=== PATIENT | female | born 1945 | race Caucasian/White ===

== ENCOUNTER 2016-10-16 08:28 | Inpatient (IN) | payer OTHER, MEDICARE ==
[2016-10-04 10:43] VITALS: BMI 39.0
--- NOTE | 2016-10-04 11:38 | PAT Medication Instructions ---
Service Date Oct 04, 2016. Current Home Medication List Acyclovir (Zovirax), 800 MG PO QAM Albuterol (Proair Hfa), 1-2 PUFFS INH Q4-6H PRN for Wheezing Albuterol Soln (Proventil 0.083% 2.5MG/3ML), 2.5 MG INH QID PRN for Wheezing Ascorbic Acid (Vitamin C), 1 TAB PO QPM Carboxymethylcellulose-Glyceri (Optive), 1 DROPS OP QID PRN for DRY EYES Cetirizine (Zyrtec), 10 MG PO QAM Cholecalciferol (Vitamin D), 2,000 INTER.UNIT PO QAM Cyanocobalamin (Vitamin B12), 5,000 MCG PO QAM Furosemide (Lasix), 20 MG PO QPM Insulin Isophane (Human) (Novolin N Relion), UNITS SC UD Insulin Regular (Human) (Novolin R Relion), UNITS SC UD Levothyroxine Sodium (Synthroid), 50 MCG PO QAM Lisinopril (Prinivil), 30 MG PO HS Meclizine (Antivert *), 25 MG PO BID Moxifloxacin Hcl 0.5% Oph (Vigamox 0.5% Oph), 1 DROPS OPR QID Multivitamin (Multivitamin), 1 TAB PO QAM Omeprazole (Prilosec), 40 MG PO QAM Prednisolone Acetate 1% Oph (Pred Forte 1% Oph), 1 DROP OPR BID Prednisone (Prednisone), 3 TAB PO QDAY Triamterene/Hctz (Dyazide 37.5MG/25MG *), 1 CAP PO QPM Medication Instructions For Your Scheduled Surgery Prednisone (Prednisone), 3 TAB PO QDAY (completed prior to surgery) - Hold the following medications the morning of surgery: Multivitamin (Multivitamin), 1 TAB PO QAM Cyanocobalamin (Vitamin B12), 5,000 MCG PO QAM Cholecalciferol (Vitamin D), 2,000 INTER.UNIT PO QAM Cetirizine (Zyrtec), 10 MG PO QAM Insulin Regular (Human) (Novolin R Relion), QAM 10 UNITS Sliding scale UD Insulin Regular (Human) (Novolin R Relion), QLUNCH 15 UNITS Sliding scale UD - Take the following medications the morning of surgery with a sip of water: Prednisolone Acetate 1% Oph (Pred Forte 1% Oph), 1 DROP OPR BID Omeprazole (Prilosec), 40 MG PO QAM Moxifloxacin Hcl 0.5% Oph (Vigamox 0.5% Oph), 1 DROPS OPR QID Meclizine (Antivert *), 25 MG PO BID Levothyroxine Sodium (Synthroid), 50 MCG PO QAM Carboxymethylcellulose-Glyceri (Optive), 1 DROPS OP QID PRN for DRY EYES Albuterol (Proair Hfa), 1-2 PUFFS INH Q4-6H PRN for Wheezing (bring with you to hospital morning of surgery) Albuterol Soln (Proventil 0.083% 2.5MG/3ML), 2.5 MG INH QID PRN for Wheezing Acyclovir (Zovirax), 800 MG PO QAM - Hold the following medications as scheduled the night before surgery: Triamterene/Hctz (Dyazide 37.5MG/25MG *), 1 CAP PO QPM Lisinopril (Prinivil), 30 MG PO HS - Take the following medications as scheduled the night before surgery: Prednisolone Acetate 1% Oph (Pred Forte 1% Oph), 1 DROP OPR BID Moxifloxacin Hcl 0.5% Oph (Vigamox 0.5% Oph), 1 DROPS OPR QID Meclizine (Antivert *), 25 MG PO BID Furosemide (Lasix), 20 MG PO QPM Carboxymethylcellulose-Glyceri (Optive), 1 DROPS OP QID PRN for DRY EYES Ascorbic Acid (Vitamin C), 1 TAB PO QPM Albuterol (Proair Hfa), 1-2 PUFFS INH Q4-6H PRN for Wheezing Albuterol Soln (Proventil 0.083% 2.5MG/3ML), 2.5 MG INH QID PRN for Wheezing Insulin Regular (Human) (Novolin R Relion), QPM 20 UNITS Sliding scale UD Insulin Isophane (Human) (Novolin N Relion), 30-45 UNITS QPM - For Insulin Dependent Diabetic patients: Test blood sugar A.M. of surgery. - If blood sugar greater than 150, take half of your regular dose of: Insulin Isophane (Human) (Novolin N Relion), TAKE 6 UNITS - If blood sugar less than 150, do not take any: Insulin Isophane (Human) (Novolin N Relion) If you have any questions please call us at [phone] (Krystal Manning PA-C) or [phone] or [phone]
[2016-10-04 12:03] LABS: BASO % 0.1 %; BASO ABS # 0.01 K/uL (0-0.2); COMPLETE YES; HEMATOCRIT 35.2 % (37-47); IG% 0.7 %; LYMPH % 8.1 %; LYMPH ABS # 1.19 K/uL (1.2-3.4); MEAN CELL VOLUME 90.7 fL (80-100); MEAN CORPUSCULAR HEMOGLOBIN 31.2 pg (25-34); MEAN CORPUSCULAR HGB CONC 34.4 g/dl (32-36); MEAN PLATELET VOLUME 9.4 fL (7.4-10.4); MONO % 1.2 %; NEUT % 89.9 %; PLATELET COUNT 334 K/uL (130-400); RED BLOOD COUNT 3.88 M/uL (4.2-5.4); WHITE BLOOD COUNT 14.74 K/uL (4.8-10.8)
[2016-10-04 12:24] LABS: URINE APPEARANCE CLEAR (CLEAR); URINE BILIRUBIN NEG (NEG); URINE COLOR YELLOW; URINE NITRITE NEG (NEG); URINE SPECIFIC GRAVITY 1.017 (1.000-1.030); UROBILINOGEN NEG (NEG)
[2016-10-04 12:33] LABS: MANUAL MICROSCOPIC REQUIRED? NO; REVIEW REQ? NO
[2016-10-04 12:45] LABS: BUN/CREATININE RATIO 36.7 (10-20); CALCIUM 9.4 mg/dl (8.5-10.1); CREATININE 1.5 mg/dl (0.60-1.20); POTASSIUM 4.7 mmol/L (3.5-5.1)
[2016-10-16] VITALS (9 sets, daily range): BP systolic 108–183; BP diastolic 63–91; PULSE 59–99; TEMP 35.7–36.8; O2SAT 93–99; Ht 147.3 cm; Wt 85.0 kg
[~2016-10-16] VITALS: Ht 147.3 cm; Wt 85.0 kg
[~2016-10-16 08:28] MED LIST: ACYC800T PO; ALBU0.08 INH; ALBU1AER9 INH; ANT25 PO; ASCA500 PO; CARB0.01 OP; CEFAZOLIN 2000 MG/60 ML D5W IV SCH; CETI10TA84 PO; CHOL100010 PO; CYAN100020 PO; CeleBREX 200 MG CAP PO SCH; DYZ PO; FURO-85 PO; INSU0.01 SC; INSU1INJ16 SC; LACTATED RINGER'S 1000ML 1,000 ML IV SCH; LEVO50TA PO; LISI-526 PO; MULT-506 PO; OMEP40CA PO; PRED10TA PO; PRED1SUS3 OPR; PREGABALIN 75 MG CAP PO SCH; VGMOPS OPR
[2016-10-16] MEDS ORDERED: FENTANYL CITRATE INJ 50 MCG/1 ML 2 ML VIAL ONE ×2 (09:27→11:30)
[2016-10-16] MEDS ORDERED: MIDAZOLAM HCL 1 MG/ML 2ML VIAL ONE (09:27)
[2016-10-16] MEDS ORDERED: SCOPOLAMINE 1.5 MG TDSY TD ONE ×2 (09:39→09:45)
--- NOTE | 2016-10-16 09:40 | Discharge Instructions ---
Discharge Instructions Admission Reason for Admission: Lumbar Spinal Stenosis Discharge Discharge Diagnosis / Problem: Lumbar Stenosis Discharge Goals Goal(s): Decrease discomfort, Improve function, Increase independence Activity Recommendations Activity Limitations: as noted below Lifting Limitations: no more than 5 pounds Exercise/Sports Limitations: none May Resume Sexual Activity: after follow-up appointment Shower/Bathe: may shower/bathe in 3 days . Instructions / Follow-Up Instructions / Follow-Up ACTIVITY RECOMMENDATIONS: SELF CARE INSTRUCTIONS AFTER THORACIC/LUMBAR FUSIONS 1. You may walk to your tolerance. It is good exercise for your legs and back. Expect some back and intermittent leg aches and pains. 2. You may perform "counter-top" level activities (make a sandwich, jennifer with a project, etc.). 3. No bending or lifting of more than 10 pounds or back twisting of any nature (roll like a log when turning in bed). 4. You may ride in a car for 20-30 minutes at a time. No driving until after your first visit with your doctor. 5. Frequent changes of position and restricting sitting to 30 minutes at a time will help limit the amount of back spasms and stiffness you may experience. 6. You may discontinue the use of ambulatory aids (cane, crutches, etc.) once your strength and confidence allow. 7. You may motion picture equipment machinist the shower and let water strike your incision when you arrive home at least once daily. Do not take a tub bath, sit in a hot tub or go into a swimming pool until after your first recheck in the office. SPECIAL CARE INSTRUCTIONS: VERY IMPORTANT TO READ AND REVIEW A. Your surgical incision has been closed with a cosmetic suture under the skin that will dissolve in about 6 weeks. In 14 days, you can use a pair of clean scissors and cut the suture that is left outside of the skin at the ends of your incision. 1. The small skin tapes can be removed 7 days after surgery if they have not fallen off by that point. 2. You may keep the wound open to air as much as possible to promote healing after post-op day number 5 unless told otherwise by your doctor. 3. If you think the wound looks like it is becoming infected (redness or worsening drainage) and/or you are experiencing fever, chill or worsening back pain and muscle spasms, contact the office so that we may evaluate you as soon as possible. B. Complications are uncommon, but please contact us if you have any signs or symptoms of: 1. wound infection (fever higher than 102.5 degrees F, redness, separation of wound, drainage, or increasing pain from the incision) 2. blood clots in legs (pain, swelling, redness and warmth in legs) 3. urinary tract infection (fever higher than 102.5 degrees F, burning upon urination or increased frequency of urination) 4. nerve problems (inability to walk on your toes or heels, numbness, loss of bowel or bladder control) 5. any other symptoms that concern you C. Please call the office at if you have any concerns or questions about your operation or recovery. D. No smoking! Smoking drastically decreases the chance of a solid fusion. E. Do not take any anti-inflammatory medications (Indocin, Advil, Motrin, Aspirin, Naprosyn, etc.) as these may inhibit the chance of a solid fusion. Tylenol is okay to take for pain. MANAGING PAIN AFTER SPINAL SURGERY 1. Narcotic medication is intended for short-term use and will be provided for surgical pain. Surgical pain usually lasts for a period of 4-6 weeks. Narcotic medication includes Percocet, Vicodin, Darvocet, Tylenol #3 or Lortab. 2. Longer-term pain is more appropriately treated with non-narcotic medication such as Tylenol ES. 3. Muscle spasm is not appropriately treated with narcotics. Muscle relaxers such as Soma, Flexeril or Skelaxin can be used along with Tylenol ES. 4. Remember that we all live with some "aches and pains". This is not unusual or uncommon after an injury or as we get older. a. Back pain is expected and may include muscle spasms for 4 to 6 weeks after surgery. The pain should gradually improve. If the pain worsens for no apparent reason, please contact the office. b. Intermittent leg pain may also be experienced and should not be concerned about unless it worsens for no apparent reason. If so, please contact the office. 5. We will provide appropriate medication within the normal guidelines of their prescribed use. We will also be very cautious and aware of potential abuse and extended duration of patients' medication needs. a. Pain medications are for your comfort and to assist with sleep and rest so that the tissue can heal. They are not provided in order to return to normal activity and should not be used through the day. To do so or worsening pain at night can result from ongoing tissue damage and development of tolerance to the prescribed medicine. 6. Please allow 2-3 days to process refills. Prescriptions will not be mailed but must be picked up at the office. FOLLOW UP VISIT: Keep your scheduled follow-up appointment. Any questions, please call the office at . Current Hospital Diet Patient's current hospital diet: Discharge Diet Recommended Diet: Diabetes Type 2 Diet Pending Studies Studies pending at discharge: no Laboratory Results Hemoglobin A1c Test 08/14/16 07:05 Range/Units Estimated Average Glucose 146 mg/dl Hemoglobin A1c 6.7 H 4.5-5.6 % Lipid Panel Test 08/14/16 07:05 Range/Units Triglycerides Level 141 0-150 mg/dl Cholesterol Level 234 H 0-200 mg/dl HDL Cholesterol 64 mg/dl Cholesterol/HDL Ratio 3.7 LDL Cholesterol, Calculated 142 mg/dl Medical Emergencies . Who to Call and When: Medical Emergencies: If at any time you feel your situation is an emergency, please call 911 immediately. . Non-Emergent Contact Non-Emergency issues call your: Surgeon Call Non-Emergent contact if: temperature is above 101, your pain is not controlled, your pain is worsening, your pain is unusual for you, your pain is concerning you, wound has increased drainage, wound has increased redness, wound has increased pain, you have any medication questions . "Provider Documentation" section prepared by Norman Campos. VTE Core Measure Inpt VTE Proph given/why not?: Robert Gatica
[2016-10-16] MEDS ORDERED: FENTANYL CITRATE INJ 50 MCG/1 ML 2 ML VIAL IV PRN (09:45)
[2016-10-16] MEDS ORDERED: ONDANSETRON INJ 2 MG/ML 2 ML VIAL IV PRN (09:45)
[2016-10-16] MEDS ORDERED: ATROPINE SULFATE 0.1 MG/ML 5ML SYR IV PRN (09:45)
[2016-10-16] MEDS ORDERED: EpHEDrine SULFATE INJ 50 MG/ML AMP IV PRN (09:45)
[2016-10-16] MEDS ORDERED: MoRPHine SULFATE 10 MG/ML CARP/VIAL IV PRN (09:45)
--- NOTE | 2016-10-16 09:57 | History and Physical ---
History & Physical Date Oct 16, 2016. Chief Complaint LBP and bilateral leg pain History of Present Illness The patient is a 71 year old female with complaints of above who had a prior L4- S1 PSF and did well for a number of years until she developed L3-4 adjacent level degen/stenosis/scoliosis. Her leg pain is greater on left. no weakness or incontinence. she failed outpatient management and desired surgery. Cleared by stress test-negative for surgery. Past Medical/Surgical History Medical Problems: (1) ASTHMA W/ACUTE EXACERBATION NOS (2) ASTHMA, UNSPECIFIED, W (ACUTE) EXACERBATION (3) CERVICAL ROOT LESION NEC (4) DIAB W PERIPH CIRC DIS, TYPE II OR UNSPEC TYPE, UNCONTROLLED (5) DUODENAL ULCER NOS (6) Heart disease (7) HYPOTHYROIDISM NOS (8) MENIERE'S DISEASE, UNSPECIFIED (9) TOBACCO USE DISORDER barretts fatty liver peripheral neuropathy cervical fusion lumbar fusion bladder surgery ear surgery Additional History Hepatic Disease: Yes Endocrine Disorder: Yes Kidney Disease: No Hypertension: Yes Heart Disease: No Bleeding Tendencies: No Infectious Diseases: No Allergies Coded Allergies: Latex1 -Allergic Contact Dermititis (Verified Allergy, Unknown, RASH, ) Acetaminophen (Verified Adverse Reaction, Unknown, have an enlarged liver , 10/16/16) Ibuprofen (Verified Adverse Reaction, Unknown, gave me a duodenal ulcer, ) Tramadol (Verified Adverse Reaction, Unknown, vomit, 10/16/16) Uncoded Allergies: NARCOTICS (Adverse Reaction, Intermediate, GI UPSET AND HALLUCINATIONS, 06/14) Home Medications Scheduled Acyclovir (Zovirax), 800 MG PO QAM Ascorbic Acid (Vitamin C), 1 TAB PO QPM Cetirizine (Zyrtec), 10 MG PO QAM Cholecalciferol (Vitamin D), 2,000 INTER.UNIT PO QAM Cyanocobalamin (Vitamin B12), 5,000 MCG PO QAM Furosemide (Lasix), 20 MG PO QPM Insulin Isophane (Human) (Novolin N Relion), UNITS SC UD Insulin Regular (Human) (Novolin R Relion), UNITS SC UD Levothyroxine Sodium (Synthroid), 50 MCG PO QAM Lisinopril (Prinivil), 30 MG PO HS Meclizine (Antivert *), 25 MG PO BID Moxifloxacin Hcl 0.5% Oph (Vigamox 0.5% Oph), 1 DROPS OPR QID Multivitamin (Multivitamin), 1 TAB PO QAM Omeprazole (Prilosec), 40 MG PO QAM Prednisolone Acetate 1% Oph (Pred Forte 1% Oph), 1 DROP OPR BID Triamterene/Hctz (Dyazide 37.5MG/25MG *), 1 CAP PO QPM Scheduled PRN Albuterol (Proair Hfa), 1-2 PUFFS INH Q4-6H PRN for Wheezing Albuterol Soln (Proventil 0.083% 2.5MG/3ML), 2.5 MG INH QID PRN for Wheezing Carboxymethylcellulose-Glyceri (Optive), 1 DROPS OP QID PRN for DRY EYES Physical Examination Skin: warm/dry Eyes: normal inspection ENT: normal ENT inspection Head: normocephalic, atraumatic Neck: supple Respiratory/Chest: lungs clear, no respiratory distress Cardiovascular: regular rate, rhythm Back: normal inspection (midline scar) Extremities: normal inspection Neurologic/Psych: no motor/sensory deficits, normal reflexes, oriented x 3 Diagnosis L3-4 stenosis above prior fusion Plan of Treatment L3-4 decompression/PSF and HWR L4-S1
[2016-10-16] MEDS ORDERED: BACITRACIN 50000 UNIT VIAL IR ONE ×2 (10:50→11:22)
[2016-10-16] MEDS ORDERED: THROMBIN FOR SOLN 20000 UNIT KIT TOP ONE (10:50)
[2016-10-16] MEDS ORDERED: THROMBIN 5000 UNITS KIT TOP ONE (10:50)
[2016-10-16] MEDS ORDERED: BUPIVACAINE/EPINEPHRINE 0.5% MPF 1:200,000 30 ML VIAL INJ ONE (10:50)
[2016-10-16] MEDS ORDERED: LIDOCAINE HCL 2% 2 ML VIAL (20MG/ML) ONE (11:19)
[2016-10-16] MEDS ORDERED: HYDROmorphone INJ 2 MG/ML SYR/VIAL ONE (11:19)
[2016-10-16] MEDS ORDERED: EpHEDrine SULFATE 50MG/5ML SYR ONE (11:19)
[2016-10-16] MEDS ORDERED: DEXAMETHASONE SOD INJ 4 MG/ML VIAL ONE (11:19)
[2016-10-16] MEDS ORDERED: NEOSTIGMINE METHYLSULFATE 1 MG/ML 10ML VIAL ONE (11:20)
[2016-10-16] MEDS ORDERED: GLYCOPYRROLATE INJ 0.2 MG/ML VIAL ONE (11:20)
[2016-10-16] MEDS ORDERED: ONDANSETRON INJ 2 MG/ML 2 ML VIAL ONE (11:20)
[2016-10-16] MEDS ORDERED: ROCURONIUM BROMIDE 10 MG/ML 5 ML VIAL ONE (11:20)
[2016-10-16] MEDS ORDERED: PROPOFOL IV EMULSION 10 MG/ML 20 ML VIAL IV ONE (11:20)
[2016-10-16] MEDS ORDERED: RANITIDINE HCL 25 MG/ML INJ ONE (11:20)
--- NOTE | 2016-10-16 11:25 | [facility] Post Operative Brief Note ---
Immediate Operative Summary Operative Date Oct 16, 2016. Pre-Operative Diagnosis L3-4 stenosis above prior fusion Post-Operative Diagnosis Same as pre-operative diagnosis Procedure(s) Performed L4-S1 Hardware Removal, L3-L4 Decompression, Posterior Spinal Fusion, Instrumentation, Interbody Fusion With Application of Interbody Cage at L3-L4; Infuse; Arteriocyte Surgeon Dr. Costa Gamez Housekeeping Laundry Worker Surgeon(s) Norman Campos PA-C Estimated Blood Loss 200 Findings dict Specimens A: Explanted hardware spine L4-S1
[2016-10-16] MEDS ORDERED: SODIUM CHLORIDE 0.9% 1000ML 1,000 ML IV SCH (11:26)
[2016-10-16] MEDS ORDERED: ALBUTEROL HFA 8 GM INHALER INH PRN (11:30)
[2016-10-16] MEDS ORDERED: BISACODYL 10 MG SUPP PR PRN (11:30)
[2016-10-16] MEDS ORDERED: ALBUTEROL 0.083% NEBU SOLN 3 ML VIAL INH PRN (11:30)
[2016-10-16] MEDS ORDERED: ALUMINUM/MAGNESIUM SUSP 30 ML UDC PO PRN (11:30)
[2016-10-16] MEDS ORDERED: NALOXONE HCL 0.4 MG/1 ML VIAL/CARP IV PRN ×2 (11:30)
[2016-10-16] MEDS ORDERED: MAGNESIUM HYDROXIDE SUSP 30 ML UDC PO PRN (11:30)
[2016-10-16] MEDS ORDERED: PROMETHAZINE HCL INJ 12.5 MG in SODIUM CHLORIDE 0.9% 50ML 50 ML IV PRN (11:30)
[2016-10-16] MEDS ORDERED: LORAZEPAM INJ 0.5 MG in SYRINGE 0 ML IV PRN (11:30)
[2016-10-16] MEDS ORDERED: FAMOTIDINE 20 MG TAB PO PRN (11:30)
[2016-10-16] MEDS ORDERED: SOD PHOSPHATE/SOD BIPHOSPHATE ENEMA 132 ML BTL PR PRN (11:30)
[2016-10-16] MEDS ORDERED: LORAZEPAM 0.5 MG TAB PO PRN (11:30)
[2016-10-16] MEDS ORDERED: hydrOXYzine HCL 25 MG TAB PO PRN (11:30)
[2016-10-16] MEDS ORDERED: LABETALOL HCL IV 5 MG/ML 20ML ONE (11:50)
[2016-10-16] MEDS ORDERED: HYDROmorphone HCL 0.5MG/ML 50 ML CASSETTE ONE (11:53)
[2016-10-16] MEDS ORDERED: ESMOLOL HCL 10 MG/ML 10 ML VIAL ONE (11:55)
--- NOTE | 2016-10-16 12:21 | OPERATIVE REPORT ---
DATE OF OPERATION: 10/16/2016 PREOPERATIVE DIAGNOSES: 1. Previous L4-S1 instrumented fusion. 2. L3-L4 spinal stenosis and disc degeneration. POSTOPERATIVE DIAGNOSIS: Same. PROCEDURES: 1. L3 laminectomy with bilateral L3-L4 medial facetectomies. 2. Nonsegmental pedicle screw instrumentation -- bilateral L3 with Globus Nixa pedicle screws. 3. Posterolateral fusion L3-L4 -- bilateral with Infuse BMP on a collagen sponge, tricalcium phosphate, local bone and bone marrow aspirate and bone graft pressure controller. 4. Right iliac crest bone marrow aspiration and stem cell concentration with Arteriocyte system. SURGEON: Dr. Gamez. ACCOUNTS RECEIVABLE CLERK: Norman Campos PA-C. Please note he participated in all portions of the procedure and was critical for performance of the procedure, participated in positioning, prepping, draping, retraction and wound closure. ANESTHESIA: General endotracheal anesthesia. COMPLICATIONS: None. ESTIMATED BLOOD LOSS: Per anesthesia record. OPERATION AND FINDINGS: PROCEDURE: After identification of patient and operative level, she was brought to the OR where she underwent induction of general anesthesia. She was then positioned prone on Mark OR table with all bony prominences well padded. Care was taken to avoid pressure on the periorbital area. Lumbosacral area was sterilely prepped and draped in usual fashion. Antibiotics were administered. Time-out was performed. Level was confirmed and skin incision was infiltrated with 0.5% Marcaine with epinephrine. I made skin incision from spinous process of L2 to the sacrum and exposed the previous hardware and identified the fusion mass was solid, removed the rods and endcaps from L4-S1 bilaterally. There was no motion through these segments. I then did an L3 laminectomy in the midline, took down ligament flavum and removed the medial facets with an osteotome and completed decompression with Kerrisons. I palpated the nerve roots were decompressed bilaterally at L3 and L4, and then applied FloSeal for hemostasis. I then placed pedicle screws bilaterally into L3 with Globus Nixa pedicle screws. I checked position with fluoroscopy. I then lowered the Av frame to restore lordosis, applied rods and end caps, final tightening from L3 to the sacrum. I irrigated with bacitracin solution and then aspirated bone marrow from the right iliac crest with a Jamshidi needle via a separate stab incision. This was concentrated with Arteriocyte and added to the bone graft pressure controller. I then packed the lateral gutters over the decorticated transverse process and fusion mass L3 and L4. I then prepared with a high speed zeus. I also decorticated the facets that were remaining. I packed the lateral gutters with bone graft mixture and then confirmed hemostasis and closed in layered fashion over KRYSTA drain. All sponge and needle counts were correct at the end of the case. I attest to the content of the Intraoperative Record and any orders documented therein. Any exceptio ns are noted below.
--- NOTE | 2016-10-16 12:35 | Anesthesiology Progress Note ---
Anesthesia Post Op Note Date & Time Oct 16, 2016 at 12:34 Vital Signs Pain Intensity: 3 Vital Signs Past 12 Hours Date Time Temp Pulse Resp B/P Pulse Ox O2 Delivery O2 Flow Rate FiO2 10/16/16 12:30 36.4 70 16 132/61 98 Nasal Cannula 4 10/16/16 12:20 72 16 128/58 97 Nasal Cannula 4 10/16/16 12:10 75 16 130/63 96 Mask 10 10/16/16 12:00 73 16 142/64 97 Mask 10 10/16/16 11:50 37.6 99 14 204/94 93 Mask 10 10/16/16 08:48 36.8 99 20 183/91 95 Room Air Notes Mental Status: alert / awake / arousable, participated in evaluation Pt Amnestic to Procedure: Yes Nausea / Vomiting: adequately controlled Pain: adequately controlled Airway Patency, RR, SpO2: stable & adequate BP & HR: stable & adequate Hydration State: stable & adequate Anesthetic Complications: no major complications apparent
[2016-10-16] MEDS: HYDROmorphone HCL 0.5MG/ML 50 ML CASSETTE IV PRN ×2 (12:57→19:07)
--- NOTE | 2016-10-16 13:08 | DIAGNOSTIC IMAGING REPORT ---
INTRAOPERATIVE LUMBAR SPINE 2 VIEWS CLINICAL HISTORY: L4-S1 HARDWARE REMOVAL/L3-L4 DECOMPRESSION/L3-S1 FUSION COMPARISON STUDY: No previous studies for comparison. FINDINGS: 4 seconds of fluoroscopic time was utilized. 2 intraoperative fluoroscopic spot images were obtained. There are postsurgical changes of an L5-S1 discectomy and interbody fusion. There are pedicle screws present at the L3-S1 levels with adjoining spinal rods. IMPRESSION: Intraoperative radiographs as described above. Electronically signed by: Sohan Carroll M.D. 10/16/2016 1:06 PM
[2016-10-16] MEDS: LACTATED RINGER'S 1000ML 1,000 ML IV SCH (15:20)
[2016-10-16] MEDS: METOCLOPRAMIDE HCL INJ 5 MG/ML 2 ML VIAL IV PRN (15:34)
[2016-10-16] MEDS ORDERED: PHARMACY GLYCEMIC MGMT CONSULT PRN (15:45)
--- NOTE | 2016-10-16 16:01 | Medical Student: [facility] ---
Consultation Date of Consultation: Oct 16, 2016. Requesting Physician: Dr. eHrron Attending Physician: Dr. Valles Reason for Consultation: Med Management History of Present Illness Pt is day 0 s/p L3-L4 Lumbar hardware removal and decompression surgery for spinal stenosis. Pt has not complaints at this time, noting no other pain or discomfort other than the surgical site. Past Medical/Surgical History Medical History: Asthma T2DM HTN Hypothyroidism Menieres Disease Bojorquez's Esophagus/GERD Neuropathy Fatty Liver disease Shingles of the Cornea Surgical History: Cervical and Lumbar Fusions Bladder Surgery Ear Surgery Social History Smoking Status: Former Smoker History of Alcohol Use: No Drug Use: none Marital Status: Housing Status: lives with family Occupation Status: retired Review of Systems Constitutional: No chills, No fever, No sweats Respiratory: No cough, No shortness of breath, No wheezing Cardiac: No chest pain, No orthopnea, No palpitations Abdomen: No constipation, No diarrhea, No nausea, No pain, No vomiting Musculoskeletal: + problem reported (Back pain s/p back surgery) Allergies Coded Allergies: Latex1 -Allergic Contact Dermititis (Verified Allergy, Unknown, RASH, ) Acetaminophen (Verified Adverse Reaction, Unknown, have an enlarged liver , 10/16/16) Ibuprofen (Verified Adverse Reaction, Unknown, gave me a duodenal ulcer, ) Morphine and Related (Verified Adverse Reaction, Unknown, NARCOTICS-GI UPSET AND HALLUCINATIONS, 10/16/16) Tramadol (Verified Adverse Reaction, Unknown, vomit, 10/16/16) Medications Current Inpatient Medications Medications (Trade) Dose Ordered Sig/Harsh Route Start Time Stop Time Status Last Admin Dose Admin Cefazolin Sodium (Ancef 2000mg/60 ml D5W) 60 ml @ 100 mls/hr PREOP IV 10/16/16 06:00 10/16/16 18:00 10/16/16 10:06 100 MLS/HR Celecoxib (CeleBREX CAP) 200 mg PREOP PO 10/16/16 06:00 10/16/16 18:00 Pregabalin 75 mg 75 mg PREOP PO 10/16/16 06:00 10/16/16 15:59 Lactated Ringer's (Lr 1000ml) 1,000 ml @ 15 mls/hr Q24H IV 10/16/16 06:00 10/17/16 05:59 10/16/16 09:20 15 MLS/HR Acyclovir (Zovirax Tab) 800 mg QAM PO 10/17/16 09:00 10/27/16 08:59 Albuterol (Ventolin Hfa Inhaler) 1 Q2H PRN INH 10/16/16 11:30 11/15/16 11:29 Albuterol Sulfate (Ventolin 0.083% 2.5MG/3ML Neb) 2.5 mg QID PRN INH 10/16/16 11:30 11/15/16 11:29 Ascorbic Acid (Vitamin C Tab) 500 mg QPM PO 10/16/16 21:00 11/15/16 20:59 Cetirizine HCl (zyrTEC TAB) 10 mg QAM PO 10/17/16 09:00 11/16/16 08:59 Cholecalciferol (Vitamin D Tab) 2,000 inter.unit QAM PO 10/17/16 09:00 11/16/16 08:59 Furosemide (Lasix tab) 20 mg QPM PO 10/16/16 21:00 11/15/16 20:59 Levothyroxine Sodium (Synthroid Tab) 50 mcg DAILYBB PO 10/17/16 06:00 11/16/16 05:59 Meclizine HCl (Antivert Tab) 25 mg BID PO 10/16/16 21:00 11/15/16 20:59 Moxifloxacin HCl (Vigamox Oph Soln) 1 drops QID OPR 10/16/16 17:00 11/15/16 16:59 Prednisolone Acetate (Pred Forte 1% Oph Susp) 2 drops BID OPR 10/16/16 21:00 11/15/16 20:59 Triamterene/HCTZ (Dyazide 37.5/25 Mg Cap) 1 cap QPM PO 10/16/16 21:00 11/15/16 20:59 Lisinopril (Zestril Tab) 30 mg HS PO 10/16/16 21:00 11/15/16 20:59 Pantoprazole Sodium 40 mg 40 mg QAM PO 10/17/16 09:00 11/16/16 08:59 Promethazine HCl/ Sodium Chloride (Phenergan Inj/ Nss 50ml) 50.5 ml @ 202 mls/hr Q6H PRN IV 10/16/16 11:30 11/15/16 11:29 Ondansetron HCl (Zofran Inj) 4 mg Q6H PRN IV 10/16/16 11:30 11/15/16 11:29 Metoclopramide HCl (Reglan Inj) 10 mg Q6H PRN IV 10/16/16 11:30 11/15/16 11:29 10/16/16 15:34 10 MG Lorazepam 0.5 mg 0.5 mg Q8H PRN PO 10/16/16 11:30 11/15/16 11:29 Lorazepam 0.5 mg/ Syringe 0.25 ml @ 1 mls/min Q8H PRN IV 10/16/16 11:30 11/15/16 11:29 Lactated Ringer's (Lr 1000ml) 1,000 ml @ 75 mls/hr [id number] IV 10/16/16 13:30 11/15/16 13:29 10/16/16 15:20 75 MLS/HR Polyethylene (Miralax Powder Packet) 17 gm Q6 PO 10/18/16 06:00 11/17/16 05:59 Bisacodyl (Dulcolax Supp) 10 mg DAILY PRN [place] 10/16/16 11:30 11/15/16 11:29 Magnesium Hydroxide (Milk Of Magnesia Susp) 30 ml DAILY PRN PO 10/16/16 11:30 11/15/16 11:29 Hydromorphone HCl 0.5-1mg prn moder... Q3H PRN IV 10/17/16 06:00 10/31/16 05:59 Cefazolin Sodium/ Dextrose (Ancef Iv/D5 50ml) 60 ml @ 100 mls/hr Q8H IV 10/16/16 18:00 10/17/16 02:35 Naloxone HCl (Narcan Inj) 0.1 mg Q5M PRN IV 10/16/16 11:30 11/15/16 11:29 Senna/Docusate Sodium (Senokot S Tab) 2 tab HS PO 10/16/16 21:00 11/15/16 20:59 Sodium Biphosphate/ Sodium Phosphate (Fleet Enema) 132 ml ONE PRN [place] 10/16/16 11:30 11/15/16 11:29 Hydroxyzine HCl (Vistaril Tab) 25 mg Q8H PRN PO 10/16/16 11:30 11/15/16 11:29 Al Hydroxide/Mg Hydroxide (Maalox Susp) 30 ml Q6H PRN PO 10/16/16 11:30 11/15/16 11:29 Famotidine (Pepcid Tab) 20 mg Q12 PRN PO 10/16/16 11:30 11/15/16 11:29 Diphenhydramine HCl (Benadryl Cap) 25 mg Q6H PRN PO 10/16/16 11:30 11/15/16 11:29 Miscellaneous Information (Discontinue MANAGER ASSET MANAGEMENT) 1 ea TODAY@0600 N/A 10/17/16 06:00 10/17/16 06:01 Naloxone HCl (Narcan Inj) 0.1 mg Q5M PRN IV 10/16/16 11:30 10/17/16 06:00 Hydromorphone HCl 25 mg 25 mg PRN PRN IV 10/16/16 11:30 10/17/16 06:00 10/16/16 12:57 25 MG Sodium Chloride (Nss 1000ml) 1,000 ml @ 15 mls/hr Q24H IV 10/16/16 11:26 10/17/16 06:00 Miscellaneous Information (Consult Glycemic Management Pharmacy) 1 ea UD PRN N/A 10/16/16 15:45 11/15/16 15:44 Physical Exam Date Time Temp Pulse Resp B/P Pulse Ox O2 Delivery O2 Flow Rate FiO2 10/16/16 15:10 35.7 71 16 124/70 98 Nasal Cannula 4.0 10/16/16 13:46 59 16 112/63 97 4.0 10/16/16 13:12 68 16 112/67 93 4.0 10/16/16 12:45 36.4 70 18 113/65 97 Nasal Cannula 4.0 10/16/16 12:45 Nasal Cannula 4.0 10/16/16 12:45 Nasal Cannula 10/16/16 12:30 36.4 70 16 132/61 98 Nasal Cannula 4 10/16/16 12:20 72 16 128/58 97 Nasal Cannula 4 10/16/16 12:10 75 16 130/63 96 Mask 10 10/16/16 12:00 73 16 142/64 97 Mask 10 10/16/16 11:50 37.6 99 14 204/94 93 Mask 10 10/16/16 08:48 36.8 99 20 183/91 95 Room Air General Appearance: WD/WN, no apparent distress Neck: supple, no JVD Respiratory: lungs clear, normal breath sounds, no respiratory distress Cardiovascular: regular rate, rhythm, no edema, no murmur Neurologic/Psychiatric: normal mood/affect, oriented x 3 Laboratory Results Last 24 Hours Test 10/16/16 08:54 10/16/16 12:03 Bedside Glucose 200 mg/dl 197 mg/dl Assessment & Plan Pt is 71 yo female sp lumbar hardware removal and decompression. Consult requested for chronic medication management. Currently vitals are stable T 36.4, HR 70, RR 16, BP 132/61 SpO2 98 on 4L NC. - - will continue to monitor. Blood sugars today ~ 200. Last A1c per pt report ~6 on Novolin insulin. IM service to manage medications for chronic conditions. Consult Pharmacy for T2DM management. Continue to monitor Vitals. Consider DVT prophylaxis 1 day post op. MEDICAL STUDENT SUPERVISION I saw and examined the patient alongside the medical student. Please see the separate and complete resident documentation along with my attestation of the same date.
--- NOTE | 2016-10-16 16:10 | Pharmacy Progress Note ---
Glycemic Control Intl Consult Date of Service Oct 16, 2016. Scope Glycemic Pharmacist consulted by Dr Gamez on 10/16/16 for glycemic control and to write orders per [facility] inpatient glycemic control protocol Objective Weight (Kilograms): 85.000 Accuchecks BSG (last 24hrs): Test 10/16/16 08:54 10/16/16 12:03 Bedside Glucose 200 mg/dl (70-90) 197 mg/dl (70-90) Recent Pertinent Medications Outpatient Anti-diabetic Regimen: * Novolin N 12 u QAM + 30 u HS * Regular 10 u w/ B + 15 u w/ L + 20 u w/ D * A1c 6.7% 08/14/16 Risk Factors for Insulin Resistance: * Steroids: Dexamethasone 12 mg IV X 1 (intraop) * Infection: Pre/Post-op Ancef IV * Recent Surgery: POD #0 * Diet: T2DM Assessment & Plan ASSESSMENT: * 71 yo F admitted for lumbar stenosis surgery, POD #0 * Most recent A1c 6.7% from August 2016 indicative of well-controlled outpatient glycemic control * Patient received 12 mg IV Dexamethasone in OR ~1200 * BSG 275 mg/dL this AM prior to surgery and further point of cares reveal sustained hyperglycemia through the morning * Most crucial period for glycemic control is immediately pre and post-op * Plan to initiate aggressive basal/bolus regimen due to steroids (Lantus/ Novolog to be based on outpatient dose and weight-based stress of 3) * Add additional checks overnight due to steroid-induced hyperglycemia * ADA & AACE recommend a goal blood sugar range 140-180 mg/dl for the majority of critically ill & non-critically ill patients. However, more stringent targets may be selected in individual cases. To facilitate better wound healing , decrease goal range to 120-160 mg/dL. PLAN FOR INPATIENT GLYCEMIC CONTROL: * Basal insulin with LANTUS 25 units SQ X 1 at dinner this evening * Further dosing per pharmacist in the AM * Correctional Insulin with NOVOLOG per scale ACHS + 00,04 checks * Goal Range: Low 120 mg/dL - High 160 mg/dL * Correction Factor: 20 mg/dL/unit * Nutritional / Prandial insulin per carb ratio of 1 unit per 5 grams CHO consumed * Please note that the plan above was derived based on current level of insulin resistance and hospital stress. These recommendations are appropriate for inpatient admission only. Plan of care upon discharge will need to be reassessed to avoid potential outpatient hypo/hyperglycemia. Thank you.
--- NOTE | 2016-10-16 17:10 | Medical Consult ---
Consultation Date of Consultation: Oct 16, 2016. Attending Physician: Costa Gamez M.D. Reason for Consultation: Medical Management History of Present Illness Whit Louie is a 71 yo F day 0 s/p lumbar hardware removal and decompression for L3-4 lumbar stenosis above prior fusion. On review of operative notes, there were no medical complications intra-operatively and minimal blood loss. Her other medical problems include asthma (with recent bronchitis in the last month), type 2 DM (A1c around 6%), hypertension, hypothyroidism, Meneiere's disease, Bojorquez's esophagus, GERD, fatty liver, neuropathy, and ocular shingles. Currently, she feels nauseated, and when she attempted to eat her dinner she threw up. She denies any shortness of breath or chest pain. She denies any choking sensation or previous aspiration. She reports she always feels unwell when is on narcotic medications. Past Medical/Surgical History PMHx: Asthma T2DM Hypertension Shingles of the cornea Meniere's disease Bojorquez's Esophagus Fatty liver Neuropathy PSHx: Previous cervical and lumbar fusion Bladder surgery Ear surgery Family History Cancer Heart disease Hypertension Kidney disease Kidney stones Lung disease Social History Smoking Status: Former Smoker Drug Use: none Marital Status: Housing Status: lives with significant other Occupation Status: retired Allergies Coded Allergies: Latex1 -Allergic Contact Dermititis (Verified Allergy, Unknown, RASH, ) Acetaminophen (Verified Adverse Reaction, Unknown, have an enlarged liver , 10/16/16) Ibuprofen (Verified Adverse Reaction, Unknown, gave me a duodenal ulcer, ) Morphine and Related (Verified Adverse Reaction, Unknown, NARCOTICS-GI UPSET AND HALLUCINATIONS, 10/16/16) Tramadol (Verified Adverse Reaction, Unknown, vomit, 10/16/16) Home Medications Reported Home Medications Medications Dose Route/Sig Max Daily Dose Days Date Category Dose Instructions Vitamin B12 (Cyanocobalamin) 1,000 Mcg Tab 5,000 Mcg PO QAM 10/04/16 Reported Vitamin C (Ascorbic Acid) 500 Mg Tab 1 Tab PO QPM 10/04/16 Reported Novolin N Relion (Insulin Isophane (Human)) 100 Unit/Ml Inj Units SC UD 07/31/16 Reported 12 UNITS AM 30 UNITS HS CURRENTLY PATIENT HAS INCREASED DUE TO BEING ON STEROID Novolin R Relion (Insulin Regular (Human)) 100 Unit/Ml Inj Units SC UD 07/31/16 Reported 10 UNITS +SS QAM 15 UNITS +SS LUNCH 20 UNITS +SS DINNER Multivitamin (Multivitamins) Tab 1 Tab PO QAM 07/31/16 Reported Zovirax (Acyclovir) 800 Mg Tab 800 Mg PO QAM 05/29/16 Reported Lasix (Furosemide) 20 Mg Tab 20 Mg PO QPM 05/29/16 Reported Vitamin D (Cholecalciferol) 1,000 Inter.unit Tab 2,000 Inter.unit PO QAM 12/29/15 Reported Proair Hfa (Albuterol) Aers 1-2 Puffs INH Q4-6H PRN 12/29/15 Reported Vigamox 0.5% Oph (Moxifloxacin HCl) Soln 1 Drops OPR QID 12/29/15 Reported Pred Forte 1% Oph (Prednisolone Acetate) Susp 1 Drop OPR BID 12/29/15 Reported Optive (Carboxymethylcellulose-Glyceri) 1 David David 1 Drops OP QID PRN 12/29/15 Reported PRESERVATIVE FREE Proventil 0.083% 2.5MG/3ML (Albuterol Sulfate) Nebu 2.5 Mg INH QID PRN 12/29/15 Reported Synthroid (Levothyroxine Sodium) 50 Mcg Tab 50 Mcg PO QAM 12/22/14 Reported Prilosec (Omeprazole) 40 Mg Capcr 40 Mg PO QAM 02/13/13 Reported Prinivil (Lisinopril) 30 Mg Tab 30 Mg PO HS 02/13/13 Reported Antivert * (Meclizine HCl) 25 Mg Tab 25 Mg PO BID 03/06/09 Reported Dyazide 37.5MG/25MG * (Triamterene/HCTZ) Cap 1 Cap PO QPM 03/06/09 Reported Zyrtec (Cetirizine HCl) 10 Mg Tab 10 Mg PO QAM 03/06/09 Reported Current Inpatient Medications Current Inpatient Medications Medications (Trade) Dose Ordered Sig/Harsh Route Start Time Stop Time Status Last Admin Dose Admin Cefazolin Sodium (Ancef 2000mg/60 ml D5W) 60 ml @ 100 mls/hr PREOP IV 10/16/16 06:00 10/16/16 18:00 10/16/16 10:06 100 MLS/HR Celecoxib 200 mg 200 mg PREOP PO 1/3/17 06:00 10/16/16 18:00 Lactated Ringer's (Lr 1000ml) 1,000 ml @ 15 mls/hr Q24H IV 10/16/16 06:00 10/17/16 05:59 10/16/16 09:20 15 MLS/HR Acyclovir (Zovirax Tab) 800 mg QAM PO 10/17/16 09:00 10/27/16 08:59 Albuterol (Ventolin Hfa Inhaler) 1 Q2H PRN INH 10/16/16 11:30 11/15/16 11:29 Albuterol Sulfate (Ventolin 0.083% 2.5MG/3ML Neb) 2.5 mg QID PRN INH 10/16/16 11:30 11/15/16 11:29 Ascorbic Acid (Vitamin C Tab) 500 mg QPM PO 10/16/16 21:00 11/15/16 20:59 Cetirizine HCl (zyrTEC TAB) 10 mg QAM PO 10/17/16 09:00 11/16/16 08:59 Cholecalciferol (Vitamin D Tab) 2,000 inter.unit QAM PO 10/17/16 09:00 11/16/16 08:59 Furosemide (Lasix tab) 20 mg QPM PO 10/16/16 21:00 11/15/16 20:59 Levothyroxine Sodium (Synthroid Tab) 50 mcg DAILYBB PO 10/17/16 06:00 11/16/16 05:59 Meclizine HCl (Antivert Tab) 25 mg BID PO 10/16/16 21:00 11/15/16 20:59 Moxifloxacin HCl (Vigamox Oph Soln) 1 drops QID OPR 10/16/16 17:00 11/15/16 16:59 Prednisolone Acetate (Pred Forte 1% Oph Susp) 2 drops BID OPR 10/16/16 21:00 11/15/16 20:59 Triamterene/HCTZ (Dyazide 37.5/25 Mg Cap) 1 cap QPM PO 10/16/16 21:00 11/15/16 20:59 Lisinopril (Zestril Tab) 30 mg HS PO 10/16/16 21:00 11/15/16 20:59 Pantoprazole Sodium 40 mg 40 mg QAM PO 10/17/16 09:00 11/16/16 08:59 Promethazine HCl/ Sodium Chloride (Phenergan Inj/ Nss 50ml) 50.5 ml @ 202 mls/hr Q6H PRN IV 10/16/16 11:30 11/15/16 11:29 Ondansetron HCl (Zofran Inj) 4 mg Q6H PRN IV 10/16/16 11:30 11/15/16 11:29 Metoclopramide HCl (Reglan Inj) 10 mg Q6H PRN IV 10/16/16 11:30 11/15/16 11:29 10/16/16 15:34 10 MG Lorazepam 0.5 mg 0.5 mg Q8H PRN PO 10/16/16 11:30 11/15/16 11:29 Lorazepam 0.5 mg/ Syringe 0.25 ml @ 1 mls/min Q8H PRN IV 10/16/16 11:30 11/15/16 11:29 Lactated Ringer's (Lr 1000ml) 1,000 ml @ 75 mls/hr [id number] IV 10/16/16 13:30 11/15/16 13:29 10/16/16 15:20 75 MLS/HR Polyethylene (Miralax Powder Packet) 17 gm Q6 PO 10/18/16 06:00 11/17/16 05:59 Bisacodyl (Dulcolax Supp) 10 mg DAILY PRN [place] 10/16/16 11:30 11/15/16 11:29 Magnesium Hydroxide (Milk Of Magnesia Susp) 30 ml DAILY PRN PO 10/16/16 11:30 11/15/16 11:29 Hydromorphone HCl 0.5-1mg prn moder... Q3H PRN IV 10/17/16 06:00 10/31/16 05:59 Cefazolin Sodium/ Dextrose (Ancef Iv/D5 50ml) 60 ml @ 100 mls/hr Q8H IV 10/16/16 18:00 10/17/16 02:35 Naloxone HCl (Narcan Inj) 0.1 mg Q5M PRN IV 10/16/16 11:30 11/15/16 11:29 Senna/Docusate Sodium (Senokot S Tab) 2 tab HS PO 10/16/16 21:00 11/15/16 20:59 Sodium Biphosphate/ Sodium Phosphate (Fleet Enema) 132 ml ONE PRN [place] 10/16/16 11:30 11/15/16 11:29 Hydroxyzine HCl (Vistaril Tab) 25 mg Q8H PRN PO 10/16/16 11:30 11/15/16 11:29 Al Hydroxide/Mg Hydroxide (Maalox Susp) 30 ml Q6H PRN PO 10/16/16 11:30 11/15/16 11:29 Famotidine (Pepcid Tab) 20 mg Q12 PRN PO 10/16/16 11:30 11/15/16 11:29 Diphenhydramine HCl (Benadryl Cap) 25 mg Q6H PRN PO 10/16/16 11:30 11/15/16 11:29 Miscellaneous Information (Discontinue 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) 1 ea TODAY@0600 N/A 10/17/16 06:00 10/17/16 06:01 Naloxone HCl (Narcan Inj) 0.1 mg Q5M PRN IV 10/16/16 11:30 10/17/16 06:00 Hydromorphone HCl 25 mg 25 mg PRN PRN IV 10/16/16 11:30 10/17/16 06:00 10/16/16 12:57 25 MG Sodium Chloride (Nss 1000ml) 1,000 ml @ 15 mls/hr Q24H IV 10/16/16 11:26 10/17/16 06:00 Miscellaneous Information (Consult Glycemic Management Pharmacy) 1 ea UD PRN N/A 10/16/16 15:45 11/15/16 15:44 Insulin Glargine (Lantus Solostar Pen) 25 unit QDD ONCE SC 10/16/16 17:45 10/16/16 17:46 Insulin Aspart (novoLOG ASPART) SLIDING SCALE ACHS SC 10/16/16 17:15 11/15/16 17:14 Insulin Aspart (novoLOG ASPART) SLIDING SCALE 0000,0400 SC 10/17/16 00:00 11/16/16 00:00 Review of Systems See HPI for pertinent positives & negatives. A total of 10 systems reviewed and were otherwise negative. Physical Exam Date Time Temp Pulse Resp B/P Pulse Ox O2 Delivery O2 Flow Rate FiO2 10/16/16 16:44 35.7 82 18 128/70 98 Nasal Cannula 4.0 10/16/16 16:00 35.9 75 18 119/69 97 Nasal Cannula 4.0 10/16/16 15:10 35.7 71 16 124/70 98 Nasal Cannula 4.0 10/16/16 13:46 59 16 112/63 97 4.0 10/16/16 13:12 68 16 112/67 93 4.0 10/16/16 12:45 36.4 70 18 113/65 97 Nasal Cannula 4.0 10/16/16 12:45 Nasal Cannula 4.0 10/16/16 12:45 Nasal Cannula 10/16/16 12:30 36.4 70 16 132/61 98 Nasal Cannula 4 10/16/16 12:20 72 16 128/58 97 Nasal Cannula 4 10/16/16 12:10 75 16 130/63 96 Mask 10 10/16/16 12:00 73 16 142/64 97 Mask 10 10/16/16 11:50 37.6 99 14 204/94 93 Mask 10 10/16/16 08:48 36.8 99 20 183/91 95 Room Air General Appearance: WD/WN, + mild distress (nauseated) Head: normocephalic, atraumatic Eyes: normal inspection ENT: hearing grossly normal Neck: supple, no JVD Respiratory/Chest: lungs clear, normal breath sounds, no respiratory distress Cardiovascular: no murmur, normal peripheral pulses Abdomen/GI: non tender, soft Back: no CVA tenderness, no muscle spasm, normal range of motion Extremities/Musculoskelatal: no calf tenderness, no pedal edema Neurologic/Psych: alert, normal mood/affect, normal reflexes Skin: no rash Lymphatic: no adenopathy Laboratory Results Last 24 Hours Test 10/16/16 08:54 10/16/16 12:03 10/16/16 16:48 Bedside Glucose 200 mg/dl 197 mg/dl 260 mg/dl Assessment & Plan 71 yo F with asthma, hypertension, T2DM who is day 0 s/p lumbar decompression and hardware removal, with post-op nausea and vomiting. Recommendations: Nausea: Ordered a further 4mg of Zofran IV while pt in room. Continue 4-8mg q6h PRN Nausea. Agree with scopolamine patch. If becomes dehydrated from vomiting, would bolus her fluids, but does not seem indicated at this time. Has PRN Phenergan and Reglan as well. Type 2 DM: Will order glycemic consult, aiming for sugars between 140-180. Asthma: Albuterol inhaler PRN, monitor for wheeze. Continue incentive spirometry. Ocular shingles: Continue acyclovir 800mg daily and relevant eyedrops as pt is on lifelong therapy Hypertension: Continue home medications of 20mg Lasix, 30mg Lisinopril, and 37.5 / 25 Diazide. GERD: Continue PPI Menieres Disease: Continue antivert Hypothyroidism: Would recommend restarting levothyroxine CODE STATUS: FULL CODE VTE: Would recommend starting agent for prophylaxis Resident Physician Supervision Note: I interviewed and examined the patient. Discussed with Dr. Fernandes and agree with findings and plan as documented in the note. Any exceptions or clarifications are listed here: Documented By: Curt Valles Resident Tracking Resident Involvement: Resident Care Provided Care Provided: Adult Hospital Medicine
[2016-10-16] MEDS: MOXIFLOXACIN HCL 0.5% OP SOLN 3 ML BTL OPR SCH ×2 (17:30→21:09)
[2016-10-16] MEDS: CEFAZOLIN IV 2,000 MG in DEXTROSE 5% 50ML 50 ML IV SCH (17:43)
[2016-10-16] MEDS ORDERED: INSULIN GLARGINE SOLOSTAR 100 UNITS/ML 3 ML PEN SC ONE (17:45)
[2016-10-16] MEDS ORDERED: ONDANSETRON INJ 2 MG/ML 2 ML VIAL IV STA (17:52)
[2016-10-16] MEDS: ONDANSETRON INJ 2 MG/ML 2 ML VIAL IV PRN (17:58)
[2016-10-16] MEDS: INSULIN ASPART 100 UNITS/ML 3 ML PEN SC SCH ×2 (18:02→21:01)
[2016-10-16] MEDS: PrednisoLONE ACET 1% OP SUSP 5 ML BTL OPR SCH (21:05)
[2016-10-16] MEDS: MECLIZINE HCL 25 MG TAB PO SCH (21:07)
[2016-10-16] MEDS: FUROSEMIDE 20 MG TAB PO SCH (21:07)
[2016-10-16] MEDS: LISINOPRIL 10 MG TAB PO SCH (21:07)
[2016-10-16] MEDS: DOCUSATE SODIUM/SENNA 50/8.6MG TAB PO SCH (21:08)
[2016-10-16] MEDS: TRIAMTERENE/HCTZ 37.5/25MG CAP PO SCH (21:08)
[2016-10-16] MEDS: ASCORBIC ACID 500 MG TAB PO SCH (22:31)
[2016-10-17] MEDS: INSULIN ASPART 100 UNITS/ML 3 ML PEN SC SCH ×6 (00:03→22:17)
[2016-10-17] MEDS: CEFAZOLIN IV 2,000 MG in DEXTROSE 5% 50ML 50 ML IV SCH (02:18)
[2016-10-17] MEDS: LACTATED RINGER'S 1000ML 1,000 ML IV SCH (02:20)
[2016-10-17 03:50] VITALS: BP 128/76; PULSE 85; TEMP 36.8; O2SAT 99
[2016-10-17 06:00] VITALS: O2SAT 93
[2016-10-17] MEDS ORDERED: DC PCA SCH (06:00)
[2016-10-17] MEDS: LEVOTHYROXINE 50 MCG TAB PO SCH (06:02)
[2016-10-17 06:29] LABS: BASO % 0.1 %; BASO ABS # 0.01 K/uL (0-0.2); COMPLETE YES; HEMATOCRIT 29.8 % (37-47); IG% 0.4 %; LYMPH ABS # 0.79 K/uL (1.2-3.4); MEAN CELL VOLUME 91.1 fL (80-100); MEAN CORPUSCULAR HEMOGLOBIN 30.9 pg (25-34); MEAN CORPUSCULAR HGB CONC 33.9 g/dl (32-36); MEAN PLATELET VOLUME 9.2 fL (7.4-10.4); MONO % 3.8 %; NEUT % 90.7 %; PLATELET COUNT 254 K/uL (130-400); RED BLOOD COUNT 3.27 M/uL (4.2-5.4); WHITE BLOOD COUNT 15.83 K/uL (4.8-10.8)
--- NOTE | 2016-10-17 06:42 | Orthopedic Progress Note ---
Orthopedic Progress Note Date of Service Oct 17, 2016. Subjective Post OP Day: 1 Reports: feeling well, pain controlled w PO medications, Denies: SOB, calf pain , chest pain, complaints, light headedness, nausea / vomiting Additional Notes: Doing well, sitting in chair, no complaints, pain is minimal and well controlled. Objective calves soft nontender, N/V intact, capillary refill less than 2 sec., dressing C /D/I, A&O x3, toes mobile, hemovac drainage Date Time Temp Pulse Resp B/P Pulse Ox O2 Delivery O2 Flow Rate FiO2 10/17/16 03:50 36.8 85 16 128/76 99 Nasal Cannula 4.0 Humidified Oxygen 10/16/16 23:43 36.7 88 16 108/67 97 Nasal Cannula 4.0 Humidified Oxygen 10/16/16 19:44 36.4 94 18 141/69 99 Nasal Cannula 4.0 Humidified Oxygen 10/16/16 19:20 Nasal Cannula 4.0 Humidified Oxygen 10/16/16 16:44 35.7 82 18 128/70 98 Nasal Cannula 4.0 10/16/16 16:00 35.9 75 18 119/69 97 Nasal Cannula 4.0 10/16/16 15:10 35.7 71 16 124/70 98 Nasal Cannula 4.0 10/16/16 13:46 59 16 112/63 97 4.0 10/16/16 13:12 68 16 112/67 93 4.0 10/16/16 12:45 36.4 70 18 113/65 97 Nasal Cannula 4.0 10/16/16 12:45 Nasal Cannula 4.0 10/16/16 12:45 Nasal Cannula 10/16/16 12:30 36.4 70 16 132/61 98 Nasal Cannula 4 10/16/16 12:20 72 16 128/58 97 Nasal Cannula 4 10/16/16 12:10 75 16 130/63 96 Mask 10 10/16/16 12:00 73 16 142/64 97 Mask 10 10/16/16 11:50 37.6 99 14 204/94 93 Mask 10 10/16/16 08:48 36.8 99 20 183/91 95 Room Air Laboratory Results 24 Hours: Test 10/17/16 05:37 White Blood Count 15.83 K/uL Red Blood Count 3.27 M/uL Hemoglobin 10.1 g/dL Hematocrit 29.8 % Mean Corpuscular Volume 91.1 fL Mean Corpuscular Hemoglobin 30.9 pg Mean Corpuscular Hemoglobin Concent 33.9 g/dl Platelet Count 254 K/uL Mean Platelet Volume 9.2 fL Neutrophils (%) (Auto) 90.7 % Lymphocytes (%) (Auto) 5.0 % Monocytes (%) (Auto) 3.8 % Eosinophils (%) (Auto) 0.0 % Basophils (%) (Auto) 0.1 % Neutrophils # (Auto) 14.37 K/uL Lymphocytes # (Auto) 0.79 K/uL Monocytes # (Auto) 0.60 K/uL Eosinophils # (Auto) 0.00 K/uL Basophils # (Auto) 0.01 K/uL Assessment & Plan Assessment: s/p decompression l34/ w/ fusion Plan: PT today, continue drain, if patient continues to do well, we will expect discharge home tomorrow
[2016-10-17] MEDS ORDERED: NURSING VERBAL MED ORDER ONE (06:45)
[2016-10-17 06:59] LABS: BUN/CREATININE RATIO 21.1 (10-20); CALCIUM 8.9 mg/dl (8.5-10.1); CREATININE 1.6 mg/dl (0.60-1.20); POTASSIUM 4.6 mmol/L (3.5-5.1)
--- NOTE | 2016-10-17 07:25 | Clinical Documentation Query ---
CLINICAL DOCUMENTATION QUERY Dr. CURTIS, In your clinical opinion does this patient have: ( x ) Chronic kidney disease, stage 3 ( ) Other explanation of clinical findings (Please Explain) ( ) Unable to determine (Please Define) ( ) Need to Discuss ( ) Not Agree The medical record reflects the following clinical findings, treatment, and risk factors. Clinical Indicators: Review of EMR showed GFR range of 31.9-41 over the past year. Treatment: monitor PRP Risk Factors: DM, HTN, age Chronic Kidney Disease (CKD), stages 1-5. Documenting the stage of CKD will improve data integrity and will help clarify vague terms such as "renal insufficiency" or "chronic renal failure." The stages of CKD according to the [employer] are as follows: Stage I: GFR >90 Stage II: GFR 60-89 Stage III: GFR 30-59 Stage IV: GFR 15-29 Stage V: GFR <15 Please clarify and document your clinical opinion in the progress notes and discharge summary. Terms such as "probable", "suspected", "likely", "questionable", "possible", or "still to be ruled out" are acceptable. IF IN AGREEMENT, YOU MUST DOCUMENT ABOVE DIAGNOSTIC STATEMENT IN DAILY PROGRESS NOTES AND DISCHARGE SUMMARY. This document is not part of the patient's record. Thank You, Preeti Casas, VAIBHAV [phone]
[2016-10-17 07:58] VITALS: BP 159/59; PULSE 92; TEMP 36.8; O2SAT 95
--- NOTE | 2016-10-17 08:39 | Anesthesiology Progress Note ---
Anesthesia Post Op Note Date & Time Oct 17, 2016 at 08:38 Vital Signs Vital Signs Past 12 Hours Date Time Temp Pulse Resp B/P Pulse Ox O2 Delivery O2 Flow Rate FiO2 10/17/16 07:58 36.8 92 17 159/59 95 Room Air 10/17/16 06:00 93 Room Air 10/17/16 03:50 36.8 85 16 128/76 99 Nasal Cannula 4.0 Humidified Oxygen 10/16/16 23:43 36.7 88 16 108/67 97 Nasal Cannula 4.0 Humidified Oxygen Notes Mental Status: alert / awake / arousable, participated in evaluation Pt Amnestic to Procedure: Yes Nausea / Vomiting: adequately controlled Pain: adequately controlled Airway Patency, RR, SpO2: stable & adequate BP & HR: stable & adequate Hydration State: stable & adequate Anesthetic Complications: no major complications apparent
[2016-10-17 08:41] VITALS: O2SAT 95; O2SAT 97
[2016-10-17] MEDS: PrednisoLONE ACET 1% OP SUSP 5 ML BTL OPR SCH ×2 (08:59→22:04)
[2016-10-17] MEDS: MOXIFLOXACIN HCL 0.5% OP SOLN 3 ML BTL OPR SCH ×4 (08:59→22:04)
[2016-10-17] MEDS: CHOLECALCIFEROL 1000 INTER.UNIT TAB PO SCH (09:00)
[2016-10-17] MEDS ORDERED: INSULIN GLARGINE SOLOSTAR 100 UNITS/ML 3 ML PEN SC SCH ×2 (09:00→21:00)
[2016-10-17] MEDS: MECLIZINE HCL 25 MG TAB PO SCH ×2 (09:00→22:05)
[2016-10-17] MEDS: PANTOprazole SOD 40 MG TAB PO SCH (09:00)
--- NOTE | 2016-10-17 09:18 | Pharmacy Progress Note ---
Glycemic Control: Progress Nt Date of Service Oct 17, 2016. Scope Glycemic Pharmacist consulted by Dr Valles on 10/16/16 for glycemic control and to write orders per [facility] inpatient glycemic control protocol. Objective Accuchecks BSG (last 24hrs): Test 10/16/16 12:03 10/16/16 16:48 10/16/16 20:46 10/16/16 23:47 Bedside Glucose 197 mg/dl (70-90) 260 mg/dl (70-90) 337 mg/dl (70-90) 329 mg/dl (70-90) Test 10/17/16 04:00 10/17/16 05:37 10/17/16 0700 Bedside Glucose 279 mg/dl (70-90) 343mg/dl Random Glucose 268 mg/dl Laboratory Data (last 24hrs) Test 10/17/16 05:37 Anion Gap 13.0 mmol/L BUN/Creatinine Ratio 21.1 Blood Urea Nitrogen 34 mg/dl Creatinine 1.60 mg/dl Potassium Level 4.6 mmol/L Sodium Level 134 mmol/L White Blood Count 15.83 K/uL Red Blood Count 3.27 M/uL Hemoglobin 10.1 g/dL Hematocrit 29.8 % Mean Corpuscular Volume 91.1 fL Mean Corpuscular Hemoglobin 30.9 pg Mean Corpuscular Hemoglobin Concent 33.9 g/dl Platelet Count 254 K/uL Mean Platelet Volume 9.2 fL Neutrophils (%) (Auto) 90.7 % Lymphocytes (%) (Auto) 5.0 % Monocytes (%) (Auto) 3.8 % Eosinophils (%) (Auto) 0.0 % Basophils (%) (Auto) 0.1 % Neutrophils # (Auto) 14.37 K/uL Lymphocytes # (Auto) 0.79 K/uL Monocytes # (Auto) 0.60 K/uL Eosinophils # (Auto) 0.00 K/uL Basophils # (Auto) 0.01 K/uL HbA1c: 6.7% on 08/14/16 Recent Pertinent Medications Outpatient Anti-diabetic Regimen: * Novolin N 12 u QAM + 30 u HS * Regular 10 u w/ B + 15 u w/ L + 20 u w/ D The patient is currently receiving: * Basal insulin: Lantus 25 units SQ x 1 dose yesterday with dinner * Correctional Insulin: Novolog Correction per scale ACHS Goal Range: Low 120 mg/dL - High 160 mg/dL Correction Factor: 20 mg/dL/unit * Prandial insulin: Per carb ratio of 1 unit per 5 grams CHO consumed Risk Factors for Insulin Resistance: * Steroids intraoperatively * Recent Surgery * Diet Assessment & Plan ASSESSMENT: * 71yo T2DM female with adequate outpatient control per recent A1c. Pt is maintained on SQ basal bolus insulin regimen as an outpatient with a total daily dose of ~ 87 units/day. * Pt received dxm intraoperatively which is compounding hyperglycemia d/t stress /surgery. * Patient received ~60 units of insulin over the past 24hrs, this is slightly lower than outpatient dosing d/t missed prandial doses while in OR * AM fasting BSG is above goal range; basal insulin needs increased * Post-prandial BSGs are elevated; CF/CR parameters need tightened. * ADA & AACE recommend a goal blood sugar range 140-180 mg/dl for the majority of critically ill & non-critically ill patients. However, more stringent targets may be selected in individual cases. Will utilize more stringent target of 120-140mg/dl in a well controlled diabetic and to facilitate wound healing post-operatively. PLAN FOR INPATIENT GLYCEMIC CONTROL: Adjust regimen based on estimated total daily dose of ~ 87 units/day with additional stress. * INCREASE Basal insulin with LANTUS 28 units SQ BID * TIGHTEN Correctional Insulin with NOVOLOG / REGULAR per scale ACHS or Q6hrs while NPO * Goal Range: Low 120 mg/dL - High 140 mg/dL * Correction Factor: 15 mg/dL/unit * Nutritional / Prandial insulin per carb ratio of 1 unit per 4 grams CHO consumed * Please note that the plan above was derived based on current level of insulin resistance and hospital stress. These recommendations are appropriate for inpatient admission only. Plan of care upon discharge will need to be reassessed to avoid potential outpatient hypo/hyperglycemia. Thank you.
[2016-10-17] MEDS: ACYCLOVIR 400 MG TAB PO SCH (10:00)
[2016-10-17] MEDS: CETIRIZINE HCL 10 MG TAB PO SCH (10:00)
--- NOTE | 2016-10-17 10:10 | Family Medicine Progress Note ---
Progress Note Date of Service Oct 17, 2016. Subjective Pt evaluation today including: conversation w/ patient, conversation w/ family [place] well this morning, reports her nausea went away yesterday evening and she slept well. Will be working with PT today and hopefully DC home tomorrow. Denied any new concerns. Constitutional: No chills, No fever, No sweats, No weight loss ENT: No hearing loss Respiratory: No cough, No sputum Abdomen: No constipation, No diarrhea, No nausea, No pain, No vomiting Female : No dysuria Neurologic: No memory loss Endo: No fatigue All Other Systems: Reviewed and Negative Medications Current Inpatient Medications Medications (Trade) Dose Ordered Sig/Harsh Route Start Time Stop Time Status Last Admin Dose Admin Acyclovir (Zovirax Tab) 800 mg QAM PO 10/17/16 09:00 10/27/16 08:59 10/17/16 10:00 800 MG Albuterol (Ventolin Hfa Inhaler) 1 Q2H PRN INH 10/16/16 11:30 11/15/16 11:29 Albuterol Sulfate (Ventolin 0.083% 2.5MG/3ML Neb) 2.5 mg QID PRN INH 10/16/16 11:30 11/15/16 11:29 Ascorbic Acid (Vitamin C Tab) 500 mg QPM PO 10/16/16 21:00 11/15/16 20:59 10/16/16 22:31 500 MG Cetirizine HCl (zyrTEC TAB) 10 mg QAM PO 10/17/16 09:00 11/16/16 08:59 10/17/16 10:00 10 MG Cholecalciferol (Vitamin D Tab) 2,000 inter.unit QAM PO 10/17/16 09:00 11/16/16 08:59 10/17/16 09:00 2,000 INTER.UNIT Furosemide (Lasix tab) 20 mg QPM PO 10/16/16 21:00 11/15/16 20:59 10/16/16 21:07 20 MG Levothyroxine Sodium (Synthroid Tab) 50 mcg DAILYBB PO 10/17/16 06:00 11/16/16 05:59 10/17/16 06:02 50 MCG Meclizine HCl (Antivert Tab) 25 mg BID PO 10/16/16 21:00 11/15/16 20:59 10/17/16 09:00 25 MG Moxifloxacin HCl (Vigamox Oph Soln) 1 drops QID OPR 10/16/16 17:00 11/15/16 16:59 10/17/16 08:59 1 DROPS Prednisolone Acetate (Pred Forte 1% Oph Susp) 2 drops BID OPR 10/16/16 21:00 11/15/16 20:59 10/17/16 08:59 2 DROPS Triamterene/HCTZ (Dyazide 37.5/25 Mg Cap) 1 cap QPM PO 10/16/16 21:00 11/15/16 20:59 10/16/16 21:08 1 CAP Lisinopril (Zestril Tab) 30 mg HS PO 10/16/16 21:00 11/15/16 20:59 10/16/16 21:07 30 MG Pantoprazole Sodium 40 mg 40 mg QAM PO 10/17/16 09:00 11/16/16 08:59 10/17/16 09:00 40 MG Promethazine HCl/ Sodium Chloride (Phenergan Inj/ Nss 50ml) 50.5 ml @ 202 mls/hr Q6H PRN IV 10/16/16 11:30 11/15/16 11:29 Ondansetron HCl (Zofran Inj) 4 mg Q6H PRN IV 10/16/16 11:30 11/15/16 11:29 10/16/16 17:58 4 MG Metoclopramide HCl (Reglan Inj) 10 mg Q6H PRN IV 10/16/16 11:30 11/15/16 11:29 10/16/16 15:34 10 MG Lorazepam 0.5 mg 0.5 mg Q8H PRN PO 10/16/16 11:30 11/15/16 11:29 Lorazepam/Syringe (Ativan Inj/ Syringe) 0.25 ml @ 1 mls/min Q8H PRN IV 10/16/16 11:30 11/15/16 11:29 Polyethylene (Miralax Powder Packet) 17 gm Q6 PO 10/18/16 06:00 11/17/16 05:59 Bisacodyl (Dulcolax Supp) 10 mg DAILY PRN [place] 10/16/16 11:30 11/15/16 11:29 Magnesium Hydroxide (Milk Of Magnesia Susp) 30 ml DAILY PRN PO 10/16/16 11:30 11/15/16 11:29 Hydromorphone HCl (Dilaudid Inj) 0.5-1mg prn moder... Q3H PRN IV 10/17/16 06:00 10/31/16 05:59 Naloxone HCl (Narcan Inj) 0.1 mg Q5M PRN IV 10/16/16 11:30 11/15/16 11:29 Senna/Docusate Sodium (Senokot S Tab) 2 tab HS PO 10/16/16 21:00 11/15/16 20:59 10/16/16 21:08 2 TAB Sodium Biphosphate/ Sodium Phosphate (Fleet Enema) 132 ml ONE PRN [place] 10/16/16 11:30 11/15/16 11:29 Hydroxyzine HCl (Vistaril Tab) 25 mg Q8H PRN PO 10/16/16 11:30 11/15/16 11:29 Al Hydroxide/Mg Hydroxide (Maalox Susp) 30 ml Q6H PRN PO 10/16/16 11:30 11/15/16 11:29 Famotidine (Pepcid Tab) 20 mg Q12 PRN PO 10/16/16 11:30 11/15/16 11:29 Diphenhydramine HCl (Benadryl Cap) 25 mg Q6H PRN PO 10/16/16 11:30 11/15/16 11:29 Miscellaneous Information (Consult Glycemic Management Pharmacy) 1 ea UD PRN N/A 10/16/16 15:45 11/15/16 15:44 Insulin Aspart (novoLOG ASPART) SLIDING SCALE ACHS SC 10/16/16 17:15 11/15/16 17:14 10/17/16 08:58 20 UNITS Insulin Aspart (novoLOG ASPART) SLIDING SCALE 0000,0400 SC 10/17/16 00:00 11/16/16 00:00 10/17/16 04:11 6 UNITS Insulin Glargine (Lantus Solostar Pen) 28 unit BID SC 10/17/16 09:00 11/16/16 08:59 10/17/16 08:59 28 UNIT Objective Vital Signs Date Time Temp Pulse Resp B/P Pulse Ox O2 Delivery O2 Flow Rate FiO2 10/17/16 08:41 95 Room Air 10/17/16 07:58 36.8 92 17 159/59 95 Room Air 10/17/16 06:00 93 Room Air 10/17/16 03:50 36.8 85 16 128/76 99 Nasal Cannula 4.0 Humidified Oxygen 10/16/16 23:43 36.7 88 16 108/67 97 Nasal Cannula 4.0 Humidified Oxygen 10/16/16 19:44 36.4 94 18 141/69 99 Nasal Cannula 4.0 Humidified Oxygen 10/16/16 19:20 Nasal Cannula 4.0 Humidified Oxygen 10/16/16 16:44 35.7 82 18 128/70 98 Nasal Cannula 4.0 10/16/16 16:00 35.9 75 18 119/69 97 Nasal Cannula 4.0 10/16/16 15:10 35.7 71 16 124/70 98 Nasal Cannula 4.0 10/16/16 13:46 59 16 112/63 97 4.0 10/16/16 13:12 68 16 112/67 93 4.0 10/16/16 12:45 36.4 70 18 113/65 97 Nasal Cannula 4.0 10/16/16 12:45 Nasal Cannula 4.0 10/16/16 12:45 Nasal Cannula 10/16/16 12:30 36.4 70 16 132/61 98 Nasal Cannula 4 10/16/16 12:20 72 16 128/58 97 Nasal Cannula 4 10/16/16 12:10 75 16 130/63 96 Mask 10 10/16/16 12:00 73 16 142/64 97 Mask 10 10/16/16 11:50 37.6 99 14 204/94 93 Mask 10 Physical Exam General Appearance: WD/WN, no apparent distress Eyes: normal inspection, PERRL ENT: hearing grossly normal Neck: supple, no JVD Respiratory/Chest: lungs clear, normal breath sounds, no respiratory distress, no accessory muscle use Cardiovascular: regular rate, rhythm, + JVD Abdomen: normal bowel sounds, non tender, soft Extremities: non-tender, normal inspection, no pedal edema Neurologic/Psychiatric: alert, normal mood/affect, oriented x 3 Laboratory Results Last 24 Hours Test 10/16/16 12:03 10/16/16 16:48 10/16/16 20:46 10/16/16 23:47 Bedside Glucose 197 mg/dl 260 mg/dl 337 mg/dl 329 mg/dl Test 10/17/16 04:00 10/17/16 05:37 Bedside Glucose 279 mg/dl White Blood Count 15.83 K/uL Red Blood Count 3.27 M/uL Hemoglobin 10.1 g/dL Hematocrit 29.8 % Mean Corpuscular Volume 91.1 fL Mean Corpuscular Hemoglobin 30.9 pg Mean Corpuscular Hemoglobin Concent 33.9 g/dl Platelet Count 254 K/uL Mean Platelet Volume 9.2 fL Neutrophils (%) (Auto) 90.7 % Lymphocytes (%) (Auto) 5.0 % Monocytes (%) (Auto) 3.8 % Eosinophils (%) (Auto) 0.0 % Basophils (%) (Auto) 0.1 % Neutrophils # (Auto) 14.37 K/uL Lymphocytes # (Auto) 0.79 K/uL Monocytes # (Auto) 0.60 K/uL Eosinophils # (Auto) 0.00 K/uL Basophils # (Auto) 0.01 K/uL RDW Standard Deviation 44.0 fL RDW Coefficient of Variation 13.2 % Immature Granulocyte % (Auto) 0.4 % Immature Granulocyte # (Auto) 0.06 K/uL Sodium Level 134 mmol/L Potassium Level 4.6 mmol/L Chloride Level 97 mmol/L Carbon Dioxide Level 24 mmol/L Anion Gap 13.0 mmol/L Blood Urea Nitrogen 34 mg/dl Creatinine 1.60 mg/dl Est Creatinine Clear Calc Drug Dose 29.4 ml/min Estimated GFR () 36.9 Estimated GFR (Non- 31.9 BUN/Creatinine Ratio 21.1 Random Glucose 268 mg/dl Calcium Level 8.9 mg/dl Assessment and Plan 71 yo F with asthma, hypertension, T2DM who is day 0 s/p lumbar decompression and hardware removal, with post-op nausea and vomiting. Recommendations: Nausea: Resolved CKD, Stage III: Medications renally dosed, no changed necessary. Type 2 DM: Agree with more stringent diabetic control. Agree with plan from glycemic pharmacist Asthma: Albuterol inhaler PRN, monitor for wheeze. Continue incentive spirometry. Ocular shingles: Continue acyclovir 800mg daily and relevant eyedrops as pt is on lifelong therapy Hypertension: Continue home medications of 20mg Lasix, 30mg Lisinopril, and 37.5 / 25 Diazide. GERD: Continue PPI Menieres Disease: Continue antivert Hypothyroidism: Would recommend restarting levothyroxine CODE STATUS: FULL CODE VTE: Would recommend starting agent for prophylaxis Resident Physician Supervision Note: I was present with Dr. Fernandes during the history and exam. I discussed the case with the resident and agree with the findings and plan as documented in the note. Any exceptions or clarifications are listed here: Upon my exam, the patient was seated in the chair, conversing with her , without complaints. Her pain is well controlled at present. She had one episode of vomiting yesterday, but none since. She is anticipating discharge tomorrow. Documented By: Curt Valles Resident Tracking Resident Involvement: Resident Care Provided Care Provided: Adult Hospital Medicine
[2016-10-17 11:47] VITALS: BP 139/50; PULSE 90; TEMP 36.6; O2SAT 93
[2016-10-17 16:00] VITALS: BP 139/78; PULSE 89; TEMP 36.8; O2SAT 91
[2016-10-17] MEDS: LISINOPRIL 10 MG TAB PO SCH (22:04)
[2016-10-17] MEDS: DOCUSATE SODIUM/SENNA 50/8.6MG TAB PO SCH (22:05)
[2016-10-17] MEDS: ASCORBIC ACID 500 MG TAB PO SCH (22:05)
[2016-10-17] MEDS: TRIAMTERENE/HCTZ 37.5/25MG CAP PO SCH (22:06)
[2016-10-17] MEDS: INSULIN GLARGINE SOLOSTAR 100 UNITS/ML 3 ML PEN SC SCH (22:18)
[2016-10-17] MEDS: FUROSEMIDE 20 MG TAB PO SCH (23:01)
[2016-10-18 00:10] VITALS: BP 124/73; PULSE 89; TEMP 36.5; O2SAT 97
[2016-10-18] MEDS: INSULIN ASPART 100 UNITS/ML 3 ML PEN SC SCH ×6 (00:18→21:22)
[2016-10-18] MEDS: ONDANSETRON INJ 2 MG/ML 2 ML VIAL IV PRN ×3 (02:08→18:06)
[2016-10-18] MEDS: HYDROmorphone INJ 1 MG/ML SYR IV PRN ×2 (02:09→07:29)
[2016-10-18] MEDS: POLYETHYLENE (MIRALAX) 17 GM PACK PO SCH ×4 (05:03→23:39)
[2016-10-18] MEDS: LEVOTHYROXINE 50 MCG TAB PO SCH (05:06)
[2016-10-18 06:47] VITALS: BP 113/69; PULSE 96; TEMP 36.5; O2SAT 90
[2016-10-18] MEDS: INSULIN GLARGINE SOLOSTAR 100 UNITS/ML 3 ML PEN SC SCH ×2 (08:10→21:23)
[2016-10-18] MEDS: PrednisoLONE ACET 1% OP SUSP 5 ML BTL OPR SCH ×2 (08:14→21:14)
[2016-10-18] MEDS: MOXIFLOXACIN HCL 0.5% OP SOLN 3 ML BTL OPR SCH ×4 (08:14→21:15)
[2016-10-18] MEDS: MECLIZINE HCL 25 MG TAB PO SCH ×2 (08:44→21:17)
[2016-10-18] MEDS: ACYCLOVIR 400 MG TAB PO SCH (08:44)
[2016-10-18] MEDS: CETIRIZINE HCL 10 MG TAB PO SCH (08:44)
[2016-10-18] MEDS: PANTOprazole SOD 40 MG TAB PO SCH (08:45)
[2016-10-18] MEDS: CHOLECALCIFEROL 1000 INTER.UNIT TAB PO SCH (08:45)
[2016-10-18] MEDS ORDERED: BISACODYL 10 MG SUPP PR STA (10:21)
[2016-10-18] MEDS ORDERED: PROMETHAZINE HCL INJ 12.5 MG in SODIUM CHLORIDE 0.9% 50ML 50 ML IV PRN (10:30)
--- NOTE | 2016-10-18 10:36 | Orthopedic Progress Note ---
Orthopedic Progress Note Date of Service Oct 18, 2016. Subjective Additional Notes: Patient has done well w/ PT. She has nausea now from pain meds. Otherwise stable. Objective calves soft nontender, N/V intact, capillary refill less than 2 sec., dressing C /D/I, A&O x3, toes mobile, hemovac drainage Date Time Temp Pulse Resp B/P Pulse Ox O2 Delivery O2 Flow Rate FiO2 10/18/16 07:15 Room Air 10/18/16 06:47 36.5 96 14 113/69 90 Room Air 10/18/16 00:10 Room Air 10/18/16 00:10 36.5 89 18 124/73 97 Room Air 10/17/16 16:00 36.8 89 18 139/78 91 Room Air 10/17/16 15:50 Room Air 10/17/16 11:47 36.6 90 17 139/50 93 Room Air Assessment & Plan Assessment: s/p decompression l34/ w/ fusion Plan: PT today, d/c drain, will monitor nausea, disposition pending
[2016-10-18] MEDS: METOCLOPRAMIDE HCL INJ 5 MG/ML 2 ML VIAL IV PRN ×2 (10:50→21:14)
[2016-10-18 15:03] VITALS: BP 127/70; PULSE 102; TEMP 36.4; O2SAT 94
[2016-10-18] MEDS: SODIUM CHLOR 0.45% + 20MEQ KCL 1,000 ML IV SCH ×2 (15:48→23:38)
--- NOTE | 2016-10-18 16:20 | Pharmacy Progress Note ---
Glycemic: Assessment & Plan Date of Service Oct 18, 2016. Assessment & Plan * Insulin needs yesterday likely in response to intraop decadron administration on 10/16/16. The steroid effects on inulin resistance have now worn off. * Will preemptively loosen insulin therapy d/t lessened steroid effect. * Will loosen Novolog CF/CR starting at bedtime tonight. Also, reduce Lantus by ~15% starting tonight at bedtime. PLAN FOR INPATIENT GLYCEMIC CONTROL: * Basal insulin: Decrease - Lantus 17 units every 12 hours; give 1/2 dose for BSG below 110 mg/dl * Correctional Insulin: Novolog Correction per scale ACHS Goal Range: Low 120 mg/dL - High 140 mg/dL Loosen - Correction Factor: 20 mg/dL/unit * Prandial insulin: Loosen -Per carb ratio of 1 unit per 7 grams CHO consumed Pharmacy will continue to monitor patient daily and write orders per [facility] inpatient glycemic control protocol. Thanks. * Please note that the plan above was derived based on current level of insulin resistance and hospital stress. These recommendations are appropriate for inpatient admission only. Plan of care upon discharge will need to be reassessed to avoid potential outpatient hypo/hyperglycemia.
[2016-10-18 20:21] VITALS: BP 138/65; PULSE 99; TEMP 36.7; O2SAT 93
[2016-10-18] MEDS: ASCORBIC ACID 500 MG TAB PO SCH (21:00)
[2016-10-18] MEDS: DOCUSATE SODIUM/SENNA 50/8.6MG TAB PO SCH (21:00)
[2016-10-18] MEDS: FUROSEMIDE 20 MG TAB PO SCH (21:00)
[2016-10-18] MEDS: TRIAMTERENE/HCTZ 37.5/25MG CAP PO SCH (21:17)
[2016-10-18] MEDS: LISINOPRIL 10 MG TAB PO SCH (21:17)
[2016-10-19 00:03] VITALS: BP 156/75; PULSE 103; TEMP 36.8; O2SAT 91
[2016-10-19] MEDS ORDERED: INSULIN ASPART 100 UNITS/ML 3 ML PEN SC SCH (02:00)
[2016-10-19] MEDS: LEVOTHYROXINE 50 MCG TAB PO SCH (06:09)
[2016-10-19] MEDS: POLYETHYLENE (MIRALAX) 17 GM PACK PO SCH (06:09)
[2016-10-19] MEDS: SODIUM CHLOR 0.45% + 20MEQ KCL 1,000 ML IV SCH (07:22)
[2016-10-19 07:58] VITALS: BP 150/72; PULSE 88; TEMP 36.7; O2SAT 95
[2016-10-19 08:23] VITALS: O2SAT 95
[2016-10-19] MEDS: PrednisoLONE ACET 1% OP SUSP 5 ML BTL OPR SCH (09:12)
[2016-10-19] MEDS: MOXIFLOXACIN HCL 0.5% OP SOLN 3 ML BTL OPR SCH (09:13)
[2016-10-19] MEDS: MECLIZINE HCL 25 MG TAB PO SCH (09:14)
[2016-10-19] MEDS: ACYCLOVIR 400 MG TAB PO SCH (09:14)
[2016-10-19] MEDS: CETIRIZINE HCL 10 MG TAB PO SCH (09:14)
[2016-10-19] MEDS: CHOLECALCIFEROL 1000 INTER.UNIT TAB PO SCH (09:15)
[2016-10-19] MEDS: PANTOprazole SOD 40 MG TAB PO SCH (09:15)
[2016-10-19] MEDS: INSULIN GLARGINE SOLOSTAR 100 UNITS/ML 3 ML PEN SC SCH (09:17)
[2016-10-19] MEDS: INSULIN ASPART 100 UNITS/ML 3 ML PEN SC SCH (10:13)
[2016-10-19 11:03] VITALS: BP 150/72; PULSE 88; TEMP 36.7; O2SAT 95
--- NOTE | 2016-10-19 11:07 | Orthopedic Progress Note ---
Orthopedic Progress Note Date of Service Oct 19, 2016. 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
[2016-10-19] MEDS ORDERED: INSULIN GLARGINE SOLOSTAR 100 UNITS/ML 3 ML PEN SC SCH (21:00)
--- NOTE | 2016-10-24 11:00 | DISCHARGE SUMMARY ---
PRINCIPAL DIAGNOSIS: Included previous L4-S1 instrumented fusion, L3-L4 spinal stenosis and disc degeneration. POSTOPERATIVE DIAGNOSIS: Same. PROCEDURE: L3 laminectomy with a L3-L4 fusion. SURGEON: Dr. Costa Gamez. PALM GATHERER: Norman Campos PA-C. HISTORY OF PRESENT ILLNESS: Please refer to EMR. HOSPITAL COURSE: On the above date Ms. Corona was admitted to [facility] with the principal diagnosis as stated. She was taken to preoperative holding where she was identified, evaluated and cleared for surgical procedure. She was transported to the operating room, introduced with general endotracheal anesthesia, sterile conditions were set and she successfully underwent the above procedure without complication or issue. She was awakened in stable and satisfactory condition and taken to postoperative recovery. Here vital signs and pain were monitored and managed. The patient remained medically stable and was taken to the orthopedic floor for continued postoperative care. Throughout her stay, her vital signs, pain and labs were routinely monitored and managed through physician direction. She participated in physical therapy with noted progress. KRYSTA output significantly diminished. She did very well with no iatrogenic or postoperative complications. DVT and GI prophylactic measures were taken throughout her stay. On 10/19/2016 after provider evaluation she was indicated for return home. On this date, she was discharged from [facility]. DISPOSITION: Home. DISPOSITION CONDITION: Stable. NOTED COMPLICATIONS OR ISSUES: Zero. DISCHARGE INSTRUCTIONS: Please refer to EMR.
== END 2016-10-19 11:41 | disposition home or self-care (01) | DRG 460 ==
LOC: ENRESERVDT → ENRESERVTM → C.ACU 08:28 → C.3E 09:00
PROVIDERS: ADMIT Orthopaedic Surgery Orthopaedic Surgery of the Spine; ATTEND Orthopaedic Surgery Orthopaedic Surgery of the Spine
PROC: 0SP304Z Removal of Internal Fixation Device from Lumbosacral Joint, Open Approach (ICD-10-PCS; 2016-10-16)
PROC: 0SG00Z1 (ICD-10-PCS; principal; 2016-10-16 10:30)
PROC: 07DR3ZZ Extraction of Iliac Bone Marrow, Percutaneous Approach (ICD-10-PCS; 2016-10-16 10:30)
DX: M48.06 Spinal stenosis, lumbar region (principal); B02.30 Zoster ocular disease, unspecified; J45.909 Unspecified asthma, uncomplicated; E11.51 Type 2 diabetes mellitus with diabetic peripheral angiopathy without gangrene; Z87.11 Personal history of peptic ulcer disease; E03.9 Hypothyroidism, unspecified; H81.09 Meniere's disease, unspecified ear; K22.70 Barrett's esophagus without dysplasia; K76.0 Fatty (change of) liver, not elsewhere classified; Z98.1 Arthrodesis status; Z91.040 Latex allergy status; Z88.6 Allergy status to analgesic agent; Z88.5 Allergy status to narcotic agent; Z79.4 Long term (current) use of insulin; Z79.899 Other long term (current) drug therapy; E11.40 Type 2 diabetes mellitus with diabetic neuropathy, unspecified; K21.9 Gastro-esophageal reflux disease without esophagitis; E11.22 Type 2 diabetes mellitus with diabetic chronic kidney disease; Z80.9 Family history of malignant neoplasm, unspecified; Z82.49 Family history of ischemic heart disease and other diseases of the circulatory system; Z83.6 Family history of other diseases of the respiratory system; Z84.1 Family history of disorders of kidney and ureter; Z87.891 Personal history of nicotine dependence; I12.9 Hypertensive chronic kidney disease with stage 1 through stage 4 chronic kidney disease, or unspecified chronic kidney disease; N18.3 Chronic kidney disease, stage 3 (moderate)

== ENCOUNTER 2017-01-22 11:28 | Emergency (ER) | payer OTHER, MEDICARE ==
[~2017-01-22] VITALS: Ht 144.8 cm; Wt 86.8 kg
[~2017-01-22 11:28] MED LIST changes: -CEFAZOLIN 2000 MG/60 ML D5W IV SCH; -CeleBREX 200 MG CAP PO SCH; -LACTATED RINGER'S 1000ML 1,000 ML IV SCH; -PRED10TA PO; -PREGABALIN 75 MG CAP PO SCH
[2017-01-22 11:31] VITALS: TEMP 36.7; Ht 144.8 cm; Wt 86.8 kg
--- NOTE | 2017-01-22 11:44 | EMERGENCY ROOM VISIT NOTE ---
History Report prepared by Dirk: Onel Noel Under the Supervision of: Dr. Nestor Calderon D.O. First contact with patient: 11:32 Chief Complaint: ABDOMINAL PAIN Stated Complaint: ABD. PAIN Nursing Triage Summary: Triage note: pt reports right lower abd pain x 2 days. History of Present Illness The patient is a 71 year old female who presents to the Emergency Room with complaints of persistent right lower quadrant abdominal pain that started 2 days ago. She says that she went to her [employer] class today, and there were 4 nurses in the class, and the nurses thought that the patient may have appendicitis. The patient notes that she has had a hard time having bowel movements recently, and she has had to grunt to move her bowels. Her bowels have been normal. She denies any fevers, chills, nausea, vomiting, shortness of breath, chest pain, back pain, or diarrhea. The patient has a history of asthma and irregular heartbeat. She has had a hysterectomy and multiple back surgeries. She is diabetic and has Bojorquez's esophagus. The patient still has her appendix and gallbladder. She notes that she is allergic to pain medications. The patient does not take any blood thinners. She does not use tobacco products or drink alcohol. The patient is scheduled to go to Dr. Guzmán's office tomorrow for the pain. Source of History: patient Onset: 2 days ago Position: abdomen (RLQ) Timing: other (persistent) Associated Symptoms: No SOB, No back pain, No chest pain, No chills, No diarrhea, No fevers, No nausea, No vomiting Note: Associated symptoms: Hard to have bowel movements, has to grunt to move bowels. Review of Systems See HPI for pertinent positives & negatives. A total of 10 systems reviewed and were otherwise negative. Past Medical & Surgical Medical Problems: (1) ASTHMA W/ACUTE EXACERBATION NOS (2) ASTHMA, UNSPECIFIED, W (ACUTE) EXACERBATION (3) CERVICAL ROOT LESION NEC (4) DDD (degenerative disc disease) (5) DIAB W PERIPH CIRC DIS, TYPE II OR UNSPEC TYPE, UNCONTROLLED (6) DUODENAL ULCER NOS (7) Heart disease (8) HYPOTHYROIDISM NOS (9) MENIERE'S DISEASE, UNSPECIFIED (10) TOBACCO USE DISORDER Family History Cancer Heart disease Hypertension Kidney disease Kidney stones Lung disease Social History Smoking Status: Never Smoker Alcohol Use: none Drug Use: none Marital Status: Housing Status: lives with significant other Occupation Status: retired Current/Historical Medications Scheduled Acyclovir (Zovirax), 800 MG PO QAM Albuterol Sulf (Proventil 0.083% 2.5MG/3ML), 2.5 MG INH QID Albuterol Sulfate (Proair Respiclick), 2 PUFFS INH Q6H Ascorbic Acid (Vitamin C), 1 TAB PO QPM Cetirizine (Zyrtec), 10 MG PO QAM Cholecalciferol (Vitamin D3), 1 CAP PO QAM Cyanocobalamin (Vitamin B12), 5,000 MCG PO QAM Furosemide (Lasix), 20 MG PO Q2D Insulin Isophane (Human) (Novolin N Relion), UNITS SC UD Insulin Regular (Human) (Novolin R Relion), UNITS SC UD Levothyroxine Sodium (Synthroid), 50 MCG PO QAM Lisinopril (Prinivil), 30 MG PO HS Meclizine HCl (Meclizine HCl), 1 TAB PO BID Moxifloxacin Hcl (Ophth) (Vigamox 0.5% Oph), 1 DROP OPR QID Multivitamin (Multivitamin), 1 TAB PO QAM Omeprazole (Prilosec), 1 CAP PO QAM Prednisolone Acetate (Ophth) (Pred Forte 1% Oph), 1 DROPS OPR BID Triamterene/Hctz (Triamterene/Hctz 37.5-25MG), 1 CAP PO HS Scheduled PRN Carboxymethylcellulose-Glyceri (Optive), 1 DROPS OP QID PRN for DRY EYES Allergies Coded Allergies: Latex1 -Allergic Contact Dermititis (Verified Allergy, Unknown, RASH, 01/22) Acetaminophen (Verified Adverse Reaction, Unknown, have an enlarged liver , 01/22/17) Ibuprofen (Verified Adverse Reaction, Unknown, gave me a duodenal ulcer, ) Morphine and Related (Verified Adverse Reaction, Unknown, NARCOTICS-GI UPSET AND HALLUCINATIONS, 01/22/17) Tramadol (Verified Adverse Reaction, Unknown, vomit, 01/22/17) Physical Exam Vital Signs Date Time Temp Pulse Resp B/P Pulse Ox O2 Delivery O2 Flow Rate FiO2 01/22/17 14:56 78 18 144/78 98 01/22/17 13:00 87 01/22/17 12:59 87 20 150/81 97 Room Air 01/22/17 11:31 36.7 104 18 95 Room Air Physical Exam GENERAL: Patient is awake, alert, very anxious and uncomfortable appearing. EYES: The conjunctivae are clear. The pupils are round and reactive. EARS, NOSE, MOUTH AND THROAT: The nose is without any evidence of any deformity. Mucous membranes are moist tongue is midline NECK: The neck is nontender and supple. RESPIRATORY: Normal respiratory effort is noted there is no evidence of wheezing rhonchi or rales CARDIOVASCULAR: Regular rate and rhythm noted there no murmurs rubs or gallops normal S1 normal S2 GASTROINTESTINAL: The abdomen is moderately distended but soft. Significant tenderness in right lower quadrant and right inguinal region. No masses in right inguinal region. BACK: No midline tenderness or or step-off noted range of motion in flexion extension as well as rotation no signs of muscle spasm noted MUSCULOSKELETAL/EXTREMITIES: There is no evidence of gross deformity full range of motion is noted in the hips and shoulders SKIN: There is no obvious evidence of any rash. There are no petechiae, pallor or cyanosis noted. NEUROLOGIC: Patient is awake alert and oriented x3. Medical Decision & Procedures ER Provider Diagnostic Interpretation: CT results as stated below per my review and radiologist interpretation. ABDOMEN AND PELVIS CT WITHOUT CONTRAST CT DOSE: 1111.03 mGy.cm HISTORY: Flank pain right groin and side pain TECHNIQUE: Multiaxial CT images of the abdomen and pelvis were performed without contrast. COMPARISON STUDY: 11/09/2014 FINDINGS: Lung bases are clear. Configuration of liver spleen and pancreas are unremarkable. Moderate cortical scarring of the kidneys. No evidence for renal hydronephrosis. There is no evidence for an ureter. The appendix is normal. Bowel pattern overall is considered nonobstructive. Bladder is midline. There is no free fluid within the pelvic cul-de-sac. There are several scattered sigmoid diverticuli. There is no evidence for diverticulitis. Stable postoperative changes to the left mid to lower lumbar spine. IMPRESSION: No acute process of the abdomen or pelvis. Mild scattered colonic diverticuli. Normal appendix. Electronically signed by: Zeeshan Marinelli M.D. 01/22/2017 12:45 PM Dictated Date/Time: 01/22/2017 12:40 PM Laboratory Results 01/22/17 11:35 Red Blood Count 4.17, Mean Corpuscular Volume 86.6, Mean Corpuscular Hemoglobin 30.5, Mean Corpuscular Hemoglobin Concent 35.2, Mean Platelet Volume 8.9, Neutrophils (%) (Auto) 59.8, Lymphocytes (%) (Auto) 30.8, Monocytes (%) (Auto) 7.3, Eosinophils (%) (Auto) 1.0, Basophils (%) (Auto) 0.4, Neutrophils # (Auto) 5.42, Lymphocytes # (Auto) 2.79, Monocytes # (Auto) 0.66, Eosinophils # (Auto) 0.09, Basophils # (Auto) 0.04 01/22/17 11:35 Test 01/22/17 11:15 01/22/17 11:35 Urine Color YELLOW Urine Appearance CLEAR (CLEAR) Urine pH 5.0 (4.5-7.5) Urine Specific [place] 1.019 (1.000-1.030) Urine Protein NEG (NEG) Urine Glucose (UA) NEG (NEG) Urine Ketones NEG (NEG) Urine Occult Blood NEG (NEG) Urine Nitrite NEG (NEG) Urine Bilirubin NEG (NEG) Urine Urobilinogen NEG (NEG) Urine Leukocyte Esterase NEG (NEG) White Blood Count 9.06 K/uL (4.8-10.8) Red Blood Count 4.17 M/uL (4.2-5.4) Hemoglobin 12.7 g/dL (12.0-16.0) Hematocrit 36.1 % (37-47) Mean Corpuscular Volume 86.6 fL (80-100) Mean Corpuscular Hemoglobin 30.5 pg (25-34) Mean Corpuscular Hemoglobin Concent 35.2 g/dl (32-36) Platelet Count 339 K/uL (130-400) Mean Platelet Volume 8.9 fL (7.4-10.4) Neutrophils (%) (Auto) 59.8 % Lymphocytes (%) (Auto) 30.8 % Monocytes (%) (Auto) 7.3 % Eosinophils (%) (Auto) 1.0 % Basophils (%) (Auto) 0.4 % Neutrophils # (Auto) 5.42 K/uL (1.4-6.5) Lymphocytes # (Auto) 2.79 K/uL (1.2-3.4) Monocytes # (Auto) 0.66 K/uL (0.11-0.59) Eosinophils # (Auto) 0.09 K/uL (0-0.5) Basophils # (Auto) 0.04 K/uL (0-0.2) RDW Standard Deviation 43.9 fL (36.4-46.3) RDW Coefficient of Variation 14.0 % (11.5-14.5) Immature Granulocyte % (Auto) 0.7 % Immature Granulocyte # (Auto) 0.06 K/uL (0.00-0.02) Large Platelets 1+ Prothrombin Time 10.4 SECONDS (9.0-12.0) Prothromb Time International Ratio 1.0 (0.9-1.1) Activated Partial Thromboplast Time 26.4 SECONDS (21.0-31.0) Partial Thromboplastin Ratio 1.0 Anion Gap 9.0 mmol/L (3-11) Est Creatinine Clear Calc Drug Dose 33.2 ml/min Estimated GFR () 43.4 Estimated GFR (Non- 37.4 BUN/Creatinine Ratio 24.6 (10-20) Calcium Level 9.4 mg/dl (8.5-10.1) Total Bilirubin 0.3 mg/dl (0.2-1) Direct Bilirubin mg/dl (0-0.2) Aspartate Amino Transf (AST/SGOT) 24 U/L (15-37) Alanine Aminotransferase (ALT/SGPT) 28 U/L (12-78) Alkaline Phosphatase 89 U/L (45-117) Total Creatine Kinase 90 U/L (26-192) Creatine Kinase MB 1.5 ng/ml (0.5-3.6) Creatine Kinase MB Ratio 1.7 (0-3.0) Troponin I < 0.015 ng/ml (0-0.045) Total Protein 7.9 gm/dl (6.4-8.2) Albumin 3.8 gm/dl (3.4-5.0) Lipase 195 U/L (73-393) Chemistry Specimen Hemolysis Laboratory results per my review. Medications Administered Medications (Trade) Dose Ordered Sig/Harsh Route Start Time Stop Time Status Last Admin Dose Admin Sodium Chloride (Nss 1000ml) 1,000 ml @ 999 mls/hr Q1H1M STAT IV 01/22/17 11:49 01/22/17 12:49 DC 01/22/17 12:13 999 MLS/HR Ondansetron HCl (Zofran Inj) 4 mg NOW STAT IV 01/22/17 11:49 01/22/17 11:50 DC 01/22/17 12:13 4 MG ECG Indication: abdominal pain Rate (beats per minute): 83 Rhythm: normal sinus Findings: no ectopy, other (no acute ST segment abnormalities) Change: no significant change (from May 29 2016) ED Course 1145: The patient was evaluated in room B5. A complete history and physical examination were performed. 1149: Ordered Zofran Inj 4 mg IV, NSS 1000 ml @ 999 mls/hr IV. 1400: Upon reevaluation, the patient is resting comfortably. I discussed the results and treatment plan with her. She verbalized agreement of the treatment plan. She was discharged home. Medical Decision Prior records/ancillary studies reviewed. Triage Nursing notes reviewed. Differential diagnosis: Etiologies such as appendicitis, diverticulitis, PUD, biliary pathology, UTI, pancreatitis, obstruction, mesenteric ischemia, aortic pathology, infections, inflammatory bowel disease, renal colic, as well as others were entertained. The patient is a 71-year-old female who presented to the emergency department for an evaluation of right lower quadrant abdominal pain. The patient states that she had pain which was worsening over the last few days. She complained of nausea but no vomiting. She had no fever or diarrhea. She had some friends who are nurses who told her to come to the emergency department for possible appendicitis. She did have very significant right lower quadrant tenderness on palpation but her white blood cell count was normal. She did not have signs of hernia on physical exam. I discussed the patient's laboratory radiographic studies with her. She didn't wish to have any pain medication while she was in the emergency department. She was treated with IV fluids. She was encouraged to rest and avoid any strenuous activity. She was also encouraged to continue all medications as prescribed and follow-up with her family doctor as soon as possible for further evaluation. I also encouraged her to return to the emergency department immediately if symptoms change worsen or the need arises. I discussed other possibilities with the patient such as muscle strain or muscle tear as well as the possibility of early shingles. Impression Primary Impression: Right lower quadrant abdominal pain Scribe Attestation The scribe's documentation has been prepared under my direction and personally reviewed by me in its entirety. I confirm that the note above accurately reflects all work, treatment, procedures, and medical decision making performed by me. Departure Information Dispostion Home / Self-Care Referrals Earnest Deutsch M.D. 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 Rest and avoid any strenuous activity. Follow-up with your family doctor soon as possible. Return to the emergency department immediately symptoms change worsen or the need arises.
[2017-01-22] MEDS ORDERED: SODIUM CHLORIDE 0.9% 1000ML 1,000 ML IV STA (11:49)
[2017-01-22] MEDS ORDERED: ONDANSETRON INJ 2 MG/ML 2 ML VIAL IV STA (11:49)
[2017-01-22 12:06] LABS: HEMATOCRIT 36.1 % (37-47); MEAN CELL VOLUME 86.6 fL (80-100); MEAN CORPUSCULAR HEMOGLOBIN 30.5 pg (25-34); MEAN CORPUSCULAR HGB CONC 35.2 g/dl (32-36); MEAN PLATELET VOLUME 8.9 fL (7.4-10.4); PLATELET COUNT 339 K/uL (130-400); RED BLOOD COUNT 4.17 M/uL (4.2-5.4); WHITE BLOOD COUNT 9.06 K/uL (4.8-10.8)
[2017-01-22] MEDS ORDERED: OMEP40CA41 PO (12:08)
[2017-01-22] MEDS ORDERED: ALBINS/ INH (12:08)
[2017-01-22] MEDS ORDERED: TRIATAB3 PO (12:08)
[2017-01-22] MEDS ORDERED: VGMOPS OPR (12:08)
[2017-01-22] MEDS ORDERED: ALBU18002 INH (12:08)
[2017-01-22] MEDS ORDERED: ANT25 PO (12:08)
[2017-01-22] MEDS ORDERED: PRED1SUS3 OPR (12:08)
[2017-01-22] MEDS ORDERED: CHOL2000 PO (12:08)
[2017-01-22 12:12] LABS: URINE APPEARANCE CLEAR (CLEAR); URINE BILIRUBIN NEG (NEG); URINE COLOR YELLOW; URINE NITRITE NEG (NEG); URINE SPECIFIC GRAVITY 1.019 (1.000-1.030); UROBILINOGEN NEG (NEG)
[2017-01-22 12:14] LABS: MANUAL MICROSCOPIC REQUIRED? NO; REVIEW REQ? NO
[2017-01-22 12:25] LABS: PROTHROMBIN TIME (PATIENT) 10.4 SECONDS (9.0-12.0)
[2017-01-22 12:28] LABS: BASO % 0.4 %; BASO ABS # 0.04 K/uL (0-0.2); COMPLETE YES; IG% 0.7 %; LARGE PLATELETS 1+; LYMPH % 30.8 %; LYMPH ABS # 2.79 K/uL (1.2-3.4); MONO % 7.3 %; NEUT % 59.8 %
--- NOTE | 2017-01-22 12:47 | DIAGNOSTIC IMAGING REPORT ---
ABDOMEN AND PELVIS CT WITHOUT CONTRAST CT DOSE: 1111.03 mGy.cm HISTORY: Flank pain right groin and side pain TECHNIQUE: Multiaxial CT images of the abdomen and pelvis were performed without contrast. COMPARISON STUDY: 11/09/2014 FINDINGS: Lung bases are clear. Configuration of liver spleen and pancreas are unremarkable. Moderate cortical scarring of the kidneys. No evidence for renal hydronephrosis. There is no evidence for an ureter. The appendix is normal. Bowel pattern overall is considered nonobstructive. Bladder is midline. There is no free fluid within the pelvic cul-de-sac. There are several scattered sigmoid diverticuli. There is no evidence for diverticulitis. Stable postoperative changes to the left mid to lower lumbar spine. IMPRESSION: No acute process of the abdomen or pelvis. Mild scattered colonic diverticuli. Normal appendix. Electronically signed by: Zeeshan Marinelli M.D. 01/22/2017 12:45 PM Dictated Date/Time: 01/22/2017 12:40 PM
[2017-01-22 12:58] LABS: ALKALINE PHOSPHATASE 89 U/L (45-117); ALT/SGPT 28 U/L (12-78); AST/SGOT 24 U/L (15-37); BLOOD UREA NITROGEN 34 mg/dl (7-18); BUN/CREATININE RATIO 24.6 (10-20); CALCIUM 9.4 mg/dl (8.5-10.1); CARBON DIOXIDE 24 mmol/L (21-32); CHLORIDE 106 mmol/L (98-107); CKMB/CK RATIO 1.7 (0-3.0); GLUCOSE 148 mg/dl (70-99); POTASSIUM 4.3 mmol/L (3.5-5.1); SODIUM 139 mmol/L (136-145)
[2017-01-22 14:56] VITALS: BP 144/78; PULSE 78; O2SAT 98
== END 2017-01-22 14:57 | disposition home or self-care (01) ==
LOC: C.EDB 11:29
DX: R10.31 Right lower quadrant pain (principal); J45.909 Unspecified asthma, uncomplicated; E11.9 Type 2 diabetes mellitus without complications; K22.70 Barrett's esophagus without dysplasia; E03.9 Hypothyroidism, unspecified; Z79.4 Long term (current) use of insulin; Z79.899 Other long term (current) drug therapy

== ENCOUNTER → 2017-01-24 | Outpatient (CLI) | payer OTHER, MEDICARE ==
[~2017-01-24] MED LIST changes: +ALBINS/ INH; -ALBU0.08 INH; +ALBU18002 INH; -ALBU1AER9 INH; -CHOL100010 PO; +CHOL2000 PO; -DYZ PO; +EZET10TA63 PO; +MGNO400 PO; -OMEP40CA PO; +OMEP40CA41 PO; +OPTIRAY 320 IV PRN; +TRIATAB3 PO
--- NOTE | 2017-01-24 09:31 | DIAGNOSTIC IMAGING REPORT ---
ABDOMEN AND PELVIS CT WITH IV AND ORAL CONTRAST CT DOSE: 819.52 mGy.cm HISTORY: Right lower quadrant abdominal pain. TECHNIQUE: Multiaxial CT images of the abdomen and pelvis were performed following the use of intravenous and oral contrast. COMPARISON STUDY: Abdomen and pelvis CT 01/22/2017. FINDINGS: The lung bases are clear. The liver, spleen, gallbladder, pancreas, kidneys, and adrenal glands are within normal limits. No bowel wall thickening or obstruction. No suspicious lytic or blastic osseous lesions. Posterior fusion within the lumbar spine. The bladder is unremarkable. The uterus is surgically absent. Colonic diverticulosis. Normal appendix. IMPRESSION: 1. No bowel wall thickening or obstruction. 2. Colonic diverticulosis. 3. No bowel wall thickening or obstruction. Electronically signed by: Bart Viera M.D. 01/24/2017 9:29 AM Dictated Date/Time: 01/24/2017 9:24 AM
== END | disposition home or self-care (01) ==
LOC: C.CTS 07:07
PROVIDERS: ATTEND Physician Assistant
DX: R10.31 Right lower quadrant pain (principal)

== ENCOUNTER → 2017-01-25 | Outpatient (CLI) | payer OTHER, MEDICARE ==
[~2017-01-25] MED LIST changes: -OPTIRAY 320 IV PRN
--- NOTE | 2017-01-25 16:21 | MAMMOGRAPHY REPORT ---
BILATERAL DIGITAL SCREENING MAMMOGRAM WITH CAD: 01/25/2017 CLINICAL HISTORY: Routine screening. Patient has no complaints. TECHNIQUE: Current study was also evaluated with a Computer Aided Detection (CAD) system. Bilatera l CC and MLO views were obtained. COMPARISON: Comparison is made to exams dated: 11/25/2015 mammogram, 11/24/2014 mammogram, 11/23/2013 mammogram, 11/20/2012 mammogram - [facility], 02/28/2009, and 07/07/2007. BREAST COMPOSITION: The tissue of both breasts is almost entirely fatty. FINDINGS: No suspicious masses, calcifications, or areas of architectural distortion are noted in e ither breast. There has been no significant interval change compared to prior exams. Scattered bilat eral benign-appearing calcifications are not significantly changed. IMPRESSION: ACR BI-RADS CATEGORY 2: BENIGN There is no mammographic evidence of malignancy. A 1 year screening mammogram is recommended. The p atient will receive written notification of the results. Approximately 10% of breast cancers are not detected with mammography. A negative mammographic repor t should not delay biopsy if a clinically suggestive mass is present. Venus Ashton M.D. ah/:01/25/2017 15:46:36 Escrow Processor: Karla HANSON(Merari)(Tran), [facility] letter sent: Normal 1/2 BI-RADS Code: ACR BI-RADS Category 2: Benign
== END | disposition home or self-care (01) ==
LOC: C.MAMM 15:13
PROVIDERS: ATTEND Obstetrics & Gynecology
DX: Z12.31 Encounter for screening mammogram for malignant neoplasm of breast (principal)

== ENCOUNTER → 2017-02-12 | Outpatient (CLI) | payer OTHER, MEDICARE ==
[2017-02-12 09:50] LABS: ALT/SGPT 24 U/L (12-78); AST/SGOT 14 U/L (15-37); BLOOD UREA NITROGEN 49 mg/dl (7-18); BUN/CREATININE RATIO 37.3 (10-20); CARBON DIOXIDE 25 mmol/L (21-32); CHLORIDE 99 mmol/L (98-107); CHOLESTEROL 279 mg/dl (0-200); GLUCOSE 166 mg/dl (70-99); POTASSIUM 4.2 mmol/L (3.5-5.1); SODIUM 136 mmol/L (136-145); TRIGLYCERIDES 124 mg/dl (0-150); VERY LOW DENSITY LIPOPROT CALC 25 mg/dl
[2017-02-12 09:54] LABS: ALKALINE PHOSPHATASE 72 U/L (45-117); HDL CHOLESTEROL 93 mg/dl; LDL CHOLESTEROL CALCULATED 161 mg/dl
[2017-02-12 10:00] LABS: ESTIMATED AVERAGE GLUCOSE 203 mg/dl; HA1C FLAG Normal (Normal)
== END | disposition home or self-care (01) ==
LOC: C.LAB 06:49
PROVIDERS: ATTEND Nurse Practitioner Family
DX: J45.909 Unspecified asthma, uncomplicated (principal); E78.5 Hyperlipidemia, unspecified; E03.9 Hypothyroidism, unspecified; I10 Essential (primary) hypertension; E11.65 Type 2 diabetes mellitus with hyperglycemia

== ENCOUNTER 2017-02-17 02:43 | Observation (INO) | payer OTHER, MEDICARE ==
[~2017-02-17] VITALS: Ht 144.8 cm; Wt 88.0 kg
[~2017-02-17 02:43] MED LIST changes: -EZET10TA63 PO; -MGNO400 PO
[2017-02-17] MEDS ORDERED: NITROGLYCERIN 0.4 MG SL PER TAB CHARGE ONE (03:15)
[2017-02-17] MEDS ORDERED: NITROGLYCERIN 0.4 MG SL PER TAB CHARGE SL PRN ×2 (03:15→06:45)
[2017-02-17 03:29] LABS: BASO % 0.2 %; BASO ABS # 0.02 K/uL (0-0.2); COMPLETE YES; EOS % 1.8 %; HEMATOCRIT 39.6 % (37-47); IG% 0.3 %; LYMPH % 33.6 %; LYMPH ABS # 2.91 K/uL (1.2-3.4); MEAN CORPUSCULAR HEMOGLOBIN 30.6 pg (25-34); MEAN CORPUSCULAR HGB CONC 33.6 g/dl (32-36); MONO % 7.7 %; NEUT % 56.4 %; PLATELET COUNT 272 K/uL (130-400); RED BLOOD COUNT 4.35 M/uL (4.2-5.4); WHITE BLOOD COUNT 8.65 K/uL (4.8-10.8)
[2017-02-17] MEDS ORDERED: EZET10TA63 PO (03:29)
--- NOTE | 2017-02-17 03:29 | EMERGENCY ROOM VISIT NOTE ---
History Report prepared by Dirk: Justine Judge Under the Supervision of: Dr. Clarice Bailey D.O. First contact with patient: 03:05 Chief Complaint: CHEST PAIN Stated Complaint: CHEST PAIN History of Present Illness The patient is a 71 year old female who presents to the Emergency Room with complaints of persistent left sided chest pain that began one hour prior to arrival. She currently rates her discomfort as a 10/10 in severity and describes her discomfort as a sharp pain. The patient states that around 0200 this morning she was suddenly awoken from sleep with sharp left sided chest pain that radiates into her left jaw, left arm, and back. She additionally associates shortness of breath with her symptoms today. The patient denies any diaphoresis, nausea, or vomiting. She states that she went to bed last evening feeling normal. The patient notes that she had a recent fall two weeks ago, causing an injury to her leg. She reports normal bowel movements. The patient denies any cardiac history. She denies any history of a DVT or PE. The patient denies any decrease in mobility. She notes a history of hypertension and reports medication compliance. The patient reports a strong family history of heart disease. Source of History: patient Onset: one hour prior to arrival Position: chest (left) Symptom Intensity: 10/10 Quality: sharp Timing: other (persistent) Associated Symptoms: + SOB, No diaphoresis, No nausea, No vomiting Review of Systems See HPI for pertinent positives & negatives. A total of 10 systems reviewed and were otherwise negative. Past Medical & Surgical Medical Problems: (1) ASTHMA W/ACUTE EXACERBATION NOS (2) ASTHMA, UNSPECIFIED, W (ACUTE) EXACERBATION (3) CERVICAL ROOT LESION NEC (4) DDD (degenerative disc disease) (5) DIAB W PERIPH CIRC DIS, TYPE II OR UNSPEC TYPE, UNCONTROLLED (6) DUODENAL ULCER NOS (7) Heart disease (8) HYPOTHYROIDISM NOS (9) MENIERE'S DISEASE, UNSPECIFIED (10) TOBACCO USE DISORDER Family History Cancer Diabetes mellitus Heart disease Hypertension Kidney disease Kidney stones Lung disease Social History Smoking Status: Former Smoker Alcohol Use: none Drug Use: none Marital Status: Housing Status: lives with significant other Occupation Status: retired Current/Historical Medications Scheduled Acyclovir (Zovirax), 800 MG PO QAM Albuterol Sulf (Proventil 0.083% 2.5MG/3ML), 2.5 MG INH QID Albuterol Sulfate (Proair Respiclick), 2 PUFFS INH Q6H Ascorbic Acid (Vitamin C), 1 TAB PO QPM Cetirizine (Zyrtec), 10 MG PO QAM Cholecalciferol (Vitamin D3), 1 CAP PO QAM Cyanocobalamin (Vitamin B12), 5,000 MCG PO QAM Ezetimibe (Zetia), 10 MG PO DAILY Furosemide (Lasix), 20 MG PO Q2D Insulin Isophane (Human) (Novolin N Relion), UNITS SC UD Insulin Regular (Human) (Novolin R Relion), UNITS SC TIDM Levothyroxine Sodium (Synthroid), 50 MCG PO QAM Lisinopril (Prinivil), 30 MG PO HS Meclizine HCl (Meclizine HCl), 1 TAB PO BID Moxifloxacin Hcl (Ophth) (Vigamox 0.5% Oph), 1 DROP OPR QID Multivitamin (Multivitamin), 1 TAB PO QAM Omeprazole (Prilosec), 1 CAP PO QAM Prednisolone Acetate (Ophth) (Pred Forte 1% Oph), 1 DROPS OPR BID Triamterene/Hctz (Triamterene/Hctz 37.5-25MG), 1 CAP PO HS Scheduled PRN Carboxymethylcellulose-Glyceri (Optive), 1 DROPS OP QID PRN for DRY EYES Allergies Coded Allergies: Latex1 -Allergic Contact Dermititis (Verified Allergy, Unknown, RASH, ) Acetaminophen (Verified Adverse Reaction, Unknown, have an enlarged liver , 02/17/17) Ibuprofen (Verified Adverse Reaction, Unknown, gave me a duodenal ulcer, ) Morphine and Related (Verified Adverse Reaction, Unknown, NARCOTICS-GI UPSET AND HALLUCINATIONS, 02/17/17) Tramadol (Verified Adverse Reaction, Unknown, vomit, 02/17/17) Physical Exam Vital Signs Date Time Temp Pulse Resp B/P Pulse Ox O2 Delivery O2 Flow Rate FiO2 02/17/17 06:30 86 22 148/81 96 02/17/17 06:11 90 20 132/74 97 02/17/17 04:43 92 24 97 02/17/17 04:30 135/64 02/17/17 04:13 86 20 93 02/17/17 04:00 129/64 02/17/17 03:45 127/70 02/17/17 03:43 95 21 96 02/17/17 03:30 126/70 02/17/17 03:28 166/51 02/17/17 03:16 160/66 02/17/17 03:13 87 20 92 02/17/17 03:00 142/69 02/17/17 02:57 97 Room Air 02/17/17 02:54 87 02/17/17 02:54 162/75 02/17/17 02:52 178/77 02/17/17 02:45 36.6 92 24 187/80 98 Room Air Physical Exam General: Obese woman who appears uncomfortable on exam. HEENT: Head - normocephalic and atraumatic Pupils are equal, round, and reactive to light. Extraocular eye muscles are intact, and sclera are anicteric. Nose - moist nasal mucosa without discharge. Mouth - moist buccal mucosa. Oropharynx is nonerythematous and there is no tonsillar exudate or edema noted. Neck: Supple; no JVD, nuchal rigidity, cervical lymphadenopathy, or auscultated bruits. Heart: Regular rate and rhythm. There is a normal S1 and S2 with no murmurs, clicks, or gallops appreciated. Lungs: Clear to auscultation bilaterally with no wheezes, rales, or rhonchi. Abdomen: Soft, completely nontender, nondistended, with good bowel sounds. There are no palpable pulsatile masses or hepatosplenomegaly. There is no guarding, rigidity, or rebound noted. Extremities: No evidence of cyanosis, clubbing, or edema. There are easily palpable peripheral pulses. Skin: warm and dry with good turgor and no rashes. Medical Decision & Procedures ER Provider Diagnostic Interpretation: 1 view chest x-ray: No pneumothorax, no pulmonary infiltrates or pleural effusions. CT results as stated below per my review and radiologist interpretation: CTA Chest: Compared to 12/09/2010 No evidence of pulmonary embolism or aortic dissection. No focal consolidation, pneumothorax, or pleural effusion. Left thyroid nodule. Nodular thickening of the adrenal glands. Radiologist: Adele Henry MD Study ready at 0509 and initial results transmitted at 0601. Laboratory Results Test 02/17/17 02:52 D-Dimer 680 ug/L FEU (0-500) Total Bilirubin 0.5 mg/dl (0.2-1) Aspartate Amino Transf (AST/SGOT) 17 U/L (15-37) Alanine Aminotransferase (ALT/SGPT) 30 U/L (12-78) Alkaline Phosphatase 86 U/L (45-117) Total Creatine Kinase 67 U/L (26-192) Creatine Kinase MB 1.5 ng/ml (0.5-3.6) Creatine Kinase MB Ratio 2.2 (0-3.0) Total Protein 8.0 gm/dl (6.4-8.2) Albumin 3.9 gm/dl (3.4-5.0) Globulin 4.1 gm/dl (2.5-4.0) Albumin/Globulin Ratio 1.0 (0.9-2) Laboratory results per my review. Medications Administered Medications (Trade) Dose Ordered Sig/Harsh Route Start Time Stop Time Status Last Admin Dose Admin Nitroglycerin 0.4 mg 0.4 mg PRN PRN SL 02/17/17 03:15 02/17/17 08:39 DC 02/17/17 03:29 0.4 MG Sodium Chloride (Nss 500ml) 500 ml @ 999 mls/hr Q31M STAT IV 02/17/17 04:01 02/17/17 04:31 DC 02/17/17 04:01 999 MLS/HR Procedure The patient was treated with Nitroglycerin 0.4 mg SL, Sodium Chloride 500 ml @ 999 mls/hr IV. ECG Indication: chest pain Rate (beats per minute): 91 Rhythm: normal sinus Findings: no acute ischemic change, no ectopy Comparison ECG Date: 01/22/17 ED Course 0308: Past medical records reviewed. The patient was evaluated in room A10. A complete history and physical exam was performed. A twelve-lead EKG was obtained as described above. An IV lock was initiated and labs are drones above. 0315: Ordered Nitroglycerin 0.4 mg SL. 0401: Per nursing staff the nitroglycerin did not help the patient. Her d- dimer is elevated. She will go for a CT scan. Sodium Chloride 500 ml @ 999 mls /hr IV. 0407: I reevaluated the patient and she is experiencing pain. She is going to have a CT scan and she is in agreement. 0530: I reevaluated the patient and she stated that her chest pain has completely subsided. 0613: I reevaluated the patient and she is resting comfortably. I discussed all the exam findings with her and I discussed the treatment plan. She verbalized complete understanding and agreement. She will be evaluated for further treatment. 0637: The patient's case with discussed with SHAYLA Ospina. He is going to evaluate the patient for further treatment. Medical Decision The patient is a 71 year old female who presents to the ED with left sided chest pain. Differential diagnosis includes PE, aortic dissection, cardiac ischemia, acute coronary syndrome, pleurisy, GERD. Lab interpretation: no leukocytosis, stable H&H, BUN 40, creatinine 1.4, glucose 119, negative cardiac enzymes, normal LFTs, d-dimer 680. This is a 71-year-old female patient who presents with a sudden onset of chest pain. CT scan for dissection and PE were negative. Cardiac enzymes and twelve- lead EKG were unremarkable. However, the patient had severe discomfort in the left side of her chest that seemed to radiate up and her neck and left arm. I believe the patient will require further inpatient care and rule out. Consults Time Called: 06 Consulting Physician: SHAYLA Ospina Returned Call: [phone] The patient's case with discussed with SHAYLA Ospina. He is going to evaluate the patient for further treatment. Impression Primary Impression: Left sided chest pain Scribe Attestation The scribe's documentation has been prepared under my direction and personally reviewed by me in its entirety. I confirm that the note above accurately reflects all work, treatment, procedures, and medical decision making performed by me. Departure Information Dispostion Being Evaluated By Hospitalist Earnest Ivan M.D. (PCP)
[2017-02-17 03:37] LABS: ALT/SGPT 30 U/L (12-78); AST/SGOT 17 U/L (15-37); BLOOD UREA NITROGEN 40 mg/dl (7-18); BUN/CREATININE RATIO 28.6 (10-20); CALCIUM 9.8 mg/dl (8.5-10.1); CARBON DIOXIDE 30 mmol/L (21-32); CHLORIDE 104 mmol/L (98-107); GLUCOSE 119 mg/dl (70-99); POTASSIUM 4.3 mmol/L (3.5-5.1); SODIUM 142 mmol/L (136-145)
[2017-02-17 03:42] LABS: ALKALINE PHOSPHATASE 86 U/L (45-117); CKMB/CK RATIO 2.2 (0-3.0)
[2017-02-17] MEDS ORDERED: SODIUM CHLORIDE 0.9% 500ML 500 ML IV STA (04:01)
[2017-02-17] MEDS ORDERED: OPTIRAY 320 IV PRN (04:15)
[2017-02-17] MEDS ORDERED: ALBUTEROL 0.083% NEBU SOLN 3 ML VIAL INH PRN (06:45)
[2017-02-17] MEDS ORDERED: ZOLPIDEM TARTRATE 5 MG TAB PO PRN (06:45)
[2017-02-17] MEDS ORDERED: GLUCOSE 10 TABS/TUBE PO PRN (07:00)
[2017-02-17] MEDS ORDERED: GLUCOSE 40% GEL 15 GM TUBE PO PRN (07:00)
[2017-02-17] MEDS ORDERED: DEXTROSE 50% 50 ML SYR IV PRN (07:00)
[2017-02-17] MEDS ORDERED: GLUCAGON FOR INJ 1 MG VIAL SQ PRN (07:00)
[2017-02-17] MEDS ORDERED: IV FLUIDS COMPLETED PRN (07:00)
[2017-02-17] MEDS ORDERED: ONDANSETRON INJ 2 MG/ML 2 ML VIAL IV PRN ×2 (07:00)
--- NOTE | 2017-02-17 07:01 | History and Physical ---
History & Physical Date & Time of Service: February 17, 2017 at 06:51 Chief Complaint: Chest Pain Primary Care Physician: Earnest Deutsch M.D. History of Present Illness Source: patient The patient is a 71-year-old female who was awoken from sleep by sharp left- sided chest pain that radiated to her jaw, left arm and back. She's never had this type of pain in the past. She did have a negative stress test on 2016 as part of a preoperative assessment for surgery she had on October 16. She did recently fallen into her left leg about 2 weeks ago, has no history of DVT or PE. She reports a strong family History heart disease. Past Medical/Surgical History Medical Problems: (1) ASTHMA W/ACUTE EXACERBATION NOS Status: Chronic (2) ASTHMA, UNSPECIFIED, W (ACUTE) EXACERBATION Status: Chronic (3) CERVICAL ROOT LESION NEC Status: Chronic (4) DIAB W PERIPH CIRC DIS, TYPE II OR UNSPEC TYPE, UNCONTROLLED Status: Chronic (5) DUODENAL ULCER NOS Status: Chronic (6) HYPOTHYROIDISM NOS Status: Chronic (7) MENIERE'S DISEASE, UNSPECIFIED Status: Chronic (8) TOBACCO USE DISORDER Status: Chronic Family History Cancer Diabetes mellitus Heart disease Hypertension Kidney disease Kidney stones Lung disease Social History Smoking Status: Former Smoker Smokeless Tobacco Use: No Alcohol Use: none Drug Use: none Marital Status: Housing status: lives with family Occupational Status: retired Immunizations History of Influenza Vaccine: No Influenza Vaccine Date: Aug 08, 2011 History of Tetanus Vaccine?: Yes History of Pneumococcal: Yes Pneumococcal Date: Dec 09, 2006 History of Hepatitis B Vaccine: Yes Hepatitis Immunization Date: Dec 02, 2001 Multi-Drug Resistant Organisms History of MDRO: No Allergies Coded Allergies: Latex1 -Allergic Contact Dermititis (Verified Allergy, Unknown, RASH, ) Acetaminophen (Verified Adverse Reaction, Unknown, have an enlarged liver , 02/17/17) Ibuprofen (Verified Adverse Reaction, Unknown, gave me a duodenal ulcer, ) Morphine and Related (Verified Adverse Reaction, Unknown, NARCOTICS-GI UPSET AND HALLUCINATIONS, 02/17/17) Tramadol (Verified Adverse Reaction, Unknown, vomit, 02/17/17) Home Medications Scheduled Acyclovir (Zovirax), 800 MG PO QAM Albuterol Sulf (Proventil 0.083% 2.5MG/3ML), 2.5 MG INH QID Albuterol Sulfate (Proair Respiclick), 2 PUFFS INH Q6H Ascorbic Acid (Vitamin C), 1 TAB PO QPM Cetirizine (Zyrtec), 10 MG PO QAM Cholecalciferol (Vitamin D3), 1 CAP PO QAM Cyanocobalamin (Vitamin B12), 5,000 MCG PO QAM Ezetimibe (Zetia), 10 MG PO DAILY Furosemide (Lasix), 20 MG PO Q2D Insulin Isophane (Human) (Novolin N Relion), UNITS SC UD Insulin Regular (Human) (Novolin R Relion), UNITS SC TIDM Levothyroxine Sodium (Synthroid), 50 MCG PO QAM Lisinopril (Prinivil), 30 MG PO HS Meclizine HCl (Meclizine HCl), 1 TAB PO BID Moxifloxacin Hcl (Ophth) (Vigamox 0.5% Oph), 1 DROP OPR QID Multivitamin (Multivitamin), 1 TAB PO QAM Omeprazole (Prilosec), 1 CAP PO QAM Prednisolone Acetate (Ophth) (Pred Forte 1% Oph), 1 DROPS OPR BID Triamterene/Hctz (Triamterene/Hctz 37.5-25MG), 1 CAP PO HS Scheduled PRN Carboxymethylcellulose-Glyceri (Optive), 1 DROPS OP QID PRN for DRY EYES Review of Systems Constitutional: No chills, No fatigue, No fever, No problem reported, No sweats , No weakness, No weight loss Eyes: No diplopia, No discharge, No eye pain, No problem reported, No redness, No worsening of vision ENT: No dental problems, No hearing loss, No nasal symptoms, No problem reported, No sore throat, No tinnitus, No trouble swallowing, No unusual epistaxis Respiratory: + shortness of breath, No cough, No dyspnea at rest, No dyspnea on exertion, No hemoptysis, No sputum, No wheezing Cardiovascular: + chest pain, No PND, No claudication, No edema, No orthopnea, No palpitations Abdomen: No GI bleeding, No constipation, No diarrhea, No nausea, No pain, No problem reported, No vomiting Musculoskeletal: + joint pain (left leg), No calf pain, No muscle pain, No swelling Genitourinary - Female: No dysmenorrhea, No dysuria, No hematuria, No menorrhagia, No metrorrhagia, No , No problem reported, No rash, No urinary frequency, No urinary incontinence, No urinary retention, No urinary urgency, No vaginal bleeding, No vaginal discharge, No vaginal itching, No vulvodynia Neurologic: No balance problems, No memory loss, No numbness/tingling, No paralysis, No problem reported, No vertigo, No weakness Psychiatric: No anhedonism, No anxiety, No depression symptoms, No insomnia, No problem reported, No substance abuse Endocrine: No excessive thirst, No excessive urination, No fatigue, No problem reported Hematologic / Lymphatic: No abnormal bleeding/bruising, No clotting problems, No night sweats, No problem reported, No swollen lymph nodes Integumentary: No bleeding, No color change, No itch, No new/changing skin lesions, No problem reported, No rash Allergic / Immunologic: No environmental allergies, No food allergies, No frequent infections, No hives, No pet sensitivities, No poor healing, No problem reported, No prolonged convalescence, No seasonal allergies Physical Exam Vital Signs Date Time Temp Pulse Resp B/P Pulse Ox O2 Delivery O2 Flow Rate FiO2 02/17/17 06:11 90 20 132/74 97 02/17/17 04:43 92 24 97 02/17/17 04:30 135/64 02/17/17 04:13 86 20 93 02/17/17 04:00 129/64 02/17/17 03:45 127/70 02/17/17 03:43 95 21 96 02/17/17 03:30 126/70 02/17/17 03:28 166/51 02/17/17 03:16 160/66 02/17/17 03:13 87 20 92 02/17/17 03:00 142/69 02/17/17 02:57 97 Room Air 02/17/17 02:54 87 02/17/17 02:54 162/75 02/17/17 02:52 178/77 02/17/17 02:45 36.6 92 24 187/80 98 Room Air General Appearance: WD/WN, no apparent distress Head: normocephalic, atraumatic Eyes: normal inspection, PERRL, EOMI, sclerae normal ENT: normal ENT inspection, hearing grossly normal, pharynx normal Neck: supple, no adenopathy, thyroid normal, no JVD, no carotid bruits, trachea midline Respiratory/Chest: chest non-tender, lungs clear, normal breath sounds, no respiratory distress, no accessory muscle use Cardiovascular: regular rate, rhythm, no edema, no gallop, no JVD, no murmur, normal peripheral pulses Abdomen/GI: normal bowel sounds, non tender, soft, no organomegaly, no pulsatile mass Back: normal inspection, no CVA tenderness, no muscle spasm, normal range of motion Extremities/Musculoskelatal: normal inspection, no calf tenderness, normal capillary refill, no pedal edema, normal range of motion, non-tender Neurologic/Psych: hide examiner II-XII nml as tested, no motor/sensory deficits, alert, normal mood/affect, normal reflexes, oriented x 3 Skin: normal color, warm/dry, no rash Lymphatic: no adenopathy Diagnostics Laboratory Results Results Past 24 Hours Test 02/17/17 02:52 02/17/17 06:37 Range/Units White Blood Count 8.65 4.8-10.8 K/uL Red Blood Count 4.35 4.2-5.4 M/uL Hemoglobin 13.3 12.0-16.0 g/dL Hematocrit 39.6 37-47 % Mean Corpuscular Volume 91.0 80-100 fL Mean Corpuscular Hemoglobin 30.6 25-34 pg Mean Corpuscular Hemoglobin Concent 33.6 32-36 g/dl Platelet Count 272 130-400 K/uL Mean Platelet Volume 9.0 7.4-10.4 fL Neutrophils (%) (Auto) 56.4 % Lymphocytes (%) (Auto) 33.6 % Monocytes (%) (Auto) 7.7 % Eosinophils (%) (Auto) 1.8 % Basophils (%) (Auto) 0.2 % Neutrophils # (Auto) 4.86 1.4-6.5 K/uL Lymphocytes # (Auto) 2.91 1.2-3.4 K/uL Monocytes # (Auto) 0.67 0.11-0.59 K/uL Eosinophils # (Auto) 0.16 0-0.5 K/uL Basophils # (Auto) 0.02 0-0.2 K/uL RDW Standard Deviation 47.0 36.4-46.3 fL RDW Coefficient of Variation 14.0 11.5-14.5 % Immature Granulocyte % (Auto) 0.3 % Immature Granulocyte # (Auto) 0.03 0.00-0.02 K/uL D-Dimer 680 0-500 ug/L FEU Sodium Level 142 136-145 mmol/L Potassium Level 4.3 3.5-5.1 mmol/L Chloride Level 104 98-107 mmol/L Carbon Dioxide Level 30 21-32 mmol/L Anion Gap 8.0 3-11 mmol/L Blood Urea Nitrogen 40 7-18 mg/dl Creatinine 1.40 0.60-1.20 mg/dl Est Creatinine Clear Calc Drug Dose 33.2 ml/min Estimated GFR () 43.4 Estimated GFR (Non- 37.4 BUN/Creatinine Ratio 28.6 10-20 Random Glucose 119 70-99 mg/dl Calcium Level 9.8 8.5-10.1 mg/dl Total Bilirubin 0.5 0.2-1 mg/dl Aspartate Amino Transf (AST/SGOT) 17 15-37 U/L Alanine Aminotransferase (ALT/SGPT) 30 12-78 U/L Alkaline Phosphatase 86 45-117 U/L Total Creatine Kinase 67 26-192 U/L Creatine Kinase MB 1.5 0.5-3.6 ng/ml Creatine Kinase MB Ratio 2.2 0-3.0 Troponin I < 0.015 0-0.045 ng/ml Total Protein 8.0 6.4-8.2 gm/dl Albumin 3.9 3.4-5.0 gm/dl Globulin 4.1 2.5-4.0 gm/dl Albumin/Globulin Ratio 1.0 0.9-2 Bedside Glucose 169 70-90 mg/dl CXR normal EKG EKG shows normal sinus rhythm at 91 bpm, there are no acute ST-T changes. Impression Assessment and Plan Precordial left-sided chest pain with radiation to left arm, jaw and back-- patient admitted to telemetry unit for serial cardiac enzymes, cardiac rhythm monitoring and a 2-D echocardiogram with Dopplers. She did have a normal stress test on October 15 of this year. She has been seen by Dr. Nestor Hernandez in the outpatient setting, and he will be consulted this admission. Continue triamterene/HCTZ resume 37.5/25 by mouth daily at bedtime, lisinopril 30 mg by mouth at bedtime, furosemide 20 mg by mouth daily. Add aspirin 81 mg by mouth every morning. Diabetes mellitus--continue Novolin N 12 units subcutaneous every morning and 30 units subcutaneous at bedtime. At home she usually uses Novolin R with each meal plus a sliding scale. In hospital we'll place her on Accu-Cheks before meals and at bedtime with NovoLog coverage for scale. Asthma--continue Proventil nebulizers 2.5 mg inhaled 4 times a day when necessary and albuterol H FA 2 puffs every 6 hours, cetirizine 10 mg by mouth every morning. GERD--change omeprazole to pantoprazole per formulary interchange. Hypothyroidism continue levothyroxine sodium 50 g by mouth every morning. Hypercholesterolemia--continue Zetia 10 mg by mouth daily. Vitamin B12 deficiency--continue supplement 5000 g by mouth every morning. Ophthalmologic--continue outpatient drops as ordered: Pred forte Vigamox and takes Zovirax 800 mg by mouth every morning. Vertigo--in the meclizine 1 tablet by mouth twice a day. Level of Care Telemetry Advanced Directives Existing Advance Directive: No Existing Living Will: No Existing Power of Manager Women: No Resuscitation Status FULL RESUSCITATION VTE Prophylaxis VTE Risk Assessment Done? Y/N: Yes Risk Level: Moderate Given or contraindicated: SCD's Social Service Consult None Apply
--- NOTE | 2017-02-17 07:05 | DIAGNOSTIC IMAGING REPORT ---
CHEST ONE VIEW PORTABLE CLINICAL HISTORY: Atypical chest pain COMPARISON STUDY: 10/03/2016 FINDINGS: The cardiac and mediastinal contours are normal. There is no evidence of focal pulmonary consolidation. There is no evidence of failure. No pleural effusions are visualized.[ Postsurgical changes are present within the cervical spine. IMPRESSION: No active disease in the chest. Electronically signed by: Sohan Carroll M.D. 02/17/2017 7:04 AM Dictated Date/Time: 02/17/2017 7:03 AM
--- NOTE | 2017-02-17 07:43 | DIAGNOSTIC IMAGING REPORT ---
CT ANGIOGRAPHY THE CHEST WITHOUT AND WITH CONTRAST CLINICAL HISTORY: Chest and back pain. Shortness of breath. Possible dissection. COMPARISON STUDY: Chest x-ray dated 02/17/2017 FINDINGS: Unenhanced images were obtained through the thorax. The patient was then scanned in a dynamic helical fashion during intravenous administration 1 through 19 cc Optiray 320. MIP imaging was performed. Unenhanced images reveal no evidence of acute aortic hematoma. The left lobe of thyroid appears larger than the right. There is a probable lower pole left lobe thyroid nodule. There is no evidence of thoracic aortic dilatation. There are no intimal flaps to indicate acute aortic dissection. There are no pathologically enlarged axillary, mediastinal, or hilar lymph nodes. There are no pulmonary artery filling defects to indicate acute pulmonary embolism. There are no pleural effusions. There is no focal pulmonary consolidation. There is mild left adrenal gland thickening. IMPRESSION: 1. No CT evidence of acute pulmonary embolism 2. No CT evidence of acute aortic dissection 3. Left thyroid nodule 4. No evidence of focal pulmonary consolidation 5. Mild adrenal gland thickening Electronically signed by: Sohan Carroll M.D. 02/17/2017 7:42 AM Dictated Date/Time: 02/17/2017 7:37 AM
--- NOTE | 2017-02-17 08:17 | Progress Note ---
Subjective Date of Service: February 17, 2017. Subjective pt states her chest pain was relieved with nitro, otherwise only new change in her routing was starting Zetia two days ago Problem List Medical Problems: (1) External hemorrhoids Status: Acute (2) Left sided chest pain Status: Acute (3) Right lower quadrant abdominal pain Status: Acute Review of Systems Constitutional: No chills, No fever, No weakness Respiratory: No cough, No dyspnea on exertion, No shortness of breath Cardiac: No chest pain, No edema Abdomen: No constipation, No diarrhea, No nausea, No pain Female : No dysuria, No urinary frequency Psychiatric: No anhedonism, No depression symptoms Objective Vital Signs Date Time Temp Pulse Resp B/P Pulse Ox O2 Delivery O2 Flow Rate FiO2 02/17/17 08:09 86 20 158/79 95 02/17/17 07:30 97 94 02/17/17 07:00 95 26 153/75 95 02/17/17 06:53 88 02/17/17 06:30 86 22 148/81 96 02/17/17 06:11 90 20 132/74 97 02/17/17 04:43 92 24 97 02/17/17 04:30 135/64 02/17/17 04:13 86 20 93 02/17/17 04:00 129/64 02/17/17 03:45 127/70 02/17/17 03:43 95 21 96 02/17/17 03:30 126/70 02/17/17 03:28 166/51 02/17/17 03:16 160/66 02/17/17 03:13 87 20 92 02/17/17 03:00 142/69 02/17/17 02:57 97 Room Air 02/17/17 02:54 87 02/17/17 02:54 162/75 02/17/17 02:52 178/77 02/17/17 02:45 36.6 92 24 187/80 98 Room Air Physical Exam General Appearance: WD/WN, no apparent distress Eyes: PERRL, EOMI Neck: supple, no JVD Respiratory/Chest: chest non-tender, lungs clear, normal breath sounds Cardiovascular: regular rate, rhythm, no murmur Abdomen: normal bowel sounds, non tender, soft Extremities: no pedal edema, no calf tenderness Laboratory Results Last 24 Hours Test 02/17/17 02:52 02/17/17 06:37 White Blood Count 8.65 K/uL Red Blood Count 4.35 M/uL Hemoglobin 13.3 g/dL Hematocrit 39.6 % Mean Corpuscular Volume 91.0 fL Mean Corpuscular Hemoglobin 30.6 pg Mean Corpuscular Hemoglobin Concent 33.6 g/dl Platelet Count 272 K/uL Mean Platelet Volume 9.0 fL Neutrophils (%) (Auto) 56.4 % Lymphocytes (%) (Auto) 33.6 % Monocytes (%) (Auto) 7.7 % Eosinophils (%) (Auto) 1.8 % Basophils (%) (Auto) 0.2 % Neutrophils # (Auto) 4.86 K/uL Lymphocytes # (Auto) 2.91 K/uL Monocytes # (Auto) 0.67 K/uL Eosinophils # (Auto) 0.16 K/uL Basophils # (Auto) 0.02 K/uL RDW Standard Deviation 47.0 fL RDW Coefficient of Variation 14.0 % Immature Granulocyte % (Auto) 0.3 % Immature Granulocyte # (Auto) 0.03 K/uL D-Dimer 680 ug/L FEU Sodium Level 142 mmol/L Potassium Level 4.3 mmol/L Chloride Level 104 mmol/L Carbon Dioxide Level 30 mmol/L Anion Gap 8.0 mmol/L Blood Urea Nitrogen 40 mg/dl Creatinine 1.40 mg/dl Est Creatinine Clear Calc Drug Dose 33.2 ml/min Estimated GFR () 43.4 Estimated GFR (Non- 37.4 BUN/Creatinine Ratio 28.6 Random Glucose 119 mg/dl Calcium Level 9.8 mg/dl Total Bilirubin 0.5 mg/dl Aspartate Amino Transf (AST/SGOT) 17 U/L Alanine Aminotransferase (ALT/SGPT) 30 U/L Alkaline Phosphatase 86 U/L Total Creatine Kinase 67 U/L Creatine Kinase MB 1.5 ng/ml Creatine Kinase MB Ratio 2.2 Troponin I < 0.015 ng/ml Total Protein 8.0 gm/dl Albumin 3.9 gm/dl Globulin 4.1 gm/dl Albumin/Globulin Ratio 1.0 Bedside Glucose 169 mg/dl Assessment and Plan 71 F awoken from sleep with sharp chest pain, did have PE and dissection ruled out with CT in ER, no acute ECG changes or lab abnormalities left-sided chest pain with radiation to left arm, jaw and back She did have a normal stress test on October 15 of this year. She has been seen by Dr. Nestor Hrenandez in the outpatient setting, and he will be consulted this admission. states CP resolved with nitro, did start new medicine of Zetia 2 days ago, Continue triamterene/HCTZ resume 37.5/25 by mouth daily at bedtime, lisinopril 30 mg by mouth at bedtime, furosemide 20 mg by mouth daily. Add aspirin 81 mg by mouth every morning. Diabetes mellitus--NPH 12 units am and 30 units bedtime plus ssi Asthma-is clinically stable, albuterol H FA 2 puffs every 6 hours, cetirizine Hypothyroidism, clinically stable levothyroxine sodium 50 g Ophthalmologic-- Pred forte Vigamox and takes Zovirax 800 mg by mouth every morning. Vertigo-- meclizine 1 bid
[2017-02-17] MEDS: FUROSEMIDE 20 MG TAB PO SCH ×2 (09:00→09:50)
[2017-02-17] MEDS: EZETIMIBE 10MG TAB PO SCH (09:00)
[2017-02-17] MEDS: ACYCLOVIR 400 MG TAB PO SCH (09:48)
[2017-02-17] MEDS: PANTOprazole SOD 40 MG TAB PO SCH (09:49)
[2017-02-17] MEDS: CYANOCOBALAMIN 2,500 MCG SUBL TAB PO SCH (09:49)
[2017-02-17] MEDS: CHOLECALCIFEROL 1000 INTER.UNIT TAB PO SCH (09:50)
[2017-02-17] MEDS: MULTIVITAMIN TAB PO SCH (09:50)
[2017-02-17] MEDS: MECLIZINE HCL 25 MG TAB PO SCH ×2 (09:50→21:42)
[2017-02-17] MEDS: MOXIFLOXACIN HCL 0.5% OP SOLN 3 ML BTL OPR SCH ×4 (09:51→21:41)
[2017-02-17] MEDS: CETIRIZINE HCL 10 MG TAB PO SCH (09:51)
[2017-02-17] MEDS: PrednisoLONE ACET 1% OP SUSP 5 ML BTL OPR SCH ×2 (09:51→21:41)
[2017-02-17] MEDS: INSULIN ASPART 100 UNITS/ML 3 ML PEN SC SCH ×4 (09:53→21:48)
[2017-02-17] MEDS: INSULIN HUMAN NPH SC SCH (09:54)
[2017-02-17 11:31] VITALS: BP 160/77; PULSE 90; TEMP 36.6; O2SAT 96
[2017-02-17 12:18] VITALS: BP 166/75; PULSE 92; TEMP 36.7; O2SAT 95; Ht 144.8 cm; Wt 88.0 kg
--- NOTE | 2017-02-17 12:34 | ECHOCARDIOGRAM REPORT ---
*NOTICE TO RECEIVING CONSTITUTION PARTY AGENCY This information is strictly Confidential and protected under [place] law. [place] law prohibits you from making any further disclosure of this information unless further disclosure is expressly permitted by the written consent of the person to whom it pertains or is authorized by law. A general authorization for the release of medical or other information is not sufficient for this purpose. Hospital accepts no responsibility if the information is made available to any other person, INCLUDING THE PATIENT. Interpretation Summary * Name: CAMRON LAW Study Date: 02/17/2017 10:01 AM BP: 158/79 mmHg * Patient Location: [facility]\S\N288\S\2 HR: 86 * : 1945 (M/d/yyyy) Gender: Female Height: 57 in * Age: 71 yrs Ethnicity: CA Weight: 191 lb * Ordering Physician: Danilo Vazquez * Referring Physician: Self, Referred * Performed By: Maribel Rowe RDCS * * Reason For Study: Chest pain * BSA: 1.8 m2 * -- Conclusions -- * The left ventricle is normal in size. * There is normal left ventricular wall thickness. * Ejection Fraction = 65-70%. * Left ventricular systolic function is normal. * The left ventricular wall motion is normal. * The right ventricle is normal in size and function. * The right ventricular systolic function is normal as assessed by tricuspid annular plane systolic excursion (TAPSE) (normal >1.5 cm). * Grade I diastolic dysfunction, (abnormal relaxation pattern). Procedure Details * A complete two-dimensional transthoracic echocardiogram was performed (2D, M-mode, Doppler and color flow Doppler). * A contrast injection of Definity was performed to improve assessment of LV function. * Contrast was injected into an intravenous site in the right arm. * One vial of Definity ultrasound contrast was diluted in normal saline to a total volume of 10 ml. A total of '2' ml of solution was administered during imaging. * Lot # [id number] of Definity utilized for procedure. * Expiration date JAN 29. * The attending nurse who injected the contrast agent was Sudha Quevedo RN. Left Ventricle * The left ventricle is normal in size. * There is normal left ventricular wall thickness. * Ejection Fraction = 65-70%. * Left ventricular systolic function is normal. * The left ventricular wall motion is normal. Right Ventricle * The right ventricle is normal in size and function. * The right ventricular systolic function is normal as assessed by tricuspid annular plane systolic excursion (TAPSE) (normal >1.5 cm). Atria * The left atrium is mildly dilated. * Right atrial size is normal. Mitral Valve * There is severe mitral annular calcification. * There is trace mitral regurgitation. Tricuspid Valve * The tricuspid valve is not well visualized, but is grossly normal. * There is trace tricuspid regurgitation. Aortic Valve * The aortic valve is trileaflet. * No aortic regurgitation is present. Pulmonic Valve * The pulmonic valve is not well seen, but is grossly normal. Great Vessels * The aortic root is normal size. Pericardium/Pleural * There is no pericardial effusion. Great Vessels * Normal inferior vena cava size and collapsability with sniff indicates a normal right atrial pressure of 3 mmHg Left Ventricular Diastolic Function * Grade I diastolic dysfunction, (abnormal relaxation pattern). MMode 2D Measurements and Calculations IVSd 0.82 cm LVIDd 4.9 cm LVIDs 3.1 cm LVPWd 0.74 cm IVS/LVPW 1.1 FS 37.5 % EDV(Teich) 112.0 ml ESV(Teich) 36.5 ml EF(Teich) 67.4 % EDV(cubed) 116.6 ml ESV(cubed) 28.4 ml EF(cubed) 75.6 % LV mass(C)d 126.5 grams LV mass(C)dI 71.7 grams/m\S\2 CO(Teich) 6.5 l/min CI(Teich) 3.7 l/min/m\S\2 SV(Teich) 75.5 ml SI(Teich) 42.8 ml/m\S\2 CO(cubed) 7.6 l/min CI(cubed) 4.3 l/min/m\S\2 SV(cubed) 88.1 ml SI(cubed) 50.0 ml/m\S\2 Ao root diam 2.8 cm Ao root area 6.3 cm\S\2 ACS 1.4 cm LA dimension 3.1 cm asc Aorta Diam 2.6 cm LA/Ao 1.1 LVOT diam 1.8 cm LVOT area 2.7 cm\S\2 LVAd ap4 19.4 cm\S\2 LVLd ap4 6.4 cm EDV(MOD-sp4) 47.5 ml LVAs ap4 9.8 cm\S\2 LVLs ap4 5.4 cm ESV(MOD-sp4) 15.2 ml EF(MOD-sp4) 68.0 % LVAd ap2 14.2 cm\S\2 LVLd ap2 5.5 cm EDV(MOD-sp2) 31.5 ml LVAs ap2 6.6 cm\S\2 LVLs ap2 4.1 cm ESV(MOD-sp2) 9.7 ml EF(MOD-sp2) 69.3 % CO(MOD-sp4) 2.8 l/min CI(MOD-sp4) 1.6 l/min/m\S\2 SV(MOD-sp4) 32.3 ml SI(MOD-sp4) 18.3 ml/m\S\2 CO(MOD-sp2) 1.9 l/min CI(MOD-sp2) 1.1 l/min/m\S\2 SV(MOD-sp2) 21.8 ml SI(MOD-sp2) 12.4 ml/m\S\2 Doppler Measurements and Calculations MV E max sylwia 84.4 cm/sec MV A max sylwia 108.7 cm/sec MV E/A 0.78 MV dec time 0.19 sec Ao V2 max 162.9 cm/sec Ao max PG 10.6 mmHg Ao max PG (full) 4.1 mmHg CHRIS(V,A) 2.1 cm\S\2 CHRIS(V,D) 2.1 cm\S\2 LV V1 max PG 6.6 mmHg LV V1 max 128.1 cm/sec PA V2 max 123.5 cm/sec PA max PG 6.1 mmHg PA acc slope 1053.8 cm/sec\S\2 PA acc time 0.07 sec PA pr(Accel) 47.3 mmHg
[2017-02-17] MEDS: ALBUTEROL HFA 8 GM INHALER INH SCH ×2 (12:35→17:26)
[2017-02-17 15:44] VITALS: BP 170/77; PULSE 92; TEMP 36.5; O2SAT 95
[2017-02-17] MEDS ORDERED: INSULIN HUMAN NPH SC SCH (17:00)
[2017-02-17 19:31] VITALS: BP 145/79; PULSE 87; TEMP 36.5; O2SAT 93
[2017-02-17] MEDS ORDERED: LISINOPRIL 20 MG TAB PO SCH (21:00)
[2017-02-17] MEDS ORDERED: TRIAMTERENE/HCTZ 37.5/25MG TAB PO SCH (21:00)
[2017-02-17] MEDS ORDERED: ASCORBIC ACID 500 MG TAB PO SCH (21:00)
[2017-02-17 23:25] VITALS: BP 158/79; PULSE 95; TEMP 36.6; O2SAT 97
[2017-02-18] MEDS: ALBUTEROL HFA 8 GM INHALER INH SCH ×3 (00:51→14:03)
[2017-02-18 03:57] VITALS: BP 160/73; PULSE 96; TEMP 36.5; O2SAT 95
[2017-02-18] MEDS ORDERED: LEVOTHYROXINE 50 MCG TAB PO SCH (06:30)
[2017-02-18 07:11] LABS: BASO % 0.2 %; BASO ABS # 0.02 K/uL (0-0.2); COMPLETE YES; EOS % 1.8 %; HEMATOCRIT 36.2 % (37-47); IG% 0.4 %; LYMPH % 22.2 %; LYMPH ABS # 2.11 K/uL (1.2-3.4); MEAN CELL VOLUME 90.7 fL (80-100); MEAN CORPUSCULAR HEMOGLOBIN 29.8 pg (25-34); MEAN CORPUSCULAR HGB CONC 32.9 g/dl (32-36); MEAN PLATELET VOLUME 8.8 fL (7.4-10.4); NEUT % 70.4 %; PLATELET COUNT 251 K/uL (130-400); RED BLOOD COUNT 3.99 M/uL (4.2-5.4); WHITE BLOOD COUNT 9.51 K/uL (4.8-10.8)
--- NOTE | 2017-02-18 07:21 | CARDIOLOGY CONSULTATION ---
DATE OF CONSULTATION: 02/17/2017 REQUESTING PHYSICIAN: Dr. Alton Helms. PASTE THINNER: Jg Napier DO, [facility] Cardiology for Dr. Nestor Hernandez, who is the patient's primary server engineer. REASON FOR CONSULTATION: Chest discomfort. Dear Winston: Thank you for requesting cardiology consultation on Whit with regards to her chest discomfort. As you know, she is a pleasant 71-year-old female who previously underwent stress testing in October 2016 as part of a surgical assessment for back surgery. According to her, it was normal. She did have a fall recently on her left leg, for which she is awaiting an MRI. She notes yesterday she felt fine and over the last week or so, outside of her fall, she has felt fine. She denies any chest pain, chest pressure, chest heaviness. She does have chronic shortness of breath, which is worse at this time of year due to her underlying asthma, but she describes this as relatively stable. She denies any lightheadedness, dizziness, presyncope or syncope with activity and she notes she did not change her diet yesterday, did not eat late, and did not eat have anything spicy. She awoke around 02:00 a.m. with sudden onset of severe sharp stabbing like discomfort. She describes it is radiating into her neck, down both arms, in between her shoulder blades. She notes she was mildly short of breath with it. There was no diaphoresis. There was no nausea, vomiting or abdominal discomfort. The only thing that has been new is this was the second time she had taken Zetia and had taken it that evening before she went to bed. The pain lasted for about 2 hours. She woke her and came to the Emergency Room. In the ER, she underwent a CAT scan of her chest, which was negative for pulmonary embolism and negative for aortic dissection. Her first troponin was negative. She did receive 3 sublingual nitroglycerin. She thinks the third one may have improved the discomfort slightly. She denies any recent viral illnesses or upper respiratory tract infections. No one has been sick at home. She denies any bleeding. She does have some bruising on her left lower leg. She denies any fevers or chills or night sweats at home. The rest of review of systems is otherwise negative. PAST MEDICAL HISTORY: 1. Negative stress test for ischemia in October 2016. 2. Hypertension. 3. Diabetes mellitus type 2. 4. Asthma. 5. Hypothyroidism. 6. History of vertigo. 7. Hemorrhoids. 8. Degenerative disk disease. 9. Duodenal ulcer. 10. Meniere's disease. 11. Hypertension. 12. GERD. SOCIAL HISTORY: She is a former smoker. She denies any alcohol or drug use. She is . She lives with her . FAMILY HISTORY: Positive for diabetes, heart disease, hypertension and lung disease. MEDICATIONS: Reviewed in the electronic medical record. ALLERGIES: TO LATEX, TYLENOL, IBUPROFEN, MORPHINE, AND TRAMADOL. Currently, she is resting in her room, pain free and she describes herself as being back to her baseline. PHYSICAL EXAMINATION: GENERAL: She is awake, alert, and oriented x3. She is in no acute distress. She is a well-appearing female. VITAL SIGNS: Her heart rate is 90, respirations 18, blood pressure 160/77, and her sat was 96%. Of note, when she arrived in the ER, her blood pressure was 187/80. HEENNT: 2+ carotid upstrokes. No evidence of carotid bruits. Jugular venous pressure appeared normal. Her sclerae is anicteric. Her hearing is normal. LUNGS: She has pursed lip breathing. Her lungs sound very coarse and with forced expiration, she sounds very very tight and afterwards was short of breath for a brief period of time. HEART: Regular rate and rhythm. Heart sounds are distant. No appreciable murmurs, rubs or gallops. ABDOMEN: Soft, nontender, nondistended. Positive bowel sounds. EXTREMITIES: No clubbing or cyanosis or edema. She does have ecchymosis on her left leg. PSYCHIATRIC: Affect appeared appropriate. CT of her chest was discussed above. LABORATORY DATA: Her first troponin is negative. Her second is pending. Her BUN was 40 with the creatinine of 1.4. Sodium 142, potassium 4.3. Her hemoglobin was 13.3, her platelet count 272. EKG: Normal sinus rhythm, baseline artifact, nonspecific ST-T changes are very mild. IMPRESSION: Chest discomfort of unclear etiology. As I discussed, our job is to rule out the things that are going to hurt her. There is no evidence of an aortic dissection. There is no evidence of a pulmonary embolism. Her first troponin is negative and was drawn in less than an hour from when her pain started. Her troponin now will be more than 6 hours out from her event. If that troponin is negative, then the risk of an acute coronary syndrome is extremely small. I would obtain her outpatient stress test just to confirm it was normal in October. It is possible she had an odd side effect related to Zetia, as that was only the second dose that she had taken. This does not sound like esophageal reflux disease. The other possibility is her asthma, it sounds like it is pretty significant and may not be very well controlled whether there was some asthmatic component to her symptoms. It would be interesting to do forced vital capacity here to see how poorly controller her asthma is. FURTHER RECOMMENDATIONS: If her troponin is negative and her stress test is truly negative then in all likelihood she can be discharged home with close followup.
[2017-02-18 07:38] VITALS: BP 144/66; PULSE 85; TEMP 36.6; O2SAT 93
[2017-02-18 07:46] LABS: BUN/CREATININE RATIO 25.6 (10-20); CALCIUM 9.7 mg/dl (8.5-10.1); CREATININE 1.4 mg/dl (0.60-1.20); MAGNESIUM 1.6 mg/dl (1.8-2.4); POTASSIUM 4.5 mmol/L (3.5-5.1)
[2017-02-18] MEDS: PrednisoLONE ACET 1% OP SUSP 5 ML BTL OPR SCH (08:00)
[2017-02-18] MEDS: CHOLECALCIFEROL 1000 INTER.UNIT TAB PO SCH (08:01)
[2017-02-18] MEDS: CYANOCOBALAMIN 2,500 MCG SUBL TAB PO SCH (08:01)
[2017-02-18] MEDS: MOXIFLOXACIN HCL 0.5% OP SOLN 3 ML BTL OPR SCH ×2 (08:01→14:03)
[2017-02-18] MEDS: FUROSEMIDE 20 MG TAB PO SCH (08:02)
[2017-02-18] MEDS: CETIRIZINE HCL 10 MG TAB PO SCH (08:02)
[2017-02-18] MEDS: MECLIZINE HCL 25 MG TAB PO SCH (08:02)
[2017-02-18] MEDS: PANTOprazole SOD 40 MG TAB PO SCH (08:02)
[2017-02-18] MEDS: ACYCLOVIR 400 MG TAB PO SCH (08:02)
[2017-02-18] MEDS: MULTIVITAMIN TAB PO SCH (08:02)
[2017-02-18] MEDS: EZETIMIBE 10MG TAB PO SCH (08:03)
[2017-02-18] MEDS: INSULIN HUMAN NPH SC SCH (08:53)
[2017-02-18] MEDS: INSULIN ASPART 100 UNITS/ML 3 ML PEN SC SCH ×2 (08:53→11:00)
[2017-02-18] MEDS: MAGNESIUM SULFATE 1GM / D5W 1 GM in PREMIXED IN D5W 100 ML IV SCH ×2 (10:10→12:00)
[2017-02-18 11:19] VITALS: BP 147/70; PULSE 91; TEMP 36.7; O2SAT 92
--- NOTE | 2017-02-18 11:21 | Discharge Instructions ---
Discharge Instructions Date of Service February 18, 2017. Admission Reason for Admission: Left Sided Chest Pain Discharge Discharge Diagnosis / Problem: chest pain-resolved Discharge Goals Goal(s): Decrease discomfort, Diagnostic testing Activity Recommendations Activity Limitations: resume your previous activity . Instructions / Follow-Up Instructions / Follow-Up You were admitted to the hospital with complaints of chest pain. This has resolved. Blood work does not show any signs of heart problems. It is possible that this pain is due to a reaction to Zetia. Please discontinue this. Please begin taking magnesium oxide 400 mg daily Please continue other medications as prescribed Please follow up with your primary care physician within one week of discharge Call your doctor or return to the emergency department if you have any of the following symptoms: -Fever of 101F or greater -Persistent vomiting - Persistent diarrhea -Lethargy -Returning Chest pain -Shortness of breath -severe dizziness -weakness on one side of your body Current Hospital Diet Patient's current hospital diet: AHA Diet (Heart Healthy), Diabetes Type 2 Diet Discharge Diet Recommended Diet: AHA Diet (Heart Healthy), Diabetes Type 2 Diet Pending Studies Studies pending at discharge: no Laboratory Results Hemoglobin A1c Test 02/12/17 06:53 Range/Units Estimated Average Glucose 203 mg/dl Hemoglobin A1c 8.7 H 4.5-5.6 % Lipid Panel Test 02/12/17 06:53 Range/Units Triglycerides Level 124 0-150 mg/dl Cholesterol Level 279 H 0-200 mg/dl HDL Cholesterol 93 mg/dl Cholesterol/HDL Ratio 3.0 LDL Cholesterol, Calculated 161 mg/dl Medical Emergencies . Who to Call and When: Medical Emergencies: If at any time you feel your situation is an emergency, please call 911 immediately. . Non-Emergent Contact Non-Emergency issues call your: Primary Care Provider . . "Provider Documentation" section prepared by Eugenia Gerber. Attending Attestation: Pt seen/examined & discharge plan d/w MAXIMILIANO Gerber on day of discharge. I agree with her discharge instructions as outlined. Marcelo Castro MD . VTE Core Measure Inpt VTE Proph given/why not?: SCD's
--- NOTE | 2017-02-18 11:31 | Discharge Summary ---
Discharge Summary Date of Service February 18, 2017. (Eugenia Gerber PA-C) Discharge Summary Admission Date: February 17, 2017 at 06:46 Discharge Date: February 18, 2017 Discharge Disposition: Home Principal Diagnosis: chest pain Problems/Secondary Diagnoses: Hypertension Diabetes Hypothyroidism Asthma Immunizations: Have You Had Influenza Vaccine: No Influenza Vaccine Date: Aug 08, 2011 History of Tetanus Vaccine?: Yes History of Pneumococcal: Yes Pneumococcal Date: Dec 09, 2006 History of Hepatitis B Vaccine: Yes Hepatitis Immunization Date: Dec 02, 2001 Consultations: Cardiology (Eugenia Gerber PA-C) Problems/Secondary Diagnoses: GERD Bojorquez's Esophagus Procedures: echo: * -- Conclusions -- * The left ventricle is normal in size. * There is normal left ventricular wall thickness. * Ejection Fraction = 65-70%. * Left ventricular systolic function is normal. * The left ventricular wall motion is normal. * The right ventricle is normal in size and function. * The right ventricular systolic function is normal as assessed by tricuspid annular plane systolic excursion (TAPSE) (normal >1.5 cm). * Grade I diastolic dysfunction, (abnormal relaxation pattern). (Marcelo Castro MD) Medication Reconciliation Continued Medications: Acyclovir (Zovirax) 800 Mg Tab 800 MG PO QAM Albuterol Sulf (Proventil 0.083% 2.5MG/3ML) 2.5 Mg/3 Ml Nebu 2.5 MG INH QID, EA Albuterol Sulfate (Proair Respiclick) 108 Mcg/Act Aer 2 PUFFS INH Q6H, #85 Ascorbic Acid (Vitamin C) 500 Mg Tab 1 TAB PO QPM Carboxymethylcellulose-Glyceri (Optive) 1 David David 1 DROPS OP QID PRN for DRY EYES, ML PRESERVATIVE FREE Cetirizine (Zyrtec) 10 Mg Tab 10 MG PO QAM Cholecalciferol (Vitamin D3) 2,000 Unit Cap 1 CAP PO QAM for 30 Days, #30 CAP 3 Refills Cyanocobalamin (Vitamin B12) 1,000 Mcg Tab 5000 MCG PO QAM Furosemide (Lasix) 20 Mg Tab 20 MG PO Q2D Insulin Isophane (Human) (Novolin N Relion) 100 Unit/Ml Inj UNITS SC UD 12 UNITS AM 30 UNITS HS Insulin Regular (Human) (Novolin R Relion) 100 Unit/Ml Inj UNITS SC TIDM QAM - 10 UNITS +SLIDING SCALE LUNCH - 15 UNITS +SLIDING SCALE DINNER - 20 UNITS +SLIDING SCALE Levothyroxine Sodium (Synthroid) 50 Mcg Tab 50 MCG PO QAM, TAB Lisinopril (Prinivil) 30 Mg Tab 30 MG PO HS, TAB Meclizine HCl (Meclizine HCl) 25 Mg Tab 1 TAB PO BID, #270 CAN TAKE UP TO THREEXDAY Moxifloxacin Hcl (Ophth) (Vigamox 0.5% Oph) 0.5 % David 1 DROP OPR QID, #3 Multivitamin (Multivitamin) Tab 1 TAB PO QAM Omeprazole (Prilosec) 40 Mg Cap 1 CAP PO QAM, #60 Prednisolone Acetate (Ophth) (Pred Forte 1% Oph) 1 % Hailey 1 DROPS OPR BID, #5 ML Triamterene/Hctz (Triamterene/Hctz 37.5-25MG) 1 Tab Tab 1 CAP PO HS, #90 Discontinued Medications: Ezetimibe (Zetia) 10 Mg Tab 10 MG PO DAILY, TAB Referrals At Discharge Follow up Referrals: Senior Animator Referral - Within a Month with Nestor Hernandez M.D. Physician Referral - Within 1 Week with Earnest Deutsch M.D. Discharge Exam Patient reports feeling well today. Denies any chest pain or pressure overnight. No shortness of breath. Denies dizziness or heart palpitations. No changes in bowel movements. Review of Systems: Constitutional: No fever Respiratory: No cough, No shortness of breath Cardiovascular: No chest pain Abdomen: No nausea Physical Exam: General Appearance: no apparent distress Eyes: EOMI Neck: no JVD Respiratory/Chest: lungs clear Cardiovascular: regular rate, rhythm Abdomen / GI: normal bowel sounds, non tender, soft Extremities: + pertinent finding (ecchymosis noted to the lateral aspect of the left lower leg. No edema noted bilaterally.) Neurologic/Psychiatric: oriented x 3 Skin: warm/dry (Eugenia Gerber, LUIS ENRIQUEC) Hospital Course 71 F presented with sharp chest pain -CT angiogram performed in the emergency department ruled out PE and dissection -Observe in telemetry -No EKG changes noted -Cardiology consult -Patient just had a negative stress test in October 2016. Cardiology recommends no further testing as her cardiac enzymes have remained negative. -Asymptomatic on the time of discharge -Chest pain thought to be possibly secondary to Zetia as she just started his medications 2 days prior to arrival--> d/c zetia -She will follow-up with her rail tractor operator within 1 month. Diabetes mellitus- -NPH 12 units am and 30 units bedtime plus ssi Asthma-is clinically stable, -albuterol H FA 2 puffs every 6 hours -Continue cetirizine Hypothyroidism -Levothyroxine sodium 50 g Ophthalmologic -Pred forte Vigamox and takes Zovirax 800 mg by mouth every morning. Vertigo-asymptomatic -meclizine 1 bid DVT prophylaxis -SCDs, ambulation Total Time Spent: Greater than 30 minutes This includes examination of the patient, discharge planning, medication reconciliation, and communication with other providers. (Eugenia Gerber PA-C) Attending Attestation & Discharge Note: Pt seen/examined, chart reviewed, and care plan d/w MAXIMILIANO Gerber on day of discharge. I agree with the rutledge components of her discharge summary. 71yo female with T2DM, HTN, and hyperlipidemia who presented with chest pain that awoke her from sleep. Cardiac work-up including serial troponins, EKG, telemetry, and echocardiogram were entirely normal. She was seen in consult by Dr. Humberto Hernandez, her primary rail tractor operator, who felt that this was unlikely to be cardiac in origin. Possible etiologies include reaction/side effects from the zetia or a GI cause ( has h/o GERD and Bojorquez's). She was advised to monitor for any additional episodes and to have close f/u with Dr. Hernandez. Discharge exam: gen - nad, obese neck - no JVD heart - RRR, s1, s2, no murmur chest - no reproducible chest wall pain abd - soft, NT, ND, BS+ ext - no edema At discharge she will discontinue the zetia as a precautionary measure and continue on her PPI. Marcelo Castro MD (Marcelo Castro MD) Discharge Instructions Please refer to the electronic Patient Visit Report (Discharge Instructions) for additional information. (Eugenia Gerber PA-C) Follow-Up PCP 1 week Cardiology within 1 month (Eugenia Gerber PA-C) Additional Copies To Nestor Hernandez M.D.; Earnest Deutsch M.D.
[2017-02-18 13:03] VITALS: BP 147/70; PULSE 91; TEMP 36.7; O2SAT 92
[2017-02-18] MEDS ORDERED: MGNO400 PO (13:44)
--- NOTE | 2017-02-18 16:11 | CARDIOLOGY PROGRESS NOTE ---
DATE: 02/18/2017 SUBJECTIVE: Mrs. Corona is resting comfortably in bed without complaints of chest pain or dyspnea. She has been ambulatory without difficulty. Her history and troponins cardiac markers were reviewed in detail. The patient is anxious for hospital discharge. OBJECTIVE: VITAL SIGNS: Blood pressure is 140/70 with a regular pulse of 80. Respiratory rate is 16. The patient is afebrile at 36.7 degrees Celsius. Saturations 92% on room air. NECK: Supple with full carotid upstrokes. No carotid bruits. Jugular venous pressure is flat at 90 degrees. There is no thyromegaly. CARDIOVASCULAR: Reveals a regular rhythm with a normal S1 and S2. No S3, S4, or murmurs are noted. LUNGS: Clear without rales, rhonchi, or wheezes. ABDOMEN: Soft, nontender without bruits. EXTREMITIES: Reveal intact radial artery pulses bilaterally. There is no peripheral edema. DATA: CBC notes hemoglobin of 11.9, hematocrit 36.2, white count 9.5, and platelet count 251,000. Electrolytes note sodium of 134, potassium 4.5, chloride 99, bicarb 28, BUN 36, creatinine 1.4, glucose 184. Three troponin I levels are undetectable at less than 0.015. EKG notes normal sinus rhythm with a minor nonspecific ST abnormality. IMPRESSION: 1. Chest pain syndrome -- as per Dr. Napier's description, seems noncardiac in origin. Unfortunately, cardiac enzymes are undetectable. She did have a normal dobutamine stress echocardiogram performed on October 05 in our office as a preoperative evaluation. No need for repeat stress testing at this time. 2. Hypertension -- controlled. 3. Diabetes mellitus. 4. Normal dobutamine stress echocardiogram -- 10/05/2016. 5. Disposition -- stable for hospital discharge from hospital perspective.
== END 2017-02-18 14:05 | disposition home or self-care (01) ==
LOC: ENRESERVTM → ENRESERVDT → C.EDB 02:45 → C.MED 06:46
PROVIDERS: ADMIT Hospitalist; ATTEND Internal Medicine
DX: R07.9 Chest pain, unspecified (principal); E55.9 Vitamin D deficiency, unspecified; J45.909 Unspecified asthma, uncomplicated; E11.59 Type 2 diabetes mellitus with other circulatory complications; E03.9 Hypothyroidism, unspecified; R42 Dizziness and giddiness; E78.00 Pure hypercholesterolemia, unspecified; Z72.0 Tobacco use; Z83.3 Family history of diabetes mellitus; Z82.49 Family history of ischemic heart disease and other diseases of the circulatory system; Z84.1 Family history of disorders of kidney and ureter; Z83.6 Family history of other diseases of the respiratory system; Z79.4 Long term (current) use of insulin; Z79.899 Other long term (current) drug therapy

== ENCOUNTER → 2017-03-26 | Outpatient (CLI) | payer OTHER, MEDICARE ==
[~2017-03-26] MED LIST changes: +MGNO400 PO
--- NOTE | 2017-03-26 10:13 | DIAGNOSTIC IMAGING REPORT ---
LEFT LOWER EXTREMITY VENOUS DOPPLER CLINICAL HISTORY: Left leg pain and swelling. COMPARISON STUDY: Left lower extremity venous Doppler September 22, 2013. TECHNIQUE: Sonography of the deep venous system of the left lower extremity was performed. Compression and augmentation were evaluated. FINDINGS: The left common femoral, superficial femoral and popliteal veins were compressible. Augmentation was normal. Flow was shown within the deep calf vessels. IMPRESSION: No evidence of deep venous thrombus within the left lower extremity. Electronically signed by: Aristeo Gama M.D. 03/26/2017 10:12 AM Dictated Date/Time: 03/26/2017 10:09 AM
== END | disposition home or self-care (01) ==
LOC: C.ULTRBC 09:11
PROVIDERS: ATTEND Physician Assistant
DX: M79.605 Pain in left leg (principal)

== ENCOUNTER → 2017-04-02 | Outpatient (CLI) | payer OTHER, MEDICARE ==
[2017-04-02 14:13] LABS: LYME DISEASE AB IGG NEG (NEG)
[2017-04-02 14:23] LABS: LYME DISEASE AB IGM NEG (NEG)
== END | disposition home or self-care (01) ==
LOC: C.LAB 09:59
PROVIDERS: ATTEND Orthopaedic Surgery Sports Medicine
DX: M25.562 Pain in left knee (principal)

== ENCOUNTER → 2017-04-04 | Outpatient (CLI) | payer OTHER, MEDICARE ==
--- NOTE | 2017-04-04 11:42 | DIAGNOSTIC IMAGING REPORT ---
BILATERAL LOWER EXTREMITY ARTERIAL DOPPLER STUDY CLINICAL HISTORY: LEG PAIN POSTERIOR, R/O CLOT,LATEX ALLERGY COMPARISON STUDY: None. FINDINGS: Mild scattered calcified plaque throughout the bilateral lower extremity arterial systems. There are normal biphasic to triphasic waveforms and velocities. No evidence for arterial occlusion. No hemodynamically significant stenosis. The right ankle-brachial index measured with the posterior tibial artery was 1.1 and the dorsalis pedis artery was 1.0. The left ankle-brachial index measured with the posterior tibial artery was 1.2 and the dorsalis pedis artery was 1.0. IMPRESSION: Mild scattered calcified plaque within the bilateral lower extremity arterial systems. No significant stenosis or occlusion. Electronically signed by: Bart Viera M.D. 04/04/2017 11:40 AM Dictated Date/Time: 04/04/2017 11:38 AM
== END | disposition home or self-care (01) ==
LOC: C.ULTR 10:06
PROVIDERS: ATTEND Physician Assistant Medical
DX: M79.609 Pain in unspecified limb (principal)

== ENCOUNTER → 2017-04-11 | Outpatient (CLI) | payer OTHER, MEDICARE ==
[2017-04-11 13:48] LABS: ESTIMATED AVERAGE GLUCOSE 166 mg/dl; HA1C FLAG Normal (Normal)
== END | disposition home or self-care (01) ==
LOC: C.LAB1850 12:05
PROVIDERS: ATTEND Physician Assistant Medical
DX: E11.65 Type 2 diabetes mellitus with hyperglycemia (principal); M79.606 Pain in leg, unspecified

== ENCOUNTER → 2017-05-15 | Outpatient (CLI) | payer OTHER, MEDICARE ==
[2017-05-15 13:01] LABS: ESTIMATED AVERAGE GLUCOSE 157 mg/dl; HA1C FLAG Normal (Normal)
== END | disposition home or self-care (01) ==
LOC: C.LABBFT 07:40
PROVIDERS: ATTEND Nurse Practitioner Family
DX: E11.65 Type 2 diabetes mellitus with hyperglycemia (principal)

== ENCOUNTER → 2017-08-26 | Outpatient (CLI) | payer OTHER, MEDICARE ==
[2017-08-26 12:57] LABS: ESTIMATED AVERAGE GLUCOSE 157 mg/dl; HA1C FLAG Normal (Normal)
[2017-08-26 13:01] LABS: ALT/SGPT 25 U/L (12-78); BLOOD UREA NITROGEN 31 mg/dl (7-18); BUN/CREATININE RATIO 22.9 (10-20); CALCIUM 9.3 mg/dl (8.5-10.1); CARBON DIOXIDE 24 mmol/L (21-32); CHLORIDE 102 mmol/L (98-107); CHOLESTEROL 239 mg/dl (0-200); CREATININE 1.36 mg/dl (0.60-1.20); GLUCOSE 190 mg/dl (70-99); POTASSIUM 4.8 mmol/L (3.5-5.1); SODIUM 137 mmol/L (136-145); TRIGLYCERIDES 159 mg/dl (0-150); VERY LOW DENSITY LIPOPROT CALC 32 mg/dl
[2017-08-26 13:12] LABS: ALB/GLOB RATIO 0.9 (0.9-2); ALKALINE PHOSPHATASE 84 U/L (45-117); AST/SGOT 22 U/L (15-37); CHOLESTEROL/HDL RATIO 4.1; HDL CHOLESTEROL 58 mg/dl; LDL CHOLESTEROL CALCULATED 149 mg/dl; THYROID STIMULATING HORMONE 0.663 uIu/ml (0.300-4.500)
== END | disposition home or self-care (01) ==
LOC: C.LABBFT 10:19
PROVIDERS: ATTEND Internal Medicine Pulmonary Disease
DX: J45.909 Unspecified asthma, uncomplicated (principal); E78.5 Hyperlipidemia, unspecified; J20.9 Acute bronchitis, unspecified; E03.9 Hypothyroidism, unspecified; I10 Essential (primary) hypertension; E11.65 Type 2 diabetes mellitus with hyperglycemia

== ENCOUNTER → 2017-10-22 | Outpatient (CLI) | payer OTHER, MEDICARE ==
--- NOTE | 2017-10-22 14:47 | DIAGNOSTIC IMAGING REPORT ---
CT SCAN OF THE CERVICAL SPINE CLINICAL HISTORY: Cord compression. COMPARISON STUDY: CT scan of cervical spine dated 02/13/2013. MRI of the cervical spine dated 05/14/2012. TECHNIQUE: CT scan of the cervical spine is performed from the skull base to the upper thoracic spine. Images are reviewed in the axial, sagittal, and coronal planes. IV contrast was not administered for this examination. A dose lowering technique was utilized adhering to the principles of ALARA. CT DOSE: 418.06 mGycm FINDINGS: Skeletal structures: The skeletal structures are osteopenic. There are postoperative changes from anterior fusion seen at C6-C7. The orthopedic hardware appears intact. There is near complete bony incorporation at this level. There is no evidence of fracture or subluxation involving the cervical spine. Vertebral body height is maintained. There is 2 mm of anterolisthesis at C4-C5. Alignment is otherwise preserved. There is straightening of the cervical lordosis with reversal centered at C4-C5. The odontoid process and lateral masses are intact. The atlantoaxial articulation is preserved noting mild productive degenerative change. The spinous processes appear intact. There is mild to moderate multilevel cervical spondylosis. Uncovertebral and facet arthropathy cause mild left neural foraminal stenosis at C3-C4 and mild to moderate neural frontal stenosis on the right at C6-C7. Intervertebral discs: There is been discectomy at C6-C7. Advanced disc space narrowing is seen at C5-C6. Mild to moderate disc space narrowing is seen at the remaining cervical levels. Central canal: Posterior disc osteophyte complexes at C3-C4 at C5-C6 likely contribute to mild acquired compromise of the central canal. Soft tissues: The prevertebral and paraspinous soft tissues are within normal limits. There is atherosclerotic calcification of the carotid bulbs. Calvarium: The visualized calvarium at the skull base appears intact. Brain parenchyma: Partially visualized brain parenchyma the skull base is within normal limits. Sinuses and mastoids: The visualized paranasal sinuses are clear. There is a left mastoid effusion with evidence of previous left mastoid surgery. Trace fluid is seen in the right mastoid air cells. Lung apices: Clear as visualized. IMPRESSION: 1. Osteopenia with no acute bone abnormality identified involving the cervical spine. 2. Spondylotic and postoperative changes as above. See discussion. Electronically signed by: Lawrence Nielsen M.D. 10/22/2017 2:46 PM Dictated Date/Time: 10/22/2017 2:40 PM
== END | disposition home or self-care (01) ==
LOC: C.CTS 14:09
PROVIDERS: ATTEND Orthopaedic Surgery Orthopaedic Surgery of the Spine
DX: G95.20 Unspecified cord compression (principal)

== ENCOUNTER 2017-11-04 10:46 | Inpatient (IN) | payer OTHER, MEDICARE ==
[~2017-11-04] VITALS: Ht 147.3 cm; Wt 90.6 kg
[~2017-11-04 10:46] MED LIST changes: +INSU0.01; +MONT1TAB5 PO; -PRED1SUS3 OPR; +PRED1SUS3 OR
[2017-11-04] MEDS ORDERED: ASPIRIN 324 MG CHEW ONE (11:03)
[2017-11-04] MEDS ORDERED: SODIUM CHLORIDE 0.9% 1000ML 1,000 ML IV STA (11:15)
[2017-11-04] MEDS: NITROGLYCERIN 0.4 MG SL PER TAB CHARGE SL PRN ×3 (11:28→12:17)
[2017-11-04 11:39] LABS: HEMATOCRIT 36.6 % (37-47); HEMOGLOBIN 12.6 g/dL (12.0-16.0); MEAN CELL VOLUME 91.3 fL (80-100); MEAN CORPUSCULAR HEMOGLOBIN 31.4 pg (25-34); MEAN CORPUSCULAR HGB CONC 34.4 g/dl (32-36); MEAN PLATELET VOLUME 8.9 fL (7.4-10.4); PLATELET COUNT 297 K/uL (130-400); RED CELL DISTRIBUTION WIDTH CV 13.5 % (11.5-14.5); RED CELL DISTRIBUTION WIDTH SD 44.7 fL (36.4-46.3)
--- NOTE | 2017-11-04 11:47 | EMERGENCY ROOM VISIT NOTE ---
History Report prepared by Dirk: Hansa Taylor Under the Supervision of: Dr. Earnest Zepeda M.D. First contact with patient: 11:05 Chief Complaint: CHEST PAIN Stated Complaint: CHEST PAIN, FROM PAT Nursing Triage Summary: Pt from [facility]. reports sudden onset of mid chest pain radiating up neck. denies SOB. 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 The patient was at preadmission testing for neck surgery today when she had sudden chest pain. The pain was a 10/10 at worst. Currently, she rates her discomfort as a 7/10 in severity. The pain goes up into her neck and through to her back. She did feel lightheaded with the pain. She has a history of heart murmur, but no other heart problems. She does have a family history of heart disease. She has leg swelling and pain which are not new. Pt denies LOC, headache, fevers, chills, diaphoresis, visual changes, tearing pain radiating to the back, personal history or family history of aneurysm or pulmonary embolism, uncontrolled hypertension, breathing difficulties, coagulation abnormalities, prolonged travel, recent surgery or immobilization, nausea, vomiting, abdominal pain, melena, hematochezia, urinary symptoms, numbness, weakness, lymphadenopathy, rash, or other complaints. Source of History: patient Onset: LEAD WELDER Position: chest (mid) Symptom Intensity: 7/10 Quality: other (pain) Timing: other (subsiding) Associated Symptoms: + neck pain, + back pain Note: Pt reports lightheadedness. Review of Systems See HPI for pertinent positives and negatives. A total of ten systems were reviewed and were otherwise negative. Past Medical & Surgical Medical Problems: (1) ASTHMA W/ACUTE EXACERBATION NOS (2) ASTHMA, UNSPECIFIED, W (ACUTE) EXACERBATION (3) CERVICAL ROOT LESION NEC (4) DDD (degenerative disc disease) (5) DIAB W PERIPH CIRC DIS, TYPE II OR UNSPEC TYPE, UNCONTROLLED (6) DUODENAL ULCER NOS (7) Heart disease (8) HYPOTHYROIDISM NOS (9) MENIERE'S DISEASE, UNSPECIFIED (10) TOBACCO USE DISORDER Family History Cancer Diabetes mellitus Heart disease Hypertension Kidney disease Kidney stones Lung disease Social History Smoking Status: Former Smoker Alcohol Use: none Drug Use: none Marital Status: Housing Status: lives with significant other Occupation Status: retired Current/Historical Medications Scheduled Acyclovir (Zovirax), 800 MG PO QAM Ascorbic Acid (Vitamin C), 1 TAB PO QPM Carboxymethylcellulose-Glyceri (Optive), 1 DROPS OP 5XWEEK Cetirizine (Zyrtec), 10 MG PO QAM Cholecalciferol (Vitamin D3), 1 CAP PO QAM Furosemide (Lasix), 20 MG PO Q2D Insulin Isophane (Human) (Novolin N Relion), UNITS SC UD Insulin Isophane (Human) (Novolin N U-100), 0 SC UD Levothyroxine Sodium (Synthroid), 50 MCG PO QAM Lisinopril (Prinivil), 30 MG PO HS Meclizine HCl (Meclizine HCl), 1 TAB PO BID Montelukast Sodium (Montelukast Sodium), 1 TAB PO HS Moxifloxacin Hcl (Ophth) (Vigamox 0.5% Oph), 1 DROPS OPR TID Multivitamin (Multivitamin), 1 TAB PO QAM Omeprazole (Prilosec), 1 CAP PO BID Prednisolone Acetate (Ophth) (Pred Forte 1% Oph), 1 DROPS OR QAM Triamterene/Hctz (Triamterene/Hctz 37.5-25MG), 1 CAP PO HS Scheduled PRN Albuterol Sulf (Proventil 0.083% 2.5MG/3ML), 2.5 MG INH QID PRN for SOB/Wheezing Albuterol Sulfate (Proair Respiclick), 2 PUFFS INH Q6H PRN for prn Allergies Coded Allergies: Latex1 -Allergic Contact Dermititis (Verified Allergy, Unknown, RASH, 11/04) NSAIDs (Verified Allergy, Unknown, HX ULCER, 11/04/17) Acetaminophen (Verified Adverse Reaction, Unknown, TO AVOID -"have an enlarged liver" FATTY LIVER, 11/04/17) Ibuprofen (Verified Adverse Reaction, Unknown, gave me a duodenal ulcer, ) Morphine and Related (Verified Adverse Reaction, Unknown, NARCOTICS-GI UPSET AND HALLUCINATIONS, 11/04/17) Tramadol (Verified Adverse Reaction, Unknown, vomit, 11/04/17) Physical Exam Vital Signs Date Time Temp Pulse Resp B/P (MAP) Pulse Ox O2 Delivery O2 Flow Rate FiO2 11/04/17 13:10 96 Room Air 11/04/17 12:18 84 20 166/78 96 Room Air 11/04/17 11:26 97 Room Air 11/04/17 11:10 92 11/04/17 11:06 97 Room Air 11/04/17 11:05 97 Room Air 11/04/17 11:04 97 Room Air 11/04/17 10:51 97 Room Air 11/04/17 10:48 36.8 87 20 186/95 97 Room Air Physical Exam GENERAL: Awake, alert, uncomfortable-appearing, in no distress HENT: Normocephalic, atraumatic. Oropharynx unremarkable. EYES: Normal conjunctiva. Sclera non-icteric. NECK: Supple. No nuchal rigidity. FROM. No JVD. RESPIRATORY: Clear to auscultation. CARDIAC: Regular rate, normal rhythm. Extremities warm and well perfused. Pulses equal. ABDOMEN: Soft, non-distended. No tenderness to palpation. No rebound or guarding. No masses. RECTAL: Deferred. MUSCULOSKELETAL: Chest examination reveals no tenderness. The back is symmetrical on inspection without obvious abnormality. There is no CVA tenderness to palpation. No joint edema. LOWER EXTREMITIES: Calves are equal size bilaterally and non-tender. No edema. No discoloration. NEURO: Normal sensorium. No sensory or motor deficits noted. SKIN: No rash or jaundice noted. Medical Decision & Procedures ER Provider Diagnostic Interpretation: Xray results as stated below per my and radiologist interpretation: CHEST ONE VIEW PORTABLE HISTORY: Atypical chest pain COMPARISON: Chest 02/17/2017. FINDINGS: Cervical spinal fusion hardware is again noted. No pleural effusions. No pneumothorax. No focal lung consolidations to suggest pneumonia. No evidence for pulmonary edema. The heart is normal in size. IMPRESSION: No acute process. Electronically signed by: Bart Viera M.D. 11/04/2017 11:51 AM Dictated Date/Time: 11/04/2017 11:50 AM Laboratory Results 11/04/17 11:11 11/04/17 11:11 Test 11/04/17 11:11 11/04/17 11:24 Red Blood Count 4.01 M/uL (4.2-5.4) Mean Corpuscular Volume 91.3 fL (80-100) Mean Corpuscular Hemoglobin 31.4 pg (25-34) Mean Corpuscular Hemoglobin Concent 34.4 g/dl (32-36) RDW Standard Deviation 44.7 fL (36.4-46.3) RDW Coefficient of Variation 13.5 % (11.5-14.5) Mean Platelet Volume 8.9 fL (7.4-10.4) Prothrombin Time 10.0 SECONDS (9.0-12.0) Prothromb Time International Ratio 1.0 (0.9-1.1) Activated Partial Thromboplast Time 25.4 SECONDS (21.0-31.0) Partial Thromboplastin Ratio 1.0 Anion Gap 8.0 mmol/L (3-11) Est Creatinine Clear Calc Drug Dose 44.0 ml/min Estimated GFR () 59.0 Estimated GFR (Non- 50.9 BUN/Creatinine Ratio 23.5 (10-20) Calcium Level 9.8 mg/dl (8.5-10.1) Total Bilirubin 0.3 mg/dl (0.2-1) Aspartate Amino Transf (AST/SGOT) 16 U/L (15-37) Alanine Aminotransferase (ALT/SGPT) 23 U/L (12-78) Alkaline Phosphatase 85 U/L (45-117) Total Creatine Kinase 57 U/L (26-192) Creatine Kinase MB 2.1 ng/ml (0.5-3.6) Creatine Kinase MB Ratio 3.7 (0-3.0) Total Protein 7.5 gm/dl (6.4-8.2) Albumin 3.5 gm/dl (3.4-5.0) Globulin 4.0 gm/dl (2.5-4.0) Albumin/Globulin Ratio 0.9 (0.9-2) Bedside Troponin I < 0.030 ng/ml (0-0.045) Laboratory results reviewed by me Medications Administered Medications (Trade) Dose Ordered Sig/Harsh Route Start Time Stop Time Status Last Admin Dose Admin Aspirin (Aspirin Chew) 324 mg STK-MED ONCE .ROUTE 11/04/17 11:03 11/04/17 11:04 DC 11/04/17 11:03 324 MG Nitroglycerin (Nitrostat Tab) 0.4 mg Q5M PRN SL 1/22/18 11:15 11/04/17 14:55 DC 11/04/17 12:17 0.4 MG Sodium Chloride 1,000 ml @ 125 mls/hr Q8H STAT IV 11/04/17 11:15 11/04/17 14:55 DC 11/04/17 11:15 125 MLS/HR Nitroglycerin (Nitroglycerin 2% Oint) 0.5 inch NOW ONCE EXT 11/04/17 12:45 11/04/17 12:46 DC 11/04/17 12:52 0.5 INCH ECG Indication: chest pain Rate (beats per minute): 89 Rhythm: normal sinus Findings: T-wave inversion (Inferior, Lateral), no ectopy Comparison ECG Date: 18-Feb-2017 Change: T wave inversions are new. Patient's electrocardiogram was interpreted by me. ED Course 1103: Aspirin 324 mg PO. 1112: The patient was evaluated in room C3. A complete history and physical exam was performed. 1115: NSS 1000 ml @ 125 mls/hr IV, Nitroglycerin 0.4 mg SL. 1152: I reevaluated the patient. Her pain is down to a 4/10 with 1 nitro. She will get a 2nd nitro. 1209: I reevaluated the patient. Her pain is now down to 1/10. 1215: Repeat EKG shows normal sinus, rate 88, T wave inversions lateral and inferior, no ectopy, per my interpretation. No change from prior. 1243: Upon reexamination, the patient was feeling better. I discussed the test results and treatment plan with her. The patient will be evaluated for further management. 1245: Nitroglycerin 0.5 inch EXT. 1246: I discussed the patient's case with Dr. Layton, [facility] hospitalist. The patient will be evaluated for further treatment and disposition. Medical Decision Prior records/ancillary studies reviewed. Triage Nursing notes reviewed and agree them. Additional history obtained from the family. The patient's history was concerning for chest pain. Differential diagnosis: Etiologies such as cardiac ischemia, aortic dissection, pulmonary embolism, pneumonia, pneumothorax, musculoskeletal, infections, pericarditis, myocarditis , esophageal rupture, gastrointestinal, as well as others were entertained. Physical examination: As above. ER treatment provided: Aspirin Oxygen Sublingual nitroglycerin On reassessment the patient felt better. Nitropaste Diagnostic interpretation by me: The electrocardiogram was concerning for acute ischemic change. The labs revealed medical CBC. Troponin negative. Imaging studies: Chest x-ray as above Consultation: A consultation was placed with the hospitalist. The case was discussed and diagnostics were reviewed. The patient was evaluated in the ER for further treatment. Medication Reconcilliation Current Medication List: was personally reviewed by me Blood Pressure Screening Patient's blood pressure: Elevated blood pressure Referred to hospitalist. Consults Time Called: 1242 Consulting Physician: Dr. Layton [facility] hospitalist Returned Call: [phone] Discussed the patient's case. The patient will be evaluated for further treatment and disposition. Impression Primary Impression: Substernal precordial chest pain Additional Impression: Acute electrocardiogram changes Scribe Attestation The scribe's documentation has been prepared under my direction and personally reviewed by me in its entirety. I confirm that the note above accurately reflects all work, treatment, procedures, and medical decision making performed by me. Departure Information Dispostion Being Evaluated By Hospitalist Referrals Earnest Deutsch M.D. (PCP) Patient Instructions My [facility] Problem Qualifiers
--- NOTE | 2017-11-04 11:52 | DIAGNOSTIC IMAGING REPORT ---
CHEST ONE VIEW PORTABLE HISTORY: Atypical chest pain COMPARISON: Chest 02/17/2017. FINDINGS: Cervical spinal fusion hardware is again noted. No pleural effusions. No pneumothorax. No focal lung consolidations to suggest pneumonia. No evidence for pulmonary edema. The heart is normal in size. IMPRESSION: No acute process. Electronically signed by: Bart Viera M.D. 11/04/2017 11:51 AM Dictated Date/Time: 11/04/2017 11:50 AM
[2017-11-04 11:55] LABS: PTT PATIENT 25.4 SECONDS (21.0-31.0)
[2017-11-04 12:02] LABS: ALBUMIN 3.5 gm/dl (3.4-5.0); CALCIUM 9.8 mg/dl (8.5-10.1); CREATININE 1.08 mg/dl (0.60-1.20); POTASSIUM 4.3 mmol/L (3.5-5.1)
[2017-11-04] MEDS ORDERED: INSUINJ20 SC (12:06)
[2017-11-04 12:07] LABS: CKMB 2.1 ng/ml (0.5-3.6); TOTAL PROTEIN 7.5 gm/dl (6.4-8.2)
[2017-11-04] MEDS ORDERED: NITROGLYCERIN OINT 2% 1GM PACKET EXT ONE (12:45)
[2017-11-04 13:10] VITALS: O2SAT 96; BMI 41.0
--- NOTE | 2017-11-04 13:10 | History and Physical ---
History & Physical Date & Time of Service: Nov 04, 2017 at 13:05 Chief Complaint: Chest Pain, From Pat Primary Care Physician: Earnest Deutsch M.D. History of Present Illness Source: patient This is a 72 yo F with PMHx of hypertension, hyperlipidemia, DM type II, asthma , GERD, cervical and lumbar DJD, mild renal insufficiency, hypothyroidism, remote history of tobacco smoking, Mnire's disease of the left ear, history of shingles involvement of the right cornea on acyclovir, statin intolerance, presents from preadmission testing for cervical spine surgery with Dr. Raman next Saturday, with acute onset of substernal chest pain. The pain started while she was sitting down and answering questions. The patient rated it 10/10 in intensity, and that it radiated from the sternal region of her neck and into her back. She reports having a headache at that point, now HUTCHINS is currently resolved. She was administered 2 nitroglycerin tablets which relieved her chest pain, and took an aspirin. Pain is currently rated a 7 out of 10. She denies any shortness of breath, nausea, vomiting. She does admit to increasing peripheral leg swelling which has been ongoing for some time now. The last time she took her home Lasix was once last week although it is written for every other day dosing if she needs it. Here in the ER chest x-ray was completed without any abnormalities. Initial troponin is negative. EKG showing some ST wave inversions in the anterior lateral and inferior leads although these appear to be old changes. Patient's vital signs are stable with a slightly elevated systolic blood pressure in the 160s, but family reports this is her baseline. Past Medical/Surgical History Medical Problems: (1) ASTHMA W/ACUTE EXACERBATION NOS (2) ASTHMA, UNSPECIFIED, W (ACUTE) EXACERBATION (3) CERVICAL ROOT LESION NEC (4) DDD (degenerative disc disease) (5) DIAB W PERIPH CIRC DIS, TYPE II OR UNSPEC TYPE, UNCONTROLLED (6) DUODENAL ULCER NOS (7) Heart disease (8) HYPOTHYROIDISM NOS (9) MENIERE'S DISEASE, UNSPECIFIED (10) TOBACCO USE DISORDER Surgical Hx: History of bladder surgery Cervical vertebrae fusion Spinal surgery 3 Mryringoplasty of the left ear Tonsillectomy Abdominal hysterectomy with removal of both ovaries Family History Cancer Diabetes mellitus Heart disease Hypertension Kidney disease Kidney stones Lung disease Social History Smoking Status: Former Smoker Drug Use: none Marital Status: Housing status: lives with family Occupational Status: retired Immunizations History of Influenza Vaccine: No Influenza Vaccine Date: Aug 08, 2011 History of Tetanus Vaccine?: Yes History of Pneumococcal: Yes Pneumococcal Date: Dec 09, 2006 History of Hepatitis B Vaccine: Yes Hepatitis Immunization Date: Dec 02, 2001 Multi-Drug Resistant Organisms History of MDRO: No Allergies Coded Allergies: Latex1 -Allergic Contact Dermititis (Verified Allergy, Unknown, RASH, 11/04) NSAIDs (Verified Allergy, Unknown, HX ULCER, 11/04/17) Acetaminophen (Verified Adverse Reaction, Unknown, TO AVOID -"have an enlarged liver" FATTY LIVER, 11/04/17) Ibuprofen (Verified Adverse Reaction, Unknown, gave me a duodenal ulcer, ) Morphine and Related (Verified Adverse Reaction, Unknown, NARCOTICS-GI UPSET AND HALLUCINATIONS, 11/04/17) Tramadol (Verified Adverse Reaction, Unknown, vomit, 11/04/17) Home Medications Scheduled Acyclovir (Zovirax), 800 MG PO QAM Ascorbic Acid (Vitamin C), 1 TAB PO QPM Carboxymethylcellulose-Glyceri (Optive), 1 DROPS OP 5XWEEK Cetirizine (Zyrtec), 10 MG PO QAM Cholecalciferol (Vitamin D3), 1 CAP PO QAM Furosemide (Lasix), 20 MG PO Q2D Insulin Isophane (Human) (Novolin N Relion), UNITS SC UD Insulin Isophane (Human) (Novolin N U-100), 0 SC UD Levothyroxine Sodium (Synthroid), 50 MCG PO QAM Lisinopril (Prinivil), 30 MG PO HS Meclizine HCl (Meclizine HCl), 1 TAB PO BID Montelukast Sodium (Montelukast Sodium), 1 TAB PO HS Moxifloxacin Hcl (Ophth) (Vigamox 0.5% Oph), 1 DROPS OPR TID Multivitamin (Multivitamin), 1 TAB PO QAM Omeprazole (Prilosec), 1 CAP PO BID Prednisolone Acetate (Ophth) (Pred Forte 1% Oph), 1 DROPS OR QAM Triamterene/Hctz (Triamterene/Hctz 37.5-25MG), 1 CAP PO HS Scheduled PRN Albuterol Sulf (Proventil 0.083% 2.5MG/3ML), 2.5 MG INH QID PRN for SOB/Wheezing Albuterol Sulfate (Proair Respiclick), 2 PUFFS INH Q6H PRN for prn Review of Systems Constitutional: No fever, sweats or chills Eyes: No diplopia, no worsening or blurred vision ENT: normal hearing, no trouble swallowing Respiratory: No cough, sputum, dyspnea at rest or on exertion Cardiovascular: See history of present illness Abdomen: No pain, nausea, vomiting, diarrhea or constipation Musculoskeletal: No joint pain, calf pain, + calf swelling Neurologic: No weakness, numbness/tingling, or balance problems Psychiatric: No anxiety or depression Skin: No rash or itch Physical Exam Vital Signs Date Time Temp Pulse Resp B/P (MAP) Pulse Ox O2 Delivery O2 Flow Rate FiO2 11/04/17 12:18 84 20 166/78 96 Room Air 11/04/17 11:26 97 Room Air 11/04/17 11:10 92 11/04/17 11:06 97 Room Air 11/04/17 11:05 97 Room Air 11/04/17 11:04 97 Room Air 11/04/17 10:51 97 Room Air 11/04/17 10:48 36.8 87 20 186/95 97 Room Air General: awake, alert, no apparent distress, obese Head: Normocephalic, atraumatic Neck: Patient has decreased ROM with lateral rotation ENT: PERRL, EOMI, no pharyngeal exudate, mucous membranes moist Chest: Nontender to palpation, Clear to auscultation, on room air, no adventitious breath sounds Cardiac: Regular rate and rhythm, no murmur, JVD difficult to assess due to body habitus, normal peripheral pulses, good capillary refill Abdominal: NABS x 4 quadrants, soft, nontender to palpation, no rebound, guarding or tenderness Extremities: Normal inspection, no peripheral erythema, calfs nontender to palpation, 1+ pitting in BLE Psych: Normal mood and affect Neuro: AAO x 3, speech is clear, no peripheral sensory deficits Diagnostics Laboratory Results Results Past 24 Hours Test 11/04/17 11:11 11/04/17 11:24 Range/Units White Blood Count 10.10 4.8-10.8 K/uL Red Blood Count 4.01 4.2-5.4 M/uL Hemoglobin 12.6 12.0-16.0 g/dL Hematocrit 36.6 37-47 % Mean Corpuscular Volume 91.3 80-100 fL Mean Corpuscular Hemoglobin 31.4 25-34 pg Mean Corpuscular Hemoglobin Concent 34.4 32-36 g/dl RDW Standard Deviation 44.7 36.4-46.3 fL RDW Coefficient of Variation 13.5 11.5-14.5 % Platelet Count 297 130-400 K/uL Mean Platelet Volume 8.9 7.4-10.4 fL Prothrombin Time 10.0 9.0-12.0 SECONDS Prothromb Time International Ratio 1.0 0.9-1.1 Activated Partial Thromboplast Time 25.4 21.0-31.0 SECONDS Partial Thromboplastin Ratio 1.0 Sodium Level 138 136-145 mmol/L Potassium Level 4.3 3.5-5.1 mmol/L Chloride Level 103 98-107 mmol/L Carbon Dioxide Level 27 21-32 mmol/L Anion Gap 8.0 3-11 mmol/L Blood Urea Nitrogen 25 7-18 mg/dl Creatinine 1.08 0.60-1.20 mg/dl Est Creatinine Clear Calc Drug Dose 44.0 ml/min Estimated GFR () 59.0 Estimated GFR (Non- 50.9 BUN/Creatinine Ratio 23.5 10-20 Random Glucose 120 70-99 mg/dl Calcium Level 9.8 8.5-10.1 mg/dl Total Bilirubin 0.3 0.2-1 mg/dl Aspartate Amino Transf (AST/SGOT) 16 15-37 U/L Alanine Aminotransferase (ALT/SGPT) 23 12-78 U/L Alkaline Phosphatase 85 45-117 U/L Total Creatine Kinase 57 26-192 U/L Creatine Kinase MB 2.1 0.5-3.6 ng/ml Creatine Kinase MB Ratio 3.7 0-3.0 Total Protein 7.5 6.4-8.2 gm/dl Albumin 3.5 3.4-5.0 gm/dl Globulin 4.0 2.5-4.0 gm/dl Albumin/Globulin Ratio 0.9 0.9-2 Bedside Troponin I < 0.030 0-0.045 ng/ml Diagnostic Radiology CHEST ONE VIEW PORTABLE HISTORY: Atypical chest pain COMPARISON: Chest 02/17/2017. FINDINGS: Cervical spinal fusion hardware is again noted. No pleural effusions. No pneumothorax. No focal lung consolidations to suggest pneumonia. No evidence for pulmonary edema. The heart is normal in size. IMPRESSION: No acute process. Electronically signed by: Bart Viera M.D. 11/04/2017 11:51 AM Dictated Date/Time: 11/04/2017 11:50 AM The status of this report is Signed. EKG Normal sinus rhythm T wave abnormality, consider inferolateral ischemia Abnormal ECG When compared with ECG of 18-FEB-2017 07:11, T wave inversion now evident in Inferior leads T wave inversion now evident in Anterolateral leads Vent. rate 89 BPM MA interval 146 ms QRS duration 76 ms QT/QTc 324/394 ms P-R-T axes 74 86 -41 Impression Assessment and Plan This is a 72 yo F with PMHx of hypertension, hyperlipidemia, DM type II, asthma , GERD, cervical and lumbar DJD, mild renal insufficiency, hypothyroidism, remote history of tobacco smoking, Mnire's disease of the left ear, history of shingles involvement of the right cornea on acyclovir, statin intolerance, presents from preadmission testing for cervical spine surgery with Dr. Raman next Saturday, with acute onset of substernal chest pain. Chest pain rule out - Admit to telemetry for observation - Follow serial cardiac biomarkers, initial troponin was negative, trending 2 more sets, if negative then do a dobutamine stress test as the patient cannot complete a treadmill stress test - Checking lipids, A1c morning labs - checking 2D echo, carotid dopplers - Continue nitropaste - Statin therapy not started due to pt intolerance with myalgia - has previously tried Lipitor simvastatin and pravastatin - Started patient on a baby aspirin, patient notes that she had previously been off aspirin due to history of GI bleed. - PT/OT evals Hypertension Peripheral lower extremity edema -Continue lisinopril 30 mg every morning - Order Lasix 20 mg IV now, patient last dose of Lasix 20 mg PO was last week. DM type II - Continue Novolin and 16 units every morning, 38 units every afternoon - ISS with Accu-Cheks before meals at bedtime History of shingles involving the right cornea - Continue acyclovir 800 mg daily - Last flare was over 2 months ago She had Mnire's disease of the left ear -Continue on meclizine 25 mg TID Cervical DJD - Patient scheduled for surgical procedure next Saturday with Dr. Raman - if all negative with cardiac workup she can likely proceed with surgery next Saturday. Hypothyroidism Continue Synthroid 50 g daily GERD - Continue on pantoprazole 40 mg daily DVT prophylaxis: Teds, SCDs, heparin subcutaneous CODE STATUS: full code Physician: Patient from home, lives with Level of Care Telemetry Resuscitation Status FULL RESUSCITATION VTE Prophylaxis Risk Level: Low Given or contraindicated: Unfractionated heparin SQ, T.E.D. Stockings, SCD's Reviewed: Pt Seen/Exam by Me History Pt is currently chest pain free. No SOB. Pt seen and examined by me. Tolerating PO without issue. Agree with HPI/ROS as noted by PA. General Appearance: no apparent distress, obese Respiratory: normal breath sounds, no respiratory distress Cardiovascular: normal peripheral pulses, regular rate, rhythm Gastrointestinal: non tender, soft Extremities: non-tender, no pedal edema Neurologic/Psychiatric: alert, normal mood/affect, oriented x 3 Skin Characteristics: normal color, warm/dry Assessment/Plan Agree with plan as outlined above Chest pain: Abn EKG ECHO pending Trop neg CXR neg
[2017-11-04] MEDS ORDERED: ACETAMINOPHEN 325 MG TAB PO PRN (13:15)
[2017-11-04] MEDS ORDERED: ONDANSETRON INJ 2 MG/ML 2 ML VIAL IV PRN (13:15)
[2017-11-04] MEDS ORDERED: POLYETHYLENE (MIRALAX) 17 GM PACK PO PRN (13:15)
[2017-11-04] MEDS ORDERED: ALBUTEROL 0.083% NEBU SOLN 3 ML VIAL INH PRN (13:45)
[2017-11-04] MEDS ORDERED: DEXTROSE 50% 50 ML SYR IV PRN (13:45)
[2017-11-04] MEDS ORDERED: GLUCAGON FOR INJ 1 MG VIAL SQ PRN (13:45)
[2017-11-04] MEDS ORDERED: GLUCOSE 10 TABS/TUBE PO PRN (13:45)
[2017-11-04] MEDS ORDERED: GLUCOSE 40% GEL 15 GM TUBE PO PRN (13:45)
[2017-11-04] MEDS ORDERED: FUROSEMIDE INJ 20 MG in SYRINGE 0 ML IV ONE (15:15)
[2017-11-04] MEDS: MOXIFLOXACIN HCL 0.5% OP SOLN 3 ML BTL OPR SCH ×2 (15:55→20:54)
[2017-11-04 16:04] VITALS: BP 175/81; PULSE 96; TEMP 36.6; O2SAT 95
[2017-11-04 16:10] VITALS: O2SAT 96
[2017-11-04] MEDS ORDERED: INSULIN HUMAN NPH SC SCH (16:45)
--- NOTE | 2017-11-04 17:30 | DIAGNOSTIC IMAGING REPORT ---
CAROTID DOPPLER NECK ART HISTORY: Dyspnea. Mental status change. chest pain COMPARISON: None. TECHNIQUE: Real-time, grayscale, and color Doppler sonography of the carotid arteries was performed. Imaging reviewed in the transverse and longitudinal planes. All measurements were calculated based on NASCET criteria. FINDINGS: Antegrade flow is seen in the bilateral vertebral arteries. The brachial pressures are hemodynamically similar. Considerable plaque formation bilaterally The peak systolic velocity within the right ICA is 300. The peak systolic velocity within the left ICA is 93. IMPRESSION: 1. 90% stenosis right internal carotid artery. 2. 90% stenosis right external carotid artery. 3. 70% stenosis left external carotid artery. 4. No significant stenotic process of the left internal carotid artery. 5. Antegrade flow is present in the vertebral vessels bilaterally The above report was generated using voice recognition software. It may contain grammatical, syntax or spelling errors. Electronically signed by: Zeeshan Marinelli M.D. 11/04/2017 5:29 PM Dictated Date/Time: 11/04/2017 5:27 PM
[2017-11-04] MEDS: INSULIN ASPART 100 UNITS/ML 3 ML PEN SC SCH ×2 (17:47→20:59)
--- NOTE | 2017-11-04 18:20 | ECHOCARDIOGRAM REPORT ---
*NOTICE TO RECEIVING [employer] This information is strictly Confidential and protected under [place] law. [place] law prohibits you from making any further disclosure of this information unless further disclosure is expressly permitted by the written consent of the person to whom it pertains or is authorized by law. A general authorization for the release of medical or other information is not sufficient for this purpose. Hospital accepts no responsibility if the information is made available to any other person, INCLUDING THE PATIENT. Interpretation Summary * Name: CAMRON LAW Study Date: 11/04/2017 01:43 PM BP: 166/78 mmHg * Patient Location: [facility] HR: 84 * : 1945 (M/d/yyyy) Gender: Female Height: 59 in * Age: 72 yrs Ethnicity: [place] Weight: 196 lb * Ordering Physician: Anaid Merrill * Referring Physician: Self, Referred * Performed By: Kelsea Damico RDCS * * Reason For Study: Chest Pain * BSA: 1.8 m2 * -- Conclusions -- * 1. Normal left ventricular size with hyperdynamic systolic function. EF > 70%. No regional wall motion abnormalities. Mild concentric left ventricular hypertrophy. Type 2 diastolic dysfunction. * 2. No significant valvular abnormalities visualized. * 3. Technically difficult study, enhanced with IV Definity. * 4. No significant change from prior study on 02/17/2017. Procedure Details * A complete two-dimensional transthoracic echocardiogram was performed (2D, M-mode, Doppler and color flow Doppler). * The study was technically difficult. * The study was technically difficult, but visualization was adequate with the administration of Definity ultrasound contrast. * There were technical limitations due to patient'sbody habitus * A contrast injection of Definity was performed to improve assessment of LV function. * Contrast was injected into an intravenous site in the left arm. * One vial of Definity ultrasound contrast was diluted in normal saline to a total volume of 10 ml. A total of '2' ml of solution was administered during imaging. * Lot # [id number] of Definity utilized for procedure. * Expiration date . * The attending nurse who injected the contrast agent was VAIBHAV Acosta. Left Ventricle * Normal left ventricular size with hyperdynamic systolic function. EF > 70%. No regional wall motion abnormalities. Mild concentric left ventricular hypertrophy. Type 2 diastolic dysfunction. Right Ventricle * The right ventricle is normal in size and function. Atria * The left atrial size is normal. * Right atrium not well visualized. * There is no evidence of atrial septal defect, but resolution does not allow assessment for a patent foramen ovale. Mitral Valve * There is mild mitral annular calcification. * There is no mitral valve stenosis. * There is trace mitral regurgitation. Tricuspid Valve * The tricuspid valve is not well visualized, but is grossly normal. * There is no tricuspid stenosis. * Significant tricuspid regurgitation is absent. Aortic Valve * The aortic valve is not well visualized. * No hemodynamically significant valvular aortic stenosis. * There is no significant aortic regurgitation. Pulmonic Valve * The pulmonary valve is inadequately visualized, but the Doppler data is adequate for interpretation. * There is no pulmonic valvular stenosis. * There is no significant pulmonary regurgitation. Great Vessels * The aortic root is normal size. Pericardium/Pleural * There is no pericardial effusion. Great Vessels * Normal inferior vena cava size and collapsability with sniff indicates a normal right atrial pressure of 3 mmHg MMode 2D Measurements and Calculations IVSd 1.3 cm IVSs 1.5 cm LVIDd 4.6 cm LVIDs 2.5 cm LVPWd 1.3 cm LVPWs 1.8 cm IVS/LVPW 1.0 FS 45.9 % EDV(Teich) 99.5 ml ESV(Teich) 22.6 ml EF(Teich) 77.3 % EDV(cubed) 100.1 ml ESV(cubed) 15.9 ml EF(cubed) 84.1 % % IVS thick 10.8 % % LVPW thick 40.2 % LV mass(C)d 235.0 grams LV mass(C)dI 128.5 grams/m\S\2 LV mass(C)s 148.1 grams LV mass(C)sI 81.0 grams/m\S\2 SV(Teich) 76.9 ml SI(Teich) 42.1 ml/m\S\2 SV(cubed) 84.3 ml SI(cubed) 46.1 ml/m\S\2 Ao root diam 2.9 cm Ao root area 6.5 cm\S\2 ACS 1.4 cm LA dimension 3.3 cm LA/Ao 1.2 Doppler Measurements and Calculations MV E max sylwia 109.3 cm/sec MV A max sylwia 109.3 cm/sec MV E/A 1.0 MV dec time 0.22 sec Ao V2 max 182.0 cm/sec Ao max PG 13.2 mmHg Ao max PG (full) 7.2 mmHg Ao V2 mean 108.3 cm/sec Ao mean PG 5.7 mmHg Ao V2 VTI 30.6 cm LV V1 max PG 6.1 mmHg LV V1 max 123.2 cm/sec SV(Ao) 197.9 ml SI(Ao) 108.3 ml/m\S\2 PA V2 max 138.5 cm/sec PA max PG 7.7 mmHg
[2017-11-04 19:25] VITALS: BP 177/91; PULSE 98; TEMP 36.6; O2SAT 95
[2017-11-04 20:00] VITALS: O2SAT 95
[2017-11-04] MEDS: PANTOprazole SOD 40 MG TAB PO SCH (20:51)
[2017-11-04] MEDS: MECLIZINE HCL 25 MG TAB PO SCH (20:52)
[2017-11-04] MEDS ORDERED: ASCORBIC ACID 500 MG TAB PO SCH (21:00)
[2017-11-04] MEDS ORDERED: LISINOPRIL 10 MG TAB PO SCH (21:00)
[2017-11-04] MEDS ORDERED: MONTELUKAST SOD 10 MG TAB PO SCH (21:00)
[2017-11-04] MEDS ORDERED: TRIAMTERENE/HCTZ 37.5/25MG TAB PO SCH (21:00)
[2017-11-04] MEDS: HEPARIN SOD 5000 UNIT/0.5 ML CARP SQ SCH (22:28)
[2017-11-05] VITALS (8 sets, daily range): BP systolic 122–163; BP diastolic 66–82; PULSE 76–92; TEMP 36.5–37; O2SAT 93–96; Ht 147.3 cm; Wt 90.6 kg
[2017-11-05] MEDS: HEPARIN SOD 5000 UNIT/0.5 ML CARP SQ SCH ×2 (05:44→13:35)
[2017-11-05] MEDS ORDERED: LEVOTHYROXINE 50 MCG TAB PO SCH (06:00)
[2017-11-05 06:37] LABS: BASO % 0.2 %; BASO ABS # 0.02 K/uL (0-0.2); EOS % 3.9 %; EOS ABS # 0.33 K/uL (0-0.5); HEMATOCRIT 33.3 % (37-47); HEMOGLOBIN 11.5 g/dL (12.0-16.0); IG# 0.05 K/uL (0.00-0.02); LYMPH % 26.5 %; LYMPH ABS # 2.24 K/uL (1.2-3.4); MEAN CELL VOLUME 90.2 fL (80-100); MEAN CORPUSCULAR HEMOGLOBIN 31.2 pg (25-34); MEAN CORPUSCULAR HGB CONC 34.5 g/dl (32-36); MEAN PLATELET VOLUME 8.8 fL (7.4-10.4); MONO % 7.1 %; NEUT % 61.7 %; NEUT ABS # 5.21 K/uL (1.4-6.5); PLATELET COUNT 231 K/uL (130-400); RED CELL DISTRIBUTION WIDTH CV 13.6 % (11.5-14.5); RED CELL DISTRIBUTION WIDTH SD 44.7 fL (36.4-46.3); WHITE BLOOD COUNT 8.45 K/uL (4.8-10.8)
[2017-11-05] MEDS ORDERED: INSULIN HUMAN NPH SC SCH (07:30)
[2017-11-05 08:05] LABS: HEMOGLOBIN A1C 8.1 % (4.5-5.6)
[2017-11-05] MEDS: PANTOprazole SOD 40 MG TAB PO SCH (08:24)
[2017-11-05] MEDS: MECLIZINE HCL 25 MG TAB PO SCH (08:25)
[2017-11-05] MEDS: MOXIFLOXACIN HCL 0.5% OP SOLN 3 ML BTL OPR SCH ×2 (08:26→12:58)
[2017-11-05] MEDS: INSULIN ASPART 100 UNITS/ML 3 ML PEN SC SCH ×2 (08:35→12:56)
[2017-11-05] MEDS ORDERED: PrednisoLONE ACET 1% OP SUSP 5 ML BTL OPR SCH (09:00)
[2017-11-05] MEDS ORDERED: CETIRIZINE HCL 10 MG TAB PO SCH (09:00)
[2017-11-05] MEDS ORDERED: ASPIRIN 81 MG ECTAB PO SCH (09:00)
[2017-11-05] MEDS ORDERED: ACYCLOVIR 400 MG TAB PO SCH (09:00)
[2017-11-05] MEDS ORDERED: MULTIVITAMIN TAB PO SCH (09:00)
[2017-11-05] MEDS ORDERED: CHOLECALCIFEROL 1000 INTER.UNIT TAB PO SCH (09:00)
[2017-11-05 09:05] LABS: CALCIUM 9.3 mg/dl (8.5-10.1); CREATININE 1.2 mg/dl (0.60-1.20); POTASSIUM 4.1 mmol/L (3.5-5.1)
[2017-11-05] MEDS ORDERED: ATROPINE SULFATE 0.1 MG/ML 5ML SYR ONE (13:50)
[2017-11-05] MEDS ORDERED: DOBUTamine HCL 12.5 MG/ML 20 ML VIAL ONE (13:50)
[2017-11-05] MEDS ORDERED: METOPROLOL TARTRATE 1 MG/ML VIAL ONE (13:50)
--- NOTE | 2017-11-05 14:24 | Discharge Instructions ---
Discharge Instructions Date of Service Nov 05, 2017. Admission Reason for Admission: Substernal Precordial Chest Pain Discharge Discharge Diagnosis / Problem: Substernal Precordial Chest Pain Discharge Goals Goal(s): Decrease discomfort, Improve function, Increase independence, Improve disease control Activity Recommendations Activity Limitations: resume your previous activity Lifting Limitations: no more than 10 pounds, gradually increase as tolerated Exercise/Sports Limitations: none May Resume Sexual Activity: when tolerated Shower/Bathe: no limitations Driving or Machine Use: resume 1 day after discharge . Instructions / Follow-Up Instructions / Follow-Up You were admitted to [facility] with Substernal Precordial Chest Pain which was not cardiac in nature. During your stay here you were evaluated with cardiac enzymes which were found to be negative x 3, your EKG showed a Left bundle branch block but did not have other signs of ischemia. Imaging studies which were completed include: Echocardiogram and a stress echocardiogram which were within normal limits. A carotid artery ultrasound was conducted and it was found that the Right internal and external carotid has 90% stenosis. This will need to be discussed with orthopedics prior to your scheduled neck surgery. You should also discuss this with cardiology, and possible have a vascular surgery referral to discuss surgical management. Medications: Continue taking your medications as prescribed. You have been started on daily baby aspirin due to the low risk of GI bleed as you are on Protonix, and antacid. Please discuss this with your PCP. Appointments: Follow up with your Primary Care Provider within 1 week. Follow up with cardiology within 1-2 weeks. Follow up with orthopedics within 1 week prior to surgery. Current Hospital Diet Patient's current hospital diet: AHA Diet (Heart Healthy), Diabetes Type 2 Diet Discharge Diet Recommended Diet: AHA Diet (Heart Healthy), Diabetes Type 2 Diet Pending Studies Studies pending at discharge: no Laboratory Results Hemoglobin A1c Test 11/05/17 06:25 Range/Units Estimated Average Glucose 186 mg/dl Hemoglobin A1c 8.1 H 4.5-5.6 % Lipid Panel Test 11/05/17 06:25 Range/Units Triglycerides Level 257 H 0-150 mg/dl Cholesterol Level 244 H 0-200 mg/dl HDL Cholesterol 51 mg/dl Cholesterol/HDL Ratio 4.8 LDL Cholesterol, Calculated 142 mg/dl Medical Emergencies . Who to Call and When: Medical Emergencies: If at any time you feel your situation is an emergency, please call 911 immediately. . Non-Emergent Contact Non-Emergency issues call your: Primary Care Provider Call Non-Emergent contact if: you have a fever, temperature is above 100.5, your pain is not controlled, your pain is worsening, your pain is unusual for you, your pain is concerning you, you have any medication questions other concerns with your health. Call 911 or go directly to the Emergency Department if you experience any of the following: Chest pain, chest tightness, shortness of breath, abdominal pain , lightheadedness, dizziness, gastrointestinal bleeding, or have any other concerns regarding your health. . Past History Medical & Surgical History: (1) Substernal precordial chest pain (2) Carotid artery stenosis (3) ASTHMA W/ACUTE EXACERBATION NOS (4) MENIERE'S DISEASE, UNSPECIFIED (5) Heart disease (6) DDD (degenerative disc disease) (7) DIAB W PERIPH CIRC DIS, TYPE II OR UNSPEC TYPE, UNCONTROLLED . "Provider Documentation" section prepared by Penny Merrill. . VTE Core Measure Inpt VTE Proph given/why not?: Unfractionated heparin SQ, T.E.Rohit Gatica, SCD 's [place] Drug Monitoring Program Search Results: no issues identified
[2017-11-05] MEDS ORDERED: PERFLUTREN LIPID MICROSPHERE (DEFINITY) IV ONE (14:36)
[2017-11-05] MEDS ORDERED: ASPEC81 PO (15:11)
--- NOTE | 2017-11-05 15:11 | Discharge Summary ---
Discharge Summary Date of Service Nov 05, 2017. Discharge Summary Admission Date: Nov 04, 2017 at 13:10 Discharge Date: Nov 05, 2017 Discharge Disposition: Home Principal Diagnosis: Substernal Precordial Chest Pain Problems/Secondary Diagnoses: Medical Problems: (1) ASTHMA W/ACUTE EXACERBATION NOS (2) ASTHMA, UNSPECIFIED, W (ACUTE) EXACERBATION (3) Carotid artery stenosis (4) CERVICAL ROOT LESION NEC (5) DDD (degenerative disc disease) (6) DIAB W PERIPH CIRC DIS, TYPE II OR UNSPEC TYPE, UNCONTROLLED (7) DUODENAL ULCER NOS (8) Heart disease (9) HYPOTHYROIDISM NOS (10) MENIERE'S DISEASE, UNSPECIFIED (11) TOBACCO USE DISORDER Immunizations: Have You Had Influenza Vaccine: No Influenza Vaccine Date: Aug 08, 2011 History of Tetanus Vaccine?: Yes History of Pneumococcal: Yes Pneumococcal Date: Dec 09, 2006 History of Hepatitis B Vaccine: Yes Hepatitis Immunization Date: Dec 02, 2001 Procedures: CHEST ONE VIEW PORTABLE 11/04/17 IMPRESSION: No acute process. CAROTID DOPPLER NECK ART 11/04/17 IMPRESSION: 1. 90% stenosis right internal carotid artery. 2. 90% stenosis right external carotid artery. 3. 70% stenosis left external carotid artery. 4. No significant stenotic process of the left internal carotid artery. 5. Antegrade flow is present in the vertebral vessels bilaterally Echocardiogram 11/04/17 * -- Conclusions -- * 1. Normal left ventricular size with hyperdynamic systolic function. EF > 70%. No regional wall motion abnormalities. Mild concentric left ventricular hypertrophy. Type 2 diastolic dysfunction. * 2. No significant valvular abnormalities visualized. * 3. Technically difficult study, enhanced with IV Definity. * 4. No significant change from prior study on 02/17/2017. Consultations: none Medication Reconciliation Continued Medications: Acyclovir (Zovirax) 800 Mg Tab 800 MG PO QAM Albuterol Sulf (Proventil 0.083% 2.5MG/3ML) 2.5 Mg/3 Ml Nebu 2.5 MG INH QID PRN for SOB/Wheezing Albuterol Sulfate (Proair Respiclick) 108 Mcg/Act Aer 2 PUFFS INH Q6H PRN for prn Ascorbic Acid (Vitamin C) 500 Mg Tab 1 TAB PO QPM Carboxymethylcellulose-Glyceri (Optive) 1 David David 1 DROPS OP 5XWEEK R EYE 5 X A DAY L EYE 2-3 X A DAY PRN Cetirizine (Zyrtec) 10 Mg Tab 10 MG PO QAM Cholecalciferol (Vitamin D3) 2,000 Unit Cap 1 CAP PO QAM Furosemide (Lasix) 20 Mg Tab 20 MG PO Q2D Insulin Isophane (Human) (Novolin N Relion) 100 Unit/Ml Inj UNITS SC UD 16 UNITS AM 38 UNITS HS AND SLIDING SCALE PRN HS Insulin Isophane (Human) (Novolin N U-100) 100 Unit/Ml Inj 0 SC UD 15 UNITS + SLIDING SCAL QAM 18 UNITS + SLIDING SCALE LUNCH 20 UNITS + SLIDING SCALE SUPPER Levothyroxine Sodium (Synthroid) 50 Mcg Tab 50 MCG PO QAM Lisinopril (Prinivil) 30 Mg Tab 30 MG PO HS Meclizine HCl (Meclizine HCl) 25 Mg Tab 1 TAB PO BID Montelukast Sodium (Montelukast Sodium) 10 Mg Tab 1 TAB PO HS Moxifloxacin Hcl (Ophth) (Vigamox 0.5% Oph) 0.5 % David 1 DROPS OPR TID Multivitamin (Multivitamin) Tab 1 TAB PO QAM Omeprazole (Prilosec) 40 Mg Cap 1 CAP PO BID ALWAYS TAJKES IN AM AND PRN LATER Prednisolone Acetate (Ophth) (Pred Forte 1% Oph) 1 % Ahiley 1 DROPS OR QAM Triamterene/Hctz (Triamterene/Hctz 37.5-25MG) 1 Tab Tab 1 CAP PO HS Discharge Exam The patient was seen and examined this morning. Pt reports doing well today. She reports that she has had no further chest pain or radiation up into her jaw or into her back. She has been ambulating about the room without difficulty. Patient has tolerated a oral diet without difficulty, moved her bowels this morning. 3 consecutive troponins were negative and patient underwent a dobutamine stress test today. She has pre-surgical clearance testing scheduled for tomorrow with cardiology prior to her scheduled cervical disc surgery next Saturday with Dr. Raman. Discussion was held regarding right internal and external carotid stenosis of 90% and the need to discuss this with orthopedics prior to any cervical surgery. ROS: Constitutional: No fever, sweats or chills Eyes: No diplopia, no worsening or blurred vision ENT: normal hearing, no trouble swallowing Respiratory: No cough, sputum, dyspnea at rest or on exertion Cardiovascular: No chest pain, tightness or palpitations Abdomen: No pain, nausea, vomiting, diarrhea or constipation Musculoskeletal: No joint pain, calf pain, swelling Neurologic: No weakness, numbness/tingling, or balance problems Psychiatric: No anxiety or depression Skin: No rash or itch PE: General: awake, alert, no apparent distress, obese Head: Normocephalic, atraumatic Neck: Patient has decreased ROM with lateral rotation ENT: PERRL, EOMI, no pharyngeal exudate, mucous membranes moist Chest: Nontender to palpation, Clear to auscultation, on room air, no adventitious breath sounds Cardiac: Regular rate and rhythm, no murmur, JVD difficult to assess due to body habitus, normal peripheral pulses, good capillary refill Abdominal: NABS x 4 quadrants, soft, nontender to palpation, no rebound, guarding or tenderness Extremities: Normal inspection, no peripheral erythema, calfs nontender to palpation, edema improved in BLE, nonpitting Psych: Normal mood and affect Neuro: AAO x 3, speech is clear, no peripheral sensory deficits Hospital Course This is a 72 yo F with PMHx of hypertension, hyperlipidemia, DM type II, asthma , GERD, cervical and lumbar DJD, mild renal insufficiency, hypothyroidism, remote history of tobacco smoking, Mnire's disease of the left ear, history of shingles involvement of the right cornea on acyclovir, statin intolerance, presents from preadmission testing for cervical spine surgery with Dr. Raman next Saturday, with acute onset of substernal chest pain. Chest pain rule out - Admit to telemetry for observation - Cardiac biomarkers3 neg - ECHO was conducted and showed EF of 70%, Dobutamine stress test conducted and was found to be within normal limits. - Carotid dopplers showing R carotid int and ext stenosis of >90%. Pt will need follow up with cardiology and vascular surgery for intervention, pt should be cleared by Dr. Raman regarding stenosis prior to cervical DJD surgery- her surgery which was scheduled for next week has been cancelled. - A1c= 8.1 on 11/05 - Lipids are elevated however pt cannot tolerate statins- Statin therapy not started due to pt intolerance with myalgia - has previously tried Lipitor simvastatin and pravastatin - Started patient on a baby aspirin, patient notes that she had previously been off aspirin due to history of GI bleed. Risk benefits discussed with her and she is agreeable to baby asa. - PT/OT evals - from home, walks without assistive devices. Hypertension Peripheral lower extremity edema - Continue lisinopril 30 mg every morning - Order Lasix 20 mg IV now, patient last dose of Lasix 20 mg PO was last week. - Pt instructed to take another dose of lasix on 11/06, weight herself at same time of day several times per week to closely monitor for fluid retention. DM type II - Continue Novolin and 16 units every morning, 38 units every afternoon - ISS with Accu-Cheks before meals at bedtime History of shingles involving the right cornea - Continue acyclovir 800 mg daily - Last flare was over 2 months ago She had Mnire's disease of the left ear -Continue on meclizine 25 mg TID Cervical DJD - Patient scheduled for surgical procedure next Saturday with Dr. Raman - has been cancelled per office nurse Hypothyroidism Continue Synthroid 50 g daily GERD - Continue on pantoprazole 40 mg daily DVT prophylaxis: Teds, SCDs, heparin subcutaneous CODE STATUS: full code Physician: Patient from home, lives with , discharge to home today. Total Time Spent: Greater than 30 minutes This includes examination of the patient, discharge planning, medication reconciliation, and communication with other providers. Discharge Instructions Please refer to the electronic Patient Visit Report (Discharge Instructions) for additional information. Follow-Up Follow up with your Primary Care Provider within 1-2 weeks. Follow up with cardiology within 1-2 weeks. Follow up with orthopedics within 1 week prior to surgery. Additional Copies To Earnest Deutsch M.D.
--- NOTE | 2017-11-05 16:30 | DOBUTAMINE ECHO ---
*NOTICE TO RECEIVING REPUBLICAN AGENCY This information is strictly Confidential and protected under [place] law. [place] law prohibits you from making any further disclosure of this information unless further disclosure is expressly permitted by the written consent of the person to whom it pertains or is authorized by law. A general authorization for the release of medical or other information is not sufficient for this purpose. Hospital accepts no responsibility if the information is made available to any other person, INCLUDING THE PATIENT. Interpretation Summary * Name: CAMRON LAW Study Date: 11/05/2017 01:03 PM BP: 172/79 mmHg * Patient Location: C.2T\S\E220\S\1 HR: 90 * : 1945 (M/d/yyy) Gender: Female Height: 59 in * Age: 72 yrs Ethnicity: [place] Weight: 199 lb * Ordering Physician: Anaid Merrill * Referring Physician: Self, Referred * Performed By: Kelsea Damico RDCS * * Reason For Study: Chest Pain * BSA: 1.8 m2 * -- Conclusions -- * 1. Negative dobutamine stress echo for ischemia at 89% MPHR. * 2. Borderline dobutamine stress ECG for ischemia ([address] depressions at low dose dobutamine, resolves at peak stress). * 3. No dobutamine induced chest pain. * 4. Normal resting LV size and function. See echo report from 11/04/2017 for further details. Procedure Details * DOBUTAMINE ECHO, CPT#09359 * A contrast injection of Definity was performed to improve assessment of LV function. * Contrast was injected into an intravenous site in the left arm. * One vial of Definity ultrasound contrast was diluted in normal saline to a total volume of 10 ml. A total of '3' ml of solution was administered during imaging. * Lot # [id number] of Definity utilized for procedure. * Expiration date . * The attending nurse who injected the contrast agent was Danya Roach RN. Left Ventricle * The left ventricle is grossly normal size. * There is mild concentric left ventricular hypertrophy. * Ejection Fraction = >70 %. * The left ventricular ejection fraction increases normally with stress. The left ventricular end-systolic cavity size reduces post-stress (normal response). The left ventricular wall motion with stress is normal. * Resting wall motion: Normal. Stress wall motion: Appropriate increase in Left ventricular systolic function and decrease in cavity size. No stress induced segmental wall motion abnormalities. Pericardium * There is no pericardial effusion. Stress Parameters * Sinus rhythm with nonspecific Twave inversions. * Borderline 1mm ST depressions in inferior leads at low dose dobutamine, resolved at peak dobutamine. No dobutamine induced chest pain. * The stress portion of this study was personally supervised by the undersigned interpreting physician. * Rest heart rate was '90' BPM. * Rest blood pressure was '172/79' * Maximum heart rate achieved was 131 bpm. * Maximum heart rate was 89 % of maximum age-predicted heart rate. * Maximum blood pressure was '177/50' * Maximum Dobutamine infusion rate was '30' mcg/kg/min. * Dobutamine infusion was terminated due to achieving target heart rate * A total of 5 mg of IV Metoprolol was administered to reverse Dobutamine-induced tachycardia.
== END 2017-11-05 16:01 | disposition home or self-care (01) | DRG 313 ==
LOC: C.EDB 10:47 → C.2T 13:10 → ENRESERV 13:32
PROVIDERS: ADMIT Family Medicine; ATTEND Internal Medicine
DX: R07.2 Precordial pain (principal); H81.02 Meniere's disease, left ear; E03.9 Hypothyroidism, unspecified; E78.5 Hyperlipidemia, unspecified; I10 Essential (primary) hypertension; E11.9 Type 2 diabetes mellitus without complications; K21.9 Gastro-esophageal reflux disease without esophagitis; J45.909 Unspecified asthma, uncomplicated; Z87.891 Personal history of nicotine dependence; Z79.4 Long term (current) use of insulin; Z79.899 Other long term (current) drug therapy; Z91.040 Latex allergy status; Z88.6 Allergy status to analgesic agent

== ENCOUNTER → 2018-01-31 | Outpatient (CLI) | payer OTHER, MEDICARE ==
[~2018-01-31] MED LIST changes: +ASPI-320 PO; +ASPI81TA28 PO; -CYAN100020 PO; -INSU0.01; -INSU1INJ16 SC; +INSUINJ20 SC; -MGNO400 PO; +NVLRB INJ
--- NOTE | 2018-01-31 12:31 | DIAGNOSTIC IMAGING REPORT ---
RENAL ULTRASOUND HISTORY: CHRONIC KIDNEY DISEASE, DYSLIPIDEMIA EDMA OF LOWER EXT COMPARISON: Abdomen and pelvis CT 01/24/2017. FINDINGS: Right kidney: 9.1 cm. No hydronephrosis. Mild cortical thinning and increased cortical echogenicity. Left kidney: 9.8 cm. No hydronephrosis. Mild cortical thinning and increased cortical echogenicity. Bladder: No bladder wall thickening. The bilateral ureteral jets were identified. IMPRESSION: 1. No hydronephrosis. 2. Mild bilateral cortical renal thinning and increased cortical echogenicity consistent with medical renal disease. Electronically signed by: Bart Viera M.D. 01/31/2018 12:29 PM Dictated Date/Time: 01/31/2018 12:28 PM
== END ==
LOC: C.ULTR 08:32
PROVIDERS: ATTEND Internal Medicine Nephrology
DX: N18.9 Chronic kidney disease, unspecified (principal); E78.5 Hyperlipidemia, unspecified; R60.9 Edema, unspecified

== ENCOUNTER → 2018-01-31 | Outpatient (CLI) | payer OTHER, MEDICARE ==
--- NOTE | 2018-02-03 08:09 | MAMMOGRAPHY REPORT ---
BILATERAL DIGITAL SCREENING MAMMOGRAM TOMOSYNTHESIS WITH CAD: 01/31/2018 CLINICAL HISTORY: Routine screening. Patient has no complaints. TECHNIQUE: Breast tomosynthesis in addition to standard 2D mammography was performed. Current study was also evaluated with a Computer Aided Detection (CAD) system. COMPARISON: Comparison is made to exams dated: 01/25/2017 mammogram, 11/25/2015 mammogram, 11/24/2014 m ammogram, 11/23/2013 mammogram, 11/20/2012 mammogram - [facility], and 02/28/2009. BREAST COMPOSITION: The tissue of both breasts is almost entirely fatty. FINDINGS: No suspicious masses, calcifications, or areas of architectural distortion are noted in ei ther breast. There has been no significant interval change compared to prior exams. Scattered bilater al benign-appearing calcifications are not significantly changed. IMPRESSION: ACR BI-RADS CATEGORY 2: BENIGN There is no mammographic evidence of malignancy. A 1 year screening mammogram is recommended. The pa tient will receive written notification of the results. Approximately 10% of breast cancers are not detected with mammography. A negative mammographic report should not delay biopsy if a clinically suggestive mass is present. Venus Ashton M.D. /:01/31/2018 10:31:21 Stippler: Dorita HANSON(Merari)(Tran)(SOPHIA), [facility] letter sent: Normal 1/2 BI-RADS Code: ACR BI-RADS Category 2: Benign
== END ==
LOC: C.MAMM 09:04
PROVIDERS: ATTEND Obstetrics & Gynecology
DX: Z12.31 Encounter for screening mammogram for malignant neoplasm of breast (principal)

== ENCOUNTER → 2018-01-31 | Outpatient (CLI) | payer OTHER, MEDICARE ==
[2018-01-31 09:33] LABS: HEMATOCRIT 37.8 % (37-47); HEMOGLOBIN 12.7 g/dL (12.0-16.0); MEAN CELL VOLUME 91.7 fL (80-100); MEAN CORPUSCULAR HEMOGLOBIN 30.8 pg (25-34); MEAN CORPUSCULAR HGB CONC 33.6 g/dl (32-36); MEAN PLATELET VOLUME 8.9 fL (7.4-10.4); PLATELET COUNT 327 K/uL (130-400); RED CELL DISTRIBUTION WIDTH CV 13.4 % (11.5-14.5); RED CELL DISTRIBUTION WIDTH SD 44.5 fL (36.4-46.3); WHITE BLOOD COUNT 9.36 K/uL (4.8-10.8)
[2018-01-31 10:16] LABS: ALBUMIN 3.7 gm/dl (3.4-5.0); ALKALINE PHOSPHATASE 92 U/L (45-117); ALT/SGPT 30 U/L (12-78); AST/SGOT 23 U/L (15-37); BLOOD UREA NITROGEN 28 mg/dl (7-18); CALCIUM 9.5 mg/dl (8.5-10.1); CARBON DIOXIDE 30 mmol/L (21-32); CREATININE 1.32 mg/dl (0.60-1.20); GLUCOSE 151 mg/dl (70-99); POTASSIUM 3.8 mmol/L (3.5-5.1); SODIUM 134 mmol/L (136-145); TOTAL PROTEIN 7.6 gm/dl (6.4-8.2)
== END ==
LOC: C.LABSPEC 08:27
PROVIDERS: ATTEND Internal Medicine Nephrology
DX: E78.5 Hyperlipidemia, unspecified (principal); I12.9 Hypertensive chronic kidney disease with stage 1 through stage 4 chronic kidney disease, or unspecified chronic kidney disease; N18.3 Chronic kidney disease, stage 3 (moderate); I73.9 Peripheral vascular disease, unspecified; R60.0 Localized edema

== ENCOUNTER 2018-02-13 06:00 | Inpatient (IN) | payer OTHER, MEDICARE ==
[2018-02-05 09:57] VITALS: BMI 41.0
[2018-02-05 10:46] LABS: BASO % 0.4 %; BASO ABS # 0.03 K/uL (0-0.2); EOS % 2.2 %; EOS ABS # 0.18 K/uL (0-0.5); HEMATOCRIT 37.5 % (37-47); HEMOGLOBIN 12.7 g/dL (12.0-16.0); IG# 0.05 K/uL (0.00-0.02); LYMPH % 25.1 %; MEAN CELL VOLUME 91.2 fL (80-100); MEAN CORPUSCULAR HEMOGLOBIN 30.9 pg (25-34); MEAN CORPUSCULAR HGB CONC 33.9 g/dl (32-36); MEAN PLATELET VOLUME 8.6 fL (7.4-10.4); MONO % 5.6 %; MONO ABS # 0.47 K/uL (0.11-0.59); NEUT % 66.1 %; NEUT ABS # 5.52 K/uL (1.4-6.5); PLATELET COUNT 282 K/uL (130-400); RED CELL DISTRIBUTION WIDTH CV 13.3 % (11.5-14.5); RED CELL DISTRIBUTION WIDTH SD 44.1 fL (36.4-46.3); WHITE BLOOD COUNT 8.35 K/uL (4.8-10.8)
[2018-02-05 10:58] LABS: PTT PATIENT 26.2 SECONDS (21.0-31.0)
[2018-02-05 11:28] LABS: CALCIUM 9.5 mg/dl (8.5-10.1); CREATININE 1.34 mg/dl (0.60-1.20); POTASSIUM 4.1 mmol/L (3.5-5.1)
--- NOTE | 2018-02-12 18:02 | HISTORY & PHYSICAL EXAMINATION ---
DATE OF ADMISSION: 02/13/2018 CHIEF COMPLAINT: Neck pain, arm pain, weakness, numbness, tingling. HISTORY OF PRESENT ILLNESS: Whit has two-level cervical spine disease, spinal cord compression being preoped for surgery, ACDF of the cervical spine C4-6 cervical spine. PAST MEDICAL HISTORY: Diabetes, difficulty with anesthesia, difficulty with pain management, hypertension, asthma, and Meniere's disease. PAST SURGICAL HISTORY: Anterior cervical discectomy and fusion, bladder surgery x2, colonoscopy, ear surgery, tonsillectomy, total abdominal hysterectomy and tubal ligation. ALLERGIES: Numerous. SOCIAL HISTORY: She is . No alcohol. Quit smoking in 1975. Moderately active lifestyle. REVIEW OF SYSTEMS: Denies any fevers, sweats, chills. Does complain of fatigue. Ear, nose and throat negative. Admits to some swelling in hands and feet. Admits to asthma, wheezing, shortness of breath. No change in bowel habits, frequent urination, no painful urination. Positive for skin rashes. Positive for numbness and tingling to the extremities. Joint pain, stiffness, weakness, muscle pain, diabetes positive. No easy bruisability. No immune deficiency. PHYSICAL EXAMINATION: GENERAL: She is 4 feet 10 inches, weight 195 pounds, in distress. She has terrible motion of her cervical spine. She is alert, oriented, communicates properly. VITAL SIGNS: Blood pressure 130/80, pulse 80, respiratory rate 16. CARDIAC: Normal S1, S2. Distant S3. LUNGS: Clear to auscultation. No rales, rhonchi, wheezing. ABDOMEN: Soft and nontender. Bowel sounds present in all quadrants. EXTREMITIES: She has weakness of deltoid function, biceps function and triceps function. Significant pain with flexion and extension of cervical spine. Paresthesias as well. IMAGES: Demonstrate total disc collapse at C4-5, C5-6 cervical spine. IMPRESSION: Spinal cord compression, disc space collapse at C4-5, C5-6 cervical spine. PLAN: Includes an anterior cervical discectomy and fusion C4-6 cervical spine.
[2018-02-13] VITALS (29 sets, daily range): BP systolic 135–197; BP diastolic 50–93; PULSE 78–99; TEMP 36.4–36.7; O2SAT 81–99; Ht 147.3 cm; Wt 92.3 kg
[~2018-02-13] VITALS: Ht 147.3 cm; Wt 92.3 kg
[~2018-02-13 06:00] MED LIST changes: -ASPI-320 PO; +CEFAZOLIN 2000MG IV PUSH 15 ML IV SCH; -INSUINJ20 SC; +LACTATED RINGER'S 1000ML 1,000 ML IV SCH; -MONT1TAB5 PO; +NSS 1000ML IV SCH; -TRIATAB3 PO
[2018-02-13] MEDS ORDERED: VNTHFA/IN INH (07:11)
[2018-02-13] MEDS ORDERED: DEXAMETHASONE SOD INJ 4 MG/ML VIAL ONE (07:47)
[2018-02-13] MEDS ORDERED: FENTANYL CITRATE INJ 50 MCG/1 ML 2 ML VIAL ONE (07:47)
[2018-02-13] MEDS ORDERED: GLYCOPYRROLATE INJ 0.2 MG/ML VIAL ONE ×2 (07:47→09:29)
[2018-02-13] MEDS ORDERED: LIDOCAINE HCL 2% 2 ML VIAL (20MG/ML) ONE (07:47)
[2018-02-13] MEDS ORDERED: ONDANSETRON INJ 2 MG/ML 2 ML VIAL ONE ×2 (07:47→09:29)
[2018-02-13] MEDS ORDERED: THROMBIN FOR SOLN 20000 UNIT KIT ONE (07:47)
[2018-02-13] MEDS ORDERED: PROPOFOL IV EMULSION 10 MG/ML 20 ML VIAL ONE (07:47)
[2018-02-13] MEDS ORDERED: GELATIN SPONGE SZ 100 ONE (07:47)
[2018-02-13] MEDS ORDERED: BUPIVACAINE/EPINEPHRINE 0.5% MPF 1:200,000 30 ML VIAL ONE (07:47)
[2018-02-13] MEDS ORDERED: MIDAZOLAM HCL 1 MG/ML 2ML VIAL ONE (07:47)
[2018-02-13] MEDS ORDERED: NEOSTIGMINE METHYLSULFATE 1 MG/ML 10ML VIAL ONE (07:47)
[2018-02-13] MEDS ORDERED: BACITRACIN 50000 UNIT VIAL ONE (07:48)
--- NOTE | 2018-02-13 08:13 | History & Physical Bridge Note ---
H&P Re-Evaluation Bridge Note: I have examined the patient, reviewed the History & Physical and in the interval since the performance of the History & Physical I have noted the following changes of clinical significance: No changes noted
[2018-02-13] MEDS ORDERED: HYDROmorphone INJ 2 MG/ML SYR/VIAL ONE (09:01)
[2018-02-13] MEDS ORDERED: ACETAMINOPHEN 1000 MG/100 ML IV IV ONE (09:22)
[2018-02-13] MEDS ORDERED: DiphenhydrAMINE HCL 50 MG/ML VIAL ONE (09:29)
[2018-02-13] MEDS ORDERED: METOCLOPRAMIDE HCL INJ 5 MG/ML 2 ML VIAL ONE (09:29)
[2018-02-13] MEDS ORDERED: EpHEDrine SULFATE 50MG/5ML SYR ONE (09:29)
[2018-02-13] MEDS ORDERED: SUCCINYLCHOLINE CHLORIDE 20 MG/ML 10 ML VIAL IV ONE (09:29)
[2018-02-13] MEDS ORDERED: CISATRACURIUM BESYLATE IV SOLN 2 MG/ML 10 ML VIAL ONE (09:29)
[2018-02-13] MEDS ORDERED: PHENYLEPHRINE 100MCG/ML 5ML SYR ONE (09:29)
--- NOTE | 2018-02-13 10:25 | [facility] Post Operative Brief Note ---
Immediate Operative Summary Operative Date February 13, 2018. Pre-Operative Diagnosis SPINAL STENOSIS Post-Operative Diagnosis SAME PREOP Procedure(s) Performed C4-6 ANTERIOR CERVICAL DISCECTOMY AND FUSION Surgeon DR. KO Forklift Supervisor Surgeon(s) Sy SHELLEY PAC Estimated Blood Loss 5ml Findings Consistent with Post-Op Diagnosis Specimens NONE Anesthesia Type General Complication(s) none
[2018-02-13] MEDS ORDERED: CEFAZOLIN IV 1,000 MG in DEXTROSE 5% 50ML 50 ML IV SCH (10:30)
[2018-02-13] MEDS ORDERED: NALOXONE HCL 0.4 MG/1 ML VIAL/CARP IV PRN ×2 (10:30→10:45)
[2018-02-13] MEDS ORDERED: DEXAMETHASONE INJ 8 MG in SYRINGE 0 ML IV PRN (10:30)
[2018-02-13] MEDS ORDERED: MAGNESIUM HYDROXIDE SUSP 30 ML UDC PO PRN (10:30)
[2018-02-13] MEDS ORDERED: LORAZEPAM INJ 0.5 MG in SYRINGE 0.75 ML IV PRN (10:30)
[2018-02-13] MEDS ORDERED: HYDROmorphone INJ 0.5 MG/0.5 ML SYR IV PRN ×2 (10:30→15:30)
[2018-02-13] MEDS ORDERED: ONDANSETRON INJ 2 MG/ML 2 ML VIAL IV PRN (10:30)
[2018-02-13] MEDS ORDERED: ALBUTEROL 0.083% NEBU SOLN 3 ML VIAL INH PRN (10:30)
[2018-02-13] MEDS ORDERED: RACEPINEPHRINE 2.25% NEBU SOLN 0.5 ML VIAL INH PRN (10:30)
[2018-02-13] MEDS ORDERED: PROMETHAZINE HCL INJ 12.5 MG in SODIUM CHLORIDE 0.9% 50ML 50 ML IV PRN ×2 (10:45→15:45)
[2018-02-13] MEDS ORDERED: LABETALOL HCL IV 5 MG/ML 20ML IV PRN (10:45)
[2018-02-13] MEDS ORDERED: EpHEDrine SULFATE INJ 50 MG/ML AMP IV PRN (10:45)
[2018-02-13] MEDS ORDERED: FLUMAZENIL 0.1 MG/1 ML 10 ML VIAL IV PRN (10:45)
[2018-02-13] MEDS ORDERED: ATROPINE SULFATE 0.1 MG/ML 5ML SYR IV PRN (10:45)
[2018-02-13] MEDS ORDERED: NURSING VERBAL MED ORDER ONE (11:15)
[2018-02-13] MEDS ORDERED: ALBUTEROL 0.083% NEBU SOLN 3 ML VIAL INH ONE (11:30)
[2018-02-13] MEDS ORDERED: IV FLUIDS COMPLETED PRN ×2 (11:30→18:30)
--- NOTE | 2018-02-13 11:52 | DIAGNOSTIC IMAGING REPORT ---
SPINE ONE VIEW, ANY LEVEL HISTORY: Effusion. FLUOROSCOPY TIME: 5 seconds. FINDINGS: Intraoperative fluoroscopy was provided for the cervical spine. 2 fluoroscopic spot images were obtained. IMPRESSION: Fluoroscopy provided for a anterior cervical fusion from C4 through C6. The above report was generated using voice recognition software. It may contain grammatical, syntax or spelling errors. Electronically signed by: Zeeshan Marinelli M.D. 02/13/2018 11:50 AM Dictated Date/Time: 02/13/2018 11:50 AM
--- NOTE | 2018-02-13 12:01 | OPERATIVE REPORT ---
DATE OF OPERATION: 02/13/2018 PREOPERATIVE DIAGNOSES: Spinal cord compression cervical spine, kyphosis cervical spine and radiculopathy cervical spine. POSTOPERATIVE DIAGNOSES: Spinal cord compression cervical spine, kyphosis cervical spine and radiculopathy cervical spine. PROCEDURES: Include anterior approach to cervical spine and anterior cervical discectomy at 4-5 and 5-6 cervical spine, reduction of the kyphosis. We also did some interbody spacers at 4-5 and 5-6 and anterior cervical discectomy and fusion. SURGEON: Earnest Raman DO SEO STRATEGIST: Saúl Burrell PA-C COMPLICATIONS: Zero. BLOOD LOSS: Less than 10 mL. DRAINS: One Gwendolyn drain used at the conclusion. COUNTS: Sponge and needle count correct. IMPLANTS USED: By the [employer]. DESCRIPTION OF PROCEDURE: The patient was taken to the operating room, a general intubated anesthetic provided to the patient, kept supine, scrubbed, prepped and draped sterile. We positioned her appropriately. All soft tissue structures protected. We made a transverse skin incision roughly over the C6 vertebrae. It was a little higher prior to C5 vertebrae dissecting the soft tissue in same plane with relative ease, we got down to the anterior aspect of the spinal vertebral body. C-arm, we marked the interspace. We did complete discectomies and thorough discectomies at 4-5 and 5-6. I got back to and through the posterior longitudinal ligament lateral to the uncovertebral joints providing good foraminotomies. I was very pleased with the decompression at both levels. We used the [employer] system called [employer]. This was packed with autograft at each of the segments. These were placed into the defects, C4-5 and 5-6. They were secured with screws superior and inferior x2. I was pleased with the fit, was pleased with the x-ray. We irrigated and closed. We did use a material called DBM prior to the closure in the vertebral areas. Sterile dressings applied after the closure. The patient returned to PACU, improved stable condition, no apparent complications with the procedure. I attest to the content of the Intraoperative Record and any orders documented therein. Any exception s are noted below.
--- NOTE | 2018-02-13 12:26 | Anesthesiology Progress Note ---
Anesthesia Post Op Note Date & Time February 13, 2018 at 12:26 Vital Signs Pain Intensity: 1 Vital Signs Past 12 Hours Date Time Temp Pulse Resp B/P (MAP) Pulse Ox O2 Delivery O2 Flow Rate FiO2 02/13/18 12:15 75 14 157/62 97 Nasal Cannula 5 02/13/18 12:00 78 16 160/62 96 Nasal Cannula 5 02/13/18 11:49 78 18 98 Mask 15.0 02/13/18 11:45 70 14 160/57 97 Nasal Cannula 5 02/13/18 11:30 77 14 135/66 98 Nasal Cannula 6 02/13/18 11:20 75 14 135/60 98 Nasal Cannula 6 02/13/18 11:10 37.0 76 14 131/63 98 Nasal Cannula 6 02/13/18 11:00 76 12 148/82 98 Oxymask 15 02/13/18 10:50 77 16 161/76 93 Oxymask 15 02/13/18 10:40 76 14 154/68 97 Oxymask 15 02/13/18 10:30 73 12 167/78 96 Oxymask 15 02/13/18 10:23 36.2 77 15 109/52 65 Oxymask 15 02/13/18 07:14 36.4 90 20 184/66 91 Room Air Notes Mental Status: alert / awake / arousable, participated in evaluation Pt Amnestic to Procedure: Yes Nausea / Vomiting: adequately controlled Pain: adequately controlled Airway Patency, RR, SpO2: stable & adequate BP & HR: stable & adequate Hydration State: stable & adequate Anesthetic Complications: no major complications apparent
--- NOTE | 2018-02-13 14:20 | Medical Consult ---
Consultation Date of Consultation: February 13, 2018. Attending Physician: Earnest Raman DO Reason for Consultation: Management of hypoglycemia, History of Present Illness 76-year-old white female was admitted to Dr. Ortiz's service because of spinal cord compression cervical spine, kyphosis cervical spine and radiculopathy cervical spine. Patient had PROCEDURES done this morning which include anterior approach to cervical spine and anterior cervical discectomy at 4-5 and 5-6 cervical spine, reduction of the kyphosis. Patient was admitted to ICU for airway watch because neck swelling, was consulted for hyperglycemic control. When I interview with patient she was awake alert orientated conversational, in bedside, no acute complaint, denies pain weakness tingling and numbness in bilateral arms and fingers Denies fever and chill, deny chest pain occasionally lower extremity swelling Denies weakness or slurry speeches or weakness in bilateral lower extremity Denies cough sputum shortness of breathing Denies nausea vomiting abdominal pain diarrhea Denies dysuria urgency or frequency Denies skin rashes Past Medical/Surgical History Medical Problems: (1) Acute electrocardiogram changes Status: Acute (2) External hemorrhoids Status: Acute (3) Left sided chest pain Status: Acute (4) Right lower quadrant abdominal pain Status: Acute (5) Substernal precordial chest pain Status: Acute Family History Cancer Diabetes mellitus Heart disease Hypertension Kidney disease Kidney stones Lung disease Noncontributory Social History Denies tobacco abuse disorder, alcohol abuse disorder or illicit drug use Smoking Status: Former Smoker Drug Use: none Marital Status: Housing Status: lives with significant other Occupation Status: retired Allergies Coded Allergies: Adhesives (Verified Allergy, Unknown, SKIN IRRITATION-BANDAGES, 02/13/18) Aspirin (Verified Allergy, Unknown, AVOID HX GI BLEED, 02/13/18) Latex1 -Allergic Contact Dermititis (Verified Allergy, Unknown, RASH, ) NSAIDs (Verified Allergy, Unknown, HX ULCER, 02/13/18) Statins (Verified Allergy, Unknown, CHEST PAIN, 02/13/18) Chlorhexidine (Verified Adverse Reaction, Intermediate, itching and burning, 02/13/18) Acetaminophen (Verified Adverse Reaction, Unknown, TO AVOID -"have an enlarged liver" FATTY LIVER, 02/13/18) Ibuprofen (Verified Adverse Reaction, Unknown, gave me a duodenal ulcer, ) Morphine and Related (Verified Adverse Reaction, Unknown, NARCOTICS-GI UPSET AND HALLUCINATIONS, 02/13/18) Tramadol (Verified Adverse Reaction, Unknown, vomit, 02/13/18) Home Medications Home medicines include Acyclovirl 800 mg p.o. every morning Albuterol inhaler 2-4 puffs every 6 hours Albuterol nebulizer treatment 4 times daily Vitamin C 1 tab 500 mg p.o. every afternoon Aspirin 81 mg p.o. daily Optive eyedrops 1 drop 4 times a day Zyrtec 10 mg p.o. every morning Vitamin D3 2000 p.o. every morning Lasix 20 mg p.o. every morning Insulin sliding scale NPH insulin 22 units a.m. 42 unit hs Synthroid 50 mcg Lisinopril 30 mg p.o. nightly Antivert 25 mg p.o. twice daily Moxifloxacin eyedrops 0.5% 1 drop OPR 3 times daily Multivitamin 1 tab p.o. every morning Prilosec 40 mg p.o. twice daily Prednisolone eye drop 1% 1 drop OR every morning Current Inpatient Medications Current Inpatient Medications Medications (Trade) Dose Ordered Sig/Harsh Route Start Time Stop Time Status Last Admin Dose Admin Lactated Ringer's 1,000 ml @ 15 mls/hr Q24H IV 02/13/18 06:00 02/14/18 05:59 02/13/18 07:28 15 MLS/HR Sodium Chloride 1,000 ml @ 15 mls/hr Q24H IV 02/13/18 06:00 02/14/18 05:59 Cefazolin Sodium 15 ml @ 3.75 mls/ min PREOP IV 02/13/18 06:00 02/13/18 18:00 02/13/18 08:21 3.75 MLS/MIN Racepinephrine (Raccemic Epinephrine 2.25% 0.5ML Neb) 0.5 ml ONE PRN INH 02/13/18 10:30 Acetaminophen 1000 mg/Empty Bag 100 ml @ 400 mls/hr Q8H PRN IV 02/13/18 15:00 03/15/18 14:59 Hydromorphone HCl (Dilaudid Inj) 0.5mg IV for moder... Q3H PRN IV 02/13/18 10:30 02/27/18 10:29 UNV Magnesium Hydroxide (Milk Of Magnesia Susp) 30 ml DAILY PRN PO 02/13/18 10:30 03/15/18 10:29 UNV Docusate Sodium (coLACE CAP) 100 mg BID PO 02/13/18 21:00 03/15/18 20:59 UNV Ondansetron HCl (Zofran Inj) 4 mg Q6 PRN IV 02/13/18 10:30 03/15/18 10:29 UNV Cefazolin Sodium 1000 mg/Dextrose 57.5 ml @ 100 mls/hr Q8H IV 02/13/18 10:30 02/14/18 03:05 UNV Lorazepam 0.5 mg/ Syringe 1 ml @ 1 mls/min Q8H PRN IV 02/13/18 10:30 03/15/18 10:29 UNV Dexamethasone Sodium Phosphate 6 mg/Syringe 1.5 ml @ 1 mls/min Q8H IV 02/13/18 10:30 02/14/18 02:32 UNV Sodium Chloride 1,000 ml @ 80 mls/hr [id number] IV 02/13/18 10:23 02/14/18 10:22 Bisacodyl (Dulcolax Supp) 10 mg DAILY PRN [place] 02/15/18 06:00 03/17/18 05:59 UNV Dexamethasone Sodium Phosphate 8 mg/Syringe 2 ml @ 1 mls/min ONE PRN IV 02/13/18 10:30 UNV Naloxone HCl (Narcan Inj) 0.1 mg Q5M PRN IV 02/13/18 10:30 03/15/18 10:29 UNV Albuterol Sulfate (Ventolin 0.083% 2.5MG/3ML Neb) 2.5 mg QID PRN INH 02/13/18 10:30 03/15/18 10:29 UNV Ascorbic Acid (Vitamin C Tab) 500 mg QPM PO 02/13/18 21:00 03/15/18 20:59 UNV Aspirin (Ecotrin Tab) 81 mg QAM PO 02/14/18 09:00 03/16/18 08:59 UNV Cetirizine HCl (zyrTEC TAB) 10 mg QAM PO 02/14/18 09:00 03/16/18 08:59 UNV Furosemide (Lasix Tab) 20 mg QAM PO 02/14/18 09:00 03/16/18 08:59 UNV Levothyroxine Sodium (Synthroid Tab) 50 mcg QAM PO 02/14/18 09:00 03/16/18 08:59 UNV Meclizine HCl (Antivert Tab) 25 mg BID PO 02/13/18 21:00 03/15/18 20:59 UNV Moxifloxacin HCl (Vigamox Oph Soln) 1 drops TID OPR 02/13/18 14:00 03/15/18 13:59 UNV Multivitamins (Multivitamin Tab) 1 tab QAM PO 02/14/18 09:00 03/16/18 08:59 UNV Non-Formulary Medication (Carboxymethylcellulose-Glyceri (Optive)) 1 drops [id number] OP 02/13/18 10:30 03/15/18 10:29 UNV Non-Formulary Medication (Cholecalciferol (Vitamin D3)) 1 cap QAM PO 02/14/18 09:00 03/16/18 08:59 UNV Non-Formulary Medication (Lisinopril (Prinivil)) 30 mg HS PO 02/13/18 21:00 03/15/18 20:59 UNV Non-Formulary Medication (Omeprazole (Prilosec)) 1 cap BID PO 02/13/18 21:00 03/15/18 20:59 UNV Naloxone HCl (Narcan Inj) 0.2 mg Q2M PRN IV 02/13/18 10:45 02/13/18 15:45 Flumazenil (Romazicon Inj) 0.2 mg Q2M PRN IV 02/13/18 10:45 02/13/18 15:45 Promethazine HCl 12.5 mg/Sodium Chloride 50.5 ml @ 202 mls/hr ONE PRN IV 02/13/18 10:45 02/13/18 15:45 Labetalol HCl (Normodyne IV) 5 mg Q5M PRN IV 02/13/18 10:45 02/13/18 15:45 Ephedrine Sulfate (EpHEDrine SULFATE INJ) 5 mg Q5M PRN IV 02/13/18 10:45 02/13/18 15:45 Atropine Sulfate (Atropine Sulfate 0.1mg/ml Inj) 0.5 mg Q1M PRN IV 02/13/18 10:45 02/13/18 15:45 Miscellaneous (Iv Fluids Completed) 1 ea PRN PRN N/A 02/13/18 11:30 02/13/19 11:29 Review of Systems See above Physical Exam Date Time Temp Pulse Resp B/P (MAP) Pulse Ox O2 Delivery O2 Flow Rate FiO2 02/13/18 13:21 80 18 97 Nasal Cannula 4.0 02/13/18 12:45 78 12 158/66 96 Nasal Cannula 5 02/13/18 12:30 80 12 139/49 96 Nasal Cannula 5 02/13/18 12:15 75 14 157/62 97 Nasal Cannula 5 02/13/18 12:00 78 16 160/62 96 Nasal Cannula 5 02/13/18 11:49 78 18 98 Mask 15.0 02/13/18 11:45 70 14 160/57 97 Nasal Cannula 5 02/13/18 11:30 77 14 135/66 98 Nasal Cannula 6 02/13/18 11:20 75 14 135/60 98 Nasal Cannula 6 02/13/18 11:10 37.0 76 14 131/63 98 Nasal Cannula 6 02/13/18 11:00 76 12 148/82 98 Oxymask 15 02/13/18 10:50 77 16 161/76 93 Oxymask 15 02/13/18 10:40 76 14 154/68 97 Oxymask 15 02/13/18 10:30 73 12 167/78 96 Oxymask 15 02/13/18 10:23 36.2 77 15 109/52 65 Oxymask 15 02/13/18 07:14 36.4 90 20 184/66 91 Room Air General Appearance: WD/WN, no apparent distress, + pertinent finding (Obesity, pleasant,) Head: normocephalic, atraumatic Eyes: normal inspection, PERRL, EOMI ENT: normal ENT inspection, hearing grossly normal, TMs normal, pharynx normal Neck: + pertinent finding (on colar support) Respiratory/Chest: chest non-tender, lungs clear, normal breath sounds, no respiratory distress, no accessory muscle use Cardiovascular: regular rate, rhythm, no edema, no gallop, no JVD, no murmur, normal peripheral pulses Abdomen/GI: normal bowel sounds, non tender, soft, no organomegaly Genitourinary - Female: external genitalia normal, normal pelvic exam, normal cervix, uterus normal shape and size Back: normal inspection, no CVA tenderness, no muscle spasm, normal range of motion Extremities/Musculoskelatal: normal inspection, no calf tenderness, normal capillary refill, no pedal edema 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, no motor/sensory deficits, alert, normal mood/affect, normal reflexes, oriented x 3 Skin: normal color, warm/dry, no rash Laboratory Results Last 24 Hours Test 02/13/18 07:10 02/13/18 10:35 Bedside Glucose 163 mg/dl 184 mg/dl Assessment & Plan 72-year-old female with cervical spine spinal cord compression cervical spine, kyphosis and radiculopathy s/P anterior approach to cervical spine and anterior cervical discectomy at 4-5 and 5-6 cervical spine, reduction of the kyphosis, these conditions, pain control, PT OT, DVT prophylaxis, discharge will be per primary team neck swelling postop with some oozing of blood in the gauze, currently in ICU, this will be management by primary team and television announcer service , recommend neck [id number] or CT if needed Diabetes, on insulin at home , will restart half dose of home dose insulin, insulin sliding scale, check HbA1c, hx of difficulty with anesthesia, hx of difficulty with pain management, hypertension: Continue home medication , we will order hydralazine as needed iv hx of asthma, and Meniere's disease, restart home medication 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
[2018-02-13] MEDS ORDERED: ACETAMINOPHEN IV 1,000 MG in EMPTY BAG 0 ML IV PRN (15:00)
[2018-02-13] MEDS ORDERED: HYDROmorphone INJ 2 MG/ML SYR/VIAL IV PRN (15:30)
[2018-02-13] MEDS: DEXAMETHASONE INJ 6 MG in SYRINGE 0 ML IV SCH (15:32)
[2018-02-13] MEDS: SODIUM CHLORIDE 0.9% 1000ML 1,000 ML IV SCH (15:33)
[2018-02-13] MEDS ORDERED: POLYETHYLENE (MIRALAX) 17 GM PACK PO PRN (15:45)
[2018-02-13] MEDS ORDERED: INSULIN ASPART 100 UNITS/ML 3 ML PEN SC SCH ×2 (16:00→16:10)
--- NOTE | 2018-02-13 16:03 | Critical Care Consultation ---
Critical Care Consultation Date of Consultation: February 13, 2018. Attending Physician: Earnest Raman DO Reason for Consultation: Postoperative care for ACDF POD #0 History of Present Illness Mission Planner: Dr. Valdivia This is a 72-year-old female who underwent ACDF repair with s after today. She had an EBL of 5 mL. She tolerated the procedure well with minimal difficulties. She does have a history of asthma and difficulty with post anesthesia which is complicated by confusion, hallucinations, and lethargy. She recently had a right carotid endarterectomy done in November and had no specific problems with her anesthesia at that time. She did present to Dr. Collado with a history of neck pain and was found to have 2 level cervical spine disease and spinal cord compression. She had ACDF of the C4-C5-C6 cervical spine. She is seen in room 105 status post recovery. Her is present and corroborates her past medical history. The patient currently states that she has very little pain. She has no difficulty swallowing. She has no pain with swallowing. She denies any shortness of breath at this time and denies wheezes. She has no fever or chills. She has no sensation of nausea. She is thirsty and requests sips of water. She has no other acute complaints. Regarding her past medical history: She has been admitted in 2010 for asthma exacerbation but never required intubation or mechanical ventilation. Regarding her difficulty with anesthesia, she reports lethargy and confusion postop. She further complains of hallucinations up to 48 hours after anesthesia. She has never been hemodynamically unstable after anesthesia and has no family history of difficulty with anesthesia. Regarding her hypertension, patient does report that her typical systolic blood pressure is 160 or above and has been difficult to control. She is morbidly obese with a BMI of 41.5. She takes daily diuretics using Lasix 20 mg daily. In addition she uses lisinopril 30 mg p.o. nightly. Her hypertension is managed by her primary care provider Dr. Earnest Deutsch. The patient has a history of herpetic zoster to the right eye from many years ago. 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 She denies any pain to the eye and does take eyedrops on a daily basis including Pred forte, moxifloxacin ophthalmic drops, Optiva eyedrops, and suppressive acyclovir 800 mg tabs p.o. every morning. The patient does suffer from Mnire's disease and takes meclizine 25 mg p.o. twice daily. The patient's states that she sometimes does have dizziness but has not had any falls. She has no ambulatory assist devices. Past Medical/Surgical History MEDICAL PROBLEMS: ASTHMA, UNSPECIFIED, W (ACUTE) EXACERBATION Carotid artery stenosis CERVICAL ROOT LESION NEC Cervical stenosis of spine DDD (degenerative disc disease) DIAB W PERIPH CIRC DIS, TYPE II OR UNSPEC TYPE, UNCONTROLLED DUODENAL ULCER NOS Heart disease HYPOTHYROIDISM NOS MENIERE'S DISEASE, UNSPECIFIED TOBACCO USE DISORDER - quit in 1975 PAST SURGICAL HISTORY Bladder surgery 2 Colonoscopy Mastoid reconstruction Tonsillectomy Total abdominal hysterectomy Tubal ligation Right carotid endarterectomy Family History Cancer Diabetes mellitus Heart disease Hypertension Kidney disease Kidney stones Lung disease Social History Smoking Status: Former Smoker (Quit in 1975) Alcohol Use: none Drug Use: none Marital Status: Housing Status: lives with significant other Occupation Status: retired Allergies Coded Allergies: Aspartame (Verified Allergy, Mild, pt reported allergy to equal, 02/13/18) Adhesives (Verified Allergy, Unknown, SKIN IRRITATION-BANDAGES, 02/13/18) Aspirin (Verified Allergy, Unknown, AVOID HX GI BLEED, 02/13/18) Latex1 -Allergic Contact Dermititis (Verified Allergy, Unknown, RASH, ) NSAIDs (Verified Allergy, Unknown, HX ULCER, 02/13/18) Statins (Verified Allergy, Unknown, CHEST PAIN, 02/13/18) Chlorhexidine (Verified Adverse Reaction, Intermediate, itching and burning, 02/13/18) Acetaminophen (Verified Adverse Reaction, Unknown, TO AVOID -"have an enlarged liver" FATTY LIVER, 02/13/18) Ibuprofen (Verified Adverse Reaction, Unknown, gave me a duodenal ulcer, ) Morphine and Related (Verified Adverse Reaction, Unknown, NARCOTICS-GI UPSET AND HALLUCINATIONS, 02/13/18) Tramadol (Verified Adverse Reaction, Unknown, vomit, 02/13/18) Home Medications Scheduled Acyclovir (Zovirax), 800 MG PO QAM Albuterol Hfa (Ventolin Hfa), 2-4 PUFFS INH Q6H Ascorbic Acid (Vitamin C), 1 TAB PO QPM Aspirin (Aspirin Ec), 81 MG PO QAM Carboxymethylcellulose-Glyceri (Optive), 1 DROPS OP 5XWEEK Cetirizine (Zyrtec), 10 MG PO QAM Cholecalciferol (Vitamin D3), 1 CAP PO QAM Furosemide (Lasix), 20 MG PO QAM Insulin Human Regular (Novolin R), UNITS INJ SLIDING SCALE Insulin Isophane (Human) (Novolin N Relion), UNITS SC UD Levothyroxine Sodium (Synthroid), 50 MCG PO QAM Lisinopril (Prinivil), 30 MG PO HS Meclizine HCl (Meclizine HCl), 1 TAB PO BID Moxifloxacin Hcl (Ophth) (Vigamox 0.5% Oph), 1 DROPS OPR TID Multivitamin (Multivitamin), 1 TAB PO QAM Omeprazole (Prilosec), 1 CAP PO BID Prednisolone Acetate (Ophth) (Pred Forte 1% Oph), 1 DROPS OR QAM Scheduled PRN Albuterol Sulf (Proventil 0.083% 2.5MG/3ML), 2.5 MG INH QID PRN for SOB/Wheezing Current Inpatient Medications Current Inpatient Medications Medications (Trade) Dose Ordered Sig/Harsh Route Start Time Stop Time Status Last Admin Dose Admin Lactated Ringer's 1,000 ml @ 15 mls/hr Q24H IV 02/13/18 06:00 02/14/18 05:59 02/13/18 07:28 15 MLS/HR Sodium Chloride 1,000 ml @ 15 mls/hr Q24H IV 02/13/18 06:00 02/14/18 05:59 Cefazolin Sodium 15 ml @ 3.75 mls/ min PREOP IV 02/13/18 06:00 02/13/18 18:00 02/13/18 08:21 3.75 MLS/MIN Racepinephrine (Raccemic Epinephrine 2.25% 0.5ML Neb) 0.5 ml ONE PRN INH 02/13/18 10:30 Acetaminophen 1000 mg/Empty Bag 100 ml @ 400 mls/hr Q8H PRN IV 02/13/18 15:00 03/15/18 14:59 Hydromorphone HCl (Dilaudid Inj) 0.5mg IV for moder... Q3H PRN IV 02/13/18 10:30 02/27/18 10:29 UNV Magnesium Hydroxide (Milk Of Magnesia Susp) 30 ml DAILY PRN PO 02/13/18 10:30 03/15/18 10:29 Docusate Sodium (coLACE CAP) 100 mg BID PO 02/13/18 21:00 03/15/18 20:59 Ondansetron HCl (Zofran Inj) 4 mg Q6 PRN IV 02/13/18 10:30 03/15/18 10:29 Cefazolin Sodium 1000 mg/Dextrose 57.5 ml @ 100 mls/hr Q8H IV 02/13/18 10:30 02/14/18 03:05 UNV Lorazepam 0.5 mg/ Syringe 1 ml @ 1 mls/min Q8H PRN IV 02/13/18 10:30 03/15/18 10:29 Dexamethasone Sodium Phosphate 6 mg/Syringe 1.5 ml @ 1 mls/min Q8H IV 02/13/18 16:00 02/14/18 08:02 Sodium Chloride 1,000 ml @ 80 mls/hr [id number] IV 02/13/18 10:23 02/14/18 10:22 Bisacodyl (Dulcolax Supp) 10 mg DAILY PRN DE 02/15/18 06:00 03/17/18 05:59 Dexamethasone Sodium Phosphate 8 mg/Syringe 2 ml @ 1 mls/min ONE PRN IV 02/13/18 10:30 Naloxone HCl (Narcan Inj) 0.1 mg Q5M PRN IV 02/13/18 10:30 03/15/18 10:29 Albuterol Sulfate (Ventolin 0.083% 2.5MG/3ML Neb) 2.5 mg QID PRN INH 02/13/18 10:30 03/15/18 10:29 Ascorbic Acid (Vitamin C Tab) 500 mg QPM PO 02/13/18 21:00 03/15/18 20:59 Aspirin (Ecotrin Tab) 81 mg QAM PO 02/14/18 09:00 03/16/18 08:59 UNV Cetirizine HCl (zyrTEC TAB) 10 mg QAM PO 02/14/18 09:00 03/16/18 08:59 Furosemide (Lasix Tab) 20 mg QAM PO 02/14/18 09:00 03/16/18 08:59 Meclizine HCl (Antivert Tab) 25 mg BID PO 02/13/18 21:00 03/15/18 20:59 Moxifloxacin HCl (Vigamox Oph Soln) 1 drops TID OPR 02/13/18 14:00 03/15/18 13:59 UNV Multivitamins (Multivitamin Tab) 1 tab QAM PO 02/14/18 09:00 03/16/18 08:59 Non-Formulary Medication (Carboxymethylcellulose-Glyceri (Optive)) 1 drops 5XWEEK OP 02/13/18 10:30 03/15/18 10:29 UNV Cholecalciferol (Vitamin D Tab) 2,000 inter.unit QAM PO 02/14/18 09:00 03/16/18 08:59 Lisinopril (Zestril Tab) 30 mg HS PO 02/13/18 21:00 03/15/18 20:59 Pantoprazole Sodium (Protonix Tab) 40 mg BID PO 02/13/18 21:00 03/15/18 20:59 Naloxone HCl (Narcan Inj) 0.2 mg Q2M PRN IV 02/13/18 10:45 02/13/18 15:45 Flumazenil (Romazicon Inj) 0.2 mg Q2M PRN IV 02/13/18 10:45 02/13/18 15:45 Promethazine HCl 12.5 mg/Sodium Chloride 50.5 ml @ 202 mls/hr ONE PRN IV 02/13/18 10:45 02/13/18 15:45 Labetalol HCl (Normodyne IV) 5 mg Q5M PRN IV 02/13/18 10:45 02/13/18 15:45 Ephedrine Sulfate (EpHEDrine SULFATE INJ) 5 mg Q5M PRN IV 02/13/18 10:45 02/13/18 15:45 Atropine Sulfate (Atropine Sulfate 0.1mg/ml Inj) 0.5 mg Q1M PRN IV 02/13/18 10:45 02/13/18 15:45 Miscellaneous (Iv Fluids Completed) 1 ea PRN PRN N/A 02/13/18 11:30 02/13/19 11:29 Insulin Human NPH (novoLIN-N NPH) 12 units QAM SC 02/14/18 09:00 03/16/18 08:59 UNV Insulin Human NPH (novoLIN-N NPH) 21 units QPM SC 02/13/18 21:00 03/15/18 20:59 UNV Insulin Aspart (novoLOG ASPART) SLIDING SCALE G... ACHS SC 02/13/18 16:00 03/15/18 15:59 Levothyroxine Sodium (Synthroid Tab) 50 mcg DAILYBB PO 02/14/18 06:00 03/16/18 05:59 Review of Systems A total of 12 systems was reviewed and is negative other than as listed above in the HPI Physical Exam Date Time Temp Pulse Resp B/P (MAP) Pulse Ox O2 Delivery O2 Flow Rate FiO2 02/13/18 13:46 36.4 82 18 146/59 94 Nasal Cannula 4.0 02/13/18 13:21 80 18 97 Nasal Cannula 4.0 02/13/18 12:45 78 12 158/66 96 Nasal Cannula 5 02/13/18 12:30 80 12 139/49 96 Nasal Cannula 5 02/13/18 12:15 75 14 157/62 97 Nasal Cannula 5 02/13/18 12:00 78 16 160/62 96 Nasal Cannula 5 02/13/18 11:49 78 18 98 Mask 15.0 02/13/18 11:45 70 14 160/57 97 Nasal Cannula 5 02/13/18 11:30 77 14 135/66 98 Nasal Cannula 6 02/13/18 11:20 75 14 135/60 98 Nasal Cannula 6 02/13/18 11:10 37.0 76 14 131/63 98 Nasal Cannula 6 02/13/18 11:00 76 12 148/82 98 Oxymask 15 02/13/18 10:50 77 16 161/76 93 Oxymask 15 02/13/18 10:40 76 14 154/68 97 Oxymask 15 02/13/18 10:30 73 12 167/78 96 Oxymask 15 02/13/18 10:23 36.2 77 15 109/52 65 Oxymask 15 02/13/18 07:14 36.4 90 20 184/66 91 Room Air GENERAL : No acute distress. Pleasant. EYES: No icterus, gaze conjugate. History of herpes zoster to right eye with anatomical damage. No double vision but certainly lower acuity. No evidence of conjunctivitis. NOSE: No evidence of epistaxis MOUTH: No lesions or candidiasis. Mucosa dry. Oxymask in place NECK: Supple. Clear dressing over incisional site from ACDF. There is some blood demonstrated on the gauze. I have outlined this with a permanent marker. Patient has no evidence of stridor. No unusual pain with palpation. No evidence of hematoma. No hoarseness to speech LUNGS: CTA B/L, no wheezes, rales or rhonchi. Breath sounds are equal to the bases HEART: Regular, rate controlled. No murmurs ABDOMEN: Soft, NT, ND, BS Present EXTREMITIES: Bilateral +1 LE edema, pedal pulses intact. Thigh high SCDs in place. NEURO: A&OX3. Strength equal and appropriate to both upper extremities. Able to move both feet. Babinski unequivocal. Strength of lower extremities is equal and appropriate bilaterally 2/4 reflexes to the brachioradialis and bicep tendons as well as the patellar tendon. Laboratory Results Last 24 Hours Test 02/13/18 07:10 02/13/18 10:35 Bedside Glucose 163 mg/dl 184 mg/dl Diagnostic Results SPINE ONE VIEW, ANY LEVEL HISTORY: Effusion. FLUOROSCOPY TIME: 5 seconds. FINDINGS: Intraoperative fluoroscopy was provided for the cervical spine. 2 fluoroscopic spot images were obtained. IMPRESSION: Fluoroscopy provided for a anterior cervical fusion from C4 through C6. Electronically signed by: Zeeshan Marinelli M.D. 02/13/2018 11:50 AM Assessment & Plan This is a 72-year-old female admitted to the intensive care unit for postoperative monitoring for ACDF with Dr. Raman POD #0. Anterior approach to cervical spine and anterior cervical discectomy at 4-5 and 5-6 cervical spine, reduction of the kyphosis with some interbody spacers at 4-5 and 5-6 and anterior cervical discectomy and fusion. There were no complications during the surgery and patient had an EBL of approximately 5 mL. Pain is generally controlled. There are no neurological deficits that are grossly focal. C-collar in place at time of examination and removed by Dr. Raman's team. Observation and intensive care overnight secondary to previous history of difficulty with anesthesia, lethargy , hallucinations, asthma exacerbation. Continue dexamethasone 6 mg every [address] Raman ACDF * Bowel regimen with Colace, senna, MiraLAX. Advised patient not to strain * Antiemetic regimen was Zofran 4 mg every 6 hours as needed and Phenergan 12.5 mg every 6 hours as needed. * Blood pressure regimen home meds plus labetalol every 5 minutes with SBP greater than 150 -target SBP 140-160 * Pulmonary regimen -no Tri-flow or flutter valve. Keep Oxymask at bedside. Keep Ambu bag at bedside. Keep glide scope in ICU in med-room. Emergency cricothyroid kit at bedside. Difficult airway bag is on the back of the code cart * Vocal regimen -minimize speaking for the first 12 hours. Monitor for stridor * Diet regimen -clear liquids. Advance as tolerated. Watch for dysphagia or odynophagia -hold diet and advise critical care provider staff * C-collar on at bedtime; otherwise per directions of surgeon * Avoid NSAIDs including Toradol * Continue dexamethasone per surgery Neuro * No focal deficits at this time. * Patient does not require any sedation * Pain is generally controlled * Neuro checks per protocol for ACDF * Nursing staff aware of protocol and copy of best practice points given * C-collar at bedtime -may be removed during the day when patient is awake per Dr. Raman Cardiovascular * History of poorly controlled hypertension with usual SBP at home above 160 * Hemodynamically stable at this time with recent systolic pressures ranging from 139-158 * Continue home meds including Lisinopril and Furosemide * Will order labetalol PRN to maintain systolic pressure between 140 and 160 during the first 12-24 hours. Pulmonary * History of asthma with admission in 2010 * No history of intubation or mechanical ventilation * Will prescribe DuoNeb treatments every 4 hours 5 doses prophylactically then as needed for shortness of breath or wheezes * Does not have a nebulizer at home and has not required 1 * Does not use a leukotriene inhibitor * Follow clinically Renal * Most recent labs from 02/05/2018 show a creatinine of 1.34 with a BUN of 29 * Repeat labs now and again in the morning * Continue IV hydration ID * Prophylactic antibiotics per protocol * No other source of infection * Monitor clinically * Check MRSA nasal swab per protocol Endocrine * Diabetes mellitus type 2 * Glycemic control consult with pharmacy * Check a hemoglobin A1c in the morning * History of hypothyroidism * Continue levothyroxine Heme * Hemoglobin 12.7, hematocrit 37.5 * No significant blood loss in surgery * Check repeat CBC in the morning Electrolytes * Potassium 4.1, calcium 9.5 * Check a mag and phosphorus in the morning Nutrition * Clear liquid diet * Advance as tolerated GI * Omeprazole at home * Use pantoprazole while inpatient IV access * 22-gauge peripheral IV in the right hand, 18-gauge peripheral IV in the left hand * Right radial arterial line in place -placed by anesthesia DVT prophylaxis * Chemical prophylaxis per surgery * Patient currently Adarsh thigh-high is in place and operational * Ambulate per protocol CCT: 35 minutes independent of any procedures Thank you for including us in the care of this patient. Please refer to Dr. Valdivia's addendum for further recommendations. I have personally evaluated and examined this patient. I agree with assessment and plan of Neida Rojo PA-C.
[2018-02-13] MEDS ORDERED: PHARMACY GLYCEMIC MGMT CONSULT PRN (16:15)
[2018-02-13] MEDS: CEFAZOLIN IV 1,000 MG in SYRINGE 0 ML IV SCH (16:43)
[2018-02-13] MEDS ORDERED: ALBUTEROL 0.5% NEB SOLN 2.5 MG/0.5 ML VIAL INH PRN (16:45)
[2018-02-13 16:47] LABS: CALCIUM 8.4 mg/dl (8.5-10.1); CREATININE 1.29 mg/dl (0.60-1.20); POTASSIUM 4.5 mmol/L (3.5-5.1)
[2018-02-13] MEDS ORDERED: DEXTROSE 50% 50 ML SYR IV PRN (17:00)
[2018-02-13] MEDS ORDERED: GLUCOSE 40% GEL 15 GM TUBE PO PRN (17:00)
[2018-02-13] MEDS ORDERED: GLUCOSE 10 TABS/TUBE PO PRN (17:00)
[2018-02-13] MEDS ORDERED: CARBOHYDRATES FOR HYPOGLYCEMIA PO PRN (17:00)
[2018-02-13] MEDS ORDERED: GLUCAGON FOR INJ 1 MG VIAL IM PRN (17:00)
[2018-02-13] MEDS ORDERED: INSULIN HUMAN REGULAR PER UNIT 8 UNITS in SYRINGE 7.92 ML IV ONE ×2 (17:15→22:45)
[2018-02-13] MEDS ORDERED: LANTUS PER UNIT CHARGE SQ ONE (17:15)
--- NOTE | 2018-02-13 17:36 | Pharmacy Progress Note ---
Glycemic Control Intl Consult Date of Service February 13, 2018. Scope Glycemic Pharmacist consulted by Dr Kennedy on 02/13/18 for glycemic control and to write orders per [facility] inpatient glycemic control protocol Objective Weight (Kilograms): 90.000 Accuchecks BSG (last 24hrs): Test 02/13/18 07:10 02/13/18 10:35 02/13/18 16:16 Bedside Glucose 163 mg/dl (70-90) 184 mg/dl (70-90) Random Glucose 265 mg/dl (70-99) Laboratory Data (last 24hrs) Test 02/13/18 16:16 Anion Gap 6.0 mmol/L BUN/Creatinine Ratio 19.4 Blood Urea Nitrogen 25 mg/dl Creatinine 1.29 mg/dl Potassium Level 4.5 mmol/L Sodium Level 138 mmol/L Recent Pertinent Medications Outpatient Anti-diabetic Regimen: * NPH 22 units SC qAM, 42 units qHS * Regular insulin SC sliding scale * A1c = 8.1 % on 11/05/17 - repeat pending for tomorrow AM Risk Factors for Insulin Resistance: * Steroids: dexamethasone 10 mg IV x1 preop then 6 mg IV q8h * Recent Surgery: POD 0 s/p ACDF * Diet: NPO initially, now clear liquid (T2DM) Assessment & Plan ASSESSMENT: * 72 yo F with T2DM s/p ACDF today * Anticipate significant insulin resistance 2nd higher outpatient insulin doses , ongoing steroid x24 hours, and recent surgery * Admission October 2016 with similar stressors (dexamethasone 12 mg intra-op) in which Lantus 25 units administered in PM and Novolog correction factor of 20 mg/dL/unit was insufficient to cover overnight BSG's (>300 mg/dL x4). * Will increase Lantus this admission (close to weight-based stress 3 full daily dose estimate). Will attempt to transition back to home NPH once effects of steroids dissipate (no sooner than 5/5 AM) * Will tighten correction factor (and also tighten carb ratio accordingly) * BSG elevated to 265 mg/dL at dinner - significantly higher than goal for a recent post-op patient. Also, no basal insulin on board since NPH administered at home 5/2 PM so anticipate further increase without rapid-acting insulin - will give one-time IV bolus dose * ADA & AACE recommend a goal blood sugar range 140-180 mg/dl for the majority of critically ill & non-critically ill patients. However, more stringent target selected to facilitate wound/infection healing post-op PLAN FOR INPATIENT GLYCEMIC CONTROL: * Regular insulin 8 units IV x1 now * Basal insulin with LANTUS 40 units SQ x1 now. Ongoing dose dependent on overnight trend in BSG's. * Correctional Insulin with NOVOLOG per scale ACHS with 2 overnight checks * Goal Range: Low 120 mg/dL - High 150 mg/dL * Correction Factor: 15 mg/dL/unit * Nutritional / Prandial insulin per carb ratio of 1 unit per 4 grams CHO consumed * Please note that the plan above was derived based on current level of insulin resistance and hospital stress. These recommendations are appropriate for inpatient admission only. Plan of care upon discharge will need to be reassessed to avoid potential outpatient hypo/hyperglycemia. Thank you.
[2018-02-13] MEDS: MOXIFLOXACIN HCL 0.5% OP SOLN 3 ML BTL OPR SCH ×2 (18:04→21:36)
[2018-02-13] MEDS: INSULIN ASPART 100 UNITS/ML 3 ML PEN SC SCH ×2 (18:05→21:43)
[2018-02-13] MEDS: ALBUT/IPRATROP 3MG/0.5MG NEB 3 ML VIAL INH SCH ×2 (20:16→23:24)
[2018-02-13] MEDS ORDERED: INSULIN HUMAN NPH SC SCH (21:00)
[2018-02-13] MEDS: MECLIZINE HCL 25 MG TAB PO SCH (21:31)
[2018-02-13] MEDS: SENNA 8.6 MG TAB PO SCH (21:31)
[2018-02-13] MEDS: PANTOprazole SOD 40 MG TAB PO SCH (21:32)
[2018-02-13] MEDS: LISINOPRIL 10 MG TAB PO SCH (21:32)
[2018-02-13] MEDS: DOCUSATE SODIUM 100 MG CAP PO SCH (21:32)
[2018-02-13] MEDS: ASCORBIC ACID 500 MG TAB PO SCH (21:32)
[2018-02-13] MEDS: CARBOXYMETHYLCELLULOSE GLYCERI SCH (23:34)
[2018-02-14] VITALS (22 sets, daily range): BP systolic 132–190; BP diastolic 50–79; PULSE 86–112; TEMP 36.5–36.9; O2SAT 92–99
[2018-02-14] MEDS: CEFAZOLIN IV 1,000 MG in SYRINGE 0 ML IV SCH ×2 (00:45→09:05)
[2018-02-14] MEDS: DEXAMETHASONE INJ 6 MG in SYRINGE 0 ML IV SCH ×2 (00:46→08:01)
[2018-02-14] MEDS: INSULIN ASPART 100 UNITS/ML 3 ML PEN SC SCH ×6 (00:48→21:00)
[2018-02-14] MEDS: SODIUM CHLORIDE 0.9% 1000ML 1,000 ML IV SCH (03:29)
[2018-02-14 04:20] LABS: HEMATOCRIT 34.6 % (37-47); HEMOGLOBIN 11.6 g/dL (12.0-16.0); IG# 0.02 K/uL (0.00-0.02); LYMPH % 4.4 %; LYMPH ABS # 0.53 K/uL (1.2-3.4); MEAN CORPUSCULAR HEMOGLOBIN 31.2 pg (25-34); MEAN CORPUSCULAR HGB CONC 33.5 g/dl (32-36); MEAN PLATELET VOLUME 8.6 fL (7.4-10.4); MONO % 1.9 %; MONO ABS # 0.23 K/uL (0.11-0.59); NEUT % 93.5 %; NEUT ABS # 11.21 K/uL (1.4-6.5); PLATELET COUNT 274 K/uL (130-400); RED CELL DISTRIBUTION WIDTH CV 13.3 % (11.5-14.5); RED CELL DISTRIBUTION WIDTH SD 45.3 fL (36.4-46.3); WHITE BLOOD COUNT 11.99 K/uL (4.8-10.8)
[2018-02-14 04:42] LABS: CALCIUM 8.5 mg/dl (8.5-10.1); CREATININE 1.5 mg/dl (0.60-1.20); POTASSIUM 4.2 mmol/L (3.5-5.1)
[2018-02-14 04:43] LABS: PHOSPHORUS 3.4 mg/dl (2.5-4.9)
[2018-02-14] MEDS ORDERED: INSULIN HUMAN REGULAR PER UNIT 8 UNITS in SYRINGE 7.92 ML IV ONE (05:15)
[2018-02-14] MEDS: LEVOTHYROXINE 50 MCG TAB PO SCH (05:34)
[2018-02-14] MEDS ORDERED: MAGNESIUM SULFATE 1GM / D5W 100 ML IV STA (06:09)
[2018-02-14 06:25] LABS: HEMOGLOBIN A1C 6.9 % (4.5-5.6)
[2018-02-14] MEDS: ALBUT/IPRATROP 3MG/0.5MG NEB 3 ML VIAL INH SCH (06:59)
--- NOTE | 2018-02-14 07:51 | Anesthesiology Progress Note ---
Anesthesia Post Op Note Date & Time February 14, 2018 at 07:51 Vital Signs Pain Intensity: 0.0 Vital Signs Past 12 Hours Date Time Temp Pulse Resp B/P (MAP) Pulse Ox O2 Delivery O2 Flow Rate FiO2 02/14/18 07:00 102 16 98 Mask 5.0 02/14/18 06:59 102 16 98 Mask 5.0 02/14/18 06:00 100 16 132/57 (82) 96 Oxymask 5.0 02/14/18 04:00 98 Oxymask 7.0 02/14/18 04:00 36.5 100 16 150/74 (99) 98 Oxymask 7.0 02/14/18 03:12 89 18 95 Mask 7.0 02/14/18 03:12 89 16 96 Mask 7.0 02/14/18 02:00 93 16 152/50 (84) 95 Oxymask 7.0 02/14/18 00:01 36.5 94 20 161/72 (101) 99 Oxymask 7.0 02/13/18 23:59 99 Oxymask 7.0 02/13/18 23:25 92 18 96 Mask 7.0 02/13/18 23:24 96 18 96 Mask 7.0 02/13/18 22:00 99 20 150/52 (84) 96 Oxymask 5.0 02/13/18 20:19 80 18 96 Nasal Cannula 2.0 02/13/18 20:16 96 16 97 Mask 7.0 02/13/18 20:00 36.7 96 16 135/73 (93) 97 Oxymask 7.0 02/13/18 20:00 97 Oxymask 7.0 Notes Mental Status: alert / awake / arousable, participated in evaluation Pt Amnestic to Procedure: Yes Nausea / Vomiting: adequately controlled Pain: adequately controlled Airway Patency, RR, SpO2: stable & adequate BP & HR: stable & adequate Hydration State: stable & adequate Anesthetic Complications: no major complications apparent
[2018-02-14] MEDS: CARBOXYMETHYLCELLULOSE GLYCERI SCH (08:00)
--- NOTE | 2018-02-14 08:19 | Clinical Documentation Query ---
TERRY Andrade : CLINICAL DOCUMENTATION QUERY Patient is a 72 year old female who on 02/13 underwent anterior cervical discectomy and fusion. BUN and creatinine this a.m. of 27 mg/dl and 1.50 mg/dl. Historical EMR review demonstrated an estimated GFR range of <60, >30 ml/min dating back to at least 04/13/15. As appropriate, consider documentation as suggested below. Thank you. In your clinical opinion is this patient being managed for: ( ) Chronic kidney disease, stage 3 ( ) Not Agree ( ) Other explanation of clinical findings (Please Explain. If no explanation given, this would be considered a no response.) ( ) Unable to determine ( ) Need to Discuss (Please call CDS via extension or qliq. If no interaction occurs this is considered a no response.) The medical record reflects the following clinical findings, treatment, and risk factors. Clinical Indicators: As above Treatment: Serial chemistries Risk Factors: Age, diabetes, hypertension Please clarify and document your clinical opinion in the progress notes and discharge summary. Terms such as "probable", "suspected", "likely", "questionable", "possible", or "still to be ruled out" are acceptable. IF IN AGREEMENT, YOU MUST DOCUMENT ABOVE DIAGNOSTIC STATEMENT IN DAILY PROGRESS NOTES AND DISCHARGE SUMMARY. This document is not part of the patient's record. Thank You, Saúl Lewis RN [phone]
[2018-02-14] MEDS ORDERED: INSULIN HUMAN NPH SC ONE (08:30)
[2018-02-14] MEDS: DOCUSATE SODIUM 100 MG CAP PO SCH ×2 (08:59→21:18)
[2018-02-14] MEDS: MECLIZINE HCL 25 MG TAB PO SCH ×2 (08:59→21:18)
[2018-02-14] MEDS: PANTOprazole SOD 40 MG TAB PO SCH ×2 (08:59→21:17)
[2018-02-14] MEDS: CHOLECALCIFEROL 1000 INTER.UNIT TAB PO SCH (09:00)
[2018-02-14] MEDS: MOXIFLOXACIN HCL 0.5% OP SOLN 3 ML BTL OPR SCH ×3 (09:00→21:11)
[2018-02-14] MEDS: MULTIVITAMIN TAB PO SCH (09:00)
[2018-02-14] MEDS ORDERED: LEVOTHYROXINE 50 MCG TAB PO SCH (09:00)
[2018-02-14] MEDS: SENNA 8.6 MG TAB PO SCH (09:00)
[2018-02-14] MEDS ORDERED: HumuLIN-N 10 ML VIAL SC ONE (09:00)
[2018-02-14] MEDS: CETIRIZINE HCL 10 MG TAB PO SCH (09:00)
[2018-02-14] MEDS: FUROSEMIDE 20 MG TAB PO SCH (09:00)
[2018-02-14] MEDS ORDERED: INSULIN HUMAN NPH SC SCH (09:00)
[2018-02-14] MEDS: ASPIRIN 81 MG ECTAB PO SCH (09:00)
--- NOTE | 2018-02-14 10:44 | DIAGNOSTIC IMAGING REPORT ---
CHEST ONE VIEW PORTABLE CLINICAL HISTORY: HYPOXIA COMPARISON STUDY: Chest radiograph November 04, 2017. FINDINGS: Incidental note is made of an anterior cervical spine fusion. There is no pneumothorax or pleural effusion. Linear bibasilar opacities favor atelectasis. Mild cardiomegaly is noted. There is pulmonary vascular congestion with possible mild pulmonary edema. IMPRESSION: 1. Pulmonary vascular congestion with possible mild pulmonary edema. 2. Bibasilar opacities which favor atelectasis. Electronically signed by: Aristeo Gama M.D. 02/14/2018 10:43 AM Dictated Date/Time: 02/14/2018 10:42 AM
[2018-02-14] MEDS ORDERED: HydrALAZINE 10 MG TAB PO PRN (11:30)
[2018-02-14] MEDS ORDERED: NURSING VERBAL MED ORDER ONE (12:00)
[2018-02-14] MEDS ORDERED: REFRESH OPTIVE OP PRN (13:15)
[2018-02-14] MEDS: AMLODIPINE BESYLATE 5 MG TAB PO SCH (13:36)
--- NOTE | 2018-02-14 15:53 | Critical Care Progress Note ---
Critical Care Progress Note Date of Service February 14, 2018. Attending Dr. Valdivia Subjective Patient seen and examined at bedside. is in the room at the time of my interview and exam Patient denies any fever or chills. She has no dysphagia, odynophagia or shortness of breath. She has no sensation of swelling of the throat or tongue Pain is generally controlled Blood pressure has been elevated the patient has no awareness of chest pain, palpitations, arrhythmia No headache or other neurological findings Tolerating full liquid diet Objective GENERAL : No acute distress EYES: No icterus, gaze conjugate NOSE: No evidence of epistaxis MOUTH: No lesions or candidiasis NECK: Supple. Dressing was taken down and revealed minimal bleeding at the incisional site from the ACDF. [place] drain is in place and draining serosanguineous fluid at a slow rate. No stridor is appreciated. There is no palpable evidence of a hematoma. Consequently there is no evidence for ultrasound evaluation. LUNGS: CTA B/L, no wheezes, rales or rhonchi HEART: Regular, rate controlled ABDOMEN: Soft, NT, ND, BS Present EXTREMITIES: No LE edema, pedal pulses intact NEURO: A&OX3 Assessment & Plan This is a 72-year-old female admitted to the intensive care unit for postoperative monitoring for ACDF with Dr. Raman POD #1. ACDF * POD #1 -discussion with Dr. Raman. He agrees to transfer patient to [facility] floor * Continue bowel regimen with Colace, senna, MiraLAX. * Continue antiemetic regimen was Zofran 4 mg every 6 hours as needed and Phenergan 12.5 mg every 6 hours as needed. * Blood pressure continues to be elevated. Continue lisinopril. Will add amlodipine. Continue with labetalol as needed * No Tri-flow or flutter valve. Keep Oxymask at bedside. No complications within the first 24 postoperative hours * Advance diet per surgery * C-collar on at bedtime; otherwise per directions of surgeon * Avoid NSAIDs including Toradol * Last scheduled dose of dexamethasone given this morning Neuro * No focal deficits. * Pain is generally controlled * Continue neuro checks per protocol for ACDF * C-collar at bedtime -may be removed during the day when patient is awake per Dr. Raman Cardiovascular * History of poorly controlled hypertension with usual SBP at home above 160 * Hemodynamically stable but hypertensive * Continue home meds including Lisinopril and Furosemide. Amlodipine 5 mg every morning added Pulmonary * History of asthma with admission in 2010 * No history of intubation or mechanical ventilation * Does not have a nebulizer at home and has not been required * Does not use a leukotriene inhibitor * Follow clinically Renal * BUN 27 with a creatinine of 1.5 * Repeat labs again in the morning * Continue IV hydration ID * Prophylactic antibiotics per protocol * No other source of infection * Monitor clinically * MRSA screening is negative Endocrine * Diabetes mellitus type 2 * Glycemic control consult with pharmacy * Hemoglobin A1c is 6.9 * History of hypothyroidism * Continue levothyroxine Heme * Hemoglobin 12.7, hematocrit 37.5 * No significant blood loss in surgery * Check repeat CBC in the morning Electrolytes * Magnesium 1.5 - repleted with 1g Magnesium Sulfate * Potassium 4.2, calcium 8.5 * Check a mag and phosphorus in the morning Nutrition * Full liquid diet * Advance per surgery GI * Omeprazole at home * Use pantoprazole while inpatient IV access * 22-gauge peripheral IV in the right hand, 18-gauge peripheral IV in the left hand * Right radial arterial line removed 5 AM DVT prophylaxis * Chemical prophylaxis per surgery * Patient currently [facility] is in place and operational * Ambulate per protocol CCT: 0 minutes independent of any procedures. Level 3 inpatient bill Thank you for including us in the care of this patient. Please refer to Dr. Valdivia's addendum for further recommendations. From a critical care perspective patient is stable for transfer off of the intensive care unit. Discussed with Dr. Raman. Medicine consult has been placed and hospitalist team is following I agree with assessment and plan of Neida Rojo PA-C. Consults & Procedures Consultants: [facility] hospitalist team -Dr. Kennedy Critical care medicine team -Dr. Valdivia Procedures: ACDF C4-C5, C5-C6 02/13/2018 -Dr. Raman Right radial arterial line placement -anesthesia team 02/13/2018 Removal of right radial arterial line -critical care medicine staff 02/14/2018 Data Medications: Current Inpatient Medications Medications (Trade) Dose Ordered Sig/Harsh Route Start Time Stop Time Status Last Admin Dose Admin Racepinephrine (Raccemic Epinephrine 2.25% 0.5ML Neb) 0.5 ml ONE PRN INH 02/13/18 10:30 Acetaminophen 1000 mg/Empty Bag 100 ml @ 400 mls/hr Q8H PRN IV 02/13/18 15:00 03/15/18 14:59 Magnesium Hydroxide (Milk Of Magnesia Susp) 30 ml DAILY PRN PO 02/13/18 10:30 03/15/18 10:29 Docusate Sodium (coLACE CAP) 100 mg BID PO 02/13/18 21:00 03/15/18 20:59 02/14/18 08:59 100 MG Ondansetron HCl (Zofran Inj) 4 mg Q6 PRN IV 02/13/18 10:30 03/15/18 10:29 02/13/18 22:00 4 MG Lorazepam 0.5 mg/ Syringe 1 ml @ 1 mls/min Q8H PRN IV 02/13/18 10:30 03/15/18 10:29 Bisacodyl (Dulcolax Supp) 10 mg DAILY PRN [place] 02/15/18 06:00 03/17/18 05:59 Dexamethasone Sodium Phosphate 8 mg/Syringe 2 ml @ 1 mls/min ONE PRN IV 02/13/18 10:30 Naloxone HCl (Narcan Inj) 0.1 mg Q5M PRN IV 02/13/18 10:30 03/15/18 10:29 Ascorbic Acid (Vitamin C Tab) 500 mg QPM PO 02/13/18 21:00 03/15/18 20:59 02/13/18 21:32 500 MG Aspirin (Ecotrin Tab) 81 mg QAM PO 02/14/18 09:00 03/16/18 08:59 02/14/18 09:00 81 MG Cetirizine HCl (zyrTEC TAB) 10 mg QAM PO 02/14/18 09:00 03/16/18 08:59 02/14/18 09:00 10 MG Furosemide (Lasix Tab) 20 mg QAM PO 02/14/18 09:00 03/16/18 08:59 02/14/18 09:00 20 MG Meclizine HCl (Antivert Tab) 25 mg BID PO 02/13/18 21:00 03/15/18 20:59 02/14/18 08:59 25 MG Moxifloxacin HCl (Vigamox Oph Soln) 1 drops TID OPR 02/13/18 16:00 03/15/18 15:59 02/14/18 14:22 1 DROPS Multivitamins (Multivitamin Tab) 1 tab QAM PO 02/14/18 09:00 03/16/18 08:59 02/14/18 09:00 1 TAB Cholecalciferol (Vitamin D Tab) 2,000 inter.unit QAM PO 02/14/18 09:00 03/16/18 08:59 02/14/18 09:00 2,000 INTER.UNIT Lisinopril (Zestril Tab) 30 mg HS PO 02/13/18 21:00 03/15/18 20:59 02/13/18 21:32 30 MG Pantoprazole Sodium (Protonix Tab) 40 mg BID PO 02/13/18 21:00 03/15/18 20:59 02/14/18 08:59 40 MG Miscellaneous (Iv Fluids Completed) 1 ea PRN PRN N/A 02/13/18 11:30 02/13/19 11:29 Levothyroxine Sodium (Synthroid Tab) 50 mcg DAILYBB PO 02/14/18 06:00 03/16/18 05:59 02/14/18 05:34 50 MCG Hydromorphone HCl (Dilaudid Inj) 0.5 mg Q3H PRN IV 02/13/18 15:30 02/27/18 15:29 Hydromorphone HCl (Dilaudid Inj) 1 mg Q3H PRN IV 02/13/18 15:30 02/27/18 15:29 02/13/18 18:01 1 MG Senna (Senokot Tab) 17.2 mg QAM PO 02/13/18 21:00 03/15/18 20:59 02/14/18 09:00 17.2 MG Polyethylene (Miralax Powder Packet) 17 gm DAILY PRN PO 02/13/18 15:45 03/15/18 15:44 Promethazine HCl 12.5 mg/Sodium Chloride 50.5 ml @ 204 mls/hr Q6H PRN IV 02/13/18 15:45 03/15/18 15:44 Miscellaneous Information (Consult Glycemic Management Pharmacy) 1 ea UD PRN N/A 02/13/18 16:15 03/15/18 16:14 Albuterol Sulfate (Ventolin 0.5% 2.5MG/0.5ML Neb) 2.5 mg QID PRN INH 02/13/18 16:45 03/15/18 16:44 Insulin Aspart (novoLOG ASPART) SLIDING SCALE G... ACHS SC 02/13/18 16:10 03/15/18 16:09 02/14/18 12:24 21 UNITS Glucose (Glucose 40% Gel) 15-30 GRAMS 15 GRAMS... UD PRN PO 02/13/18 17:00 03/15/18 16:59 Glucose (Glucose Chew Tab) 4-8 Tablets 4 Tabl... UD PRN PO 02/13/18 17:00 03/15/18 16:59 Dextrose (Dextrose 50% 50ML Syringe) 25-50ML 25ML FOR ... UD PRN IV 02/13/18 17:00 03/15/18 16:59 Glucagon (Glucagon Inj) 1 mg UD PRN IM 02/13/18 17:00 03/15/18 16:59 Carbohydrates (Carbohydrates For Hypoglycemia) 15-30 GRAMS 15 grams if BSG 54-69... UD PRN PO 02/13/18 17:00 03/15/18 16:59 Miscellaneous (Iv Fluids Completed) 1 ea PRN PRN N/A 02/13/18 18:30 02/13/19 18:29 Amlodipine Besylate (Norvasc Tab) 5 mg QAM PO 02/14/18 12:45 03/16/18 12:44 02/14/18 13:36 5 MG Non-Formulary Medication (Non-Formulary Patient'S Own Med) 1 ea 5XDQ4H PRN OP 02/14/18 13:15 03/16/18 13:14 Insulin Human NPH (novoLIN-N NPH) 20 units QAM SC 02/15/18 09:00 03/17/18 08:59 UNV Insulin Human NPH (novoLIN-N NPH) 40 units HS SC 02/14/18 21:00 03/16/18 20:59 UNV I & O: 24-Hour Column 02/15/18 08:00 Intake Total 1641 ml Output Total 1500 ml Balance 141 ml Vital Signs: Date Time Temp Pulse Resp B/P (MAP) Pulse Ox O2 Delivery O2 Flow Rate FiO2 02/14/18 15:31 86 16 94 Nasal Cannula 1.0 02/14/18 14:08 102 171/63 (99) 02/14/18 13:57 98 167/68 (101) 94 1.0 02/14/18 13:01 103 166/62 (96) 93 1.0 02/14/18 12:33 108 178/60 (99) 97 Nasal Cannula 1.0 02/14/18 12:00 Nasal Cannula 1.0 02/14/18 11:37 92 18 98 Nasal Cannula 2.0 02/14/18 11:37 92 18 98 Nasal Cannula 2.0 02/14/18 11:00 94 190/79 (116) 94 2.0 02/14/18 10:03 105 182/69 (106) 95 Nasal Cannula 2.0 02/14/18 09:00 112 136/57 (83) 96 Oxymask 5.0 02/14/18 08:00 Mask 5.0 02/14/18 08:00 Mask 02/14/18 07:00 102 16 98 Mask 5.0 02/14/18 07:00 98 16 156/58 (90) 96 Oxymask 5.0 02/14/18 06:59 102 16 98 Mask 5.0 02/14/18 06:00 100 16 132/57 (82) 96 Oxymask 5.0 02/14/18 04:00 98 Oxymask 7.0 02/14/18 04:00 36.5 100 16 150/74 (99) 98 Oxymask 7.0 02/14/18 03:12 89 18 95 Mask 7.0 02/14/18 03:12 89 16 96 Mask 7.0 02/14/18 02:00 93 16 152/50 (84) 95 Oxymask 7.0 02/14/18 00:01 36.5 94 20 161/72 (101) 99 Oxymask 7.0 02/13/18 23:59 99 Oxymask 7.0 02/13/18 23:25 92 18 96 Mask 7.0 02/13/18 23:24 96 18 96 Mask 7.0 02/13/18 22:00 99 20 150/52 (84) 96 Oxymask 5.0 02/13/18 20:19 80 18 96 Nasal Cannula 2.0 02/13/18 20:16 96 16 97 Mask 7.0 02/13/18 20:00 36.7 96 16 135/73 (93) 97 Oxymask 7.0 02/13/18 20:00 97 Oxymask 7.0 02/13/18 17:30 90 189/93 (107) 93 173/64 02/13/18 17:15 95 193/84 (94) 97 183/75 02/13/18 17:00 87 187/82 (106) 96 175/61 02/13/18 16:45 87 173/76 (108) 92 02/13/18 16:45 87 173/76 (93) 92 197/70 02/13/18 16:30 92 180/74 (109) 81 02/13/18 16:30 92 180/74 (117) 81 194/68 02/13/18 16:15 86 159/70 (82) 92 190/64 02/13/18 16:15 86 159/70 (99) 92 02/13/18 16:01 80 18 96 Nasal Cannula 2.0 02/13/18 16:00 82 162/73 (102) 89 02/13/18 16:00 93 Nasal Cannula 2.0 02/13/18 16:00 82 162/73 (116) 89 182/62 02/13/18 15:45 79 166/77 (106) 02/13/18 15:45 79 166/77 (82) 162/56 02/13/18 15:45 79 166/77 (82) 162/56 Laboratory Results: Last 24 Hours Test 02/13/18 16:16 02/13/18 21:40 02/14/18 00:42 02/14/18 04:12 Sodium Level 138 mmol/L 136 mmol/L Potassium Level 4.5 mmol/L 4.2 mmol/L Chloride Level 106 mmol/L 105 mmol/L Carbon Dioxide Level 26 mmol/L 25 mmol/L Anion Gap 6.0 mmol/L 6.0 mmol/L Blood Urea Nitrogen 25 mg/dl 27 mg/dl Creatinine 1.29 mg/dl 1.50 mg/dl Est Creatinine Clear Calc Drug Dose 37.1 ml/min 31.9 ml/min Estimated GFR () 47.6 39.6 Estimated GFR (Non- 41.0 34.2 BUN/Creatinine Ratio 19.4 18.2 Random Glucose 265 mg/dl 242 mg/dl Calcium Level 8.4 mg/dl 8.5 mg/dl Bedside Glucose 244 mg/dl 254 mg/dl White Blood Count 11.99 K/uL Red Blood Count 3.72 M/uL Hemoglobin 11.6 g/dL Hematocrit 34.6 % Mean Corpuscular Volume 93.0 fL Mean Corpuscular Hemoglobin 31.2 pg Mean Corpuscular Hemoglobin Concent 33.5 g/dl Platelet Count 274 K/uL Mean Platelet Volume 8.6 fL Neutrophils (%) (Auto) 93.5 % Lymphocytes (%) (Auto) 4.4 % Monocytes (%) (Auto) 1.9 % Eosinophils (%) (Auto) 0.0 % Basophils (%) (Auto) 0.0 % Neutrophils # (Auto) 11.21 K/uL Lymphocytes # (Auto) 0.53 K/uL Monocytes # (Auto) 0.23 K/uL Eosinophils # (Auto) 0.00 K/uL Basophils # (Auto) 0.00 K/uL RDW Standard Deviation 45.3 fL RDW Coefficient of Variation 13.3 % Immature Granulocyte % (Auto) 0.2 % Immature Granulocyte # (Auto) 0.02 K/uL Estimated Average Glucose 151 mg/dl Hemoglobin A1c 6.9 % Phosphorus Level 3.4 mg/dl Magnesium Level 1.5 mg/dl Test 02/14/18 04:13 02/14/18 06:35 02/14/18 15:25 Bedside Glucose 232 mg/dl 213 mg/dl 256 mg/dl
--- NOTE | 2018-02-14 16:11 | Pharmacy Progress Note ---
Pharmacy Glycemic Short Note 2 Date of Service February 14, 2018. OUTPATIENT ANTIDIABETIC REGIMEN: * NPH 22 units SQ AM + 42 units SQ PM * Regular insulin sliding scale (unsure of dosing) * A1c = 6.9% on 02/14/18 Item Value Date Time Bedside Glucose 184 mg/dl H 02/13/18 1035 Bedside Glucose 245 mg/dl H 02/13/18 1537 Bedside Glucose 244 mg/dl H 02/13/18 2140 Bedside Glucose 254 mg/dl H 02/14/18 0042 Bedside Glucose 232 mg/dl H 02/14/18 0413 Bedside Glucose 213 mg/dl H 02/14/18 0635 Bedside Glucose 256 mg/dl H 02/14/18 1525 ASSESSMENT: * 72yo T2DM female with adequate outpatient control per recent A1c * Pt with sustained moderate-severe hyperglycemia secondary to: not administering basal insulin [employer] ED[employer]ATION [employer], steroids/dexamethasone, recent surgery * Goal post-operatively is to maintain BSGs <200 mg/dl (ideally <150 mg/dl) to prevent post-operative infectious complications * Unfortunately, BSGs all >200 mg/dl post-operatively, pt would have benefitted from IV insulin infusion post-operatively. * However, this was deferred secondary to reduced diet (clear liquids only) and multiple IV insulin boluses given instead. * Last dose of IV dexamethasone was this morning at 0800, however, hyperglycemic effects can last 24-48 hrs (up to 72 hrs+) after dexamethasone given * Stressed dosing this morning with last dose of dexamethasone and now outpatient dosing is ordered per provider to start this evening. PLAN FOR INPATIENT GLYCEMIC CONTROL: * Basal insulin * NPH 50 units SQ x 1 dose given this morning * To resume outpatient dosing (NPH 20 units in AM + 40 units in PM) per Hospitalist this evening * Bolus insulin * NovoLog per scale ACHS or Q6hrs while NPO. Current parameters correspond with estimated basal insulin dose of 60 units (outpatient dosing) * Goal Range: Low 120 mg/dL - High 150 mg/dL * Correction Factor: 15 mg/dL/unit * Nutritional / Prandial insulin per carb ratio of 1 unit per 4 grams CHO consumed * Since hospitalist is now managing insulin orders, Pharmacy is signing off of glycemic consult and will no longer be making adjustments to inpatient regimen. Please feel free to re-consult if needed. Thank you.
[2018-02-14] MEDS: INSULIN HUMAN NPH SC SCH ×2 (16:56→18:20)
[2018-02-14] MEDS: ACYCLOVIR 400 MG TAB PO SCH (16:56)
[2018-02-14] MEDS: ASCORBIC ACID 500 MG TAB PO SCH (21:17)
[2018-02-14] MEDS: LISINOPRIL 10 MG TAB PO SCH (21:18)
--- NOTE | 2018-02-14 22:06 | Progress Note ---
Subjective Date of Service: February 14, 2018. Subjective Pt evaluation today including: conversation w/ patient, physical exam, lab review, conversation w/ compliance consultant, review of inpatient medication list Pain: mild neck pain PO Intake: adequate, some difficulty swallowing Voiding: frazier catheter in place patient doing well, seen in ICU reports some difficulty swallowing due to swelling, but no difficulty breathing so far pain is controlled reviewed labs, Cr up slightly at 1.5 from 1.2 sugars coming down discussed insulin regimen at home she has her own sliding scale for Novolin R for NPH, she takes 22 units in the AM and 40 units in the PM however, she says she will take less if her sugars are below 135 could not give me specifics, just estimates that maybe she would give 15 units instead of 22 noted that she received 50 units of NPH in the AM for hyperglycemia and Decadron use Problem List Medical Problems: (1) Acute electrocardiogram changes Status: Acute (2) External hemorrhoids Status: Acute (3) Left sided chest pain Status: Acute (4) Right lower quadrant abdominal pain Status: Acute (5) Substernal precordial chest pain Status: Acute Review of Systems Constitutional: + weakness, + fatigue Musculoskeletal: + joint pain (neck pain) All Other Systems: Reviewed and Negative Medications Current Inpatient Medications Medications (Trade) Dose Ordered Sig/Harsh Route Start Time Stop Time Status Last Admin Dose Admin Racepinephrine (Raccemic Epinephrine 2.25% 0.5ML Neb) 0.5 ml ONE PRN INH 02/13/18 10:30 Acetaminophen 1000 mg/Empty Bag 100 ml @ 400 mls/hr Q8H PRN IV 02/13/18 15:00 03/15/18 14:59 Magnesium Hydroxide (Milk Of Magnesia Susp) 30 ml DAILY PRN PO 02/13/18 10:30 03/15/18 10:29 Docusate Sodium (coLACE CAP) 100 mg BID PO 02/13/18 21:00 03/15/18 20:59 02/14/18 21:18 100 MG Ondansetron HCl (Zofran Inj) 4 mg Q6 PRN IV 02/13/18 10:30 03/15/18 10:29 02/13/18 22:00 4 MG Lorazepam 0.5 mg/ Syringe 1 ml @ 1 mls/min Q8H PRN IV 02/13/18 10:30 03/15/18 10:29 Bisacodyl (Dulcolax Supp) 10 mg DAILY PRN [place] 02/15/18 06:00 03/17/18 05:59 Dexamethasone Sodium Phosphate 8 mg/Syringe 2 ml @ 1 mls/min ONE PRN IV 02/13/18 10:30 Naloxone HCl (Narcan Inj) 0.1 mg Q5M PRN IV 02/13/18 10:30 03/15/18 10:29 Ascorbic Acid (Vitamin C Tab) 500 mg QPM PO 02/13/18 21:00 03/15/18 20:59 02/14/18 21:17 500 MG Aspirin (Ecotrin Tab) 81 mg QAM PO 02/14/18 09:00 03/16/18 08:59 02/14/18 09:00 81 MG Cetirizine HCl (zyrTEC TAB) 10 mg QAM PO 02/14/18 09:00 03/16/18 08:59 02/14/18 09:00 10 MG Furosemide (Lasix Tab) 20 mg QAM PO 02/14/18 09:00 03/16/18 08:59 02/14/18 09:00 20 MG Meclizine HCl (Antivert Tab) 25 mg BID PO 02/13/18 21:00 03/15/18 20:59 02/14/18 21:18 25 MG Moxifloxacin HCl (Vigamox Oph Soln) 1 drops TID OPR 02/13/18 16:00 03/15/18 15:59 02/14/18 21:11 1 DROPS Multivitamins (Multivitamin Tab) 1 tab QAM PO 02/14/18 09:00 03/16/18 08:59 02/14/18 09:00 1 TAB Cholecalciferol (Vitamin D Tab) 2,000 inter.unit QAM PO 02/14/18 09:00 03/16/18 08:59 02/14/18 09:00 2,000 INTER.UNIT Lisinopril (Zestril Tab) 30 mg HS PO 02/13/18 21:00 03/15/18 20:59 02/14/18 21:18 30 MG Pantoprazole Sodium (Protonix Tab) 40 mg BID PO 02/13/18 21:00 03/15/18 20:59 02/14/18 21:17 40 MG Miscellaneous (Iv Fluids Completed) 1 ea PRN PRN N/A 02/13/18 11:30 02/13/19 11:29 Levothyroxine Sodium (Synthroid Tab) 50 mcg DAILYBB PO 02/14/18 06:00 03/16/18 05:59 02/14/18 05:34 50 MCG Hydromorphone HCl (Dilaudid Inj) 0.5 mg Q3H PRN IV 02/13/18 15:30 02/27/18 15:29 Hydromorphone HCl (Dilaudid Inj) 1 mg Q3H PRN IV 02/13/18 15:30 02/27/18 15:29 02/13/18 18:01 1 MG Senna (Senokot Tab) 17.2 mg QAM PO 02/13/18 21:00 03/15/18 20:59 02/14/18 09:00 17.2 MG Polyethylene (Miralax Powder Packet) 17 gm DAILY PRN PO 02/13/18 15:45 03/15/18 15:44 Promethazine HCl 12.5 mg/Sodium Chloride 50.5 ml @ 204 mls/hr Q6H PRN IV 02/13/18 15:45 03/15/18 15:44 Albuterol Sulfate (Ventolin 0.5% 2.5MG/0.5ML Neb) 2.5 mg QID PRN INH 02/13/18 16:45 03/15/18 16:44 Insulin Aspart (novoLOG ASPART) SLIDING SCALE G... ACHS SC 02/13/18 16:10 03/15/18 16:09 02/14/18 16:54 21 UNITS Glucose (Glucose 40% Gel) 15-30 GRAMS 15 GRAMS... UD PRN PO 02/13/18 17:00 03/15/18 16:59 Glucose (Glucose Chew Tab) 4-8 Tablets 4 Tabl... UD PRN PO 02/13/18 17:00 03/15/18 16:59 Dextrose (Dextrose 50% 50ML Syringe) 25-50ML 25ML FOR ... UD PRN IV 02/13/18 17:00 03/15/18 16:59 Glucagon (Glucagon Inj) 1 mg UD PRN IM 02/13/18 17:00 03/15/18 16:59 Carbohydrates (Carbohydrates For Hypoglycemia) 15-30 GRAMS 15 grams if BSG 54-69... UD PRN PO 02/13/18 17:00 03/15/18 16:59 Miscellaneous (Iv Fluids Completed) 1 ea PRN PRN N/A 02/13/18 18:30 02/13/19 18:29 Amlodipine Besylate (Norvasc Tab) 5 mg QAM PO 02/14/18 12:45 03/16/18 12:44 02/14/18 13:36 5 MG Non-Formulary Medication (Non-Formulary Patient'S Own Med) 1 ea 5XDQ4H PRN OP 02/14/18 13:15 03/16/18 13:14 Insulin Human NPH (novoLIN-N NPH) 20 units QAM SC 02/15/18 09:00 03/17/18 08:59 Acyclovir (Zovirax Tab) 800 mg QAM PO 02/14/18 16:00 03/16/18 15:59 02/14/18 16:56 800 MG Prednisolone Acetate (Pred Forte 1% Oph Susp) 1 drops QAM OPR 02/15/18 16:00 03/17/18 15:59 Insulin Human NPH (novoLIN-N NPH) 40 units HS SC 02/15/18 21:00 03/17/18 20:59 Objective Vital Signs Date Time Temp Pulse Resp B/P (MAP) Pulse Ox O2 Delivery O2 Flow Rate FiO2 02/14/18 20:53 94 Room Air 02/14/18 19:52 94 Room Air 02/14/18 19:39 88 16 97 Room Air 02/14/18 18:40 36.9 97 18 96 1.0 02/14/18 17:30 96 Nasal Cannula 1.0 Humidified Oxygen 02/14/18 17:30 36.9 97 18 176/79 (111) 96 Nasal Cannula Humidified Oxygen 02/14/18 17:30 36.9 97 18 176/79 96 Nasal Cannula 1.0 Humidified Oxygen 02/14/18 15:31 86 16 94 Nasal Cannula 1.0 02/14/18 14:08 102 171/63 (99) 02/14/18 13:57 98 167/68 (101) 94 1.0 02/14/18 13:01 103 166/62 (96) 93 1.0 02/14/18 12:33 108 178/60 (99) 97 Nasal Cannula 1.0 02/14/18 12:00 Nasal Cannula 1.0 02/14/18 11:37 92 18 98 Nasal Cannula 2.0 02/14/18 11:37 92 18 98 Nasal Cannula 2.0 02/14/18 11:00 94 190/79 (116) 94 2.0 02/14/18 10:03 105 182/69 (106) 95 Nasal Cannula 2.0 02/14/18 09:00 112 136/57 (83) 96 Oxymask 5.0 02/14/18 08:00 Mask 5.0 02/14/18 08:00 Mask 02/14/18 07:00 102 16 98 Mask 5.0 02/14/18 07:00 98 16 156/58 (90) 96 Oxymask 5.0 02/14/18 06:59 102 16 98 Mask 5.0 02/14/18 06:00 100 16 132/57 (82) 96 Oxymask 5.0 02/14/18 04:00 98 Oxymask 7.0 02/14/18 04:00 36.5 100 16 150/74 (99) 98 Oxymask 7.0 02/14/18 03:12 89 18 95 Mask 7.0 02/14/18 03:12 89 16 96 Mask 7.0 02/14/18 02:00 93 16 152/50 (84) 95 Oxymask 7.0 02/14/18 00:01 36.5 94 20 161/72 (101) 99 Oxymask 7.0 02/13/18 23:59 99 Oxymask 7.0 02/13/18 23:25 92 18 96 Mask 7.0 02/13/18 23:24 96 18 96 Mask 7.0 02/13/18 22:00 99 20 150/52 (84) 96 Oxymask 5.0 Physical Exam General Appearance: no apparent distress, + obese Eyes: normal inspection, EOMI, sclerae normal ENT: normal ENT inspection, hearing grossly normal, pharynx normal Neck: no JVD, trachea midline, + pertinent finding (decreased ROM, left approach dressing intact, no bleeding, minimal swelling) Respiratory/Chest: chest non-tender, lungs clear (no stridor heard), normal breath sounds, no respiratory distress, no accessory muscle use Cardiovascular: regular rate, rhythm, no edema, no gallop, no JVD, no murmur Abdomen: normal bowel sounds, non tender, soft, no organomegaly Extremities: normal range of motion, non-tender, normal inspection, no pedal edema, no calf tenderness, normal capillary refill, pelvis stable Neurologic/Psychiatric: resident care manager II-XII nml as tested, no motor/sensory deficits, alert, normal mood/affect, oriented x 3 Skin: normal color, warm/dry, no rash Laboratory Results Last 24 Hours Test 02/14/18 00:42 02/14/18 04:12 02/14/18 04:13 02/14/18 06:35 Bedside Glucose 254 mg/dl 232 mg/dl 213 mg/dl White Blood Count 11.99 K/uL Red Blood Count 3.72 M/uL Hemoglobin 11.6 g/dL Hematocrit 34.6 % Mean Corpuscular Volume 93.0 fL Mean Corpuscular Hemoglobin 31.2 pg Mean Corpuscular Hemoglobin Concent 33.5 g/dl Platelet Count 274 K/uL Mean Platelet Volume 8.6 fL Neutrophils (%) (Auto) 93.5 % Lymphocytes (%) (Auto) 4.4 % Monocytes (%) (Auto) 1.9 % Eosinophils (%) (Auto) 0.0 % Basophils (%) (Auto) 0.0 % Neutrophils # (Auto) 11.21 K/uL Lymphocytes # (Auto) 0.53 K/uL Monocytes # (Auto) 0.23 K/uL Eosinophils # (Auto) 0.00 K/uL Basophils # (Auto) 0.00 K/uL RDW Standard Deviation 45.3 fL RDW Coefficient of Variation 13.3 % Immature Granulocyte % (Auto) 0.2 % Immature Granulocyte # (Auto) 0.02 K/uL Sodium Level 136 mmol/L Potassium Level 4.2 mmol/L Chloride Level 105 mmol/L Carbon Dioxide Level 25 mmol/L Anion Gap 6.0 mmol/L Blood Urea Nitrogen 27 mg/dl Creatinine 1.50 mg/dl Est Creatinine Clear Calc Drug Dose 31.9 ml/min Estimated GFR () 39.6 Estimated GFR (Non- 34.2 BUN/Creatinine Ratio 18.2 Random Glucose 242 mg/dl Estimated Average Glucose 151 mg/dl Hemoglobin A1c 6.9 % Calcium Level 8.5 mg/dl Phosphorus Level 3.4 mg/dl Magnesium Level 1.5 mg/dl Test 02/14/18 10:55 02/14/18 15:25 02/14/18 20:21 Bedside Glucose 264 mg/dl 256 mg/dl 133 mg/dl Assessment and Plan 72-year-old female with cervical spine spinal cord compression cervical spine, kyphosis and radiculopathy s/P anterior approach to cervical spine and anterior cervical discectomy at 4-5 and 5-6 cervical spine, reduction of the kyphosis, these conditions, pain control, PT OT, DVT prophylaxis, discharge will be per primary team - Neck swelling: no stridor, some difficulty swallowing but not severe, Decadron only as needed for stridor - DM, insulin dependent will order NPH at home doses of 22 units AM and 40 units PM Novolog SS ordered no further scheduled Decadron ordered so home regimen should be adequate - HTN: BP elevated, 160-190 systolic continue Bryan Abernathy, received a dose of Lisinopril evening 02/14 use Hydralazine IV PRN - mild Acute kidney injury vs CKD stage III Cr up to 1.5 today, did receive Lisinopril, would hold tomorrow unless Cr goes down continue Bryan follow Cr and UO safe to go to medical floor
[2018-02-15 03:23] VITALS: BP 142/65; PULSE 92; TEMP 36.5; O2SAT 92
[2018-02-15 03:59] VITALS: PULSE 83; O2SAT 93
[2018-02-15] MEDS: LEVOTHYROXINE 50 MCG TAB PO SCH (05:22)
[2018-02-15] MEDS ORDERED: BISACODYL 10 MG SUPP PR PRN (06:00)
--- NOTE | 2018-02-15 06:24 | Progress Note ---
Post ICU Progress Note Date & Time February 15, 2018 at 06:21 Vital Signs Vital Signs Past 12 Hours Date Time Temp Pulse Resp B/P (MAP) Pulse Ox O2 Delivery O2 Flow Rate FiO2 02/15/18 03:59 83 16 93 Room Air 02/15/18 03:23 36.5 92 18 142/65 (90) 92 Room Air 02/14/18 23:23 86 16 94 Room Air 02/14/18 22:50 36.6 96 20 148/74 (98) 92 Room Air 02/14/18 20:53 94 Room Air 02/14/18 19:52 94 Room Air 02/14/18 19:39 88 16 97 Room Air 02/14/18 18:40 36.9 97 18 96 1.0 Notes Mental Status: alert / awake Nausea / Vomiting: adequately controlled Pain: improving with treatment Airway Patency, RR, SpO2: stable & adequate BP & HR: stable & adequate Patient is a pleasant 72-year-old female who underwent ACDF repair by Dr. Raman. She is POD #1. She was complicated by oxygen desaturations and elevated blood pressures. She was subsequently transferred to the ICU for close hemodynamic monitoring and airway monitoring. She had an uneventful night and was eventually downgraded from ICU status. On evaluation this morning, the patient is awake, alert, and oriented. She reports having a lot of pain last night between her shoulder blades at a location where she typically does have a lot of pain. She reports that this responded to Biofreeze alone. She is resting comfortably and offers no complaints at this point. Specifically, she denies any chest pain, palpitations , shortness of breath, or numbness/weakness to her extremities. Consider outpatient follow up in 1 to 2 weeks with: Ortho, PCP Repeat imaging needed: Per surgical services. Follow up cultures: None Reviewed progress notes, labs, and inpatient medication list Continue current management Additional recommendations: None at this time. Thank you for allowing us to participate in the care of this patient. At this time, Critical Care Services will sign off on this case. Please feel free to reconsult as needed. Consults & Procedures Consultants: TIM QUIROGA hospitalist team -Dr. Kennedy Critical care medicine team -Dr. Valdivia Procedures: ACDF C4-C5, C5-C6 02/13/2018 -Dr. Raman Right radial arterial line placement -anesthesia team 02/13/2018 Removal of right radial arterial line -critical care medicine staff 02/14/2018
[2018-02-15 06:35] LABS: MEAN CORPUSCULAR HGB CONC 33.7 g/dl (32-36)
[2018-02-15 07:07] VITALS: BP 147/76; PULSE 106; TEMP 36.7; O2SAT 94
[2018-02-15 07:14] VITALS: PULSE 102; O2SAT 92
[2018-02-15 07:15] LABS: CALCIUM 9.2 mg/dl (8.5-10.1); CREATININE 1.11 mg/dl (0.60-1.20); POTASSIUM 3.9 mmol/L (3.5-5.1)
[2018-02-15 07:21] LABS: BASO % 0.1 %; BASO ABS # 0.01 K/uL (0-0.2); EOS % 0.1 %; EOS ABS # 0.01 K/uL (0-0.5); HEMATOCRIT 33.8 % (37-47); HEMOGLOBIN 11.4 g/dL (12.0-16.0); IG# 0.05 K/uL (0.00-0.02); LYMPH % 9.5 %; LYMPH ABS # 1.48 K/uL (1.2-3.4); MEAN CELL VOLUME 93.1 fL (80-100); MEAN CORPUSCULAR HEMOGLOBIN 31.4 pg (25-34); MEAN PLATELET VOLUME 8.7 fL (7.4-10.4); MONO % 6.5 %; MONO ABS # 1.02 K/uL (0.11-0.59); NEUT % 83.5 %; NEUT ABS # 13.04 K/uL (1.4-6.5); PLATELET COUNT 299 K/uL (130-400); RED CELL DISTRIBUTION WIDTH CV 13.6 % (11.5-14.5); RED CELL DISTRIBUTION WIDTH SD 46.2 fL (36.4-46.3); WHITE BLOOD COUNT 15.61 K/uL (4.8-10.8)
[2018-02-15] MEDS ORDERED: INSULIN HUMAN NPH SC SCH ×2 (09:00→21:00)
[2018-02-15] MEDS: CETIRIZINE HCL 10 MG TAB PO SCH (09:07)
[2018-02-15] MEDS: DOCUSATE SODIUM 100 MG CAP PO SCH (09:07)
[2018-02-15] MEDS: CHOLECALCIFEROL 1000 INTER.UNIT TAB PO SCH (09:07)
[2018-02-15] MEDS: MULTIVITAMIN TAB PO SCH (09:08)
[2018-02-15] MEDS: ASPIRIN 81 MG ECTAB PO SCH (09:08)
[2018-02-15] MEDS: FUROSEMIDE 20 MG TAB PO SCH (09:08)
[2018-02-15] MEDS: PANTOprazole SOD 40 MG TAB PO SCH (09:08)
[2018-02-15] MEDS: ACYCLOVIR 400 MG TAB PO SCH (09:09)
[2018-02-15] MEDS: SENNA 8.6 MG TAB PO SCH (09:09)
[2018-02-15] MEDS: AMLODIPINE BESYLATE 5 MG TAB PO SCH (09:09)
[2018-02-15] MEDS: MOXIFLOXACIN HCL 0.5% OP SOLN 3 ML BTL OPR SCH (09:10)
[2018-02-15] MEDS: MECLIZINE HCL 25 MG TAB PO SCH (09:10)
--- NOTE | 2018-02-15 09:12 | Discharge Instructions ---
Discharge Instructions Date of Service February 15, 2018. Admission Reason for Admission: Cervical Spondylosis Discharge Discharge Diagnosis / Problem: same Discharge Goals Goal(s): Improve function Activity Recommendations Activity Limitations: as noted below Lifting Limitations: none Exercise/Sports Limitations: until after follow-up appointment HOME, REST, RECOVER . Instructions / Follow-Up Instructions / Follow-Up MEDICATIONS: Please take your prescriptions as instructed at your pre-op appointment. SPECIAL CARE: The following information is intended to answer some of the common questions and concerns regarding your surgery. Each patient is an individual and receives individual counselling throughout the course of treatment, from diagnosis to surgery all the way through recovery. What follows is not an exhaustive list, but should be a useful guide to some of the common questions and concerns patients have regarding their surgeries. These are not provided to keep you from calling us; rather, they give you something accurate and concrete to reference as you recover from your procedure. If you need us, we are available to you. As always, if you are not sure about something, call us at [phone]. MEDICAL EMERGENCIES: For these conditions, call 911 or go to your local hospital-based Emergency Department - not [facility] or equivalent. * Paralysis * Severe chest pain or difficulty breathing * Swelling or redness of either leg Spine procedures can be rather complex and though complications are rare, they do occur. In such cases, effective advice regarding emergency situations cannot always be addressed over the telephone. You may be referred to the emergency department for more effective management of your problem. Activity Limitations: It is important to give your body time to heal, so please limit your activities : * In general, don't do anything that moves your spine too much. You should avoid contact sports, twisting or heavy lifting while you recover. * 5-10 pounds is all you should attempt to lift. * You should not plan on driving for approximately 3 weeks and you should avoid traveling more than 30-45 minutes at a time. Longer trips should be broken down with walking breaks spaced appropriately. * Physical therapy is not usually required. * Walking and good posture practices will help you recover and regain your function. * Avoid straining or sudden changes in position. * In general, the goal is to take it easy and recover. Don't cause any new problems. Just relax. Showers: * Do not take a bath, use a Jacuzzi or hot tub or otherwise submerge your incision. * It is usually safe to take a shower 4-5 days after your surgery. * Your incision does not require any special creams or ointments. * Simply clean it with soap and water, dry and re-dress with a clean bandage afterwards. Incision: * Keep incision clean, dry and protected until your first follow-up appointment. * Some amount of drainage and redness is normal. Any drainage should be fairly clear and not have a foul odor. * If you feel anything is wrong or you have excessive drainage, please call us. * Your stitches and siobhan will be removed 10-14 days after your surgery. At the time of your first post-op visit. * Neck surgeries are typically closed with a suture underneath the skin. The steri-strips over the incision should be maintained until we see you in the office. Bracing: * You may be provided with a back or neck brace to encourage good posture and prevent injury. It will remind you not to do too much as you heal and will alert others to the fact that you have had a surgery. * Back braces may be removed for showers and when you are resting at home. They must be worn when you are walking around for any period of time or for travel. * For neck surgery, you will likely be provided with two cervical collars. The soft collar ([place] or foam rubber) is worn most commonly throughout the day and while sleeping. The plastic collar (provided at the hospital) is for showering/bathing. * Except while eating, collars should remain in place. More specifically, bracing is provided for a purpose and should be worn. * Please obtain your brace or collars prior to your operation and bring them to the hospital with you on the day of surgery. * You should also bring your collars to your post-op appointment with Dr. Raman. You should always take good care of your body and practice healthy habits, especially following surgery. You should: * Follow your doctor's treatment plan * Sit and stand properly with good posture (ears over shoulders, shoulders over hips) Don't slouch * Learn to lift correctly * Exercise regularly (low-impact aerobic exercise is especially good, but check with your doctor first) * Generally, be up and walking for 5-10 minutes at a time at least 3-4 times per day from the day you get home * Increasing walking to tolerance until you can walk for 20-30 minutes at a time * Attain and maintain a healthy body weight * Eat healthy foods ( a well-balanced, low-fat diet rich in fruits and vegetables) and get enough calcium * Avoid excessive use of alcohol When to call our office - If you notice any of the following: * Increased pain not relieve by pain medicine * Fevers greater then 100 degrees F, chills or flu symptoms * Increased redness around incision * Drainage from the incision that is not clear * Any foul smelling drainage * Swelling or fluid collection beneath the skin Miscellaneous: * In the hospital, you may be given a walker or cane for support while walking. These are temporary needs and are intended to prevent injuries due to falls. You may discontinue them when you feel strong and steady enough on your feet. * Sleep in a comfortable position. We find that many patients find a lounge chair or recliner with several pillows to be beneficial in the early post-operative period. * The support stockings should be used for 7-10 days and may be discontinued when you are back to walking more and conducting usual household activities. No problem is insignificant. We are here to help you and get you well. Contact us at [phone]. Definitions: Foraminotomy: If part of the disc or a bone spur (osteophyte) is pressing on a nerve as it leaves the vertebra (through an exit called the foramen), a foraminotomy may be done. Otomy means "to make an opening." A foraminotomy is making the opening of the foramen larger, so the nerve can exit without being compressed. Laminotomy: Similar to the foraminotomy, a laminotomy makes a larger opening, this time in your bony plate protecting your spinal canal and spinal cord (the lamina). The lamina may be pressing on your nerve, so the surgeon may make more room for the nerves using a laminotomy. Laminectomy: Sometimes, a laminotomy is not sufficient. The surgeon may need to remove all or part of the lamina. This procedure is called a laminectomy. This can often be done at many levels without any harmful effects. Current Hospital Diet Patient's current hospital diet: AHA Diet (Heart Healthy), Diabetes Type 2 Diet , Full Liquid Diet Discharge Diet Recommended Diet: Diabetes Type 2 Diet Procedures Procedures Performed: C4-6 ANTERIOR CERVICAL DISCECTOMY AND FUSION Pending Studies Studies pending at discharge: no Laboratory Results Hemoglobin A1c Test 02/14/18 04:12 Range/Units Estimated Average Glucose 151 mg/dl Hemoglobin A1c 6.9 H 4.5-5.6 % Medical Emergencies . Who to Call and When: Medical Emergencies: If at any time you feel your situation is an emergency, please call 911 immediately. . Non-Emergent Contact Non-Emergency issues call your: Primary Care Provider . "Provider Documentation" section prepared by Earnest Raman. .
[2018-02-15] MEDS ORDERED: INSULIN HUMAN NPH SC ONE (09:45)
[2018-02-15] MEDS: INSULIN ASPART 100 UNITS/ML 3 ML PEN SC SCH (09:50)
[2018-02-15 10:09] VITALS: BP 147/76; PULSE 102; TEMP 36.7; O2SAT 92
--- NOTE | 2018-02-15 14:24 | DISCHARGE SUMMARY ---
SUBJECTIVE: She is alert, oriented. Taking p.o. No chest pain, shortness of breath. OBJECTIVE: Vital signs stable. Ambulates. ASSESSMENT: Status post anterior cervical diskectomy on a medically challenged human being. PLAN: We will discharge her home later today. Change her dressing. She needs to be cleared by the medical team first. I anticipate that happening. If she has sustained extra day, that is certainly no problem. She has instructions, precautions warnings given to her in the office and here in the hospital. She has her medication at home. She has a walker with wheels and she has a cervical collar. Had to wear the cervical collar when she is up and around. She has a soft one at home and that is certainly appropriate.
[2018-02-15] MEDS ORDERED: PrednisoLONE ACET 1% OP SUSP 5 ML BTL OPR SCH (16:00)
--- NOTE | 2018-02-15 20:52 | Progress Note ---
Subjective Date of Service: February 15, 2018. Subjective Pt evaluation today including: conversation w/ patient, conversation w/ family (daughter at bedside), physical exam, chart review, lab review, review of inpatient medication list Pain: neck - mild at most PO Intake: tolerating diet w/ small amount of occasional dysphagia Voiding: no voiding problems overall feels very good had a low blood sugar this AM - had hypoglycemic unawareness with no symptoms from such improved with orange juice denies any dyspnea, chest pain, abd pain confirms she had a bowel movement this morning Problem List Medical Problems: (1) Acute electrocardiogram changes Status: Acute (2) External hemorrhoids Status: Acute (3) Left sided chest pain Status: Acute (4) Right lower quadrant abdominal pain Status: Acute (5) Substernal precordial chest pain Status: Acute Review of Systems Constitutional: No fever Respiratory: No cough Cardiac: No chest pain Abdomen: No pain Neurologic: No weakness (of either arm) Objective Vital Signs Date Time Temp Pulse Resp B/P (MAP) Pulse Ox O2 Delivery O2 Flow Rate FiO2 02/15/18 07:15 Room Air 02/15/18 07:14 102 16 92 Room Air 02/15/18 07:07 36.7 106 19 147/76 (99) 94 Room Air 02/15/18 03:59 83 16 93 Room Air 02/15/18 03:23 36.5 92 18 142/65 (90) 92 Room Air 02/14/18 23:23 86 16 94 Room Air 02/14/18 22:50 36.6 96 20 148/74 (98) 92 Room Air 02/14/18 20:53 94 Room Air 02/14/18 19:52 94 Room Air 02/14/18 19:39 88 16 97 Room Air 02/14/18 18:40 36.9 97 18 96 1.0 02/14/18 17:30 96 Nasal Cannula 1.0 Humidified Oxygen 02/14/18 17:30 36.9 97 18 176/79 (111) 96 Nasal Cannula Humidified Oxygen 02/14/18 17:30 36.9 97 18 176/79 96 Nasal Cannula 1.0 Humidified Oxygen 02/14/18 15:31 86 16 94 Nasal Cannula 1.0 02/14/18 14:08 102 171/63 (99) 02/14/18 13:57 98 167/68 (101) 94 1.0 02/14/18 13:01 103 166/62 (96) 93 1.0 02/14/18 12:33 108 178/60 (99) 97 Nasal Cannula 1.0 02/14/18 12:00 Nasal Cannula 1.0 02/14/18 11:37 92 18 98 Nasal Cannula 2.0 02/14/18 11:37 92 18 98 Nasal Cannula 2.0 02/14/18 11:00 94 190/79 (116) 94 2.0 02/14/18 10:03 105 182/69 (106) 95 Nasal Cannula 2.0 Physical Exam General Appearance: no apparent distress ENT: pharynx normal Neck: no JVD, + pertinent finding (mild swelling anterior neck; dressing with old blood) Respiratory/Chest: lungs clear, no respiratory distress, no accessory muscle use Cardiovascular: regular rate, rhythm (HR 90s during my exam), no gallop, no murmur Abdomen: normal bowel sounds, non tender, soft, no organomegaly Extremities: + pedal edema (trace b/l - she reports this is chronic) Neurologic/Psychiatric: no motor/sensory deficits (strength b/l upper extremities 5/5 ), alert, oriented x 3 Laboratory Results Last 24 Hours Test 02/14/18 10:55 02/14/18 15:25 02/14/18 20:21 02/15/18 05:46 Bedside Glucose 264 mg/dl 256 mg/dl 133 mg/dl White Blood Count 15.61 K/uL Red Blood Count 3.63 M/uL Hemoglobin 11.4 g/dL Hematocrit 33.8 % Mean Corpuscular Volume 93.1 fL Mean Corpuscular Hemoglobin 31.4 pg Mean Corpuscular Hemoglobin Concent 33.7 g/dl Platelet Count 299 K/uL Mean Platelet Volume 8.7 fL Neutrophils (%) (Auto) 83.5 % Lymphocytes (%) (Auto) 9.5 % Monocytes (%) (Auto) 6.5 % Eosinophils (%) (Auto) 0.1 % Basophils (%) (Auto) 0.1 % Neutrophils # (Auto) 13.04 K/uL Lymphocytes # (Auto) 1.48 K/uL Monocytes # (Auto) 1.02 K/uL Eosinophils # (Auto) 0.01 K/uL Basophils # (Auto) 0.01 K/uL RDW Standard Deviation 46.2 fL RDW Coefficient of Variation 13.6 % Immature Granulocyte % (Auto) 0.3 % Immature Granulocyte # (Auto) 0.05 K/uL Platelet Estimate NORMAL Sodium Level 138 mmol/L Potassium Level 3.9 mmol/L Chloride Level 105 mmol/L Carbon Dioxide Level 28 mmol/L Anion Gap 5.0 mmol/L Blood Urea Nitrogen 31 mg/dl Creatinine 1.11 mg/dl Est Creatinine Clear Calc Drug Dose 43.8 ml/min Estimated GFR () 57.1 Estimated GFR (Non- 49.2 BUN/Creatinine Ratio 27.8 Random Glucose 40 mg/dl Calcium Level 9.2 mg/dl Magnesium Level 1.8 mg/dl Test 02/15/18 07:17 02/15/18 07:35 Bedside Glucose 44 mg/dl 73 mg/dl Assessment and Plan 72-year-old female: 1. s/p anterior cervical discectomy at 4-5 and 5-6, reduction of kyphosis - stable from ortho and neuro standpoint. 2. recent dyspnea - resolved, was likely due to post-op cervical swelling. 3. T2DM - had hypoglycemia this am. Now resolved. No symptoms. Suggested 15 units of her NPH this am, then resume her normal insulin regimen at home. 4. CKD stage 3 - creatinine at baseline. 5. morbid obesity with BMI 42. 6. HTN - acceptable control this AM; previous high readings may have been due to decadron. 7. acute kidney injury - resolved. 8. mild acute blood loss anemia - H/H stable today. 9. mild dysphagia - likely due to post-op swelling; no overt signs of aspiration. Discussed "slippery" diet w/ patient; she voiced understanding. from medical standpoint can d/c home
--- NOTE | 2018-02-18 14:02 | DISCHARGE SUMMARY ---
She was discharged home on 02/15/2018 in improved stable condition after a major cervical spine surgery. She needed 2 days in hospital stay of urgent care because of a very compromised airway. At the time of discharge, she was alert and oriented, taking p.o. Discharged home in improved stable condition. No apparent complications. We will see her back in the office in 10 days. Dressings instructions have been given as well.
== END 2018-02-15 10:32 | disposition home or self-care (01) | DRG 472 ==
LOC: C.ACU 06:00 → C.MSICU 12:28 → ENRESERV 12:35 → C.3E 02-14 17:34
PROVIDERS: ADMIT Orthopaedic Surgery Orthopaedic Surgery of the Spine; ATTEND Orthopaedic Surgery Orthopaedic Surgery of the Spine
PROC: 0RT30ZZ Resection of Cervical Vertebral Disc, Open Approach (ICD-10-PCS; principal; 2018-02-13 08:15)
PROC: 0RG20A0 Fusion of 2 or more Cervical Vertebral Joints with Interbody Fusion Device, Anterior Approach, Anterior Column, Open Approach (ICD-10-PCS; principal; 2018-02-13 08:15)
PROC: 0RG2070 Fusion of 2 or more Cervical Vertebral Joints with Autologous Tissue Substitute, Anterior Approach, Anterior Column, Open Approach (ICD-10-PCS; principal; 2018-02-13 08:15)
DX: M40.202 Unspecified kyphosis, cervical region (principal); G95.29 Other cord compression; N17.9 Acute kidney failure, unspecified; Z68.41 Body mass index [BMI] 40.0-44.9, adult; D62 Acute posthemorrhagic anemia; M54.12 Radiculopathy, cervical region; E66.01 Morbid (severe) obesity due to excess calories; E11.649 Type 2 diabetes mellitus with hypoglycemia without coma; I12.9 Hypertensive chronic kidney disease with stage 1 through stage 4 chronic kidney disease, or unspecified chronic kidney disease; J45.909 Unspecified asthma, uncomplicated; H81.09 Meniere's disease, unspecified ear; R13.10 Dysphagia, unspecified; N18.3 Chronic kidney disease, stage 3 (moderate); Z98.1 Arthrodesis status; Z87.891 Personal history of nicotine dependence; Z83.3 Family history of diabetes mellitus; Z79.82 Long term (current) use of aspirin; Z91.040 Latex allergy status; Z88.8 Allergy status to other drugs, medicaments and biological substances; E03.9 Hypothyroidism, unspecified

== ENCOUNTER → 2018-05-06 | Outpatient (CLI) | payer OTHER, MEDICARE ==
[~2018-05-06] MED LIST changes: -ALBU18002 INH; -CEFAZOLIN 2000MG IV PUSH 15 ML IV SCH; +COEN150C PO; -LACTATED RINGER'S 1000ML 1,000 ML IV SCH; -NSS 1000ML IV SCH; +VNTHFA/IN INH
--- NOTE | 2018-05-16 10:14 | CODING QUERY NO DIAGNOSIS ---
1944 Valid Physician Order Needed A valid physician order must be submitted in order to properly bill for the service(s) provided, including date of service(s), valid diagnosis, and physician signature. If these tests are done on a recurring basis the original physican order must be submitted in order to code and bill for the service(s) provided. Please fax us the original, signed physician order so that we may expedite billing to [phone] DOS 05/06/18 * WOUND CULTURE Thank you [facility] Information Management
== END | disposition home or self-care (01) ==
LOC: C.LABSPEC 17:01
PROVIDERS: ATTEND Ophthalmology
DX: H16.041 Marginal corneal ulcer, right eye (principal)

== ENCOUNTER → 2018-05-16 | Outpatient (CLI) | payer OTHER, MEDICARE ==
--- NOTE | 2018-05-16 11:26 | DIAGNOSTIC IMAGING REPORT ---
CERVICAL SPINE CT CT DOSE: 471.30 mGycm HISTORY: NECK PAIN, PRIOR SURGERY TECHNIQUE: Multiaxial CT images of the cervical spine were performed and reformatted in the sagittal and coronal plane without the use of contrast. A dose lowering technique was utilized adhering to the principles of ALARA. COMPARISON: Neck CT 10/22/2017. FINDINGS: Slight reversal the normal lordotic curvature. Postoperative changes within the left mastoid air cells are again noted. No acute fracture or subluxation within the cervical spine. The lung apices are clear. Prevertebral soft tissues and the C1-C2 interval are intact. Moderate disc space narrowing at C3-C4 with 2 mm of anterolisthesis. This remains unchanged. Severe facet degenerative changes at C7-T1. There is mild to moderate facet degenerative changes throughout the remaining cervical spine. Anterior cervical discectomy and fusion at C4-C5, C5-C6, and C6-C7. The C6-C7 vertebral bodies are completely fused with an interbody bone graft. There is partial fusion of the C4-C5 and C5-C6 vertebral bodies. The hardware appears intact. The screws at the C5 vertebral body extend just beyond the posterior cortex of the vertebral body up to 2 mm. Evaluation the central canal is suboptimal due to the CT technique. C2-C3: No significant central canal or neural foraminal narrowing. C3-C4: Small broad-based posterior osteophyte complex without significant central canal narrowing. There is mild left-sided neural foraminal narrowing. C4-C5: No significant central canal or neural foraminal narrowing. C5-C6: No significant central canal or neural foraminal narrowing. C6-C7: No significant neural foraminal narrowing. Evaluation of the central canal is essentially nondiagnostic due to the metallic artifact. C7-T1: Metallic artifact results in near nondiagnostic evaluation of the central canal. There is mild bilateral neural foraminal narrowing. IMPRESSION: 1. Anterior cervical discectomy and fusion from C4 through C7. The hardware appears intact. 2. The screws at the C5 vertebral body extend just beyond the posterior cortex of the vertebral body up to 2 mm. However, this is not resolved significant central canal narrowing at this level. 3. Degenerative changes as described above. Electronically signed by: Bart Viera M.D. 05/16/2018 11:25 AM Dictated Date/Time: 05/16/2018 11:11 AM
== END | disposition home or self-care (01) ==
LOC: C.CTS 10:40
PROVIDERS: ATTEND Orthopaedic Surgery Orthopaedic Surgery of the Spine
DX: M47.9 Spondylosis, unspecified (principal); M54.2 Cervicalgia; Z98.890 Other specified postprocedural states; Z96.89 Presence of other specified functional implants

== ENCOUNTER 2020-10-24 06:53 | Observation (INO) ==
--- NOTE | 2020-10-24 07:49 | Pre Anesthesia Assessment ---
Date of Service October 24, 2020 Pre Sedation Assessment Vital Signs Temp Pulse Resp BP Pulse Ox 10/24/20 07:16 99.1 F 93 H 18 217/86 H 97 Cardiovascular RRR, no murmur, no edema Respiratory normal respiratory effort, lungs clear to auscultation Pre-Sedation Airway Assessment Smoking Status: Former smoker Hx Sleep Apnea: Yes Hx Difficult Intubation: No Short, Thick Neck: Yes Thyromental Distance: > or= 3.5 Finger Breadths Oral Cavity: + WNL Mallampati Class: II ASA: ASA3 NPO Status Date of Last Intake of Fluids: 10/24/20 Time of Last Intake of Fluids: 06:45 Date of Last Intake of Solid Food: 10/23/20 Time of Last Intake of Solid Foods: 20:00 Procedure Planning Contraindications for Sedation: none Current Medications Reviewed: Yes Notes The planned sedation has been discussed with the patient. Informed Consent was obtained. I have identified the patient, determined the appropriateness of sedation and have assessed the patient immediately prior to the procedure. All medicine(s) and interventions are by my order.
--- NOTE | 2020-10-24 07:56 | History & Physical Report ---
Date of Service October 24, 2020 Assessment & Plan (1) CAD (coronary artery disease): Patient here with progressive anginal symptoms. Has known severe diagonal disease. Symptoms have persisted/worsened despite maximal medical therapy. Proceed with repeat cardiac catheterization and likely PCI of diagonal. History of Present Illness Primary Care Provider: Earnest Deutsch MD Mrs. Corona is a 75 year old female with cerebrovascular disease post right CEA 11/2017 in the setting of TIA and later right carotid stenting 07/2018, obesity with NIRU on BiPAP, asthma, type 2 diabetes on insulin, hypertension, dyslipidemia, chronic venous insufficiency/lymphedema, chronic kidney disease with baseline creatinine around 1.4, left bundle branch block and coronary artery disease with severe single-vessel diagonal disease. She was seen by cardiology in the beginning of August 2019 in the setting of atypical chest pain and poorly controlled hypertension with one episode of worsening chest pain while seeing PCP. Repeat EKG at that time was notable for questionably new left bundle branch block. Underwent left and right cardiac catheterization which revealed an 80 to 90% stenosis in a medium caliber first diagonal. Left-sided filling pressures were elevated with moderate pulmonary hypertension while systemic blood pressures noted to be in the 200s. Was started on carvedilol and continued on lisinopril, furosemide. Attempted to participate in cardiac rehab 04/2020 but was unable to do so in the setting of hypertension and symptomatic bradycardia while on carvedilol. Event monitor was obtained in the interim which showed sinus pauses, bradycardia to 30s intermittently correlating with presyncopal symptoms. Carvedilol discontinued. Presyncopal symptoms off carvedilol resolved. Repeat event monitor without significant pauses or symptomatic bradycardia. More recently has been having worsening chest pain with exertion. Symptoms most notable with going up steps but now having exertional symptoms just walking across her home. Allergies Allergy/AdvReac Type Severity Reaction Status Date / Time aspartame Allergy Mild pt Verified 10/24/20 07:34 reported allergy to equal adhesive Allergy Unknown SKIN Verified 10/24/20 07:34 IRRITATION-BANDAGES aspirin Allergy Unknown AVOID HX Verified 10/24/20 07:34 GI BLEED latex Allergy Unknown RASH Verified 10/24/20 07:34 NSAIDS (Non-Steroidal Allergy Unknown HX ULCER Verified 10/24/20 07:34 Anti-Inflamma Npkixif-Gdy-Mgn Reductase Allergy Unknown CHEST PAIN Verified 10/24/20 07:34 Inhibitor chlorhexidine AdvReac Intermediate itching Verified 10/24/20 07:34 and burning acetaminophen AdvReac Unknown TO AVOID Verified 10/24/20 07:34 -"have an enlarged liver" FATTY LIVER ibuprofen AdvReac Unknown gave me a Verified 10/24/20 07:34 duodenal ulcer morphine AdvReac Unknown NARCOTICS-GI Verified 10/24/20 07:34 UPSET AND HALLUCINATIONS tramadol AdvReac Unknown vomit Verified 10/24/20 07:34 opioids Allergy Severe Vomiting,mijares Uncoded 10/24/20 07:34 llucination s Home Medications Medication Instructions Recorded Confirmed Type Refresh Optive 2 drp OPHTHALMIC (EYE) QID PRN 10/11/18 10/24/20 History Zyrtec 10 mg PO DAILY 10/11/18 10/24/20 History aspirin 81 mg PO DAILY 10/11/18 10/24/20 History cholecalciferol (vitamin D3) 2,000 unit PO DAILY 10/11/18 10/24/20 History [Vitamin D3] moxifloxacin 1 drp OPHTHALMIC (EYE) QID 10/11/18 10/24/20 History prednisolone acetate 1 drp OPR TID 10/11/18 10/24/20 History ketoconazole 2 % topical cream 1 applic TOP DIRECTED #30 gm 07/20/19 10/24/20 History BiPap Machine #1 ea 08/12/19 09/13/20 Rx magnesium 500 mg tablet 500 mg PO BID tab 08/18/19 10/24/20 History albuterol sulfate 2.5 mg INHALATION Q4 PRN ml 09/04/19 10/24/20 History vitamin B complex 1 tab PO DAILY 09/14/19 10/24/20 History blood sugar diagnostic #300 ea 02/15/20 09/13/20 Rx ascorbic acid (vitamin C) 500 mg 1,000 mg PO DAILY tab 02/18/20 10/24/20 History tablet omeprazole 40 mg capsule,delayed 40 mg PO DAILY #90 cap 02/19/20 10/24/20 Rx release clopidogrel 75 mg tablet 75 mg PO DAILY #90 tab 04/20/20 09/13/20 Rx modafinil 100 mg tablet 100 mg PO DAILY #90 tab 04/20/20 10/24/20 Rx meclizine 25 mg tablet 25 mg PO DAILY tab 04/28/20 10/24/20 History lisinopril 40 mg tablet 40 mg PO DAILY #90 tab 07/06/20 10/24/20 Rx metronidazole 500 mg tablet 500 mg PO BID #20 tab 07/06/20 10/24/20 Rx furosemide 20 mg tablet 20 mg PO DAILY #30 tab 07/14/20 09/13/20 Rx doxycycline hyclate 100 mg tablet 100 mg PO BID 10 Days #20 tab 07/18/20 09/13/20 Rx acyclovir 800 mg tablet 800 mg PO TID tab 07/28/20 10/24/20 History insulin NPH isoph U-100 human 100 57 unit SUBCUT .COMPLEX ml 07/28/20 10/24/20 History unit/mL subcutaneous suspension insulin regular human 100 unit/mL See Rx Instructions .ROUTE .COMPLEX 07/28/20 10/24/20 History injection solution isosorbide mononitrate 120 mg 120 mg PO DAILY #90 tab 08/31/20 10/24/20 Rx tablet,extended release 24 hr levothyroxine 50 mcg tablet 50 mcg PO .COMPLEX #30 tab 09/29/20 10/24/20 Rx Past Med/Surg History Medical History Allergic rhinitis Asthma Barretts esophagus Bilateral edema of lower extremity Cervical post-laminectomy syndrome Cervical stenosis of spine Chronic kidney disease, stage III (moderate) DDD (degenerative disc disease) Degeneration of cervical intervertebral disc Diabetes Diabetes mellitus type 1 Diabetic nephropathy Diabetic peripheral neuropathy Disc degeneration, lumbar Diverticulosis Dyslipidemia Esophageal dyskinesia External hemorrhoids Fatty liver Gastroesophageal reflux Hyperplastic colon polyp Hypertension Hypothyroidism Internal hemorrhoids Left bundle branch block Meniere's disease, left ear Mixed conductive and sensorineural hearing loss of left ear with restricted hearing of right ear Myofascial pain syndrome Nocturnal hypoxemia Obesity Osteopenia Periodic limb movement disorder Peripheral vascular disease Severe obstructive sleep apnea Stress incontinence in female Vitamin D deficiency Surgical History H/O lumbosacral spine surgery History of bladder surgery History of cardiac cath 08/21/2019: Severe branch vessel CAD (80-90% stenosis 1st diag) 30-40% ostial LAD/ 40-50% distal RCA ; Preserved cardiac output; NO PCI / Treated medically / (Appears amendable to PCI) History of carotid endarterectomy History of cataract removal with insertion of prosthetic lens History of colonoscopy History of mastoidectomy History of myringoplasty left ear History of oral surgery History of tonsillectomy and adenoidectomy History of total abdominal hysterectomy with removal of both ovaries History of tubal ligation S/P cervical spinal fusion Family History Mother Stroke syndrome Brother Stroke syndrome Myocardial infarction Coronary heart disease Sister Coronary heart disease Stroke syndrome Aunt Breast cancer Father Tuberculosis Social History Smoking Status: Former smoker Second Hand Exposure: No; Hx Alcohol Use: No Hx Substance Use: No Preferred Language: B[place]ian Communication Ability: Effective Beliefs That Will Affect Care: None Current Living Situation: Spouse current occupation: retired Feels Safe at Home: Yes Safety Concerns: Feels Safe At This Time Assistive Devices: BiPap and Oxygen - Continuous Review of Systems All systems reviewed & are unremarkable except as noted in HPI & below Physical Exam Physical Exam: General: Comfortable HEENT: Sclerae anicteric, Mask in place Lungs: Clear to auscultation bilaterally Cardiac: Regular rate and rhythm Vascular: 2+ radial bilaterally Abdomen: Soft, nontender Extremities: Well perfused, trace edema Neuro: Nonfocal Psych: Alert orient x3, normal affect and mood ASA Classification ASA ASA3 Results & Data ([facility]) Vital Signs (Past 12 Hours) Vital Signs Temp Pulse Resp BP Pulse Ox 10/24/20 07:16 99.1 F 93 H 18 217/86 H 97
[2020-10-24] MEDS ORDERED: MIDAZOLAM HCL 1 MG/ML 2ML VIAL ONE ×2 (09:11→10:12)
[2020-10-24] MEDS ORDERED: HEPARIN (PORCINE) 1000 UNIT/ML 10 ML (CATH LAB USE ONLY) ONE ×2 (09:11→10:44)
[2020-10-24] MEDS ORDERED: fentaNYL citrate 100 MCG/2 ML VIAL ONE (09:11)
[2020-10-24] MEDS ORDERED: niCARdipine HCL INJ 2.5 MG/ML 10 ML AMP ONE (09:11)
[2020-10-24] MEDS ORDERED: NITROGLYCERIN/D5W 100MCG/ML 20ML SYR ONE (09:12)
[2020-10-24] MEDS ORDERED: ONDANSETRON INJ 2 MG/ML 2 ML VIAL ONE (09:41)
[2020-10-24] MEDS ORDERED: ADENOSINE IV SOLN 3 MG/ML 20 ML VIAL IV ONE (10:12)
[2020-10-24] MEDS ORDERED: hydrALAZINE HCL 20 MG/ML VIAL ONE (11:22)
[2020-10-24] MEDS ORDERED: PRASugrel TAB 10 MG TAB PO ONE (11:26)
[2020-10-24] MEDS ORDERED: ONDANSETRON INJ 2 MG/ML 2 ML VIAL IV PRN (12:03)
[2020-10-24] MEDS ORDERED: SODIUM CHLORIDE 0.9% 1000ML 1,000 ML IV SCH (12:15)
[2020-10-24] MEDS ORDERED: ALBUTEROL 0.083% NEBU SOLN 3 ML VIAL INH PRN (12:21)
[2020-10-24] MEDS ORDERED: CARBOHYDRATES FOR HYPOGLYCEMIA PO PRN (12:24)
[2020-10-24] MEDS ORDERED: GLUCOSE 10 TABS/TUBE PO PRN (12:24)
[2020-10-24] MEDS ORDERED: GLUCOSE 40% GEL 15 GM TUBE PO PRN (12:24)
[2020-10-24] MEDS ORDERED: DEXTROSE 50% 50 ML SYRINGE IV PRN (12:24)
[2020-10-24] MEDS ORDERED: GLUCAGON FOR INJ 1 MG VIAL SQ PRN (12:24)
[2020-10-24] MEDS ORDERED: hydrALAZINE HCL 20 MG/ML VIAL IM PRN (12:24)
[2020-10-24] MEDS ORDERED: ARTIFICIAL TEARS OP PRN (12:40)
[2020-10-24] MEDS ORDERED: PHARMACY GLYCEMIC MGMT CONSULT PRN (13:17)
[2020-10-24] MEDS: LEVOTHYROXINE SODIUM 50 MCG TABLET PO SCH (14:16)
[2020-10-24] MEDS: prednisoLONE acetate 1% OP SUSP 5 ML BTL OPR SCH (14:16)
--- NOTE | 2020-10-24 14:57 | Cardiac Catheterization ---
ACC Data: Hat Maker Cardiac Status Clinical evaluation leading to the procedure CAD Presenation: Unstable angina Anginal Classification: CCS III Heart Failure: No Cardiogenic Shock within 24 Hours: No Cardiac Arrest within 24 Hours: No Imaging Studies Past 6 Months: Yes Stress Studies Past 6 Months: No Diagnostic Physicians Name: Maximino Casas MD Status: Elective Closure Device Percutaneous Entry Location: Radial Closure Device: Radial Band Recommendations: None PCI Indication: Angina despite med therapy and Unstable Angina Lesion Segment Name: Mid D1 Culprit Artery: Yes Stenosis Prior to Rx (%): 95 Chronic Total Occlusion: No IVUS: No FFR: No Pre-Procedure RAYMUNDO Flow: 3 Previously Treated Lesion: No Lesion Complexity: Non-High/Non-C Lesion Length (mm): 18 Thrombus Present: Yes Bifurcation Lesion: No Guidewire Across Lesion: Stenosis Post-Procedure (%): 0 Post-Procedure RAYMUNDO Flow: 3 Devices(s) Deployed: Yes Yes Lesion #2 Segment Name: ostial LAD Culprit Artery: No Stenosis Prior to Rx (%): 70 Chronic Total Occlusion: No IVUS: Yes FFR: No Pre-Procedure RAYMUNDO Flow: 3 Previously Treated Lesion: No Lesion Complexity: High/C Lesion Length (mm): 8 Thrombus Present: No Bifurcation Lesion: Yes Guidewire Across Lesion: Yes Stenosis Post-Procedure (%): 0 Intraprocedure Events Significant Disection: No Perforation: No Cardiac Cath Procedure Full Procedure Date October 24, 2020 Pre-Procedure Diagnosis Pre-Procedure Diagnosis: Acute Coronary Syndrome AUC Score AUC Score: 7 Post-Procedure Diagnosis Post-Procedure Diagnosis: Severe CAD, Successful PCI and Elevated Intracardiac Pressures Procedure(s) Performed Procedure(s) Performed: Coronary Angiography, Left Heart Cath, Drug Eluting Stent and Fractional Flow [place] [employer] Liaison Maximino Casas MD Implementation Advisor(s) Jessa Estimated Blood Loss Estimated Blood Loss: 20 Medication(s) Medication(s): Fentanyl, Heparin, Lidocaine 1%, Nicardipine, Nitroglycerin and Versed Medication(s): Prasugrel Summary of Findings Indication: Unstable angina Access: 6 Fr right radial artery Catheters: Diagnostic JR4, EBU 3.5 guide Findings: LM -30% ostial stenosis (circumferential calcium at the ostium, MLA 6.7 mm by IVUS) LAD - 60% ostial stenosis (74%, MLA 3.5 mm by IVUS), 50% latemid segment disease, distal luminal irregularities and tapers prior to apex. Moderate calib er first diagonal with 95+% acute on chronic mid segment stenosis. Circumflex -small to medium caliber, 50% distal stenosis prior to left PLB RCA -large caliber, dominant, 40% distal stenosis. PDA, terminal PLB's without significant disease LVEDP -18 -- PCI -- Antithrombotic therapy: Heparin, prasugrel Procedure: Left main cannulated with EBU 3.5 guide BMW wire placed into LAD ACIST FFR catheter placed in mid LAD, FFR 0.84 Cake Mixer 50 wire placed into D1 across stenosis [place] IVUS pullback from D1 across left main revealed mild proximal D2 disease, severe ostial LAD disease and moderate ostial left main disease. Decision to proceed with PCI of diagonal and ostial LAD Mid D1 lesion predilated with 2.5 compliant balloon Dilated lesion stented with 2.5 x 22 mm Garber drug-eluting Stent post-dilated with stent balloon Prowater wire placed in the circumflex Ostial LAD stented with 3.0 x 8 mm Xience Phylicia drug-eluting stent Repeat IVUS pullback revealed well apposed stent, underexpanded and extending just to ostium of LAD Stent postdilated with 3.75 NC IC vasodilators administered for spasm Post procedure RAYMUNDO 3 flow, stents well expanded with minimal residual stenosis and no apparent cardiac complications. Arterial Closure: TR band Summary: 1. Multivessel coronary artery disease -95+% acute mid D1 70% ostial LAD, 50% latemid LAD 30 to 40% ostial left main (MLA 6.7 mm). 50% distal circumflex 40% distal RCA 2. Borderline intracardiac filling pressure 3. Successful PCI of first diagonal with single drug-eluting stent (2.5 x 22 mm Garber). 4. Successful PCI of ostial LAD with single drug-eluting stent (3.0 x 8 mm Xience; postdilated with 3.75 NC). Recommendations: To PCU for continued monitoring Loaded with prasugrel 60 mg in general laborer Continue dual-antiplatelet therapy for at least 1 year, likely indefinitely Consult cardiac Rehab Plan to medically manage residual CAD. Has been intolerant to beta-blockers in the past due to bradycardia and may require pacemaker. If symptoms recur in the future bypass surgery may need to be considered in the setting of borderline ostial left main disease. Hemodynamics Rest Ao:: 180/67/125 Final Ao: 170/62/100 LV: 186/18 Recommendations Recommendations: None Specimens Specimens: None Radiation Exposure (mGy) 4093 Contrast (mls) 220 Fluids (cc crystalloids) Fluids (cc crystalloids): 100 Drains Drains: None Anesthesia Moderate Procedural Complication(s) None Disposition PCU I attest to the content of the Intraoperative Record and any orders documented therein. Any exceptions are noted below. [facility] Card Cath Procedure Codes Cardiac Catheterization Procedure 1: Cardiovascular Cath Procedures: 46510 Coronaries and LHC (+/-LV) Procedure 2: Cardiovascular Cath Procedures: 73099 (Doppler) Pressure Wire Therapeutic Services & Ancillary Proc Procedure 1: Cardiovascular Tx and Anc Procedures: 54265 IV Ultrasound (Coronary or Graft) Moderate Sedation Procedure 1: Sedation/Anesthesia: 45494 Mod Sedation by the same physician;Init15 Min Child Age 5 & Up Procedure 2: Sedation/Anesthesia: 11826 Mod Sedation by the same physician; Ea [id number] Minutes Stenting Procedure 1: Cardiovascular Stent Procedures: 58134 Perc transcatheter placement of intracoronary stent(s), with ang PG Care Time/CCT Total # of Minutes Spent Total Time Spent with Patient: Total time spent is greater than 50% in coordination of care (as documented) at patient's floor/unit and/or counseling patient:
--- NOTE | 2020-10-24 15:08 | Pharmacy Report ---
Pharmacy Glycemic Short Note 2 - Date of Service October 24, 2020 - Glycemic Short BSG Results (Last 24 hours): 10/24/20 13:16 POC Glucose 191 H OUTPATIENT ANTIDIABETIC REGIMEN: * NPH 6 units Qam, 35-45 units HS ; Novolin R 9 units with qAM, 16 units with lunch, 20 units with dinner * 7.2% 07/2020 ASSESSMENT: * 75 year old now s/p heart cath. Type 2 diabetic managed on insulin at home. Follows [facility] * POD 0, now ordered diet - plan to have scale for NPH at dinner * Start CF/CR based upon total daily units of insulin at home PLAN FOR INPATIENT GLYCEMIC CONTROL: * Hold outpatient oral diabetes medications * Basal insulin * NPH daily with dinner ; 35-45 units (based upon home dose) * Bolus insulin * NovoLog per scale ACHS or Q6hrs while NPO * Goal Range: Low 120 mg/dL - High 160 mg/dL * Correction Factor: 20 mg/dL/unit * Nutritional / Prandial insulin per carb ratio of 1 unit per 6 grams CHO consumed PLAN FOR DISCHARGE: * tbd
[2020-10-24] MEDS: INSULIN ASPART 100 UNITS/ML 3 ML PEN SC SCH ×3 (15:29→21:05)
[2020-10-24] MEDS: hydrALAZINE HCL 25 MG TAB PO SCH ×2 (16:16→20:45)
[2020-10-24] MEDS ORDERED: INSULIN HUMAN NPH SC SCH ×2 (17:00→18:00)
[2020-10-24] MEDS: MAGNESIUM OXIDE 400 MG TAB PO SCH (20:45)
[2020-10-24] MEDS: MOXIFLOXACIN HCL 0.5% OP SOLN 3 ML BTL OPR SCH (20:45)
[2020-10-25] MEDS: LEVOTHYROXINE SODIUM 50 MCG TABLET PO SCH (06:41)
[2020-10-25 07:17] LABS: Basophils # (auto) 0.02 K/uL (0-0.2); Basophils % (auto) 0.3 %; Eosinophils # (auto) 0.09 K/uL (0-0.5); Eosinophils % (auto) 1.2 %; Hematocrit (blood only) 31.9 % (37-47); Hemoglobin 10.9 g/dL (12.0-16.0); Immature Granulocytes # (auto) 0.02 K/uL (0.00-0.02); Immature Granulocytes % (auto) 0.3 %; Lymphocytes % (auto) 21.3 %; Mean Corpuscular Hemoglobin 31.9 pg (25-34); Mean Corpuscular Hgb Conc 34.2 g/dL (32-36); Mean Corpuscular Volume 93.3 fL (80-100); Mean Platelet Volume 9.2 fL (7.4-10.4); Monocytes # (auto) 0.49 K/uL (0.11-0.59); Monocytes % (auto) 6.5 %; Neutrophils % (auto) 70.4 %; Platelet Count 272 K/uL (130-400); Red Blood Count 3.42 M/uL (4.2-5.4); White Blood Count 7.52 K/uL (4.8-10.8)
[2020-10-25] MEDS: INSULIN ASPART 100 UNITS/ML 3 ML PEN SC SCH (07:43)
[2020-10-25] MEDS: hydrALAZINE HCL 25 MG TAB PO SCH (08:35)
[2020-10-25] MEDS: MOXIFLOXACIN HCL 0.5% OP SOLN 3 ML BTL OPR SCH (08:35)
[2020-10-25] MEDS: MAGNESIUM OXIDE 400 MG TAB PO SCH (08:35)
[2020-10-25] MEDS: prednisoLONE acetate 1% OP SUSP 5 ML BTL OPR SCH (08:35)
--- NOTE | 2020-10-25 08:43 | Discharge Summary ---
Date of Service October 25, 2020 Admission HPI Per Admitting Provider Mrs. Corona is a 75 year old female with cerebrovascular disease post right CEA 11/2017 in the setting of TIA and later right carotid stenting 07/2018, obesity with NIRU on BiPAP, asthma, type 2 diabetes on insulin, hypertension, dyslipidemia, chronic venous insufficiency/lymphedema, chronic kidney disease with baseline creatinine around 1.4, left bundle branch block and coronary artery disease with severe single-vessel diagonal disease. She was seen by cardiology in the beginning of August 2019 in the setting of atypical chest pain and poorly controlled hypertension with one episode of worsening chest pain while seeing PCP. Repeat EKG at that time was notable for questionably new left bundle branch block. Underwent left and right cardiac catheterization which revealed an 80 to 90% stenosis in a medium caliber first diagonal. Left-sided filling pressures were elevated with moderate pulmonary hypertension while systemic blood pressures noted to be in the 200s. Was started on carvedilol and continued on lisinopril, furosemide. Attempted to participate in cardiac rehab 04/2020 but was unable to do so in the setting of hypertension and symptomatic bradycardia while on carvedilol. Event monitor was obtained in the interim which showed sinus pauses, bradycardia to 30s intermittently correlating with presyncopal symptoms. Carvedilol discontinued. Presyncopal symptoms off carvedilol resolved. Repeat event monitor without significant pauses or symptomatic bradycardia. More recently has been having worsening chest pain with exertion. Symptoms most notable with going up steps but now having exertional symptoms just walking across her home. Specialty Data Cardiology 1. Multivessel coronary artery disease -95+% acute mid D1 70% ostial LAD, 50% latemid LAD 30 to 40% ostial left main (MLA 6.7 mm). 50% distal circumflex 40% distal RCA 2. Borderline intracardiac filling pressure 3. Successful PCI of first diagonal with single drug-eluting stent (2.5 x 22 mm Aldo). 4. Successful PCI of ostial LAD with single drug-eluting stent (3.0 x 8 mm Xience; postdilated with 3.75 NC). Discharge Data Consultations 10/24/20 12:20 Consult Cardiac Rehabilitation Routine Procedures Performed Operation Date: 10/24/20 08:00 Actual Procedures p Cath, Left with Cors and Vent - Dylan Casas MD s Drug Eluting Stent SGl Vessel - Dylan Casas MD s IVUS Coronary Single Vessel - Dylan Casas MD s Fraction Flow [place] SGL Ves - Dylan Casas MD s Cineradiography w/Routine Exam - Dylan Casas MD Hospital Course (1) CAD (coronary artery disease): Patient underwent repeat cardiac catheterization in the setting of acce lerating angina. Found to have acute severe disease in her first diagonal along with severe chronic ostial LAD disease. Also noted to have moderate ostial left main distal circumflex and distal RCA disease. Underwent PCI of first diagonal and ostial LAD. Procedure uncomplicated. Admitted to telemetry for observation. Remained hypertensive during hospital course. Started on spironolactone and Imdur increased from 120 to 240 mg daily. Remained chest pain-free and electrically stable. Discharged on prior aspirin, clopidogrel. Blood pressure has been difficult to control. Previously intolerant to beta- blockers in the setting of symptomatic bradycardia. We may need to consider pacemaker placement in the setting of indication for beta-tonia. Has also previously been intolerant to hydralazine and calcium channel blockers. Question possible trial of clonidine. When blood pressure stable we will refer to cardiac rehab. Repeat BMP and hemoglobin in 1 week. Follow-up with me in 2 weeks. Discharge Instructions Home Medications Refresh Optive 2 drp OPHTHALMIC (EYE) QID PRN 10/11/18 [History Confirmed 10/24/20] Zyrtec 10 mg PO DAILY 10/11/18 [History Confirmed 10/24/20] aspirin 81 mg PO DAILY 10/11/18 [History Confirmed 10/24/20] cholecalciferol (vitamin D3) [Vitamin D3] 2,000 unit PO DAILY 10/11/18 [History Confirmed 10/24/20] moxifloxacin 1 drp OPHTHALMIC (EYE) QID 10/11/18 [History Confirmed 10/24/20] prednisolone acetate 1 drp OPR TID 10/11/18 [History Confirmed 10/24/20] ketoconazole 2 % topical cream 1 applic TOP DIRECTED #30 gm 07/20/19 [History Confirmed 10/24/20] BiPap Machine #1 ea 08/12/19 [Rx Confirmed 09/13/20] magnesium 500 mg tablet 500 mg PO BID tab 08/18/19 [History Confirmed 10/24/20] albuterol sulfate 2.5 mg INHALATION Q4 PRN ml 09/04/19 [History Confirmed 10/24/20] vitamin B complex 1 tab PO DAILY 09/14/19 [History Confirmed 10/24/20] blood sugar diagnostic #300 ea 02/15/20 [Rx Confirmed 09/13/20] ascorbic acid (vitamin C) 500 mg tablet 1,000 mg PO DAILY tab 02/18/20 [History Confirmed 10/24/20] omeprazole 40 mg capsule,delayed release 40 mg PO DAILY #90 cap 02/19/20 [Rx Confirmed 10/24/20] clopidogrel 75 mg tablet 75 mg PO DAILY #90 tab 04/20/20 [Rx Confirmed 09/13/20] modafinil 100 mg tablet 100 mg PO DAILY #90 tab 04/20/20 [Rx Confirmed 10/24/20] meclizine 25 mg tablet 25 mg PO DAILY tab 04/28/20 [History Confirmed 10/24/20] lisinopril 40 mg tablet 40 mg PO DAILY #90 tab 07/06/20 [Rx Confirmed 10/24/20] metronidazole 500 mg tablet 500 mg PO BID #20 tab 07/06/20 [Rx Confirmed 10/24/20] furosemide 20 mg tablet 20 mg PO DAILY #30 tab 07/14/20 [Rx Confirmed 09/13/20] doxycycline hyclate 100 mg tablet 100 mg PO BID 10 Days #20 tab 07/18/20 [Rx Confirmed 09/13/20] acyclovir 800 mg tablet 800 mg PO TID tab 07/28/20 [History Confirmed 10/24/20] insulin NPH isoph U-100 human 100 unit/mL subcutaneous suspension 57 unit SUBCUT .COMPLEX ml 07/28/20 [History Confirmed 10/24/20] insulin regular human 100 unit/mL injection solution See Rx Instructions .ROUTE .COMPLEX 07/28/20 [History Confirmed 10/24/20] levothyroxine 50 mcg tablet 50 mcg PO .COMPLEX #30 tab 09/29/20 [Rx Confirmed 10/24/20] isosorbide mononitrate 240 mg PO DAILY #180 tab 10/25/20 [Rx Confirmed 10/24/20] spironolactone 25 mg PO DAILY #30 tab 10/25/20 [Rx] Coding Level of Care Code 74478 OBS Care - Discharge Diagnoses CAD (coronary artery disease) I25.10
[2020-10-25] MEDS ORDERED: lisinopril 40 MG TAB PO SCH (09:00)
[2020-10-25] MEDS ORDERED: ISOSORBIDE MONO EXTENDED REL 60 MG TABCR PO SCH (09:00)
[2020-10-25] MEDS ORDERED: CETIRIZINE HCL 10 MG TABLET PO SCH (09:00)
[2020-10-25] MEDS ORDERED: PANTOprazole 40 MG TAB PO SCH (09:00)
[2020-10-25] MEDS ORDERED: PRASugrel TAB 10 MG TAB PO SCH (09:00)
[2020-10-25] MEDS ORDERED: CHOLECALCIFEROL 1,000 UNITS 25 MCG TAB PO SCH (09:00)
[2020-10-25] MEDS ORDERED: ASCORBIC ACID 500 MG TAB PO SCH (09:00)
[2020-10-25] MEDS ORDERED: modafiniL 100 MG TAB PO SCH (09:00)
[2020-10-25] MEDS ORDERED: VITAMIN B COMPLEX TAB PO SCH (09:00)
[2020-10-25] MEDS ORDERED: ASPIRIN 81 MG ECTAB PO SCH (09:00)
--- NOTE | 2020-10-25 13:53 | Electrocardiogram Report ---
Test Reason : Blood Pressure : / mmHG Vent. Rate : 077 BPM Atrial Rate : 077 BPM P-R Int : 150 ms QRS Dur : 134 ms QT Int : 448 ms P-R-T Axes : 072 -05 067 degrees QTc Int : 506 ms Normal sinus rhythm Left bundle branch block Abnormal ECG When compared with ECG of 12-AUG-2019 12:24, QT has lengthened Confirmed by Emiliano Alexis ([id number]) on 10/25/2020 1:53:15 PM Referred By: Dylan Casas Confirmed By:Emiliano Alexis
== END 2020-10-25 10:18 | disposition home or self-care (01) ==
LOC: CC 06:53 → 2S 06:53

== ENCOUNTER 2021-12-14 14:21 | Inpatient (IN) ==
[2021-12-14 15:25] LABS: Hematocrit (blood only) 19.5 % (37-47); Hemoglobin 6.7 g/dL (12.0-16.0); Mean Corpuscular Hemoglobin 32.1 pg (25-34); Mean Corpuscular Hgb Conc 34.4 g/dL (32-36); Mean Corpuscular Volume 93.3 fL (80-100); Mean Platelet Volume 9.2 fL (7.4-10.4); Platelet Count 244 K/uL (130-400); RDW Coefficient of Variation 13.7 % (11.5-14.5); RDW Standard Deviation 46.4 fL (36.4-46.3); Red Blood Count 2.09 M/uL (4.2-5.4); White Blood Count 9.95 K/uL (4.8-10.8)
[2021-12-14] MEDS ORDERED: SODIUM CHLORIDE 0.9% 250 ML IV PRN ×3 (15:30→19:43)
[2021-12-14 15:35] LABS: INR 1.2 (0.9-1.1); Partial Thromboplastin Ratio 1.1; Partial Thromboplastin Time 31.4 Seconds (21.0-31.0); Prothrombin Time 13.1 Seconds (9.0-12.0)
[2021-12-14 15:42] LABS: BUN Creatinine Ratio 36.1 (10-20); Calcium 9.3 mg/dl (8.5-10.1); Creatinine Clr Calc Pharmacy 16.4 ml/min; Est GFR (African American) 18.6 ml/min; Est GFR (Non-African American) 16.1 ml/min; Potassium 5.2 mmol/L (3.5-5.1)
[2021-12-14 15:43] LABS: Basophils # (auto) 0.01 K/uL (0-0.2); Basophils % (auto) 0.1 %; Eosinophils # (auto) 0.06 K/uL (0-0.5); Eosinophils % (auto) 0.6 %; Immature Granulocytes # (auto) 0.03 K/uL (0.00-0.02); Immature Granulocytes % (auto) 0.3 %; Lymphocytes # (auto) 1.64 K/uL (1.2-3.4); Lymphocytes % (auto) 16.5 %; Monocytes # (auto) 0.32 K/uL (0.11-0.59); Monocytes % (auto) 3.2 %; Neutrophils # (auto) 7.89 K/uL (1.4-6.5); Neutrophils % (auto) 79.3 %; RBC Morphology Unremarkable
[2021-12-14] MEDS ORDERED: PANTOPRAZOLE BOLUS/DRIP 1 EA IV STA (15:59)
[2021-12-14] MEDS ORDERED: PANTOprazole 80 MG in DEXTROSE 5% 100 ML IV ONE (16:00)
[2021-12-14] MEDS ORDERED: CALCIUM GLUCONATE 10% 1,000 MG in DEXTROSE 5% 50 ML IV STA (16:17)
[2021-12-14] MEDS ORDERED: STAT IV STA (16:17)
[2021-12-14] MEDS ORDERED: CALCIUM GLUCONATE 1,000 MG/60 ML BAG IV STA (16:31)
--- NOTE | 2021-12-14 16:44 | History & Physical Report ---
Date of Service December 14, 2021 Assessment & Plan (1) GIB (gastrointestinal bleeding): (2) Acute blood loss anemia: Plan: Mrs. Corona is a 76 year old female with a history of Hypertension, CAD s/p LAD/Diagonal Stenting 10/2020 s/p CABG x 3 Vessels 03/2021, PAD, Sinus Node Dysfunction s/p Dual-Chamber Pacemaker 03/2021, Chronic LBBB, Cerebrovascular Disease s/p Right CEA 11/2017 in the setting of TIA and later Right Carotid Stenting 07/2018, Obesity with NIRU on BiPAP, Asthma, Insulin Requiring Type 2 Diabetes Mellitus, Dyslipidemia, Chronic Venous Insufficiency/Lymphedema, Chronic Kidney Disease (baseline Cr 1.4), and a Non-occlusive Proximal Left Subclavian DVT and Chronic Non-occlusive Left Cephalic Vein DVT (diagnosed and started on Xarelto on 12/05/21) who presents to [facility] ER today with Lower GI Bleeding beginning 1 week ago and an Acute Blood Loss Anemia with a Hgb of 6.7 g/dL today (Hgb was 12.3 g/dL on 12/02/21). Patient's last dose of Xarelto was taken this morning. Patient noticed hematochezia approximately 1 week ago and thought it was coming from her hemorrhoids. However she has continued to have hematochezia with every bowel movement since that time. Patient denies any focal abdominal pain or abdominal pain in general. She has not had any anal or rectal pain. Her appetite is decreased. She has been experiencing some fatigue, increased exertional dyspnea, and earlier today had some lightheadedness which was very transient and has not recurred. Her review of systems otherwise negative. She has not had any angina pectoris or anginal equivalent symptoms, overt evidence of heart failure. She does appear to be hemodynamically stable at this time. Recommend the followin. Admit to PCU. 2. Transfuse x 2 units PRBC's, check H&H 6 hours after 2nd unit is transfused. 3. Goal is to keep Hgb > 9.0 g/dL due to her cardiovascular disease, chronic hypoxia, etc. 4. NPO with sips of H2O and medications. 5. [facility] [place] Gastroenterology has been consulted, spoke directly to Dr. Gimenez. 6. EGD tomorrow morning. She will likely need a colonoscopy as well. 7. Hold Xarelto. Aspirin has been held since starting Xarelto. 8. She needs to stay on Plavix due to prior LAD/Diagonal Stenting. 9. Serial CBC with diff. (3) Deep vein thrombosis (DVT) of left upper extremity: Plan: Non-occlusive Proximal Left Subclavian DVT and Chronic Non-occlusive Left Cephalic Vein DVT which diagnosed 12/05/21 and she started on Xarelto on 12/05/21). Aspirin is on hold as well. -- Restart anticoagulation after bleeding is stopped, source is identified and treated, and when okay from GI point of view. (4) CAD (coronary artery disease): Plan: CAD s/p LAD/Diagonal Stenting 10/2020 s/p CABG x 3 Vessels 03/2021. Fortunately, she is asymptomatic from a cardiac standpoint. She has not had any angina pectoris or anginal equivalent symptoms despite her marked anemia. -- Continue Coreg with hold parameters. -- Continue Lisinopril with hold parameters. -- Continue Plavix due to prior LAD/Diagonal Stenting. -- Remain off of Aspirin. -- Continue Zetia 10 mg daily, she is intolerant of statins. -- Consider Repatha 140 mg every 2 weeks. -- Maintain Hgb > 9.0 g/dL. (5) Left bundle branch block: Plan: History of Chronic LBBB but she is AV sequentially pacing and has a narrow QRS complex due to pacing from LBB. (6) Severe obstructive sleep apnea: Plan: -- Continue chronic supplemental O2 at 2 L/min via NC. -- BiPAP qHS. (7) Hypertension: Plan: BP has been stable in the ER. SBP is running in the 130's and 140's. -- Continue Coreg with hold parameters. -- Continue Lisinopril with hold parameters. (8) Chronic kidney disease, stage III (moderate): Plan: Followed by Dr. Jesus. -- Monitor daily labs. (9) Cardiac pacemaker: Plan: Due to sinus node dysfunction. -- AV sequentially pacing and has a narrow QRS complex due to pacing from LBB. (10) Type 2 diabetes mellitus treated with insulin: Plan: -- Glycemic pharmacy consult. -- BSG qAC and HS and PRN. History of Present Illness Chief Complaint: -- GI Bleed. -- Acute Blood Loss Anemia. -- LUE DVT, Xarelto on hold, last dose on the morning of 12/14/21. Primary Care Provider: Earnest Deutsch MD Mrs. Corona is a 76 year old female with a history of Hypertension, CAD s/p LAD/Diagonal Stenting 10/2020 s/p CABG x 3 Vessels 03/2021, PAD, Sinus Node Dysfunction s/p Dual-Chamber Pacemaker 03/2021, Chronic LBBB, Cerebrovascular Disease s/p Right CEA 11/2017 in the setting of TIA and later Right Carotid Stenting 07/2018, Obesity with NIRU on BiPAP, Asthma, Insulin Requiring Type 2 Diabetes Mellitus, Dyslipidemia, Chronic Venous Insufficiency/Lymphedema, Chronic Kidney Disease (baseline Cr 1.4), and a Non-occlusive Proximal Left Subclavian DVT and Chronic Nonocclusive Left Cephalic Vein DVT (diagnosed and started on Xarelto on 12/05/21) who presents to [facility] ER today with a suspected Lower GIB beginning 1 week ago and an Acute Blood Loss Anemia with a Hgb of 6.7 g/dL today (Hgb was 12.3 g/dL on 12/02/21). Patient is also maintained on Plavix due to her prior coronary artery stenting, and her last dose of Xarelto was taken this morning. Patient noticed hematochezia approximately 1 week ago and thought it was coming from her hemorrhoids. However she has continued to have hematochezia with every bowel movement. Patient denies any focal abdominal pain or abdominal pain in g eneral. She has not had any anal or rectal pain. Her appetite is decreased. She has been experiencing some fatigue, increased exertional dyspnea, and earlier today had some lightheadedness which was very transient and has not recurred. Patient specifically denies any urinary symptoms. She has not had any urinary frequency, urgency, or dysuria. She denies any back or flank pain. She has not had any fevers, chills, or weight loss. Patient further denies any chest pain or angina pectoris. She denies any shortness of breath at rest, although when she is active she does feel more short of breath than when her blood count is normal. Patient is on chronic supplemental oxygen at 2 liters/minute. She uses BiPAP at night. Allergies Allergy/AdvReac Type Severity Reaction Status Date / Time Kotgfmm-XGS-IcF Reductase Allergy Severe CHEST PAIN Verified 12/14/21 16:48 Inhibitor [Efnwrzh-Ybq-Vvl Reductase Inhibitor] adhesive Allergy Intermediate SKIN Verified 12/14/21 16:48 IRRITATION-BANDAGES aspartame Allergy Mild pt Verified 12/14/21 16:48 reported allergy to equal latex Allergy Mild RASH Verified 12/14/21 16:48 aspirin Allergy Unknown AVOID HX Verified 12/14/21 16:48 GI BLEED ibuprofen AdvReac Severe gave me a Verified 12/14/21 16:48 duodenal ulcer morphine AdvReac Severe NARCOTICS-GI Verified 12/14/21 16:48 UPSET AND HALLUCINATIONS NSAIDS (Non-Steroidal AdvReac Severe HX ULCER Verified 12/14/21 16:48 Anti-Inflamma chlorhexidine AdvReac Intermediate itching Verified 12/14/21 16:48 and burning tramadol AdvReac Intermediate vomit Verified 12/14/21 16:48 acetaminophen AdvReac Unknown TO AVOID Verified 12/14/21 16:48 -"have an enlarged liver" FATTY LIVER opioids Allergy Severe Vomiting,mijares Uncoded 12/14/21 16:48 llucination s Home Medications Medication Instructions Recorded Confirmed Type aspirin 81 mg tablet,delayed 81 mg PO DAILY 10/11/18 12/14/21 History release carboxymethylcellulose 0.5 2 drp OPHTHALMIC (EYE) QID PRN 10/11/18 12/14/21 History %-glycerin 0.9 % eye drops (Refresh Optive) cetirizine 10 mg capsule (Zyrtec) 10 mg PO DAILY 10/11/18 12/14/21 History moxifloxacin 0.5 % eye drops 1 drp OPHTHALMIC (EYE) QID 10/11/18 12/14/21 History prednisolone acetate 1 % eye 1 drp OPR TID 10/11/18 12/14/21 History drops,suspension ketoconazole 2 % topical cream 1 applic TOP DIRECTED #30 gm 07/20/19 12/14/21 History BiPap Machine #1 ea 08/12/19 12/05/21 Rx albuterol sulfate 2.5 mg INHALATION Q4 PRN ml 09/04/19 12/14/21 History insulin regular human 100 unit/mL See Rx Instructions .ROUTE .COMPLEX 07/28/20 12/14/21 History injection solution (Novolin R Regular U-100 Insulin) acyclovir 800 mg tablet 800 mg PO DAILY tab 11/02/20 12/14/21 History modafinil 100 mg tablet 100 mg PO DAILY PRN tab 11/02/20 12/14/21 History blood-glucose meter,continuous 05/01/21 12/05/21 History (Dexcom G6 Java Swing Developer) blood-glucose sensor (Dexcom G6 05/01/21 12/05/21 History Sensor) blood-glucose transmitter (Dexcom 05/01/21 12/05/21 History G6 Transmitter) insulin NPH isoph U-100 human 100 25 unit SUBCUT QPM ml 05/01/21 12/14/21 History unit/mL subcutaneous suspension (Novolin N NPH U-100 Insulin isophane) ascorbic acid (vitamin C) 500 mg 500 mg PO DAILY tab 06/15/21 12/14/21 History tablet (Vitamin C) cholecalciferol (vitamin D3) 50 1,000 unit PO BID cap 06/15/21 12/14/21 History mcg (2,000 unit) capsule (Vitamin D3) mecobalamin (vitamin B12) 1,000 1,000 mcg PO DAILY 06/15/21 12/14/21 History mcg chewable tablet ezetimibe 10 mg tablet (Zetia) 10 mg PO DAILY #90 tab 07/03/21 12/14/21 Rx carvedilol 12.5 mg tablet 12.5 mg PO .COMPLEX #90 tab 07/10/21 12/14/21 Rx clopidogrel 75 mg tablet 75 mg PO DAILY #30 tab 07/10/21 12/14/21 Rx furosemide 20 mg tablet 20 mg PO DAILY #30 tab 07/10/21 12/14/21 Rx meclizine 25 mg tablet 25 mg PO DAILY #270 tab 09/21/21 12/14/21 Rx levothyroxine 50 mcg tablet 50 mcg PO 6XWK #30 tab 09/25/21 12/14/21 Rx lisinopril 20 mg tablet 20 mg PO DAILY #30 tab 10/04/21 12/14/21 Rx magnesium oxide 500 mg tablet 500 mg PO BID 12/02/21 12/14/21 History omeprazole 40 mg capsule,delayed 40 mg PO DAILY cap 12/04/21 12/14/21 History release rivaroxaban 15 mg tablet (Xarelto) 15 mg PO BID 12/14/21 12/14/21 History Past Med/Surg History Medical History Allergic rhinitis Asthma Barretts esophagus Bilateral edema of lower extremity Cervical post-laminectomy syndrome Cervical stenosis of spine Chronic kidney disease, stage III (moderate) DDD (degenerative disc disease) Degeneration of cervical intervertebral disc Diabetes mellitus type 1 Diabetic nephropathy Diabetic peripheral neuropathy Disc degeneration, lumbar Diverticulosis Dyslipidemia Esophageal dyskinesia External hemorrhoids Fatty liver Gastroesophageal reflux Hyperplastic colon polyp Hypertension Hypothyroidism Internal hemorrhoids Left bundle branch block Meniere's disease, left ear Mixed conductive and sensorineural hearing loss of left ear with restricted hearing of right ear Myofascial pain syndrome Nocturnal hypoxemia Obesity Osteopenia Periodic limb movement disorder Peripheral vascular disease Severe obstructive sleep apnea Stress incontinence in female Vitamin D deficiency Surgical History H/O lumbosacral spine surgery History of bladder surgery History of cardiac cath 08/21/2019: Severe branch vessel CAD (80-90% stenosis 1st diag) 30-40% ostial LAD/ 40-50% distal RCA ; Preserved cardiac output; NO PCI / Treated medically / (Appears amendable to PCI) History of carotid endarterectomy History of cataract removal with insertion of prosthetic lens History of colonoscopy History of mastoidectomy History of myringoplasty left ear History of oral surgery History of tonsillectomy and adenoidectomy History of total abdominal hysterectomy with removal of both ovaries History of tubal ligation S/P cervical spinal fusion Family History Mother Stroke syndrome Brother Stroke syndrome Myocardial infarction Coronary heart disease Sister Coronary heart disease Stroke syndrome Aunt Breast cancer Father Tuberculosis Social History Smoking Status: Former smoker Second Hand Exposure: No; Do You Dip or Chew Tobacco: No; Tobacco Cessation Education Requested by Patient: No Hx Alcohol Use: No Hx Substance Use: No Preferred Language: Mauritian Communication Ability: Effective Beliefs That Will Affect Care: None Current Living Situation: Spouse and Family 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 Physical Exam Physical Exam: GENERAL: Patient in no acute distress, pale complexion. HEENT: Head is atraumatic, normocephalic. Sclerae anicteric. EOM's intact. Facies symmetric. No perioral cyanosis. NECK: No JVD. JVP is not elevated. Carotid upstrokes are + 2 bilaterally without obvious bruits. CHEST/LUNGS: Clear to auscultation throughout all lung bright. No wheezes, rales, or crackles. CVS: S1 and S2 are regular without obvious murmurs, gallops, or rubs. PMI is nonpalpable. No lifts, heaves, or thrills. No abdominal aortic or renal bruits. ABDOMINAL EXAM: Bowel sounds are present. No masses, organomegaly, or tenderness. No guarding or rigidity. EXTREMITIES: No clubbing or cyanosis. LUE and hand are edematous. Bilateral pretibial pitting and non-pitting edema. Intact radial pulses bilaterally. NEUROLOGIC EXAM: Patient is awake, alert, and oriented. Pleasant and cooperative. Answers questions appropriately. Speech is clear. Normal movement in all 4 extremities. Gait pattern is unremarkable. EKG 12/14/21: -- AV sequential pacing pacing, appears to be a LBB lead with a narrow QRS complex. surveillance system monitor: -- AV sequential pacing. Results & Data Results & Data ([facility]) Vital Signs (Past 12 Hours) Vital Signs Temp Pulse Pulse Resp BP BP Pulse Ox 12/14/21 15:49 60 18 142/36 H 100 12/14/21 15:37 18 12/14/21 15:24 18 12/14/21 14:21 36.5 C 61 18 127/54 L 97 Laboratory Results Laboratory Results - last 24 hr 12/14/21 12/14/21 12/14/21 15:05 15:05 15:05 WBC 9.95 RBC 2.09 L Hgb 6.7 L* Hct 19.5 L* MCV 93.3 MCH 32.1 MCHC 34.4 RDW Std Deviation 46.4 H RDW Coeff of Eloina 13.7 Plt Count 244 MPV 9.2 Immature Gran % (Auto) 0.3 Neut % (Auto) 79.3 Lymph % (Auto) 16.5 Dubois % (Auto) 3.2 Eos % (Auto) 0.6 Baso % (Auto) 0.1 Neut # (Auto) 7.89 H Lymph # (Auto) 1.64 Dubois # (Auto) 0.32 Eos # (Auto) 0.06 Baso # (Auto) 0.01 Immature Gran # (Auto) 0.03 H RBC Morphology Unremarkable PT 13.1 H INR 1.2 H APTT 31.4 H PTT Ratio 1.1 Sodium Potassium Chloride Carbon Dioxide Anion Gap BUN Creatinine Est Cr Clr Drug Dosing Est GFR ( Amer) Est GFR (Non-Af Amer) BUN/Creatinine Ratio Glucose Calcium SARS-CoV-2, RNA, NAAT Blood Type O Negative Antibody Screen NEGATIVE Crossmatch See Detail 12/14/21 12/14/21 15:05 15:29 WBC RBC Hgb Hct MCV MCH MCHC RDW Std Deviation RDW Coeff of Eloina Plt Count MPV Immature Gran % (Auto) Neut % (Auto) Lymph % (Auto) Dubois % (Auto) Eos % (Auto) Baso % (Auto) Neut # (Auto) Lymph # (Auto) Dubois # (Auto) Eos # (Auto) Baso # (Auto) Immature Gran # (Auto) RBC Morphology PT INR APTT PTT Ratio Sodium 137 Potassium 5.2 H Chloride 105 Carbon Dioxide 23 Anion Gap 9 BUN 99 H Creatinine 2.74 H Est Cr Clr Drug Dosing 16.4 Est GFR ( Amer) 18.6 Est GFR (Non-Af Amer) 16.1 BUN/Creatinine Ratio 36.1 H Glucose 216 H Calcium 9.3 SARS-CoV-2, RNA, NAAT NEGATIVE Blood Type Antibody Screen Crossmatch Medications Administered Medications aspirin 81 mg tablet,delayed release 81 mg PO DAILY 10/11/18 [History Confirmed 12/14/21] carboxymethylcellulose 0.5 %-glycerin 0.9 % eye drops (Refresh Optive) 2 drp OPHTHALMIC (EYE) QID PRN 10/11/18 [History Confirmed 12/05/21] cetirizine 10 mg capsule (Zyrtec) 10 mg PO DAILY 10/11/18 [History Confirmed 12/05/21] moxifloxacin 0.5 % eye drops 1 drp OPHTHALMIC (EYE) QID 10/11/18 [History Confirmed 12/05/21] prednisolone acetate 1 % eye drops,suspension 1 drp OPR TID 10/11/18 [History Confirmed 12/05/21] ketoconazole 2 % topical cream 1 applic TOP DIRECTED #30 gm 07/20/19 [History Confirmed 12/05/21] BiPap Machine #1 ea 08/12/19 [Rx Confirmed 12/05/21] albuterol sulfate 2.5 mg INHALATION Q4 PRN ml 09/04/19 [History Confirmed 12/14/21] insulin regular human 100 unit/mL injection solution (Novolin R Regular U-100 Insulin) See Rx Instructions .ROUTE .COMPLEX 07/28/20 [History Confirmed 12/14/21] acyclovir 800 mg tablet 800 mg PO DAILY tab 11/02/20 [History Confirmed 12/14/21] modafinil 100 mg tablet 100 mg PO DAILY PRN tab 11/02/20 [History Confirmed 12/05/21] blood-glucose meter,continuous (Dexcom G6 Java Swing Developer) 05/01/21 [History Confirmed 12/05/21] blood-glucose sensor (Dexcom G6 Sensor) 05/01/21 [History Confirmed 12/05/21] blood-glucose transmitter (Dexcom G6 Transmitter) 05/01/21 [History Confirmed 12/05/21] insulin NPH isoph U-100 human 100 unit/mL subcutaneous suspension (Novolin N NPH U-100 Insulin isophane) 25 unit SUBCUT QPM ml 05/01/21 [History Confirmed 12/05/21] ascorbic acid (vitamin C) 500 mg tablet (Vitamin C) 500 mg PO DAILY tab 06/15/21 [History Confirmed 12/14/21] cholecalciferol (vitamin D3) 50 mcg (2,000 unit) capsule (Vitamin D3) 1,000 unit PO BID cap 06/15/21 [History Confirmed 12/14/21] mecobalamin (vitamin B12) 1,000 mcg chewable tablet 1,000 mcg PO DAILY 06/15/21 [History Confirmed 12/05/21] ezetimibe 10 mg tablet (Zetia) 10 mg PO DAILY #90 tab 07/03/21 [Rx Confirmed 12/14/21] carvedilol 12.5 mg tablet 12.5 mg PO .COMPLEX #90 tab 07/10/21 [Rx Confirmed 12/14/21] clopidogrel 75 mg tablet 75 mg PO DAILY #30 tab 07/10/21 [Rx Confirmed 12/14/21] furosemide 20 mg tablet 20 mg PO DAILY #30 tab 07/10/21 [Rx Confirmed 12/14/21] meclizine 25 mg tablet 25 mg PO DAILY #270 tab 09/21/21 [Rx Confirmed 12/14/21] levothyroxine 50 mcg tablet 50 mcg PO 6XWK #30 tab 09/25/21 [Rx Confirmed 12/14/21] lisinopril 20 mg tablet 20 mg PO DAILY #30 tab 10/04/21 [Rx Confirmed 12/14/21] magnesium oxide 500 mg tablet 500 mg PO BID 12/02/21 [History Confirmed 12/14/21] omeprazole 40 mg capsule,delayed release 40 mg PO DAILY cap 12/04/21 [History Confirmed 12/14/21] rivaroxaban 15 mg tablet (Xarelto) 15 mg PO BID 12/14/21 [History Confirmed 12/14/21] rivaroxaban [Xarelto] PO BID 12/14/21 [History Confirmed 12/14/21] Home Medications Sodium Chloride (Nss) 250 mls @ 15 mls/hr IV .[id number] PRN PRN Reason: For Transfusion Stop: 12/15/21 01:30 Pantoprazole Sodium 40 mg/ (Dextrose) 100 mls @ 20 mls/hr IV Q5H GUIDO Stop: 01/13/22 16:14 Calcium Gluconate () 1,000 mg in 60 mls @ 240 mls/hr IV ONE STA Stop: 12/14/21 16:45 Last Admin: 12/14/21 16:35 Dose: 240 mls/hr Documented by: Code Status & VTE Plan Code Status Full Code VTE Prophylaxis Plan VTE Prophylaxis will be ordered: Yes Supervising Physician Co-Signing Physician Notes I personally saw and examined the patient. I verified all rutledge points and agree with Jared Alanis PA-C with the following exceptions and/or additions: 76 year old female admission for bright red blodd in stool and anemia found on outpatient labs after recently starting Xarelto for LUE DVT. Recent CABG 03/2021. Unknown prior colonoscopy but per chart review has history of gastric ulcer. Symptomatic with fatigue and shortness of breath on exertion. No chest pain, shortness of breath of dizziness at rest. O/E HS1+2, no murmurs, no resp distress Chest CTAB, Abdo SNT, BS normal. A/P Acute GI bleed - IV pantoprazole bolus and drip however given bright red blood bleed may be more distal. Clear liquid today. NPO @ midnight. Aspirin on hold since she started on Xarelto. Hold both Xarelto and clopidogrel. Likely can restart on clopidogrel post EGD. Transfuse 2 units then repeat H&H. Aim Hgb > 9. PG Care Time/CCT Total # of Minutes Spent Total Time Spent with Patient: Total time spent is greater than 50% in coordination of care (as documented) at patient's floor/unit and/or counseling patient:64 Coding Level of Care Code 86339 Initial Inpt Care Lvl 3 Diagnoses GIB (gastrointestinal bleeding) K92.2 GI bleed type/associated pathology: unspecified gastrointestinal hemorrhage type Acute blood loss anemia D62 Deep vein thrombosis (DVT) of left upper extremity I82.622 CAD (coronary artery disease) I25.10 Associated angina: without angina Coronary Disease-Associated Artery/Lesion type: [place] artery [place] vs. transplanted heart: [place] heart Left bundle branch block I44.7 Severe obstructive sleep apnea G47.33 Hypertension I10 Hypertension type: primary hypertension Chronic kidney disease, stage III (moderate) N18.3 Cardiac pacemaker Z95.0 Type 2 diabetes mellitus treated with insulin E11.9; Z79.4 Time Spent (min) 78 (1) GIB (gastrointestinal bleeding) GI bleed type/associated pathology: unspecified gastrointestinal hemorrhage type Qualified Code(s): K92.2 - Gastrointestinal hemorrhage, unspecified (2) CAD (coronary artery disease) Associated angina: without angina Coronary Disease-Associated Artery/Lesion type: [place] artery [place] vs. transplanted heart: [place] heart Qualified Code(s): I25.10 - Atherosclerotic heart disease of [place] coronary artery without angina pectoris (3) Hypertension Hypertension type: primary hypertension Qualified Code(s): I10 - Essential (primary) hypertension
--- NOTE | 2021-12-14 16:54 | Emergency Department Note ---
History of Present Illness General Chief complaint: Abnormal Labs/Diagnostic Testing Stated complaint: RED BLOOD CELL COUNT DOWN,TIRED,DIZZY,REF BY DOC Time Seen by Provider: 12/14/21 14:34 History of Present Illness Provider Complaint: + gross hematochezia Onset (ago): 2 week(s) Current Pain Intensity: 0 Relieved By: + none Exacerbated By: + bowel movement Context: + anticoagulant use (xarelto) Associated symptoms: no abdominal pain, no nausea, no vomiting, no epistaxis, no fever, no chills, no headaches, no loss of appetite, no malaise, no easy brui sing, no rash, no other bleeding, no shortness of breath, no syncope or no weakness Home Medications Medication Instructions Recorded Confirmed Type aspirin 81 mg tablet,delayed 81 mg PO DAILY 10/11/18 12/14/21 History release carboxymethylcellulose 0.5 2 drp OPHTHALMIC (EYE) QID PRN 10/11/18 12/14/21 History %-glycerin 0.9 % eye drops (Refresh Optive) cetirizine 10 mg capsule (Zyrtec) 10 mg PO DAILY 10/11/18 12/14/21 History moxifloxacin 0.5 % eye drops 1 drp OPHTHALMIC (EYE) QID 10/11/18 12/14/21 History prednisolone acetate 1 % eye 1 drp OPR TID 10/11/18 12/14/21 History drops,suspension ketoconazole 2 % topical cream 1 applic TOP DIRECTED #30 gm 07/20/19 12/05/21 History BiPap Machine #1 ea 08/12/19 12/05/21 Rx albuterol sulfate 2.5 mg INHALATION Q4 PRN ml 09/04/19 12/14/21 History insulin regular human 100 unit/mL See Rx Instructions .ROUTE .COMPLEX 07/28/20 12/14/21 History injection solution (Novolin R Regular U-100 Insulin) acyclovir 800 mg tablet 800 mg PO DAILY tab 11/02/20 12/14/21 History modafinil 100 mg tablet 100 mg PO DAILY PRN tab 11/02/20 12/14/21 History blood-glucose meter,continuous 05/01/21 12/05/21 History (Dexcom G6 Investigator Internal Affairs) blood-glucose sensor (Dexcom G6 05/01/21 12/05/21 History Sensor) blood-glucose transmitter (Dexcom 05/01/21 12/05/21 History G6 Transmitter) insulin NPH isoph U-100 human 100 25 unit SUBCUT QPM ml 05/01/21 12/05/21 History unit/mL subcutaneous suspension (Novolin N NPH U-100 Insulin isophane) ascorbic acid (vitamin C) 500 mg 500 mg PO DAILY tab 06/15/21 12/14/21 History tablet (Vitamin C) cholecalciferol (vitamin D3) 50 1,000 unit PO BID cap 06/15/21 12/14/21 History mcg (2,000 unit) capsule (Vitamin D3) mecobalamin (vitamin B12) 1,000 1,000 mcg PO DAILY 06/15/21 12/14/21 History mcg chewable tablet ezetimibe 10 mg tablet (Zetia) 10 mg PO DAILY #90 tab 07/03/21 12/14/21 Rx carvedilol 12.5 mg tablet 12.5 mg PO .COMPLEX #90 tab 07/10/21 12/14/21 Rx clopidogrel 75 mg tablet 75 mg PO DAILY #30 tab 07/10/21 12/14/21 Rx furosemide 20 mg tablet 20 mg PO DAILY #30 tab 07/10/21 12/14/21 Rx meclizine 25 mg tablet 25 mg PO DAILY #270 tab 09/21/21 12/14/21 Rx levothyroxine 50 mcg tablet 50 mcg PO 6XWK #30 tab 09/25/21 12/14/21 Rx lisinopril 20 mg tablet 20 mg PO DAILY #30 tab 10/04/21 12/14/21 Rx magnesium oxide 500 mg tablet 500 mg PO BID 12/02/21 12/14/21 History omeprazole 40 mg capsule,delayed 40 mg PO DAILY cap 12/04/21 12/14/21 History release rivaroxaban 15 mg tablet (Xarelto) 15 mg PO BID 12/14/21 12/14/21 History Allergies Allergy/AdvReac Type Severity Reaction Status Date / Time Hgblszq-XUL-VfT Reductase Allergy Severe CHEST PAIN Verified 12/14/21 16:48 Inhibitor [Zxbbvzg-Goy-Xmc Reductase Inhibitor] adhesive Allergy Intermediate SKIN Verified 12/14/21 16:48 IRRITATION-BANDAGES aspartame Allergy Mild pt Verified 12/14/21 16:48 reported allergy to equal latex Allergy Mild RASH Verified 12/14/21 16:48 aspirin Allergy Unknown AVOID HX Verified 12/14/21 16:48 GI BLEED ibuprofen AdvReac Severe gave me a Verified 12/14/21 16:48 duodenal ulcer morphine AdvReac Severe NARCOTICS-GI Verified 12/14/21 16:48 UPSET AND HALLUCINATIONS NSAIDS (Non-Steroidal AdvReac Severe HX ULCER Verified 12/14/21 16:48 Anti-Inflamma chlorhexidine AdvReac Intermediate itching Verified 12/14/21 16:48 and burning tramadol AdvReac Intermediate vomit Verified 12/14/21 16:48 acetaminophen AdvReac Unknown TO AVOID Verified 12/14/21 16:48 -"have an enlarged liver" FATTY LIVER opioids Allergy Severe Vomiting,mijares Uncoded 12/14/21 16:48 llucination s Past Med/Surg History Medical History Allergic rhinitis Asthma Barretts esophagus Bilateral edema of lower extremity Cervical post-laminectomy syndrome Cervical stenosis of spine Chronic kidney disease, stage III (moderate) DDD (degenerative disc disease) Degeneration of cervical intervertebral disc Diabetes mellitus type 1 Diabetic nephropathy Diabetic peripheral neuropathy Disc degeneration, lumbar Diverticulosis Dyslipidemia Esophageal dyskinesia External hemorrhoids Fatty liver Gastroesophageal reflux Hyperplastic colon polyp Hypertension Hypothyroidism Internal hemorrhoids Left bundle branch block Meniere's disease, left ear Mixed conductive and sensorineural hearing loss of left ear with restricted hearing of right ear Myofascial pain syndrome Nocturnal hypoxemia Obesity Osteopenia Periodic limb movement disorder Peripheral vascular disease Severe obstructive sleep apnea Stress incontinence in female Vitamin D deficiency Surgical History H/O lumbosacral spine surgery History of bladder surgery History of cardiac cath 08/21/2019: Severe branch vessel CAD (80-90% stenosis 1st diag) 30-40% ostial LAD/ 40-50% distal RCA ; Preserved cardiac output; NO PCI / Treated medically / (Appears amendable to PCI) History of carotid endarterectomy History of cataract removal with insertion of prosthetic lens History of colonoscopy History of mastoidectomy History of myringoplasty left ear History of oral surgery History of tonsillectomy and adenoidectomy History of total abdominal hysterectomy with removal of both ovaries History of tubal ligation S/P cervical spinal fusion Family History Mother Stroke syndrome Brother Stroke syndrome Myocardial infarction Coronary heart disease Sister Coronary heart disease Stroke syndrome Aunt Breast cancer Father Tuberculosis Social History Smoking Status: Former smoker Second Hand Exposure: No; Hx Alcohol Use: No Hx Substance Use: No Preferred Language: [place] Communication Ability: Effective Beliefs That Will Affect Care: None Current Living Situation: Spouse 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 Feels Safe at Home: Yes Assistive Devices: BiPap, Oxygen - Continuous and Walker Review of Systems A total of 10 systems reviewed and were otherwise negative Physical Exam Vital Signs: Vital Signs - 24 hr 12/14/21 14:21 12/14/21 15:24 12/14/21 15:37 Temperature 36.5 C Temperature Source Temporal Artery Sc an Pulse Rate 61 Pulse Rate [Apical ] Pulse Rhythm [Apic al] Pulse Strength [Ap ical] Respiratory Rate 18 18 18 Respiratory Effort / Characteristics Non-Labored Non-Labored Respiratory Depth Normal Normal Respiratory Patter n Regular Blood Pressure 127/54 L Blood Pressure [Le ft Arm] Blood Pressure Janette n 78 Blood Pressure Janette n [Left Arm] Blood Pressure Pos ition [Left Arm] Pulse Oximetry 97 Oxygen Delivery Me thod Room Air Sepsis Recent Feve r Within 48 Hours No Sepsis New/Unexpla ined Change in Men lauren Status N/A Sepsis Action Take n by Nursing No Action Required 12/14/21 15:49 Temperature Temperature Source Pulse Rate Pulse Rate [Apical ] 60 Pulse Rhythm [Apic al] Regular Pulse Strength [Ap ical] Normal Respiratory Rate 18 Respiratory Effort / Characteristics Non-Labored Respiratory Depth Normal Respiratory Patter n Regular Blood Pressure Blood Pressure [Le ft Arm] 142/36 H Blood Pressure Janette n Blood Pressure Janette n [Left Arm] 71 Blood Pressure Pos ition [Left Arm] Lying Pulse Oximetry 100 Oxygen Delivery Me thod Room Air Sepsis Recent Feve r Within 48 Hours Sepsis New/Unexpla ined Change in Men lauren Status Sepsis Action Take n by Nursing Physical Exam: Physical Exam GENERAL: She is oriented to person, place, and time. She appears well-developed and well-nourished. She does not appear distressed. HENT: Exam performed. -Head: Normocephalic and atraumatic. -Right Ear: External ear normal. No mastoid tenderness. -Left Ear: External ear normal. No mastoid tenderness. -Mouth/Throat: The oropharynx is clear and moist. No trismus in the jaw. No dental abscesses or uvula swelling. No oropharyngeal exudate or tonsillar abscesses. EYES: Conjunctivae and EOM are normal. Pupils are equal, round, and reactive to light. Right eye exhibits no discharge. Left eye exhibits no discharge. No scleral icterus. NECK: Normal range of motion. Neck supple. No JVD present. No spinous process tenderness present. No carotid bruit present. No rigidity. No tracheal deviation and normal range of motion present. No Brudzinski's sign and no Kernig's sign noted. CV: Normal rate, regular rhythm, normal heart sounds and intact distal pulses. There is no peripheral edema. Palpable radial pulses bue. PULM/CHEST: Effort normal and breath sounds normal. No respiratory distress. No stridor. She has no wheezes. She has no rales. -Chest Wall: She exhibits no tenderness. ABD: The abdomen is soft. Bowel sounds are normal. She has no distension. No mass is present. There is no tenderness. There is no rebound, no guarding, no Dodson's sign and no tenderness at McBurney's point. Rovsig negative Rectal: Bright red blood per rectum. MUSC/SKEL: Normal range of motion. There is no peripheral edema, tenderness or deformity. LYMPH: No cervical adenopathy. NEURO: She is alert and oriented to person, place, and time. She has normal strength. No cranial nerve deficit or sensory deficit. Coordination and gait normal. GCS eye subscore is 4. GCS verbal subscore is 5. GCS motor subscore is 6. Cerebellar tests wnl. SKIN: Skin is warm and dry. She is not diaphoretic. PSYCH: She has a normal mood and affect. Behavior is normal. Judgment and thought content normal. Course Course 1434: The patient was evaluated in room C8. A complete history and physical exam was performed Cardiac monitoring: An order was placed for continuous cardiac monitoring. The monitor shows a rate of 60 with paced rhythm 1652: Vital signs stable. Labs show hemoglobin of 6.7. Patient be transfused 1 unit packed red blood cells. Labs also show potassium of 5.2. Calcium glu conate 1 g ordered for the patient. Creatinine 2.74. [facility] Laneir. I discussed with Jared CARMEN for Dr. Lanier who will admit the patient. Administered Medications Discontinued Medications Pantoprazole Sodium 80 mg/ (Dextrose) 120 mls @ 400 mls/hr IV NOW ONE Stop: 12/14/21 16:17 Last Infusion: 12/14/21 16:35 Dose: 0 mls/hr Documented by: [id number] Admin: 12/14/21 16:17 Dose: 400 mls/hr Documented by: [id number] Calcium Gluconate () 1,000 mg in 60 mls @ 240 mls/hr IV ONE STA Stop: 12/14/21 16:45 Last Admin: 12/14/21 16:35 Dose: 240 mls/hr Documented by: [id number] Medical Decision Making Laboratory Data Result diagrams: 12/14/21 15:05 12/14/21 15:05 Lab Results 12/14/21 12/14/21 12/14/21 Range/Units 15:05 15:05 15:05 WBC 9.95 (4.8-10.8) K/uL RBC 2.09 L (4.2-5.4) M/uL Hgb 6.7 L* (12.0-16.0) g/dL Hct 19.5 L* (37-47) % MCV 93.3 (80-100) fL MCH 32.1 (25-34) pg MCHC 34.4 (32-36) g/dL RDW Std Deviation 46.4 H (36.4-46.3) fL RDW Coeff of Eloina 13.7 (11.5-14.5) % Plt Count 244 (130-400) K/uL MPV 9.2 (7.4-10.4) fL Immature Gran % (Auto) 0.3 % Neut % (Auto) 79.3 % Lymph % (Auto) 16.5 % Coffey % (Auto) 3.2 % Eos % (Auto) 0.6 % Baso % (Auto) 0.1 % Neut # (Auto) 7.89 H (1.4-6.5) K/uL Lymph # (Auto) 1.64 (1.2-3.4) K/uL Coffey # (Auto) 0.32 (0.11-0.59) K/uL Eos # (Auto) 0.06 (0-0.5) K/uL Baso # (Auto) 0.01 (0-0.2) K/uL Immature Gran # (Auto) 0.03 H (0.00-0.02) K/uL RBC Morphology Unremarkable PT 13.1 H (9.0-12.0) Seconds INR 1.2 H (0.9-1.1) APTT 31.4 H (21.0-31.0) Seconds PTT Ratio 1.1 Sodium (136-145) mmol/L Potassium (3.5-5.1) mmol/L Chloride (98-107) mmol/L Carbon Dioxide (21-32) mmol/L Anion Gap (3-11) BUN (6-23) mg/dl Creatinine (0.6-1.2) mg/dl Est Cr Clr Drug Dosing ml/min Est GFR ( Amer) ml/min Est GFR (Non-Af Amer) ml/min BUN/Creatinine Ratio (10-20) Glucose (70-99(Fasting)) mg/dl Calcium (8.5-10.1) mg/dl SARS-CoV-2, RNA, NAAT (NEGATIVE) Blood Type O Negative Antibody Screen NEGATIVE Crossmatch See Detail 12/14/21 12/14/21 Range/Units 15:05 15:29 WBC (4.8-10.8) K/uL RBC (4.2-5.4) M/uL Hgb (12.0-16.0) g/dL Hct (37-47) % MCV (80-100) fL MCH (25-34) pg MCHC (32-36) g/dL RDW Std Deviation (36.4-46.3) fL RDW Coeff of Eloina (11.5-14.5) % Plt Count (130-400) K/uL MPV (7.4-10.4) fL Immature Gran % (Auto) % Neut % (Auto) % Lymph % (Auto) % Coffey % (Auto) % Eos % (Auto) % Baso % (Auto) % Neut # (Auto) (1.4-6.5) K/uL Lymph # (Auto) (1.2-3.4) K/uL Coffey # (Auto) (0.11-0.59) K/uL Eos # (Auto) (0-0.5) K/uL Baso # (Auto) (0-0.2) K/uL Immature Gran # (Auto) (0.00-0.02) K/uL RBC Morphology PT (9.0-12.0) Seconds INR (0.9-1.1) APTT (21.0-31.0) Seconds PTT Ratio Sodium 137 (136-145) mmol/L Potassium 5.2 H (3.5-5.1) mmol/L Chloride 105 (98-107) mmol/L Carbon Dioxide 23 (21-32) mmol/L Anion Gap 9 (3-11) BUN 99 H (6-23) mg/dl Creatinine 2.74 H (0.6-1.2) mg/dl Est Cr Clr Drug Dosing 16.4 ml/min Est GFR ( Amer) 18.6 ml/min Est GFR (Non-Af Amer) 16.1 ml/min BUN/Creatinine Ratio 36.1 H (10-20) Glucose 216 H (70-99(Fasting)) mg/dl Calcium 9.3 (8.5-10.1) mg/dl SARS-CoV-2, RNA, NAAT NEGATIVE (NEGATIVE) Blood Type Antibody Screen Crossmatch ECG Data Additional Comments: Paced rhythm with rate of 60. NV 154 QRS [address] elevation or ST depression. MDM Narrative Vital signs stable. Labs show hemoglobin of 6.7. Patient be transfused 1 unit packed red blood cells. Labs also show potassium of 5.2. Calcium gluconate 1 g ordered for the patient. Creatinine 2.74. [facility]. I discussed with Jared CARMEN for Dr. Lanier who will admit the patient. Impression & Plan GIB (gastrointestinal bleeding) Critical Care Time Critical Care Time: Yes Total Critical Care Time: 45 I have personally spent greater than 45 minutes of critical care time in the direct management of this patient. This includes bedside care, interpretation of diagnostic studies, and testing, discussion with consultants, patient, and family members, and other required patient management activities. This 45 minutes is in excess of all separately billable procedures. Discharge Plan Visit Data Chief Complaint: Abnormal Labs/Diagnostic Testing Stated Complaint: RED BLOOD CELL COUNT DOWN,TIRED,DIZZY,REF BY DOC Discharge Problem: GIB (gastrointestinal bleeding) Patient Disposition: Admitted As Inpatient Forms Stand Alone Forms: My [facility] Prescriptions Prescriptions: No Action ezetimibe [Zetia] 10 mg tablet 10 mg PO DAILY Qty: 90 RF: 3 carvedilol 12.5 mg tablet 12.5 mg PO .COMPLEX Qty: 90 RF: 5 clopidogrel 75 mg tablet 75 mg PO DAILY Qty: 30 RF: 5 furosemide 20 mg tablet 20 mg PO DAILY Qty: 30 RF: 5 meclizine 25 mg tablet 25 mg PO DAILY Qty: 270 RF: 3 levothyroxine 50 mcg tablet 50 mcg PO 6XWK Qty: 30 RF: 11 lisinopril 20 mg tablet 20 mg PO DAILY Qty: 30 RF: 6 ketoconazole 2 % cream 1 applic TOP DIRECTED Qty: 30 RF: 0 mecobalamin (vitamin B12) 1,000 mcg tablet,chewable 1,000 mcg PO DAILY RF: 0 Novolin R Regular U-100 Insuln 100 unit/mL solution See Rx Instructions .ROUTE .COMPLEX RF: 0 Novolin N NPH U-100 Insulin 100 unit/mL suspension 25 unit SUBCUT QPM RF: 0 modafinil 100 mg tablet 100 mg PO DAILY PRN (Reason: Insomnia) RF: 0 (DME) BiPap Machine Misc See Dose Instructions .ROUTE .MEDSUPPLY Qty: 1 RF: 0 (DME) Dexcom G6 Transmitter Device See Rx Instructions .Route RF: 0 (DME) Dexcom G6 Sensor Device See Rx Instructions .Route RF: 0 (DME) Dexcom G6 Investigator Internal Affairs Misc See Rx Instructions .Route RF: 0 aspirin 81 mg tablet,delayed release (DR/EC) 81 mg PO DAILY RF: 0 prednisolone acetate 1 % Drops,Suspension 1 drp OPR TID RF: 0 moxifloxacin 0.5 % drops 1 drp ophthalmic (eye) QID RF: 0 Refresh Optive 0.5-0.9 % Drops 2 drp OPHTHALMIC (EYE) QID PRN (Reason: Dry Eyes) RF: 0 Zyrtec 10 mg Capsule 10 mg PO DAILY RF: 0 albuterol sulfate 2.5 mg /3 mL (0.083 %) solution for nebulization 2.5 mg Inhalation Q4 PRN (Reason: Wheezing) RF: 0 acyclovir 800 mg tablet 800 mg PO DAILY RF: 0 ascorbic acid (vitamin C) [Vitamin C] 500 mg tablet 500 mg PO DAILY RF: 0 cholecalciferol (vitamin D3) [Vitamin D3] 50 mcg (2,000 unit) capsule 1,000 unit PO BID RF: 0 omeprazole 40 mg capsule,delayed release(DR/EC) 40 mg PO DAILY RF: 0 magnesium oxide 500 mg Tablet 500 mg PO BID RF: 0 Xarelto 15 mg Tablet 15 mg PO BID RF: 0 Referrals Referrals: Earnest Deutsch MD [Primary Care Provider] -
[2021-12-14] MEDS: PANTOprazole 40 MG in DEXTROSE 5% 100 ML IV SCH ×2 (16:55→21:44)
[2021-12-14] MEDS ORDERED: POLYETHYLENE (MIRALAX) 17 GM PACK PO PRN (18:04)
[2021-12-14] MEDS ORDERED: ACETAMINOPHEN 325 MG TAB PO PRN (18:04)
[2021-12-14] MEDS ORDERED: ALUMINUM/MAGNESIUM SUSP 30 ML UDC PO PRN (18:04)
[2021-12-14] MEDS ORDERED: PHARMACY GLYCEMIC MGMT CONSULT PRN (18:04)
[2021-12-14] MEDS ORDERED: MOXIFLOXACIN HCL 0.5% OP SOLN 3 ML BTL OP SCH (18:04)
[2021-12-14] MEDS ORDERED: MAGNESIUM HYDROXIDE SUSP 30 ML UDC PO PRN (18:04)
[2021-12-14] MEDS ORDERED: ZOLPIDEM TARTRATE 5 MG TAB PO PRN (18:04)
[2021-12-14] MEDS ORDERED: NITROGLYCERIN SL 0.4 MG/TAB TAB SL PRN (18:04)
[2021-12-14] MEDS ORDERED: ONDANSETRON INJ 2 MG/ML 2 ML VIAL IV PRN (18:04)
[2021-12-14] MEDS ORDERED: NON-FORMULARY MEDICATION (Blood-Glucose Transmitter [Dexcom G6 Transmitter] device) SCH (18:04)
[2021-12-14] MEDS ORDERED: ALBUTEROL 0.083% NEBU SOLN 3 ML VIAL INH PRN (18:04)
[2021-12-14] MEDS ORDERED: ARTIFICIAL TEARS OP PRN (18:50)
[2021-12-14 19:06] LABS: Hematocrit (blood only) 18.6 % (37-47); Hemoglobin 6.3 g/dL (12.0-16.0)
[2021-12-14] MEDS ORDERED: GLUCOSE 10 TABS/TUBE PO PRN (19:45)
[2021-12-14] MEDS ORDERED: DEXTROSE 50% 50 ML SYRINGE IV PRN (19:45)
[2021-12-14] MEDS ORDERED: GLUCAGON FOR INJ 1 MG VIAL IM PRN (19:45)
[2021-12-14] MEDS ORDERED: GLUCOSE 40% GEL 15 GM TUBE PO PRN (19:45)
[2021-12-14] MEDS ORDERED: INSULIN HUMAN NPH SC ONE (19:45)
[2021-12-14] MEDS: carvediloL 12.5 MG TAB PO SCH (21:13)
[2021-12-14] MEDS: MAGNESIUM OXIDE 400 MG TAB PO SCH (21:13)
[2021-12-14] MEDS: CHOLECALCIFEROL 1,000 UNITS 25 MCG TAB PO SCH (21:13)
[2021-12-14] MEDS: MOXIFLOXACIN HCL 0.5% OP SOLN 3 ML BTL OP SCH (21:14)
[2021-12-14] MEDS: prednisoLONE acetate 1% OP SUSP 5 ML BTL OP SCH (21:14)
[2021-12-14] MEDS: INSULIN ASPART PER UNIT SC SCH (21:28)
[2021-12-15] MEDS: INSULIN ASPART PER UNIT SC SCH ×5 (00:07→23:54)
[2021-12-15] MEDS: PANTOprazole 40 MG in DEXTROSE 5% 100 ML IV SCH ×5 (02:30→23:52)
[2021-12-15 04:54] LABS: Basophils # (auto) 0.02 K/uL (0-0.2); Basophils % (auto) 0.2 %; Eosinophils # (auto) 0.11 K/uL (0-0.5); Eosinophils % (auto) 1.4 %; Hematocrit (blood only) 26.2 % (37-47); Hemoglobin 8.8 g/dL (12.0-16.0); Immature Granulocytes # (auto) 0.08 K/uL (0.00-0.02); Lymphocytes # (auto) 2.06 K/uL (1.2-3.4); Lymphocytes % (auto) 25.7 %; Mean Corpuscular Hemoglobin 30.9 pg (25-34); Mean Corpuscular Hgb Conc 33.6 g/dL (32-36); Mean Corpuscular Volume 91.9 fL (80-100); Mean Platelet Volume 9.5 fL (7.4-10.4); Monocytes # (auto) 0.46 K/uL (0.11-0.59); Monocytes % (auto) 5.7 %; Neutrophils # (auto) 5.29 K/uL (1.4-6.5); Nucleated RBC # (auto) 0.02 K/uL (0-0); Nucleated RBC % (auto) 0.2 %; Platelet Count 214 K/uL (130-400); RDW Coefficient of Variation 14.2 % (11.5-14.5); RDW Standard Deviation 46.8 fL (36.4-46.3); Red Blood Count 2.85 M/uL (4.2-5.4); White Blood Count 8.02 K/uL (4.8-10.8)
[2021-12-15 05:14] LABS: Albumin Globulin Ratio 1.8 (0.9-2); Albumin Level 3.5 gm/dl (3.4-5.0); BUN Creatinine Ratio 37.4 (10-20); Bilirubin,Total 0.5 mg/dl (0.2-1.0); Calcium 9.2 mg/dl (8.5-10.1); Creatinine Clr Calc Pharmacy 17.2 ml/min; Est GFR (African American) 20.1 ml/min; Est GFR (Non-African American) 17.3 ml/min; Globulin 1.9 gm/dl (2.5-4.0); Potassium 4.8 mmol/L (3.5-5.1); Total Protein 5.4 gm/dl (6.0-8.3)
[2021-12-15] MEDS: LEVOTHYROXINE SODIUM 50 MCG TABLET PO SCH (05:54)
[2021-12-15] MEDS ORDERED: INSULIN HUMAN NPH SC ONE ×2 (07:30)
[2021-12-15] MEDS: carvediloL 12.5 MG TAB PO SCH ×2 (08:38→22:09)
[2021-12-15] MEDS: CETIRIZINE HCL 10 MG TABLET PO SCH (08:39)
[2021-12-15] MEDS: CYANOCOBALAMIN (B-12) 500 MCG TABLET PO SCH (08:39)
[2021-12-15] MEDS: ASCORBIC ACID 500 MG TAB PO SCH (08:40)
[2021-12-15] MEDS: ACYCLOVIR 400 MG TAB PO SCH (08:40)
[2021-12-15] MEDS: lisinopril 20 MG TAB PO SCH (08:40)
[2021-12-15] MEDS: CHOLECALCIFEROL 1,000 UNITS 25 MCG TAB PO SCH ×2 (08:40→22:09)
[2021-12-15] MEDS: EZETIMIBE 10 MG TABLET PO SCH (08:40)
[2021-12-15] MEDS: MOXIFLOXACIN HCL 0.5% OP SOLN 3 ML BTL OP SCH ×3 (08:41→22:10)
[2021-12-15] MEDS: MAGNESIUM OXIDE 400 MG TAB PO SCH ×2 (08:41→22:08)
[2021-12-15] MEDS: prednisoLONE acetate 1% OP SUSP 5 ML BTL OP SCH ×3 (08:42→22:10)
[2021-12-15] MEDS ORDERED: CLOPIDOGREL BISULFATE 75 MG TAB PO SCH (09:00)
[2021-12-15] MEDS ORDERED: MECLIZINE HCL 25 MG TAB PO SCH (09:00)
[2021-12-15 10:09] LABS: Hematocrit (blood only) 23.8 % (37-47); Hemoglobin 8.2 g/dL (12.0-16.0)
[2021-12-15] MEDS ORDERED: SODIUM CHLORIDE 0.9% 250 ML IV PRN (10:50)
--- NOTE | 2021-12-15 13:20 | Pharmacy Report ---
Pharmacy Glycemic Short Note 2 - Date of Service December 15, 2021 - Glycemic Short BSG Results (Last 24 hours): 12/14/21 12/14/21 12/14/21 15:05 18:09 20:57 Glucose 216 H POC Glucose 243 H 218 H 12/15/21 12/15/21 12/15/21 00:04 04:36 05:47 Glucose 196 H POC Glucose 160 H 231 H 12/15/21 12/15/21 07:35 11:21 Glucose POC Glucose 196 H 198 H OUTPATIENT ANTIDIABETIC REGIMEN: * NPH 25 units SQ qPM * Regular insulin SSI (60-70 units/day) * HbA1c: 7% (10/27/21) ASSESSMENT: * Ms Louie is a 76yo diabetic female admitted with GI bleed. * She is currently NPO. * NPH was held last evening per nursing, so BSGs have been elevated today. * NPH resumed this morning. Will continue to adjust as needed, while NPO and once diet has resumed. PLAN FOR INPATIENT GLYCEMIC CONTROL: * Basal insulin * NPH 15 units SQ BID * Bolus insulin * NovoLog per scale ACHS or Q6hrs while NPO * Goal Range: Low 110 mg/dL - High 140 mg/dL * Correction Factor: 25 mg/dL/unit * Nutritional / Prandial insulin per carb ratio of 1 unit per 8 grams CHO consumed
--- NOTE | 2021-12-15 15:06 | Hospitalist Progress Note ---
Date of Service December 15, 2021 Assessment & Plan (1) GIB (gastrointestinal bleeding): (2) Acute blood loss anemia: Plan: Hemoglobin 8.2 following 2 units of packed red blood cells. Transfuse additional units today to aim hemoglobin greater than 9. Appreciate gastroenterology management - planning on EGD and colonoscopy tomorrow Discontinue Xarelto Discontinue Plavix until after EGD/colonoscopy (3) Deep vein thrombosis (DVT) of left upper extremity: Plan: Non-occlusive Proximal Left Subclavian DVT and Chronic Non-occlusive Left Cephalic Vein DVT which diagnosed 12/05/21 and she started on Xarelto on 12/05/21). Aspirin is on hold as well. -- Restart anticoagulation after bleeding is stopped, source is identified and treated, and when okay from GI point of view. (4) CAD (coronary artery disease): Plan: CAD s/p LAD/Diagonal Stenting 10/2020 s/p CABG x 3 Vessels 03/2021. Fortunately, she is asymptomatic from a cardiac standpoint. She has not had any angina pectoris or anginal equivalent symptoms despite her marked anemia. -- Continue Coreg with hold parameters. -- Continue Lisinopril with hold parameters. -- Continue Plavix post EGD colonoscopy due to prior LAD/Diagonal Stenting. -- Remain off of Aspirin. -- Continue Zetia 10 mg daily, she is intolerant of statins. -- Consider Repatha 140 mg every 2 weeks. -- Maintain Hgb > 9.0 g/dL. (5) Left bundle branch block: Plan: History of Chronic LBBB but she is AV sequentially pacing and has a narrow QRS complex due to pacing from LBB. (6) Severe obstructive sleep apnea: Plan: -- Continue chronic supplemental O2 at 2 L/min via NC. -- BiPAP qHS. (7) Hypertension: Plan: BP has been stable. SBP is running in the 130's and 140's. -- Continue Coreg with hold parameters. -- Continue Lisinopril with hold parameters. (8) Chronic kidney disease, stage III (moderate): Plan: Followed by Dr. Jesus. Mildly elevated on admission with creatinine 2.78 from baseline 1.98. Improving with blood transfusions. (9) Cardiac pacemaker: Plan: Due to sinus node dysfunction. -- AV sequentially pacing and has a narrow QRS complex due to pacing from LBB. (10) Type 2 diabetes mellitus treated with insulin: Plan: HbA1c 7.0 in October. No need to repeat this in setting of acute GI bleed. -- Glycemic pharmacy consult. -- BSG qAC and HS and PRN. Plan: VTE prophylaxis -SCDs Diet -clear liquids today, n.p.o. at midnight Disposition -stable for downgrade to med telemetry Admission and Anticipated Discharge Date Admission Date: December 14, 2021 Subjective No chest pain, dizziness, shortness of breath. Keen to get out of bed. Pallor appears much improved. Review of Systems Review of Systems: All systems reviewed & are unremarkable except as noted in Subjective Physical Exam Constitutional: WD/WN, vitals as above Eyes: no conjunctival abnormality Respiratory: normal respiratory effort, lungs clear to auscultation Cardiovascular: RRR, no murmur, no edema Gastrointestinal (Abdomen): Inspection/Auscultation: normal bowel sounds Percussion/Palpation: abdomen soft; abdomen nontender Musculoskeletal: no cyanosis or clubbing, extremities motor strength 5/5 Skin: no rashes, warm and dry Neurologic: moves all extremities and awake; not confused Psychiatric: A+Ox3, euthymic affect Results & Data Results & Data ([facility]) Vital Signs (Past 12 Hours) Vital Signs Temp Pulse Pulse Resp BP BP Pulse Ox 12/15/21 13:29 36.7 C 60 14 148/71 H 98 12/15/21 13:13 36.7 C 60 154/67 H 12/15/21 12:14 36.5 C 82 20 124/65 98 12/15/21 12:13 36.7 C 60 144/71 H 97 12/15/21 11:43 36.8 C 60 133/66 98 12/15/21 11:28 36.8 C 60 133/66 98 12/15/21 11:09 36.6 C 64 20 134/50 L 97 12/15/21 08:00 60 12/15/21 07:46 36.6 C 73 17 158/63 H 98 12/15/21 04:07 36.6 C 65 18 153/62 H 99 PG Care Time/CCT Total # of Minutes Spent Total Time Spent with Patient: Total time spent is greater than 50% in coordination of care (as documented) at patient's floor/unit and/or counseling patient: Coding Level of Care Code 77434 Subseq Hosp Care Lvl 2 Diagnoses GIB (gastrointestinal bleeding) K92.2 GI bleed type/associated pathology: unspecified gastrointestinal hemorrhage type Acute blood loss anemia D62 Deep vein thrombosis (DVT) of left upper extremity I82.622 CAD (coronary artery disease) I25.10 Associated angina: without angina Coronary Disease-Associated Artery/Lesion type: [place] artery [place] vs. transplanted heart: [place] heart Left bundle branch block I44.7 Severe obstructive sleep apnea G47.33 Hypertension I10 Hypertension type: primary hypertension Chronic kidney disease, stage III (moderate) N18.3 Cardiac pacemaker Z95.0 Type 2 diabetes mellitus treated with insulin E11.9; Z79.4 (1) GIB (gastrointestinal bleeding) GI bleed type/associated pathology: unspecified gastrointestinal hemorrhage type Qualified Code(s): K92.2 - Gastrointestinal hemorrhage, unspecified (2) CAD (coronary artery disease) Associated angina: without angina Coronary Disease-Associated Artery/Lesion type: [place] artery [place] vs. transplanted heart: [place] heart Qualified Code(s): I25.10 - Atherosclerotic heart disease of [place] coronary artery without angina pectoris (3) Hypertension Hypertension type: primary hypertension Qualified Code(s): I10 - Essential (primary) hypertension
--- NOTE | 2021-12-15 15:06 | Gastrointestinal Consultation ---
Date of Consultation December 15, 2021 Assessment & Plan (1) GIB (gastrointestinal bleeding): (2) Acute blood loss anemia: Destabilizing lower GI bleeding, with acute blood loss anemia after starting treatment with Xarelto for management of vascular disease with DVTs. The most likely source is the colon, based on hematochezia and no melenic stools. Following resuscitation with packed red blood cells, she is hemodynamically stable. I have recommended proceeding with colonoscopy preparation today and both EGD and Colonoscopy exams tomorrow morning, for identification and possible treatment of a bleeding site. The recommended procedures were discussed with the patient and her spouse, including the indications for examination and potential benefits, risks, alternatives, potential outcomes, and post procedure plans of care. All questions were addressed and answered, understanding was acknowledged, and verbal consent was obtained History of Present Illness Reason for Consultation: Gastrpintestinal bleeding with symptomatic blood loss anemia Attending Physician: Marcelo Lanier MD History of Present Illness Ms. Corona is a 76 year old woman admitted to the hospital yesterday evening with new onset of severe fatigue and history of multiple episodes of hematochezia since 12-05-21, and the finding of severe blood loss anemia. History is obtained from the patient and her /caregiver, and from the medical record. There is a past history of Hypertension, CAD s/p LAD/Diagonal Stenting 10/2020 s/p CABG x 3 Vessels 03/2021, PAD, Sinus Node Dysfunction s/p Dual-Chamber Pacemaker 03/2021, Chronic LBBB, Cerebrovascular Disease s/p Right CEA 11/2017 in the setting of TIA and later Right Carotid Stenting 07/2018, Obesity with NIRU on BiPAP, Asthma, Insulin Requiring Type 2 Diabetes Mellitus, Dyslipidemia, Chronic Venous Insufficiency/Lymphedema, Chronic Kidney Disease (baseline Cr 1.4), and a Non-occlusive Proximal Left Subclavian DVT and Chronic Non-occlusive Left Cephalic Vein DVT. Prior to 12-05-21, vascular disease was managed with daily Plavix and low dose Aspirin. On 12-05-21, aspirin was discontinued and the patient was started on Xarelto 15 mg BID for management of the left subclavian DVT and left cephalic vein DVT. Prior to this, she had noticed episodic hematochezia attributed to hemorrhoids. After the switch to Xarelto, she noticed hematochezia with every bowel movement, and fresh blood mixed in with brown stool. She denied any melenic stools or hematemesis. She did not notice any increased frequency or volume of bowel movements, frequency remained once or twice daily. She attributed the bleeding to hemorrhoids as in the past. On 12-02-21, H/H was 12.3/35.5. On 12-14-21 H/H was 6.3/18.6 There is a history of GERD with Bojorquez's esophagus, she denied any history of ulcer disease or upper GI bleeding in the past. Last EGD was > 5 years ago. She takes 40 mg omeprazole daily for years. There is a history of diverticulosis, no history of colon polyps, no history of destabilizing lower GI bleeds in the past. Last colonoscopy was > 5years ago. Allergies Allergy/AdvReac Type Severity Reaction Status Date / Time [id number] Reductase Allergy Severe CHEST PAIN Verified 12/14/21 16:48 Inhibitor [Cykpale-Pke-Rgj Reductase Inhibitor] adhesive Allergy Intermediate SKIN Verified 12/14/21 16:48 IRRITATION-BANDAGES aspartame Allergy Mild pt Verified 12/14/21 16:48 reported allergy to equal latex Allergy Mild RASH Verified 12/14/21 16:48 aspirin Allergy Unknown AVOID HX Verified 12/14/21 16:48 GI BLEED ibuprofen AdvReac Severe gave me a Verified 12/14/21 16:48 duodenal ulcer morphine AdvReac Severe NARCOTICS-GI Verified 12/14/21 16:48 UPSET AND HALLUCINATIONS NSAIDS (Non-Steroidal AdvReac Severe HX ULCER Verified 12/14/21 16:48 Anti-Inflamma chlorhexidine AdvReac Intermediate itching Verified 12/14/21 16:48 and burning tramadol AdvReac Intermediate vomit Verified 12/14/21 16:48 acetaminophen AdvReac Unknown TO AVOID Verified 12/14/21 16:48 -"have an enlarged liver" FATTY LIVER opioids Allergy Severe Vomiting,mijares Uncoded 12/14/21 16:48 llucination s Home Medications Medication Instructions Recorded Confirmed Type aspirin 81 mg tablet,delayed 81 mg PO DAILY 10/11/18 12/14/21 History release carboxymethylcellulose 0.5 2 drp OPHTHALMIC (EYE) QID PRN 10/11/18 12/14/21 History %-glycerin 0.9 % eye drops (Refresh Optive) cetirizine 10 mg capsule (Zyrtec) 10 mg PO DAILY 10/11/18 12/14/21 History moxifloxacin 0.5 % eye drops 1 drp OPHTHALMIC (EYE) QID 10/11/18 12/14/21 History prednisolone acetate 1 % eye 1 drp OPR TID 10/11/18 12/14/21 History drops,suspension ketoconazole 2 % topical cream 1 applic TOP DIRECTED #30 gm 07/20/19 12/14/21 History BiPap Machine #1 ea 08/12/19 12/05/21 Rx albuterol sulfate 2.5 mg INHALATION Q4 PRN ml 09/04/19 12/14/21 History insulin regular human 100 unit/mL See Rx Instructions .ROUTE .COMPLEX 07/28/20 12/14/21 History injection solution (Novolin R Regular U-100 Insulin) acyclovir 800 mg tablet 800 mg PO DAILY tab 11/02/20 12/14/21 History modafinil 100 mg tablet 100 mg PO DAILY PRN tab 11/02/20 12/14/21 History blood-glucose meter,continuous 05/01/21 12/05/21 History ([employer]) blood-glucose sensor (Dexcom G6 05/01/21 12/05/21 History Sensor) blood-glucose transmitter (Dexcom 05/01/21 12/05/21 History G6 Transmitter) insulin NPH isoph U-100 human 100 25 unit SUBCUT QPM ml 05/01/21 12/14/21 History unit/mL subcutaneous suspension (Novolin N NPH U-100 Insulin isophane) ascorbic acid (vitamin C) 500 mg 500 mg PO DAILY tab 06/15/21 12/14/21 History tablet (Vitamin C) cholecalciferol (vitamin D3) 50 1,000 unit PO BID cap 06/15/21 12/14/21 History mcg (2,000 unit) capsule (Vitamin D3) mecobalamin (vitamin B12) 1,000 1,000 mcg PO DAILY 06/15/21 12/14/21 History mcg chewable tablet ezetimibe 10 mg tablet (Zetia) 10 mg PO DAILY #90 tab 07/03/21 12/14/21 Rx carvedilol 12.5 mg tablet 12.5 mg PO .COMPLEX #90 tab 07/10/21 12/14/21 Rx clopidogrel 75 mg tablet 75 mg PO DAILY #30 tab 07/10/21 12/14/21 Rx furosemide 20 mg tablet 20 mg PO DAILY #30 tab 07/10/21 12/14/21 Rx meclizine 25 mg tablet 25 mg PO DAILY #270 tab 09/21/21 12/14/21 Rx levothyroxine 50 mcg tablet 50 mcg PO 6XWK #30 tab 09/25/21 12/14/21 Rx lisinopril 20 mg tablet 20 mg PO DAILY #30 tab 10/04/21 12/14/21 Rx magnesium oxide 500 mg tablet 500 mg PO BID 12/02/21 12/14/21 History omeprazole 40 mg capsule,delayed 40 mg PO DAILY cap 12/04/21 12/14/21 History release rivaroxaban 15 mg tablet (Xarelto) 15 mg PO BID 12/14/21 12/14/21 History Patient History Medical History Allergic rhinitis Asthma Barretts esophagus Bilateral edema of lower extremity Cervical post-laminectomy syndrome Cervical stenosis of spine Chronic kidney disease, stage III (moderate) DDD (degenerative disc disease) Degeneration of cervical intervertebral disc Diabetes mellitus type 1 Diabetic nephropathy Diabetic peripheral neuropathy Disc degeneration, lumbar Diverticulosis Dyslipidemia Esophageal dyskinesia External hemorrhoids Fatty liver Gastroesophageal reflux Hyperplastic colon polyp Hypertension Hypothyroidism Internal hemorrhoids Left bundle branch block Meniere's disease, left ear Mixed conductive and sensorineural hearing loss of left ear with restricted hearing of right ear Myofascial pain syndrome Nocturnal hypoxemia Obesity Osteopenia Periodic limb movement disorder Peripheral vascular disease Severe obstructive sleep apnea Stress incontinence in female Vitamin D deficiency Surgical History H/O lumbosacral spine surgery History of bladder surgery History of cardiac cath 08/21/2019: Severe branch vessel CAD (80-90% stenosis 1st diag) 30-40% ostial LAD/ 40-50% distal RCA ; Preserved cardiac output; NO PCI / Treated medically / (Appears amendable to PCI) History of carotid endarterectomy History of cataract removal with insertion of prosthetic lens History of colonoscopy History of mastoidectomy History of myringoplasty left ear History of oral surgery History of tonsillectomy and adenoidectomy History of total abdominal hysterectomy with removal of both ovaries History of tubal ligation S/P cervical spinal fusion Family History Mother Stroke syndrome Brother Stroke syndrome Myocardial infarction Coronary heart disease Sister Coronary heart disease Stroke syndrome Aunt Breast cancer Father Tuberculosis Social History Smoking Status: Former smoker Second Hand Exposure: No; Do You Dip or Chew Tobacco: No; Tobacco Cessation Education Requested by Patient: No Hx Alcohol Use: No Hx Substance Use: No Preferred Language: Estonian Communication Ability: Effective Beliefs That Will Affect Care: None Current Living Situation: Spouse and Family 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 Other Information That Helps Us Care for You: No Feels Safe at Home: Yes Safety Concerns: Feels Safe At This Time Assistive Devices: BiPap, Oxygen - Continuous and Walker Review of Systems Review of Systems: All systems reviewed & are unremarkable except as noted in Subjective Physical Exam Constitutional: Very obese, in no distress at rest, on nasal oxygen Respiratory: normal respiratory effort, lungs clear to auscultation Cardiovascular: Rate/Rhythm: regular rate and regular rhythm Heart Sounds: + murmur Vessels: + carotid bruit Gastrointestinal (Abdomen): Very obese nontender abdomen, no hepatosplenomegaly Skin: no rashes, warm and dry Neurologic: No focal neurologic signs Psychiatric: A+Ox3, euthymic affect Results & Data ([facility]) Vital Signs (Past 12 Hours) Vital Signs Temp Pulse Pulse Resp BP BP Pulse Ox 12/15/21 13:29 36.7 C 60 14 148/71 H 98 12/15/21 13:13 36.7 C 60 154/67 H 12/15/21 12:14 36.5 C 82 20 124/65 98 12/15/21 12:13 36.7 C 60 144/71 H 97 12/15/21 11:43 36.8 C 60 133/66 98 12/15/21 11:28 36.8 C 60 133/66 98 12/15/21 11:09 36.6 C 64 20 134/50 L 97 12/15/21 08:00 60 12/15/21 07:46 36.6 C 73 17 158/63 H 98 12/15/21 04:07 36.6 C 65 18 153/62 H 99 Laboratory Results Laboratory Results WBC 8.02 K/uL (4.8-10.8) 12/15/21 04:36 RBC 2.85 M/uL (4.2-5.4) L 12/15/21 04:36 Hgb 8.2 g/dL (12.0-16.0) L 12/15/21 09:56 Hct 23.8 % (37-47) L 12/15/21 09:56 MCV 91.9 fL (80-100) 12/15/21 04:36 MCH 30.9 pg (25-34) 12/15/21 04:36 MCHC 33.6 g/dL (32-36) 12/15/21 04:36 RDW Std Deviation 46.8 fL (36.4-46.3) H 12/15/21 04:36 RDW Coeff of Eloina 14.2 % (11.5-14.5) 12/15/21 04:36 Plt Count 214 K/uL (130-400) 12/15/21 04:36 MPV 9.5 fL (7.4-10.4) 12/15/21 04:36 Immature Gran % (Auto) 1.0 % 12/15/21 04:36 Neut % (Auto) 66.0 % 12/15/21 04:36 Lymph % (Auto) 25.7 % 12/15/21 04:36 Crisp % (Auto) 5.7 % 12/15/21 04:36 Eos % (Auto) 1.4 % 12/15/21 04:36 Baso % (Auto) 0.2 % 12/15/21 04:36 Neut # (Auto) 5.29 K/uL (1.4-6.5) 12/15/21 04:36 Lymph # (Auto) 2.06 K/uL (1.2-3.4) 12/15/21 04:36 Crisp # (Auto) 0.46 K/uL (0.11-0.59) 12/15/21 04:36 Eos # (Auto) 0.11 K/uL (0-0.5) 12/15/21 04:36 Baso # (Auto) 0.02 K/uL (0-0.2) 12/15/21 04:36 Immature Gran # (Auto) 0.08 K/uL (0.00-0.02) H 12/15/21 04:36 Absolute Nucleated RBC 0.02 K/uL (0-0) H 12/15/21 04:36 Nucleated RBC % (auto) 0.2 % 12/15/21 04:36 RBC Morphology Unremarkable 12/14/21 15:05 PT 13.1 Seconds (9.0-12.0) H 12/14/21 15:05 INR 1.2 (0.9-1.1) H 12/14/21 15:05 APTT 31.4 Seconds (21.0-31.0) H 12/14/21 15:05 PTT Ratio 1.1 12/14/21 15:05 Sodium 137 mmol/L (136-145) 12/15/21 04:36 Potassium 4.8 mmol/L (3.5-5.1) 12/15/21 04:36 Chloride 108 mmol/L (98-107) H 12/15/21 04:36 Carbon Dioxide 22 mmol/L (21-32) 12/15/21 04:36 Anion Gap 7 (3-11) 12/15/21 04:36 BUN 96 mg/dl (6-23) H 12/15/21 04:36 Creatinine 2.57 mg/dl (0.6-1.2) H 12/15/21 04:36 Est Cr Clr Drug Dosing 17.2 ml/min 12/15/21 04:36 Est GFR ( Amer) 20.1 ml/min 12/15/21 04:36 Est GFR (Non-Af Amer) 17.3 ml/min 12/15/21 04:36 BUN/Creatinine Ratio 37.4 (10-20) H 12/15/21 04:36 Glucose 196 mg/dl (70-99(Fasting)) H 12/15/21 04:36 POC Glucose 198 mg/dl (70-99) H 12/15/21 11:21 Calcium 9.2 mg/dl (8.5-10.1) 12/15/21 04:36 Total Bilirubin 0.5 mg/dl (0.2-1.0) 12/15/21 04:36 AST 14 U/L (13-39) 12/15/21 04:36 ALT 8 U/L (7-52) 12/15/21 04:36 Alkaline Phosphatase 48 U/L (34-104) 12/15/21 04:36 Total Protein 5.4 gm/dl (6.0-8.3) L 12/15/21 04:36 Albumin 3.5 gm/dl (3.4-5.0) 12/15/21 04:36 Globulin 1.9 gm/dl (2.5-4.0) L 12/15/21 04:36 Albumin/Globulin Ratio 1.8 (0.9-2) 12/15/21 04:36 SARS-CoV-2, RNA, NAAT NEGATIVE (NEGATIVE) 12/14/21 15:29 Blood Type O Negative 12/14/21 15:05 Antibody Screen NEGATIVE 12/14/21 15:05 Crossmatch See Detail 12/14/21 15:05 (1) GIB (gastrointestinal bleeding) GI bleed type/associated pathology: unspecified gastrointestinal hemorrhage type Qualified Code(s): K92.2 - Gastrointestinal hemorrhage, unspecified
[2021-12-15 16:27] LABS: Basophils # (auto) 0.02 K/uL (0-0.2); Basophils % (auto) 0.2 %; Eosinophils # (auto) 0.11 K/uL (0-0.5); Eosinophils % (auto) 1.3 %; Hematocrit (blood only) 28.1 % (37-47); Hemoglobin 9.6 g/dL (12.0-16.0); Immature Granulocytes # (auto) 0.04 K/uL (0.00-0.02); Immature Granulocytes % (auto) 0.5 %; Lymphocytes # (auto) 2.23 K/uL (1.2-3.4); Lymphocytes % (auto) 27.1 %; Mean Corpuscular Hemoglobin 30.6 pg (25-34); Mean Corpuscular Hgb Conc 34.2 g/dL (32-36); Mean Corpuscular Volume 89.5 fL (80-100); Mean Platelet Volume 9.4 fL (7.4-10.4); Monocytes # (auto) 0.38 K/uL (0.11-0.59); Monocytes % (auto) 4.6 %; Neutrophils # (auto) 5.45 K/uL (1.4-6.5); Neutrophils % (auto) 66.3 %; Platelet Count 204 K/uL (130-400); RDW Coefficient of Variation 14.6 % (11.5-14.5); RDW Standard Deviation 47.9 fL (36.4-46.3); Red Blood Count 3.14 M/uL (4.2-5.4); White Blood Count 8.23 K/uL (4.8-10.8)
[2021-12-15] MEDS ORDERED: INSULIN HUMAN NPH SC SCH (17:00)
--- NOTE | 2021-12-15 19:09 | Electrocardiogram Report ---
Test Reason : Blood Pressure : / mmHG Vent. Rate : 060 BPM Atrial Rate : 060 BPM P-R Int : 154 ms QRS Dur : 112 ms QT Int : 486 ms P-R-T Axes : 076 134 073 degrees QTc Int : 486 ms Poor data quality, interpretation may be adversely affected AV dual-paced rhythm Abnormal ECG When compared with ECG of 17-MAR-2021 08:44, Electronic ventricular pacemaker has replaced Sinus rhythm Vent. rate has decreased BY 29 BPM Confirmed by Maximino Sanchez ([id number]) on 12/15/2021 7:08:33 PM Referred By: Earnest Deutsch Confirmed By:Nader Sanchez
[2021-12-15] MEDS: LAVAGE SOLUTION 4000ML PO SCH (19:14)
[2021-12-16] MEDS: PANTOprazole 40 MG in DEXTROSE 5% 100 ML IV SCH ×4 (05:41→22:22)
[2021-12-16] MEDS: INSULIN ASPART PER UNIT SC SCH ×4 (06:29→21:43)
[2021-12-16] MEDS: LAVAGE SOLUTION 4000ML PO SCH (06:33)
[2021-12-16] MEDS: LEVOTHYROXINE SODIUM 50 MCG TABLET PO SCH (06:45)
[2021-12-16] MEDS ORDERED: INSULIN HUMAN NPH SC SCH (08:00)
[2021-12-16] MEDS: prednisoLONE acetate 1% OP SUSP 5 ML BTL OP SCH ×3 (08:01→20:24)
[2021-12-16] MEDS: MOXIFLOXACIN HCL 0.5% OP SOLN 3 ML BTL OP SCH ×3 (08:02→20:24)
[2021-12-16] MEDS: MAGNESIUM OXIDE 400 MG TAB PO SCH ×2 (08:03→20:25)
[2021-12-16] MEDS: CHOLECALCIFEROL 1,000 UNITS 25 MCG TAB PO SCH ×2 (08:03→20:26)
[2021-12-16] MEDS: carvediloL 12.5 MG TAB PO SCH ×2 (08:03→20:27)
[2021-12-16 08:34] LABS: Basophils # (auto) 0.03 K/uL (0-0.2); Basophils % (auto) 0.4 %; Eosinophils # (auto) 0.21 K/uL (0-0.5); Hematocrit (blood only) 28.5 % (37-47); Hemoglobin 9.6 g/dL (12.0-16.0); Immature Granulocytes # (auto) 0.06 K/uL (0.00-0.02); Immature Granulocytes % (auto) 0.8 %; Lymphocytes # (auto) 1.82 K/uL (1.2-3.4); Lymphocytes % (auto) 25.7 %; Mean Corpuscular Hgb Conc 33.7 g/dL (32-36); Mean Corpuscular Volume 91.9 fL (80-100); Mean Platelet Volume 9.3 fL (7.4-10.4); Monocytes # (auto) 0.46 K/uL (0.11-0.59); Monocytes % (auto) 6.5 %; Neutrophils % (auto) 63.6 %; Nucleated RBC # (auto) 0.02 K/uL (0-0); Nucleated RBC % (auto) 0.3 %; Platelet Count 213 K/uL (130-400); RDW Coefficient of Variation 14.8 % (11.5-14.5); RDW Standard Deviation 49.1 fL (36.4-46.3); White Blood Count 7.08 K/uL (4.8-10.8)
[2021-12-16 08:59] LABS: Albumin Globulin Ratio 1.5 (0.9-2); Albumin Level 3.7 gm/dl (3.4-5.0); BUN Creatinine Ratio 38.4 (10-20); Bilirubin,Total 0.6 mg/dl (0.2-1.0); Calcium 8.6 mg/dl (8.5-10.1); Creatinine Clr Calc Pharmacy 26.4 ml/min; Est GFR (African American) 34.6 ml/min; Est GFR (Non-African American) 29.9 ml/min; Globulin 2.5 gm/dl (2.5-4.0); Potassium 4.5 mmol/L (3.5-5.1); Total Protein 6.2 gm/dl (6.0-8.3)
[2021-12-16] MEDS: ASCORBIC ACID 500 MG TAB PO SCH (09:21)
[2021-12-16] MEDS: CETIRIZINE HCL 10 MG TABLET PO SCH (09:21)
[2021-12-16] MEDS: lisinopril 20 MG TAB PO SCH (09:21)
[2021-12-16] MEDS: EZETIMIBE 10 MG TABLET PO SCH (09:21)
[2021-12-16] MEDS: ACYCLOVIR 400 MG TAB PO SCH (09:21)
[2021-12-16] MEDS: CYANOCOBALAMIN (B-12) 500 MCG TABLET PO SCH (09:22)
--- NOTE | 2021-12-16 09:41 | Pharmacy Report ---
Pharmacy Glycemic Short Note 2 - Date of Service December 16, 2021 - Glycemic Short BSG Results (Last 24 hours): 12/15/21 12/15/21 12/15/21 11:21 16:19 19:07 Glucose POC Glucose 198 H 120 H 183 H 12/15/21 12/15/21 12/16/21 21:34 23:50 06:01 Glucose POC Glucose 68 L* 78 122 H 12/16/21 12/16/21 07:57 08:08 Glucose 147 H POC Glucose 145 H OUTPATIENT ANTIDIABETIC REGIMEN: * NPH 25 units SQ qPM * Regular insulin SSI (60-70 units/day) * HbA1c: 7% (10/27/21) ASSESSMENT: * Patient's BSGs yesterday were [id number] and fasting today is 147 mg/ dL. * Patient received 39 units of insulin yesterday with 30 units of basal and 9 units of bolus. * Patient continues to be NPH with Protonix drip running. * NPH 12 units this morning (20% reduction) plus scale for this evening if BSGs continue to trend downwards. BACKGROUND * Ms Louie is a 76yo diabetic female admitted with GI bleed. * She is currently NPO. * NPH was held last evening per nursing, so BSGs have been elevated today. * NPH resumed this morning. Will continue to adjust as needed, while NPO and once diet has resumed. PLAN FOR INPATIENT GLYCEMIC CONTROL: * Basal insulin * NPH 12 units SQ BID (10 units if BSG < 140 mg/dL) * Bolus insulin * NovoLog per scale ACHS or Q6hrs while NPO * Goal Range: Low 110 mg/dL - High 140 mg/dL * Correction Factor: 25 mg/dL/unit * Nutritional / Prandial insulin per carb ratio of 1 unit per 8 grams CHO consumed
--- NOTE | 2021-12-16 11:14 | History & Physical Report ---
Date of Service December 16, 2021 Assessment & Plan (1) GIB (gastrointestinal bleeding): GI bleed type/associated pathology: unspecified gastrointestinal hemorrhage type Qualified Code(s): K92.2 - Gastrointestinal hemorrhage, unspecified (2) Acute blood loss anemia: Plan: Plan to proceed with EGD and Colonoscopy for identification and possible control of bleeding. The recommended procedures were discussed with the patient, including the indications for examination and potential benefits, risks, alternatives, potential outcomes, and post procedure plans of care. All questions were addressed and answered, understanding was acknowledged, and consent was obtained Admission and Anticipated Discharge Date Admission Date: December 14, 2021 History of Present Illness Primary Care Provider: Earnest Deutsch MD 76 year old woman on Xarelto since 12-05-21 for management of subclavian and cephalic vein DVTs has had uncontrolled red rectal bleeding with destabilizing acute severe blood loss anemia. Stable following resuscitation with fluids and packed red blood cells, rectal bleeding continues. Xarelto and Plavix held for the past 48 hours. Allergies Allergy/AdvReac Type Severity Reaction Status Date / Time [id number]-[id number]-JvV Reductase Allergy Severe CHEST PAIN Verified 12/14/21 16:48 Inhibitor [Ixkxmnv-Xbq-Nvy Reductase Inhibitor] adhesive Allergy Intermediate SKIN Verified 12/14/21 16:48 IRRITATION-BANDAGES aspartame Allergy Mild pt Verified 12/14/21 16:48 reported allergy to equal latex Allergy Mild RASH Verified 12/14/21 16:48 aspirin Allergy Unknown AVOID HX Verified 12/14/21 16:48 GI BLEED ibuprofen AdvReac Severe gave me a Verified 12/14/21 16:48 duodenal ulcer morphine AdvReac Severe NARCOTICS-GI Verified 12/14/21 16:48 UPSET AND HALLUCINATIONS NSAIDS (Non-Steroidal AdvReac Severe HX ULCER Verified 12/14/21 16:48 Anti-Inflamma chlorhexidine AdvReac Intermediate itching Verified 12/14/21 16:48 and burning tramadol AdvReac Intermediate vomit Verified 12/14/21 16:48 acetaminophen AdvReac Unknown TO AVOID Verified 12/14/21 16:48 -"have an enlarged liver" FATTY LIVER opioids Allergy Severe Vomiting,mijares Uncoded 12/14/21 16:48 llucination s Home Medications Medication Instructions Recorded Confirmed Type aspirin 81 mg tablet,delayed 81 mg PO DAILY 10/11/18 12/14/21 History release carboxymethylcellulose 0.5 2 drp OPHTHALMIC (EYE) QID PRN 10/11/18 12/14/21 History %-glycerin 0.9 % eye drops (Refresh Optive) cetirizine 10 mg capsule (Zyrtec) 10 mg PO DAILY 10/11/18 12/14/21 History moxifloxacin 0.5 % eye drops 1 drp OPHTHALMIC (EYE) QID 10/11/18 12/14/21 History prednisolone acetate 1 % eye 1 drp OPR TID 10/11/18 12/14/21 History drops,suspension ketoconazole 2 % topical cream 1 applic TOP DIRECTED #30 gm 07/20/19 12/14/21 History BiPap Machine #1 ea 08/12/19 12/05/21 Rx albuterol sulfate 2.5 mg INHALATION Q4 PRN ml 09/04/19 12/14/21 History insulin regular human 100 unit/mL See Rx Instructions .ROUTE .COMPLEX 07/28/20 12/14/21 History injection solution (Novolin R Regular U-100 Insulin) acyclovir 800 mg tablet 800 mg PO DAILY tab 11/02/20 12/14/21 History modafinil 100 mg tablet 100 mg PO DAILY PRN tab 11/02/20 12/14/21 History blood-glucose meter,continuous 05/01/21 12/05/21 History (Dexcom G6 Filler Operator) blood-glucose sensor (Dexcom G6 05/01/21 12/05/21 History Sensor) blood-glucose transmitter (Dexcom 05/01/21 12/05/21 History G6 Transmitter) insulin NPH isoph U-100 human 100 25 unit SUBCUT QPM ml 05/01/21 12/14/21 History unit/mL subcutaneous suspension (Novolin N NPH U-100 Insulin isophane) ascorbic acid (vitamin C) 500 mg 500 mg PO DAILY tab 06/15/21 12/14/21 History tablet (Vitamin C) cholecalciferol (vitamin D3) 50 1,000 unit PO BID cap 06/15/21 12/14/21 History mcg (2,000 unit) capsule (Vitamin D3) mecobalamin (vitamin B12) 1,000 1,000 mcg PO DAILY 06/15/21 12/14/21 History mcg chewable tablet ezetimibe 10 mg tablet (Zetia) 10 mg PO DAILY #90 tab 07/03/21 12/14/21 Rx carvedilol 12.5 mg tablet 12.5 mg PO .COMPLEX #90 tab 07/10/21 12/14/21 Rx clopidogrel 75 mg tablet 75 mg PO DAILY #30 tab 07/10/21 12/14/21 Rx furosemide 20 mg tablet 20 mg PO DAILY #30 tab 07/10/21 12/14/21 Rx meclizine 25 mg tablet 25 mg PO DAILY #270 tab 09/21/21 12/14/21 Rx levothyroxine 50 mcg tablet 50 mcg PO 6XWK #30 tab 09/25/21 12/14/21 Rx lisinopril 20 mg tablet 20 mg PO DAILY #30 tab 10/04/21 12/14/21 Rx magnesium oxide 500 mg tablet 500 mg PO BID 12/02/21 12/14/21 History omeprazole 40 mg capsule,delayed 40 mg PO DAILY cap 12/04/21 12/14/21 History release rivaroxaban 15 mg tablet (Xarelto) 15 mg PO BID 12/14/21 12/14/21 History Past Med/Surg History Medical History Allergic rhinitis Asthma Barretts esophagus Bilateral edema of lower extremity Cervical post-laminectomy syndrome Cervical stenosis of spine Chronic kidney disease, stage III (moderate) DDD (degenerative disc disease) Degeneration of cervical intervertebral disc Diabetes mellitus type 1 Diabetic nephropathy Diabetic peripheral neuropathy Disc degeneration, lumbar Diverticulosis Dyslipidemia Esophageal dyskinesia External hemorrhoids Fatty liver Gastroesophageal reflux Hyperplastic colon polyp Hypertension Hypothyroidism Internal hemorrhoids Left bundle branch block Meniere's disease, left ear Mixed conductive and sensorineural hearing loss of left ear with restricted hearing of right ear Myofascial pain syndrome Nocturnal hypoxemia Obesity Osteopenia Periodic limb movement disorder Peripheral vascular disease Severe obstructive sleep apnea Stress incontinence in female Vitamin D deficiency Surgical History H/O lumbosacral spine surgery History of bladder surgery History of cardiac cath 08/21/2019: Severe branch vessel CAD (80-90% stenosis 1st diag) 30-40% ostial LAD/ 40-50% distal RCA ; Preserved cardiac output; NO PCI / Treated medically / (Appears amendable to PCI) History of carotid endarterectomy History of cataract removal with insertion of prosthetic lens History of colonoscopy History of mastoidectomy History of myringoplasty left ear History of oral surgery History of tonsillectomy and adenoidectomy History of total abdominal hysterectomy with removal of both ovaries History of tubal ligation S/P cervical spinal fusion Family History Mother Stroke syndrome Brother Stroke syndrome Myocardial infarction Coronary heart disease Sister Coronary heart disease Stroke syndrome Aunt Breast cancer Father Tuberculosis Social History Smoking Status: Former smoker Second Hand Exposure: No; Do You Dip or Chew Tobacco: No; Tobacco Cessation Education Requested by Patient: No Hx Alcohol Use: No Hx Substance Use: No Preferred Language: [place] Communication Ability: Effective Beliefs That Will Affect Care: None Current Living Situation: Spouse and Family 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 Other Information That Helps Us Care for You: No Feels Safe at Home: Yes Safety Concerns: Feels Safe At This Time Assistive Devices: BiPap, Oxygen - Continuous and Walker Review of Systems All systems reviewed & are unremarkable except as noted in Subjective Physical Exam Respiratory: normal respiratory effort, lungs clear to auscultation Cardiovascular: Rate/Rhythm: regular rate and regular rhythm Heart Sounds: + murmur Vessels: + carotid bruit Gastrointestinal (Abdomen): Inspection/Auscultation: normal bowel sounds and + significant pannus Percussion/Palpation: abdomen soft and normal to percussion; no guarding, no hepatosplenomegaly and no abdominal mass Musculoskeletal: Extremities: + upper extremity abnormal to inspection Skin: no rashes, warm and dry Psychiatric: A+Ox3, euthymic affect ASA Classification ASA ASA4 Results & Data ([facility]) Vital Signs (Past 12 Hours) Vital Signs Temp Pulse Pulse Resp BP BP Pulse Ox 12/16/21 08:16 156/72 H 12/16/21 08:00 36.3 C L 60 20 197/94 H 100 12/16/21 07:25 60 12/16/21 04:26 36.5 C 60 18 175/50 H 100 12/16/21 00:02 60 12/15/21 23:45 36.4 C L 60 18 137/56 L 100 Laboratory Results Laboratory Results WBC 7.08 K/uL (4.8-10.8) 12/16/21 08:08 RBC 3.10 M/uL (4.2-5.4) L 12/16/21 08:08 Hgb 9.6 g/dL (12.0-16.0) L 12/16/21 08:08 Hct 28.5 % (37-47) L 12/16/21 08:08 MCV 91.9 fL (80-100) 12/16/21 08:08 MCH 31.0 pg (25-34) 12/16/21 08:08 MCHC 33.7 g/dL (32-36) 12/16/21 08:08 RDW Std Deviation 49.1 fL (36.4-46.3) H 12/16/21 08:08 RDW Coeff of Eloina 14.8 % (11.5-14.5) H 12/16/21 08:08 Plt Count 213 K/uL (130-400) 12/16/21 08:08 MPV 9.3 fL (7.4-10.4) 12/16/21 08:08 Immature Gran % (Auto) 0.8 % 12/16/21 08:08 Neut % (Auto) 63.6 % 12/16/21 08:08 Lymph % (Auto) 25.7 % 12/16/21 08:08 Crawford % (Auto) 6.5 % 12/16/21 08:08 Eos % (Auto) 3.0 % 12/16/21 08:08 Baso % (Auto) 0.4 % 12/16/21 08:08 Neut # (Auto) 4.50 K/uL (1.4-6.5) 12/16/21 08:08 Lymph # (Auto) 1.82 K/uL (1.2-3.4) 12/16/21 08:08 Crawford # (Auto) 0.46 K/uL (0.11-0.59) 12/16/21 08:08 Eos # (Auto) 0.21 K/uL (0-0.5) 12/16/21 08:08 Baso # (Auto) 0.03 K/uL (0-0.2) 12/16/21 08:08 Immature Gran # (Auto) 0.06 K/uL (0.00-0.02) H 12/16/21 08:08 Absolute Nucleated RBC 0.02 K/uL (0-0) H 12/16/21 08:08 Nucleated RBC % (auto) 0.3 % 12/16/21 08:08 RBC Morphology Unremarkable 12/14/21 15:05 PT 13.1 Seconds (9.0-12.0) H 12/14/21 15:05 INR 1.2 (0.9-1.1) H 12/14/21 15:05 APTT 31.4 Seconds (21.0-31.0) H 12/14/21 15:05 PTT Ratio 1.1 12/14/21 15:05 Sodium 137 mmol/L (136-145) 12/16/21 08:08 Potassium 4.5 mmol/L (3.5-5.1) 12/16/21 08:08 Chloride 107 mmol/L (98-107) 12/16/21 08:08 Carbon Dioxide 24 mmol/L (21-32) 12/16/21 08:08 Anion Gap 6 (3-11) 12/16/21 08:08 BUN 63 mg/dl (6-23) H D 12/16/21 08:08 Creatinine 1.64 mg/dl (0.6-1.2) H D 12/16/21 08:08 Est Cr Clr Drug Dosing 26.4 ml/min 12/16/21 08:08 Est GFR ( Amer) 34.6 ml/min 12/16/21 08:08 Est GFR (Non-Af Amer) 29.9 ml/min 12/16/21 08:08 BUN/Creatinine Ratio 38.4 (10-20) H 12/16/21 08:08 Glucose 147 mg/dl (70-99(Fasting)) H 12/16/21 08:08 POC Glucose 145 mg/dl (70-99) H 12/16/21 07:57 Calcium 8.6 mg/dl (8.5-10.1) 12/16/21 08:08 Total Bilirubin 0.6 mg/dl (0.2-1.0) 12/16/21 08:08 AST 15 U/L (13-39) 12/16/21 08:08 ALT 9 U/L (7-52) 12/16/21 08:08 Alkaline Phosphatase 50 U/L (34-104) 12/16/21 08:08 Total Protein 6.2 gm/dl (6.0-8.3) 12/16/21 08:08 Albumin 3.7 gm/dl (3.4-5.0) 12/16/21 08:08 Globulin 2.5 gm/dl (2.5-4.0) 12/16/21 08:08 Albumin/Globulin Ratio 1.5 (0.9-2) 12/16/21 08:08 SARS-CoV-2, RNA, NAAT NEGATIVE (NEGATIVE) 12/14/21 15:29 Blood Type O Negative 12/14/21 15:05 Antibody Screen NEGATIVE 12/14/21 15:05 Crossmatch See Detail 12/14/21 15:05 Code Status & VTE Plan VTE Prophylaxis Plan VTE Prophylaxis will be ordered: Yes
--- NOTE | 2021-12-16 11:53 | Anesthesiology Consultation ---
Date of Service December 16, 2021 Assessment & Plan Chart Review Chart Review: Acceptable Risk for Surgery and Patient NOT seen in Pre Admission Testing Consults Requested none ASA ASA4 Proposed Anesthesia Anesthesia Type: MAC History Surgery Operation Date: 12/15/21 16:30 Proposed Procedures p Esophagogastroduodenoscopy Dr. Gimenez - Bill Gimenez MD Operation Date: 12/16/21 11:30 Proposed Procedures p Colonoscopy - Nura Tesfaye MD s Esophagogastroduodenoscopy - Nura Tesfaye MD Height/Weight Height: 4 ft 10 in Weight: 84.3 kg Allergies Allergy/AdvReac Type Severity Reaction Status Date / Time [id number]-[id number]-JoB Reductase Allergy Severe CHEST PAIN Verified 12/14/21 16:48 Inhibitor [Ksqydnl-Dyt-Euq Reductase Inhibitor] adhesive Allergy Intermediate SKIN Verified 12/14/21 16:48 IRRITATION-BANDAGES aspartame Allergy Mild pt Verified 12/14/21 16:48 reported allergy to equal latex Allergy Mild RASH Verified 12/14/21 16:48 aspirin Allergy Unknown AVOID HX Verified 12/14/21 16:48 GI BLEED ibuprofen AdvReac Severe gave me a Verified 12/14/21 16:48 duodenal ulcer morphine AdvReac Severe NARCOTICS-GI Verified 12/14/21 16:48 UPSET AND HALLUCINATIONS NSAIDS (Non-Steroidal AdvReac Severe HX ULCER Verified 12/14/21 16:48 Anti-Inflamma chlorhexidine AdvReac Intermediate itching Verified 12/14/21 16:48 and burning tramadol AdvReac Intermediate vomit Verified 12/14/21 16:48 acetaminophen AdvReac Unknown TO AVOID Verified 12/14/21 16:48 -"have an enlarged liver" FATTY LIVER opioids Allergy Severe Vomiting,mijares Uncoded 12/14/21 16:48 llucination s Medications Home Medications Medication Instructions Recorded Confirmed Last Taken aspirin 81 mg tablet,delayed 81 mg PO DAILY 10/11/18 12/14/21 12/02/21 release carboxymethylcellulose 0.5 2 drp OPHTHALMIC (EYE) QID PRN 10/11/18 12/14/21 04/05/21 %-glycerin 0.9 % eye drops (Refresh Optive) cetirizine 10 mg capsule (Zyrtec) 10 mg PO DAILY 10/11/18 12/14/21 12/02/21 moxifloxacin 0.5 % eye drops 1 drp OPHTHALMIC (EYE) QID 10/11/18 12/14/21 12/02/21 prednisolone acetate 1 % eye 1 drp OPR TID 10/11/18 12/14/21 12/02/21 drops,suspension ketoconazole 2 % topical cream 1 applic TOP DIRECTED #30 gm 07/20/19 12/14/21 Unknown BiPap Machine #1 ea 08/12/19 12/05/21 Unknown albuterol sulfate 2.5 mg INHALATION Q4 PRN ml 09/04/19 12/14/21 Unknown insulin regular human 100 unit/mL See Rx Instructions .ROUTE .COMPLEX 07/28/20 12/14/21 12/02/21 injection solution (Novolin R Regular U-100 Insulin) acyclovir 800 mg tablet 800 mg PO DAILY tab 11/02/20 12/14/21 12/02/21 modafinil 100 mg tablet 100 mg PO DAILY PRN tab 11/02/20 12/14/21 04/04/21 blood-glucose meter,continuous 05/01/21 12/05/21 Unknown (Dexcom G6 Food Production Manager) blood-glucose sensor (Dexcom G6 05/01/21 12/05/21 Unknown Sensor) blood-glucose transmitter (Dexcom 05/01/21 12/05/21 Unknown G6 Transmitter) insulin NPH isoph U-100 human 100 25 unit SUBCUT QPM ml 05/01/21 12/14/21 12/02/21 unit/mL subcutaneous suspension (Novolin N NPH U-100 Insulin isophane) ascorbic acid (vitamin C) 500 mg 500 mg PO DAILY tab 06/15/21 12/14/21 12/02/21 tablet (Vitamin C) cholecalciferol (vitamin D3) 50 1,000 unit PO BID cap 06/15/21 12/14/21 12/02/21 mcg (2,000 unit) capsule (Vitamin D3) mecobalamin (vitamin B12) 1,000 1,000 mcg PO DAILY 06/15/21 12/14/21 12/02/21 mcg chewable tablet ezetimibe 10 mg tablet (Zetia) 10 mg PO DAILY #90 tab 07/03/21 12/14/21 12/02/21 carvedilol 12.5 mg tablet 12.5 mg PO .COMPLEX #90 tab 07/10/21 12/14/21 12/02/21 clopidogrel 75 mg tablet 75 mg PO DAILY #30 tab 07/10/21 12/14/21 12/02/21 furosemide 20 mg tablet 20 mg PO DAILY #30 tab 07/10/21 12/14/21 12/02/21 meclizine 25 mg tablet 25 mg PO DAILY #270 tab 09/21/21 12/14/21 12/02/21 levothyroxine 50 mcg tablet 50 mcg PO 6XWK #30 tab 09/25/21 12/14/21 12/02/21 lisinopril 20 mg tablet 20 mg PO DAILY #30 tab 10/04/21 12/14/21 12/02/21 magnesium oxide 500 mg tablet 500 mg PO BID 12/02/21 12/14/21 12/02/21 omeprazole 40 mg capsule,delayed 40 mg PO DAILY cap 12/04/21 12/14/21 Unknown release rivaroxaban 15 mg tablet (Xarelto) 15 mg PO BID 12/14/21 12/14/21 Unknown Active Medications Generic Name Dose Route Start Last Admin Trade Name Mirta PRN Reason Stop Dose Admin Acyclovir 800 mg 12/15/21 09:00 12/16/21 09:21 Acyclovir 400 Mg Tab PO 01/14/22 08:59 800 mg DAILY GUIDO Administration Ascorbic Acid 500 mg 12/15/21 09:00 12/16/21 09:21 Ascorbic Acid 500 Mg Tab PO 01/14/22 08:59 500 mg DAILY GUIDO Administration Carvedilol 25 mg 12/15/21 09:00 12/16/21 08:03 Carvedilol 12.5 Mg Tab PO 01/14/22 08:59 25 mg QAM GUIDO Administration Carvedilol 12.5 mg 12/14/21 21:00 12/15/21 22:09 Carvedilol 12.5 Mg Tab PO 01/13/22 20:59 12.5 mg PM GUIDO Administration Cetirizine HCl 10 mg 12/15/21 09:00 12/16/21 09:21 Cetirizine Hcl 10 Mg Tablet PO 01/14/22 08:59 10 mg DAILY GUIDO Administration Cyanocobalamin 1,000 mcg 12/15/21 09:00 12/16/21 09:22 Cyanocobalamin (B-12) 500 Mcg Tablet PO 01/14/22 08:59 1,000 mcg DAILY GUIDO Administration Ezetimibe 10 mg 12/15/21 09:00 12/16/21 09:21 Ezetimibe 10 Mg Tablet PO 01/14/22 08:59 10 mg DAILY GUIDO Administration Pantoprazole Sodium 40 mg/ 100 mls @ 20 mls/hr 12/14/21 16:15 12/16/21 09:57 Dextrose IV 01/13/22 16:14 8 mg/hr Q5H GUIDO 20 mls/hr Administration 8 MG/HR Insulin Aspart 0 units 12/14/21 20:00 12/16/21 06:29 Insulin Aspart Per Unit SC 01/13/22 19:59 Not Given Q6 GUIDO Levothyroxine Sodium 50 mcg 12/15/21 06:30 12/16/21 06:45 Levothyroxine Sodium 50 Mcg Tablet PO 01/14/22 06:29 50 mcg [id number] GUIDO Administration Lisinopril 20 mg 12/15/21 09:00 12/16/21 09:21 Lisinopril 20 Mg Tab PO 01/14/22 08:59 20 mg DAILY GUIDO Administration Magnesium Oxide 400 mg 12/14/21 21:00 12/16/21 08:03 Magnesium Oxide 400 Mg Tab PO 01/13/22 20:59 400 mg BID GUIDO Administration Moxifloxacin HCl 1 drops 12/14/21 21:00 12/16/21 08:02 Moxifloxacin Hcl 0.5% Op Soln 3 Ml Btl OP 01/13/22 20:59 1 drops TID GUIDO Administration Polyethylene Glycol/Electrolytes 8 dose 12/15/21 18:00 12/16/21 06:33 Lavage Solution 4000ml PO 8 dose TODAY@ GUIDO Administration Prednisolone Acetate 1 drops 12/14/21 21:00 12/16/21 08:01 Prednisolone Acetate 1% Op Susp 5 Ml Btl OP 01/13/22 20:59 1 drops TID GUIDO Administration Vitamin D 1,000 units 12/14/21 21:00 12/16/21 08:03 Cholecalciferol 1,000 Units 25 Mcg Tab PO 01/13/22 20:59 1,000 units BID GUIDO Administration Past Medical History Medical History Allergic rhinitis Asthma Barretts esophagus Bilateral edema of lower extremity Cervical post-laminectomy syndrome Cervical stenosis of spine Chronic kidney disease, stage III (moderate) DDD (degenerative disc disease) Degeneration of cervical intervertebral disc Diabetes mellitus type 1 Diabetic nephropathy Diabetic peripheral neuropathy Disc degeneration, lumbar Diverticulosis Dyslipidemia Esophageal dyskinesia External hemorrhoids Fatty liver Gastroesophageal reflux Hyperplastic colon polyp Hypertension Hypothyroidism Internal hemorrhoids Left bundle branch block Meniere's disease, left ear Mixed conductive and sensorineural hearing loss of left ear with restricted hearing of right ear Myofascial pain syndrome Nocturnal hypoxemia Obesity Osteopenia Periodic limb movement disorder Peripheral vascular disease Severe obstructive sleep apnea Stress incontinence in female Vitamin D deficiency Exercise / Class Metabolic Activity III < 4 Walking/Shop/Light housework Past Family History Family History Mother Stroke syndrome Brother Stroke syndrome Myocardial infarction Coronary heart disease Sister Coronary heart disease Stroke syndrome Aunt Breast cancer Father Tuberculosis Past Surgical History Surgical History H/O lumbosacral spine surgery History of bladder surgery History of cardiac cath 08/21/2019: Severe branch vessel CAD (80-90% stenosis 1st diag) 30-40% ostial LAD/ 40-50% distal RCA ; Preserved cardiac output; NO PCI / Treated medically / (Appears amendable to PCI) History of carotid endarterectomy History of cataract removal with insertion of prosthetic lens History of colonoscopy History of mastoidectomy History of myringoplasty left ear History of oral surgery History of tonsillectomy and adenoidectomy History of total abdominal hysterectomy with removal of both ovaries History of tubal ligation S/P cervical spinal fusion Past Anesthesia History No Hx of Anesthesia Complications and No Family Hx of Anesthesia Complications History of PONV No Hx of PONV and No Hx of Motion Sickness Social History Smoking Status: Former smoker tobacco type: cigarettes Do You Dip or Chew Tobacco: No Hx Alcohol Use: No Hx Substance Use: No substance use type: does not use Physical Exam Vital Signs Last Vital Signs Temp 36.3 C L 12/16/21 08:00 Pulse 60 12/16/21 08:00 Resp 20 12/16/21 08:00 BP 156/72 H 12/16/21 08:16 Pulse Ox 100 12/16/21 08:00 Testing Laboratory Results 12/16/21 08:08 12/16/21 08:08 PT 13.1 Seconds (9.0-12.0) H 12/14/21 15:05 INR 1.2 (0.9-1.1) H 12/14/21 15:05 APTT 31.4 Seconds (21.0-31.0) H 12/14/21 15:05 Blood Type O Negative 12/14/21 15:05 Antibody Screen NEGATIVE 12/14/21 15:05 12/16/21 12/16/21 12/15/21 07:57 06:01 23:50 POC Glucose 145 H 122 H 78 Electrocardiogram Date: 12/14/21 Findings: + pertinent finding (AV dual chamber paced @ 60) Chest X-Ray Date: 12/02/21 Findings: + NAD, + cardiomegaly and + atherosclerosis of thoracic aorta
[2021-12-16] MEDS ORDERED: ONDANSETRON INJ 2 MG/ML 2 ML VIAL IV PRN ×2 (12:40→13:29)
[2021-12-16] MEDS ORDERED: NALOXONE HCL 0.4 MG/1 ML VIAL/CARP IV PRN ×2 (12:40→13:29)
[2021-12-16] MEDS ORDERED: fentaNYL citrate 100 MCG/2 ML VIAL IV PRN ×2 (12:40→13:29)
[2021-12-16] MEDS ORDERED: LABETALOL HCL IV 5 MG/ML 20ML IV PRN ×2 (12:40→13:29)
[2021-12-16] MEDS ORDERED: ePHEDrine sulfate 50 MG/ML AMP IV PRN ×2 (12:40→13:29)
[2021-12-16] MEDS ORDERED: PROMETHAZINE HCL 12.5 MG in SODIUM CHLORIDE 0.9% 50 ML IV PRN ×2 (12:40→13:29)
[2021-12-16] MEDS ORDERED: FLUMAZENIL 0.1 MG/1 ML 10 ML VIAL IV PRN ×2 (12:40→13:29)
[2021-12-16] MEDS ORDERED: ATROPINE SULFATE 0.1 MG/ML 10ML SYR IV PRN ×2 (12:40→13:29)
[2021-12-16] MEDS ORDERED: PROPOFOL IV EMULSION 10 MG/ML 20 ML VIAL IV ONE (13:25)
[2021-12-16] MEDS ORDERED: LIDOCAINE 2% 2 ML VIAL/AMP(20MG/ML) INFIL ONE (13:25)
--- NOTE | 2021-12-16 13:40 | GI REPORT ---
Patient Name: Whit Louie Procedure Date: 12/16/2021 11:54 AM Date of : 1945 Admit Type: Inpatient Age: 76 Gender: Female Attending MD: Nura Tesfaye MD Procedure: Upper GI endoscopy Providers: Nura Tesfaye MD Referring MD: Earnest Deutsch Indications: Acute post hemorrhagic anemia, Active gastrointestinal bleeding Medicines: Monitored Anesthesia Care Complications: No immediate complications. Estimated Blood Loss: Estimated blood loss: none. Procedure: Pre-Anesthesia Assessment: - Prior to the procedure, a History and Physical was performed, and patient medications and allergies were reviewed. The patient is competent. The risks and benefits of the procedure and the sedation options and risks were discussed with the patient. All questions were answered and informed consent was obtained. Patient identification and proposed procedure were verified by the physician and the nurse in the pre-procedure area. Mental Status Examination: alert and oriented. Airway Examination: normal oropharyngeal airway and neck mobility. Respiratory Examination: clear to auscultation. CV Examination: RRR, no murmurs, no S3 or S4. Prophylactic Antibiotics: The patient does not require prophylactic antibiotics. Prior Anticoagulants: The patient has taken Xarelto (rivaroxaban), last dose was 2 days prior to procedure. ASA Grade Assessment: IV - A patient with severe systemic disease that is a constant threat to life. After reviewing the risks and benefits, the patient was deemed in satisfactory condition to undergo the procedure. The anesthesia plan was to use monitored anesthesia care (MAC). Immediately prior to administration of medications, the patient was re-assessed for adequacy to receive sedatives. The heart rate, respiratory rate, oxygen saturations, blood pressure, adequacy of pulmonary ventilation, and response to care were monitored throughout the procedure. The physical status of the patient was re-assessed after the procedure. After obtaining informed consent, the endoscope was passed under direct vision. Throughout the procedure, the patient's blood pressure, pulse, and oxygen saturations were monitored continuously. The Endoscope was introduced through the mouth, and advanced to the second part of duodenum. The upper GI endoscopy was accomplished without difficulty. The patient tolerated the procedure well. Findings: No gross lesions were noted in the entire esophagus. The Z-line was variable and was found 38 to 39 cm from the incisors. A 1 cm hiatal hernia was present. There is no endoscopic evidence of Bojorquez's esophagus or mucosal abnormalities at the gastroesophageal junction. There is no endoscopic evidence of bleeding in the entire esophagus. The entire examined stomach was normal. There is no endoscopic evidence of bleeding, inflammation or mucosal abnormalities in the entire examined stomach. The examined duodenum was normal. There is no endoscopic evidence of bleeding or mucosal abnormalities in the entire examined duodenum. Impression: - No gross lesions in esophagus. - Z-line variable, 38 to 39 cm from the incisors. - 1 cm hiatal hernia. - Normal stomach. - Normal examined duodenum. - No specimens collected. Recommendation: - Return patient to [facility] for ongoing care. - Advance diet as tolerated. - Continue present medications. MD Nura Gonsalves MD 12/16/2021 1:40:22 PM This report has been signed electronically. Note Initiated On: 12/16/2021 11:54 AM Number of Addenda: 0 I attest to the content of the Intraoperative Record and orders documented therein, exceptions below {[id number]}
--- NOTE | 2021-12-16 13:54 | GI REPORT ---
Patient Name: Whit Louie Procedure Date: 12/16/2021 11:55 AM Date of : 1945 Admit Type: Inpatient Age: 76 Gender: Female Attending MD: Nura Tesfaye MD Procedure: Colonoscopy Providers: Nura Tesfaye MD Referring MD: Earnest Deutsch Indications: Rectal bleeding, Acute post hemorrhagic anemia Medicines: Monitored Anesthesia Care Complications: No immediate complications. Estimated Blood Loss: Estimated blood loss was minimal. Procedure: Pre-Anesthesia Assessment: - Prior to the procedure, a History and Physical was performed, and patient medications and allergies were reviewed. The patient is competent. The risks and benefits of the procedure and the sedation options and risks were discussed with the patient. All questions were answered and informed consent was obtained. Patient identification and proposed procedure were verified by the physician and the nurse in the pre-procedure area. Mental Status Examination: alert and oriented. Airway Examination: normal oropharyngeal airway and neck mobility. Respiratory Examination: clear to auscultation. CV Examination: RRR, no murmurs, no S3 or S4. Prophylactic Antibiotics: The patient does not require prophylactic antibiotics. Prior Anticoagulants: The patient has taken Xarelto (rivaroxaban), last dose was 2 days prior to procedure. ASA Grade Assessment: IV - A patient with severe systemic disease that is a constant threat to life. After reviewing the risks and benefits, the patient was deemed in satisfactory condition to undergo the procedure. The anesthesia plan was to use monitored anesthesia care (MAC). Immediately prior to administration of medications, the patient was re-assessed for adequacy to receive sedatives. The heart rate, respiratory rate, oxygen saturations, blood pressure, adequacy of pulmonary ventilation, and response to care were monitored throughout the procedure. The physical status of the patient was re-assessed after the procedure. After I obtained informed consent, the scope was passed under direct vision. Throughout the procedure, the patient's blood pressure, pulse, and oxygen saturations were monitored continuously. The Colonoscope was introduced through the anus and advanced to the cecum, identified by appendiceal orifice and ileocecal valve. The colonoscopy was performed without difficulty. The patient tolerated the procedure well. The quality of the bowel preparation was evaluated using the BBPS ([place] Bowel Preparation Scale) with scores of: Right Colon = 2 (minor amount of residual staining, small fragments of stool and/or opaque liquid, but mucosa seen well), Transverse Colon = 2 (minor amount of residual staining, small fragments of stool and/or opaque liquid, but mucosa seen well) and Left Colon = 2 (minor amount of residual staining, small fragments of stool and/or opaque liquid, but mucosa seen well). The total BBPS score equals 6. The quality of the bowel preparation was good. The entire colon was well visualized. The ileocecal valve, appendiceal orifice, and rectum were photographed. Findings: Hemorrhoids were found on perianal exam. A single large localized angiodysplastic lesion with bleeding was found in the cecum. Coagulation for hemostasis using heater probe was successful. A few medium-mouthed diverticula were found in the sigmoid colon. There was no evidence of diverticular bleeding. Non-bleeding external and internal hemorrhoids were found during retroflexion, during perianal exam and during digital exam. The hemorrhoids were Grade IV (internal hemorrhoids that prolapse and cannot be reduced manually). There is no endoscopic evidence of inflammation, mass or polyps in the entire colon. Impression: - Hemorrhoids found on perianal exam. - A single bleeding colonic angiodysplastic lesion. Treated with a heater probe. - Diverticulosis in the sigmoid colon. There was no evidence of diverticular bleeding. - Non-bleeding external and internal hemorrhoids. - No specimens collected. Recommendation: - [facility] patient [facility] for [facility] care. - Advance diet as tolerated. - Continue present medications. MD Nura Gonsalves MD 12/16/2021 1:53:41 PM This report has been signed electronically. Note Initiated On: 12/16/2021 11:55 AM Number of Addenda: 0 I attest to the content of the Intraoperative Record and orders documented therein, exceptions below {[id number]}
--- NOTE | 2021-12-16 14:00 | Post Operative Brief Note ---
Immediate Post Op Note v1 Date of Surgery December 16, 2021 Pre & Post Diagnosis Operation Date: 12/15/21 16:30 <No data on this case meets the specified criteria> Operation Date: 12/16/21 11:30 Pre-Op Diagnosis: Gastrointestinal Bleeding Post-Op Diagnosis: Hiatal Hernia, Bleeding Arteriovenous Malformation I identified the patient and participated in the time-out.: Yes Procedure Operation Date: 12/15/21 16:30 <No data on this case meets the specified criteria> Operation Date: 12/16/21 11:30 Actual Procedures p Colonoscopy(Not Applicable) - Nura Tesfaye MD s Esophagogastroduodenoscopy(Not Applicable) - Nura Tesfaye MD Surgeon Nura Tesfaye MD Heating And Refrigeration Inspector none Estimated Blood Loss 5 Findings See Below Single actively bleeding AVM was identified in the cecum, successfully cauterized with the heater probe, no active bleeding detected following thermal therapy. Uncomplicated sigmoid colon diverticulosis without evidence of bleeding Grade IV prolapsed internal and external hemorrhoids without evidence of bleeding Small sliding type hiatal hernia, upper endoscopy otherwise normal, with no evidence of any bleeding lesion
[2021-12-16] MEDS ORDERED: Nursing to Pharmacy Communication SCH (14:15)
--- NOTE | 2021-12-16 14:22 | Anesthesiology Progress Note ---
Date of Service December 16, 2021 Anesthesia Post Procedure Vital Signs Vital Signs: Temp Pulse Pulse Pulse Resp BP BP 12/16/21 14:00 36.7 C 60 17 145/62 H 12/16/21 13:50 70 16 169/56 H 12/16/21 13:40 65 17 163/59 H 12/16/21 13:30 36.7 C 70 14 160/47 H 12/16/21 12:00 36.5 C 59 L 18 168/73 H 12/16/21 08:16 156/72 H 12/16/21 08:00 36.3 C L 60 20 197/94 H 12/16/21 07:25 60 12/16/21 04:26 36.5 C 60 18 175/50 H 12/16/21 00:02 60 12/15/21 23:45 36.4 C L 60 18 137/56 L 12/15/21 20:01 60 158/65 H 12/15/21 19:21 36.5 C 60 20 180/72 H 12/15/21 18:48 60 12/15/21 18:47 36.8 C 60 18 160/83 H 12/15/21 18:04 12/15/21 16:29 36.7 C 60 18 132/67 12/15/21 14:52 60 Pulse Ox Pulse Ox 12/16/21 14:00 100 12/16/21 13:50 100 12/16/21 13:40 100 12/16/21 13:30 98 12/16/21 12:00 98 12/16/21 08:16 12/16/21 08:00 100 12/16/21 07:25 12/16/21 04:26 100 12/16/21 00:02 12/15/21 23:45 100 12/15/21 20:01 12/15/21 19:21 98 12/15/21 18:48 12/15/21 18:47 98 12/15/21 18:04 97 12/15/21 16:29 98 12/15/21 14:52 Transfer of Care Handoff Completed per policy Notes Mental Status: alert / awake / arousable Patient Amnestic to Procedure: Yes Nausea / Vomiting: adequately controlled Pain: adequately controlled Airway Patency, RR, SpO2: stable & adequate BP & HR: stable & adequate Hydration State: stable & adequate Anesthetic Complications: no major complications apparent
[2021-12-16] MEDS: INSULIN HUMAN NPH SC SCH (17:08)
[2021-12-16] MEDS: CLOPIDOGREL BISULFATE 75 MG TAB PO SCH (17:56)
--- NOTE | 2021-12-16 18:38 | Hospitalist Progress Note ---
Date of Service December 16, 2021 Assessment & Plan (1) GIB (gastrointestinal bleeding): (2) Acute blood loss anemia: Plan: Hemoglobin 9.6 stable following 3 units of packed red blood cells. Appreciate gastroenterology management - EGD/colonoscopy today revealed andiodys plasia of cecum as cause of bleed Can restart clopidogrel 75mg PO daily today and daily Continue to hold Xarelto - ?close follow up with cardiology and repeat US venous doppler to decide when to restart this Can discontinue pantoprazole IV and switch to PO 40mg daily. (3) Deep vein thrombosis (DVT) of left upper extremity: Plan: Non-occlusive Proximal Left Subclavian DVT and Chronic Non-occlusive Left Cephalic Vein DVT which diagnosed 12/05/21 and she started on Xarelto on 12/05/21). Aspirin is on hold as well. -- Restart anticoagulation after bleeding is stopped, source is identified and treated, and when okay from GI point of view. (4) CAD (coronary artery disease): Plan: CAD s/p LAD/Diagonal Stenting 10/2020 s/p CABG x 3 Vessels 03/2021. Fortunately, she is asymptomatic from a cardiac standpoint. She has not had any angina pectoris or anginal equivalent symptoms despite her marked anemia. -- Continue Coreg with hold parameters. -- Continue Lisinopril with hold parameters. -- Continue Plavix post EGD colonoscopy due to prior LAD/Diagonal Stenting. -- Remain off of Aspirin. -- Continue Zetia 10 mg daily, she is intolerant of statins. -- Consider Repatha 140 mg every 2 weeks. -- Maintain Hgb > 9.0 g/dL. (5) Left bundle branch block: Plan: History of Chronic LBBB but she is AV sequentially pacing and has a narrow QRS complex due to pacing from LBB. (6) Severe obstructive sleep apnea: Plan: -- Continue chronic supplemental O2 at 2 L/min via NC. -- BiPAP qHS. (7) Hypertension: Plan: BP has been stable. SBP is running in the 130's and 140's. -- Continue Coreg with hold parameters. -- Continue Lisinopril with hold parameters. (8) Chronic kidney disease, stage III (moderate): Plan: Followed by Dr. Jesus. Mildly elevated on admission with creatinine 2.78 from baseline 1.98. Improving with blood transfusions. Now back to baseline Cr 1.64 (9) Cardiac pacemaker: Plan: Due to sinus node dysfunction. -- AV sequentially pacing and has a narrow QRS complex due to pacing from LBB. (10) Type 2 diabetes mellitus treated with insulin: Plan: HbA1c 7.0 in October. No need to repeat this in setting of acute GI bleed. -- Glycemic pharmacy consult. -- BSG qAC and HS and PRN. Plan: VTE prophylaxis -SCDs Diet - advance diet as tolerated Disposition -stable for downgrade to [facility] telemetry Admission and Anticipated Discharge Date Admission Date: December 14, 2021 Subjective Had a lot of bloody bowel movements yesterday with Golytely prep. None since colonoscopy. Hemoglobin stable. No chest pain, dizziness or shortness of breath. No abdominal pain, nausea or vomiting. Review of Systems Review of Systems: All systems reviewed & are unremarkable except as noted in Subjective Physical Exam Constitutional: WD/WN, vitals as above Eyes: no conjunctival abnormality (no pallor) Respiratory: normal respiratory effort, lungs clear to auscultation Cardiovascular: RRR, no murmur, no edema Gastrointestinal (Abdomen): Inspection/Auscultation: normal bowel sounds Percussion/Palpation: abdomen soft; abdomen nontender Neurologic: moves all extremities and awake; not confused Psychiatric: A+Ox3, euthymic affect Results & Data Results & Data ([facility]) Vital Signs (Past 12 Hours) Vital Signs Temp Pulse Pulse Pulse Resp BP BP 12/16/21 15:58 36.5 C 60 18 153/66 H 12/16/21 15:31 60 12/16/21 15:05 36.6 C 60 18 159/71 H 12/16/21 14:35 36.4 C L 59 L 16 151/69 H 12/16/21 14:20 36.7 C 61 18 164/58 H 12/16/21 14:00 36.7 C 60 17 145/62 H 12/16/21 13:50 70 16 169/56 H 12/16/21 13:40 65 17 163/59 H 12/16/21 13:30 36.7 C 70 14 160/47 H 12/16/21 12:00 36.5 C 59 L 18 168/73 H 12/16/21 08:16 156/72 H 12/16/21 08:00 36.3 C L 60 20 197/94 H 12/16/21 07:25 60 Pulse Ox 12/16/21 15:58 97 12/16/21 15:31 12/16/21 15:05 100 12/16/21 14:35 98 12/16/21 14:20 98 12/16/21 14:00 100 12/16/21 13:50 100 12/16/21 13:40 100 12/16/21 13:30 98 12/16/21 12:00 98 12/16/21 08:16 12/16/21 08:00 100 12/16/21 07:25 PG Care Time/CCT Total # of Minutes Spent Total Time Spent with Patient: Total time spent is greater than 50% in coordination of care (as documented) at patient's floor/unit and/or counseling patient: Coding Level of Care Code 30760 Subseq Hosp Care Lvl 2 Diagnoses GIB (gastrointestinal bleeding) K92.2 GI bleed type/associated pathology: unspecified gastrointestinal hemorrhage type Acute blood loss anemia D62 Deep vein thrombosis (DVT) of left upper extremity I82.622 CAD (coronary artery disease) I25.10 Associated angina: without angina Coronary Disease-Associated Artery/Lesion type: [place] artery [place] vs. transplanted heart: [place] heart Left bundle branch block I44.7 Severe obstructive sleep apnea G47.33 Hypertension I10 Hypertension type: primary hypertension Chronic kidney disease, stage III (moderate) N18.3 Cardiac pacemaker Z95.0 Type 2 diabetes mellitus treated with insulin E11.9; Z79.4 (1) GIB (gastrointestinal bleeding) GI bleed type/associated pathology: unspecified gastrointestinal hemorrhage type Qualified Code(s): K92.2 - Gastrointestinal hemorrhage, unspecified (2) CAD (coronary artery disease) Associated angina: without angina Coronary Disease-Associated Artery/Lesion type: [place] artery [place] vs. transplanted heart: [place] heart Qualified Code(s): I25.10 - Atherosclerotic heart disease of [place] coronary artery without angina pectoris (3) Hypertension Hypertension type: primary hypertension Qualified Code(s): I10 - Essential (primary) hypertension
[2021-12-17 06:19] LABS: Basophils # (auto) 0.02 K/uL (0-0.2); Basophils % (auto) 0.3 %; Eosinophils % (auto) 2.7 %; Hematocrit (blood only) 25.8 % (37-47); Hemoglobin 8.8 g/dL (12.0-16.0); Immature Granulocytes # (auto) 0.02 K/uL (0.00-0.02); Immature Granulocytes % (auto) 0.3 %; Lymphocytes # (auto) 1.78 K/uL (1.2-3.4); Lymphocytes % (auto) 23.9 %; Mean Corpuscular Hemoglobin 31.7 pg (25-34); Mean Corpuscular Hgb Conc 34.1 g/dL (32-36); Mean Corpuscular Volume 92.8 fL (80-100); Mean Platelet Volume 8.8 fL (7.4-10.4); Monocytes # (auto) 0.54 K/uL (0.11-0.59); Monocytes % (auto) 7.2 %; Neutrophils # (auto) 4.89 K/uL (1.4-6.5); Neutrophils % (auto) 65.6 %; Platelet Count 203 K/uL (130-400); RDW Coefficient of Variation 14.4 % (11.5-14.5); RDW Standard Deviation 48.4 fL (36.4-46.3); Red Blood Count 2.78 M/uL (4.2-5.4); White Blood Count 7.45 K/uL (4.8-10.8)
[2021-12-17 06:46] LABS: BUN Creatinine Ratio 26.1 (10-20); Calcium 8.4 mg/dl (8.5-10.1); Creatinine Clr Calc Pharmacy 27.8 ml/min; Est GFR (African American) 36.5 ml/min; Est GFR (Non-African American) 31.5 ml/min; Potassium 4.3 mmol/L (3.5-5.1)
[2021-12-17] MEDS: INSULIN ASPART PER UNIT SC SCH ×3 (08:34→17:24)
[2021-12-17] MEDS: INSULIN HUMAN NPH SC SCH (08:35)
[2021-12-17] MEDS: prednisoLONE acetate 1% OP SUSP 5 ML BTL OP SCH ×2 (08:36→13:13)
[2021-12-17] MEDS: MOXIFLOXACIN HCL 0.5% OP SOLN 3 ML BTL OP SCH ×2 (08:36→13:13)
[2021-12-17] MEDS: CLOPIDOGREL BISULFATE 75 MG TAB PO SCH (08:38)
[2021-12-17] MEDS: carvediloL 12.5 MG TAB PO SCH (08:38)
[2021-12-17] MEDS: CETIRIZINE HCL 10 MG TABLET PO SCH (08:38)
[2021-12-17] MEDS: CHOLECALCIFEROL 1,000 UNITS 25 MCG TAB PO SCH (08:38)
[2021-12-17] MEDS: MAGNESIUM OXIDE 400 MG TAB PO SCH (08:38)
[2021-12-17] MEDS: ASCORBIC ACID 500 MG TAB PO SCH (08:38)
[2021-12-17] MEDS: ACYCLOVIR 400 MG TAB PO SCH (08:38)
[2021-12-17] MEDS: lisinopril 20 MG TAB PO SCH (08:38)
[2021-12-17] MEDS: CYANOCOBALAMIN (B-12) 500 MCG TABLET PO SCH (08:38)
[2021-12-17] MEDS: EZETIMIBE 10 MG TABLET PO SCH (08:38)
[2021-12-17] MEDS ORDERED: PANTOprazole 40 MG TAB PO SCH (09:00)
--- NOTE | 2021-12-17 13:06 | Gastroenterology Progress Note ---
Date of Service December 17, 2021 Assessment & Plan (1) Arteriovenous malformation of colon with hemorrhage: (2) GIB (gastrointestinal bleeding): (3) Acute blood loss anemia: (4) Diverticulosis large intestine w/o perforation or abscess w/o bleeding: (5) Hemorrhoids: Plan: This bleeding episode appears to be controlled and not active following cauterization of a bleeding AVM in the cecum yesterday. antiplatelet agent has been resumed. Diet can be advanced, and anticoagulation can be resumed (if needed). No other AVMs identified, no other bleeding source identified. There may be other AVMs in the small intestine or colon and Ms. Corona was advised to continue her observation for rectal bleeding., Repeat H/H pending, and agree with discharge plan. GI service will sign off, and follow up if rebleeding noted. Admission and Anticipated Discharge Date Admission Date: December 14, 2021 Subjective Since procedure for control of bleeding from cecal AVM yesterday, Ms. Corona has had only one watery nonbloody BM, no rectal bleeding noted, she has felt well, vital signs stable, drop in Hgb from 9.6 gm post transfusion to 8.8 gm this morning noted, likely dilutional. Review of Systems Review of Systems: All systems reviewed & are unremarkable except as noted in Subjective Physical Exam Respiratory: normal respiratory effort, lungs clear to auscultation Cardiovascular: Rate/Rhythm: regular rate and regular rhythm Heart Sounds: + murmur Vessels: + carotid bruit Gastrointestinal (Abdomen): Inspection/Auscultation: normal bowel sounds and + significant pannus Percussion/Palpation: abdomen soft and normal to percussion; no guarding, no hepatosplenomegaly and no abdominal mass Musculoskeletal: Extremities: + upper extremity abnormal to inspection Skin: no rashes, warm and dry no pallor noted Psychiatric: A+Ox3, euthymic affect Results & Data ([facility]) Vital Signs (Past 12 Hours) Vital Signs Temp Pulse Pulse Resp BP BP Pulse Ox 12/17/21 11:50 36.5 C 60 20 144/72 H 98 12/17/21 07:18 60 12/17/21 06:24 36.7 C 63 18 161/52 H 99 12/17/21 03:02 36.6 C 64 18 148/66 H 96 Laboratory Results Laboratory Results WBC 7.45 K/uL (4.8-10.8) 12/17/21 05:58 RBC 2.78 M/uL (4.2-5.4) L 12/17/21 05:58 Hgb 8.8 g/dL (12.0-16.0) L 12/17/21 05:58 Hct 25.8 % (37-47) L 12/17/21 05:58 MCV 92.8 fL (80-100) 12/17/21 05:58 MCH 31.7 pg (25-34) 12/17/21 05:58 MCHC 34.1 g/dL (32-36) 12/17/21 05:58 RDW Std Deviation 48.4 fL (36.4-46.3) H 12/17/21 05:58 RDW Coeff of [place] 14.4 % (11.5-14.5) 12/17/21 05:58 Plt Count 203 K/uL (130-400) 12/17/21 05:58 MPV 8.8 fL (7.4-10.4) 12/17/21 05:58 Immature Gran % (Auto) 0.3 % 12/17/21 05:58 Neut % (Auto) 65.6 % 12/17/21 05:58 Lymph % (Auto) 23.9 % 12/17/21 05:58 [place] % (Auto) 7.2 % 12/17/21 05:58 Eos % (Auto) 2.7 % 12/17/21 05:58 Baso % (Auto) 0.3 % 12/17/21 05:58 Neut # (Auto) 4.89 K/uL (1.4-6.5) 12/17/21 05:58 Lymph # (Auto) 1.78 K/uL (1.2-3.4) 12/17/21 05:58 [place] # (Auto) 0.54 K/uL (0.11-0.59) 12/17/21 05:58 Eos # (Auto) 0.20 K/uL (0-0.5) 12/17/21 05:58 Baso # (Auto) 0.02 K/uL (0-0.2) 12/17/21 05:58 Immature Gran # (Auto) 0.02 K/uL (0.00-0.02) 12/17/21 05:58 Absolute Nucleated RBC 0.02 K/uL (0-0) H 12/16/21 08:08 Nucleated RBC % (auto) 0.3 % 12/16/21 08:08 RBC Morphology Unremarkable 12/14/21 15:05 PT 13.1 Seconds (9.0-12.0) H 12/14/21 15:05 INR 1.2 (0.9-1.1) H 12/14/21 15:05 APTT 31.4 Seconds (21.0-31.0) H 12/14/21 15:05 PTT Ratio 1.1 12/14/21 15:05 Sodium 137 mmol/L (136-145) 12/17/21 05:58 Potassium 4.3 mmol/L (3.5-5.1) 12/17/21 05:58 Chloride 107 mmol/L (98-107) 12/17/21 05:58 Carbon Dioxide 26 mmol/L (21-32) 12/17/21 05:58 Anion Gap 4 (3-11) 12/17/21 05:58 BUN 41 mg/dl (6-23) H D 12/17/21 05:58 Creatinine 1.57 mg/dl (0.6-1.2) H 12/17/21 05:58 Est Cr Clr Drug Dosing 27.8 ml/min 12/17/21 05:58 Est GFR ( Amer) 36.5 ml/min 12/17/21 05:58 Est GFR (Non-Af Amer) 31.5 ml/min 12/17/21 05:58 BUN/Creatinine Ratio 26.1 (10-20) H 12/17/21 05:58 Glucose 105 mg/dl (70-99(Fasting)) H 12/17/21 05:58 POC Glucose 155 mg/dl (70-99) H 12/17/21 11:41 Calcium 8.4 mg/dl (8.5-10.1) L 12/17/21 05:58 Total Bilirubin 0.6 mg/dl (0.2-1.0) 12/16/21 08:08 AST 15 U/L (13-39) 12/16/21 08:08 ALT 9 U/L (7-52) 12/16/21 08:08 Alkaline Phosphatase 50 U/L (34-104) 12/16/21 08:08 Total Protein 6.2 gm/dl (6.0-8.3) 12/16/21 08:08 Albumin 3.7 gm/dl (3.4-5.0) 12/16/21 08:08 Globulin 2.5 gm/dl (2.5-4.0) 12/16/21 08:08 Albumin/Globulin Ratio 1.5 (0.9-2) 12/16/21 08:08 SARS-CoV-2, RNA, NAAT NEGATIVE (NEGATIVE) 12/14/21 15:29 Blood Type O Negative 12/14/21 15:05 Antibody Screen NEGATIVE 12/14/21 15:05 Crossmatch See Detail 12/14/21 15:05 (1) GIB (gastrointestinal bleeding) GI bleed type/associated pathology: unspecified gastrointestinal hemorrhage type Qualified Code(s): K92.2 - Gastrointestinal hemorrhage, unspecified
[2021-12-17 14:07] LABS: Hematocrit (blood only) 26.4 % (37-47); Hemoglobin 8.9 g/dL (12.0-16.0)
[2021-12-17] MEDS: CARBOHYDRATES FOR HYPOGLYCEMIA PO PRN ×3 (14:53→16:57)
--- NOTE | 2021-12-17 18:09 | Discharge Summary ---
Date of Service December 17, 2021 Admission HPI Per Admitting Provider 76 year old woman on Xarelto since 12-05-21 for management of subclavian and cephalic vein DVTs has had uncontrolled red rectal bleeding with destabilizing acute severe blood loss anemia. Stable following resuscitation with fluids and packed red blood cells, rectal bleeding continues. Xarelto and Plavix held for the past 48 hours. Principal Diagnosis Acute blood loss anemia Acute GI bleed Discharge Exam Constitutional WD/WN, vitals as above Eyes no conjunctival abnormality (no pallor) Respiratory normal respiratory effort, lungs clear to auscultation Cardiovascular RRR, no murmur, no edema Gastrointestinal (Abdomen) Inspection/Auscultation: normal bowel sounds Percussion/Palpation: abdomen soft; abdomen nontender Musculoskeletal no cyanosis or clubbing, extremities motor strength 5/5 Skin no rashes, warm and dry Neurologic moves all extremities and awake; not confused Psychiatric A+Ox3, euthymic affect Discharge Data Allergies Allergy/AdvReac Type Severity Reaction Status Date / Time Acmpdxt-SKE-BgD Reductase Allergy Severe CHEST PAIN Verified 12/14/21 16:48 Inhibitor [Ndpjdwe-Hrv-Vzf Reductase Inhibitor] adhesive Allergy Intermediate SKIN Verified 12/14/21 16:48 IRRITATION-BANDAGES aspartame Allergy Mild pt Verified 12/14/21 16:48 reported allergy to equal latex Allergy Mild RASH Verified 12/14/21 16:48 aspirin Allergy Unknown AVOID HX Verified 12/14/21 16:48 GI BLEED ibuprofen AdvReac Severe gave me a Verified 12/14/21 16:48 duodenal ulcer morphine AdvReac Severe NARCOTICS-GI Verified 12/14/21 16:48 UPSET AND HALLUCINATIONS NSAIDS (Non-Steroidal AdvReac Severe HX ULCER Verified 12/14/21 16:48 Anti-Inflamma chlorhexidine AdvReac Intermediate itching Verified 12/14/21 16:48 and burning tramadol AdvReac Intermediate vomit Verified 12/14/21 16:48 acetaminophen AdvReac Unknown TO AVOID Verified 12/14/21 16:48 -"have an enlarged liver" FATTY LIVER opioids Allergy Severe Vomiting,mijares Uncoded 12/14/21 16:48 llucination s Consultations 12/14/21 15:38 ED Decision to Admit Stat 12/14/21 18:04 Consult Gastroenterology Routine Procedures Performed Operation Date: 12/15/21 16:30 <No data on this case meets the specified criteria> Operation Date: 12/16/21 11:30 Actual Procedures p Colonoscopy(Not Applicable) - Nura Tesfaye MD s Esophagogastroduodenoscopy(Not Applicable) - Nura Tesfaye MD Hospital Course (1) GIB (gastrointestinal bleeding): Whit Corona is a 76 year old female admitted to [facility] from December 14 - 2021 due to acute gastrointestinal bleed in the setting of Xarelto and clopidogrel use. Hemoglobin 6.3 at it's lowest and she required 3 unit packed red blood cells. She was diagnosed with angiodysplasia on colonoscopy in the cecum. This was treated with coagulation at the time of colonoscopy with a heater probe. She was restarted on clopidogrel without a significant drop in your hemoglobin (8.9 g/dL on discharge). Will continue to hold Xarelto currently and recommended close follow up with her facility rehab director for advice when to restart this. She should repeat hemoglobin levels as ordered in approximately 3-4 days. (2) Acute blood loss anemia: (3) Deep vein thrombosis (DVT) of left upper extremity: (4) CAD (coronary artery disease): (5) Left bundle branch block: (6) Severe obstructive sleep apnea: (7) Hypertension: (8) Chronic kidney disease, stage III (moderate): (9) Cardiac pacemaker: (10) Type 2 diabetes mellitus treated with insulin: Total Time Total Time Spent Total Time Spent (In Minutes): 45 Discharge Plan Discharge Items Patient Disposition: Home - Self-Care Reason For Visit: GIB, ACUTE BLOOD LOSS ANEMIA Discharge Diagnosis: Acute blood loss anemia Acute GI bleed Activity: Resume your previous activity Non-emergency contact: Primary Care Provider Call non-emergency contact if: you have any medication questions and your symptoms worsen Follow-up/Referrals: Earnest Deutsch MD [Primary Care Provider] - Dylan Casas MD [Physician] - (1-2 weeks to discuss restarting Xarelto) Diet: Carb Count or DM1 Addtl Attending Provider Instructions: You were admitted to [facility] from december 14 - 2021 due to acute gastrointestinal bleed in the setting of Xarelto and clopidogrel use. You were diagnosed with angiodysplasia on colonoscopy in the cecum. This was treated with coagulation at the time of colonoscopy with a heater probe. You were restartde on clopidogrel with a significant drop in your hemoglobin. Will continue to hold Xarelto currently and follow up with your facility rehab director for advice when to restart this. Please repeat hemoglobin blood test in approximately 3-4 days to make sure this is stable. Pending Studies at Discharge: No Stand-Alone Forms: [facility], Smoking Cessation Medications and DC Order Prescriptions: New pantoprazole 40 mg Tablet,Delayed Release (Dr/Ec) 40 mg PO QAM 30 Days Qty: 30 RF: 0 ferrous sulfate 325 mg (65 mg iron) tablet,delayed release (DR/EC) 325 mg PO Q OTHER DAY Qty: 30 RF: 0 Continued ezetimibe [Zetia] 10 mg tablet 10 mg PO DAILY Qty: 90 RF: 3 carvedilol 12.5 mg tablet 12.5 mg PO .COMPLEX Qty: 90 RF: 5 clopidogrel 75 mg tablet 75 mg PO DAILY Qty: 30 RF: 5 furosemide 20 mg tablet 20 mg PO DAILY Qty: 30 RF: 5 meclizine 25 mg tablet 25 mg PO DAILY Qty: 270 RF: 3 levothyroxine 50 mcg tablet 50 mcg PO 6XWK Qty: 30 RF: 11 lisinopril 20 mg tablet 20 mg PO DAILY Qty: 30 RF: 6 ketoconazole 2 % cream 1 applic TOP DIRECTED Qty: 30 RF: 0 mecobalamin (vitamin B12) 1,000 mcg tablet,chewable 1,000 mcg PO DAILY RF: 0 Novolin R Regular U-100 Insuln 100 unit/mL solution See Rx Instructions .ROUTE .COMPLEX RF: 0 Novolin N NPH U-100 Insulin 100 unit/mL suspension 25 unit SUBCUT QPM RF: 0 modafinil 100 mg tablet 100 mg PO DAILY PRN (Reason: Insomnia) RF: 0 (DME) BiPap Machine Misc See Dose Instructions .ROUTE .MEDSUPPLY Qty: 1 RF: 0 (DME) Dexcom G6 Transmitter Device See Rx Instructions .Route RF: 0 (DME) Dexcom G6 Sensor Device See Rx Instructions .Route RF: 0 (DME) Dexcom G6 Wire Temperer Misc See Rx Instructions .Route RF: 0 prednisolone acetate 1 % Drops,Suspension 1 drp OPR TID RF: 0 moxifloxacin 0.5 % drops 1 drp ophthalmic (eye) QID RF: 0 Refresh Optive 0.5-0.9 % Drops 2 drp OPHTHALMIC (EYE) QID PRN (Reason: Dry Eyes) RF: 0 Zyrtec 10 mg Capsule 10 mg PO DAILY RF: 0 albuterol sulfate 2.5 mg /3 mL (0.083 %) solution for nebulization 2.5 mg Inhalation Q4 PRN (Reason: Wheezing) RF: 0 acyclovir 800 mg tablet 800 mg PO DAILY RF: 0 ascorbic acid (vitamin C) [Vitamin C] 500 mg tablet 500 mg PO DAILY RF: 0 cholecalciferol (vitamin D3) [Vitamin D3] 50 mcg (2,000 unit) capsule 1,000 unit PO BID RF: 0 omeprazole 40 mg capsule,delayed release(DR/EC) 40 mg PO DAILY RF: 0 magnesium oxide 500 mg Tablet 500 mg PO BID RF: 0 Discontinued aspirin 81 mg tablet,delayed release (DR/EC) 81 mg PO DAILY RF: 0 Xarelto 15 mg Tablet 15 mg PO BID RF: 0 Discharge Orders: Discharge Order (Routine); Ordered 12/17/21 Ordered By: Marcelo Lanier Admission Data Admit Date/Time: 12/14/21 16:36 Attending Provider: Marcelo Lanier Admit Provider: Marcelo Lanier Primary Care Provider: Earnest Deutsch Other Providers: Nura Tesfaye Other Interventions: Discharge Summary Assessment (RN) Last Done: 12/17/21 18:22 Coding Level of Care Code D/C DAY MANAGEMENT >30 MINS Diagnoses GIB (gastrointestinal bleeding) K92.2 GI bleed type/associated pathology: unspecified gastrointestinal hemorrhage type Acute blood loss anemia D62 Deep vein thrombosis (DVT) of left upper extremity I82.622 CAD (coronary artery disease) I25.10 Associated angina: without angina Coronary Disease-Associated Artery/Lesion type: [place] artery [place] vs. transplanted heart: [place] heart Left bundle branch block I44.7 Severe obstructive sleep apnea G47.33 Hypertension I10 Hypertension type: primary hypertension Chronic kidney disease, stage III (moderate) N18.3 Cardiac pacemaker Z95.0 Type 2 diabetes mellitus treated with insulin E11.9; Z79.4
== END 2021-12-17 18:47 | disposition home or self-care (01) | DRG 378 ==
LOC: ED 14:21 → SUATTDRO 16:36 → 2S 16:36 → 2W 12-15 18:44